=== PATIENT | male | born 1950 | race Caucasian/White ===

== ENCOUNTER 2022-06-29 12:58 | Inpatient (IN) ==
[2022-06-29] MEDS ORDERED: CEFEPIME 2,000 MG/20 ML VIAL IV STA (13:36)
[2022-06-29] MEDS ORDERED: SODIUM CHLORIDE 0.9% 1000ML 1,000 ML IV SCH (13:45)
[2022-06-29 14:58] LABS: Basophils # (auto) 0.07 K/uL (0-0.2); Basophils % (auto) 0.6 %; Eosinophils # (auto) 0.33 K/uL (0-0.50); Eosinophils % (auto) 2.9 %; Hematocrit (blood only) 37.1 % (42.0-52.0); Hemoglobin 11.7 g/dl (14.0-18.0); Immature Granulocytes # (auto) 0.07 K/uL (0.01-0.20); Immature Granulocytes % (auto) 0.6 %; Lymphocytes # (auto) 3.51 K/uL (1.2-3.4); Lymphocytes % (auto) 30.7 %; Mean Corpuscular Hgb Conc 31.5 g/dL (32.0-36.0); Mean Corpuscular Volume 88.8 fL (80.0-100.0); Mean Platelet Volume 10.4 fL (9.4-12.4); Monocytes # (auto) 1.19 K/uL (0.11-0.59); Monocytes % (auto) 10.4 %; Neutrophils # (auto) 6.26 K/uL (1.40-6.50); Neutrophils % (auto) 54.8 %; Platelet Count 239 K/uL (130-400); RDW Coefficient of Variation 15.3 % (11.5-14.5); RDW Standard Deviation 49.9 fL (36.4-46.3); Red Blood Count 4.18 M/uL (4.70-6.10); White Blood Count 11.43 K/ul (4.8-10.8)
[2022-06-29 15:21] LABS: Albumin Level 3.6 gm/dl (3.4-5.0); Bilirubin Direct 0.1 mg/dl (0-0.2); Bilirubin,Total 0.5 mg/dl (0.2-1.0); Calcium 9.2 mg/dl (8.6-10.3); Magnesium 2.4 mg/dl (1.7-2.4); Potassium 4.1 mmol/L (3.5-5.1)
[2022-06-29 15:23] LABS: Troponin I High Sensitivity 6.3 pg/ml (0-20)
[2022-06-29 15:27] LABS: BUN Creatinine Ratio 18.8 (10-20); Creatinine Clr Calc Pharmacy 55.8 ml/min; Est GFR (African American) 44.4 ml/min; Est GFR (Non-African American) 38.3 ml/min; Total Protein 7.2 gm/dl (6.0-8.3)
[2022-06-29 16:04] LABS: Appearance Urine Turbid (Clear); Bacteria Urine Automated 2+ (Negative); Bilirubin Urine Negative (Negative); Blood Urine 3+ (Negative); Color Urine Dark Yellow; Epithelial Cell Urine Auto >30 /lpf (0-5); Glucose Urine UA Negative (Negative); Ketones Urine Negative (Negative); Leukocyte Esterase Urine 3+ (Negative); Nitrite Urine Negative (Negative); Specific Gravity Urine 1.021 (1.000-1.030); Urobilinogen Urine Negative (Negative); WBC Urine Automated >30 /hpf (0-5)
[2022-06-29 16:13] LABS: Protein Urine 2+ (Negative)
--- NOTE | 2022-06-29 16:13 | XRay Report ---
SINGLE VIEW CHEST CLINICAL HISTORY: Sepsis. FINDINGS: An AP, portable, upright chest radiograph is obtained. No prior studies are available for c omparison at the time of dictation. The examination is degraded by portable technique, apical lordoti c positioning, and patient rotation. The heart is enlarged noting atherosclerotic calcification of th e thoracic. There is pulmonary vascular congestion. Bilateral opacities likely represent pulmonary ed tiffanie. Small pleural effusions are suspected. No pneumothorax is seen. The skeletal structures are oste openic. The bony thorax is grossly intact. IMPRESSION: 1. Cardiomegaly with evidence of congestive failure. 2. Bilateral airspace opacities likely represent pulmonary edema. Correlate clinically for evidence o f a superimposed infectious/inflammatory pneumonitis. Radiographic follow-up to resolution is recomme nded. 3. Suspect small pleural effusions. ACT 112: Negative or not required by law. Electronically signed by: Melo Urrutia M.D. 06/29/2022 4:12 PM
[2022-06-29 16:36] LABS: Amorphous Sediment Urine Present (None Prsent)
--- NOTE | 2022-06-29 17:02 | CT Scan Report ---
CT SCAN OF THE CHEST WITHOUT IV CONTRAST CLINICAL HISTORY: Aspiration. COMPARISON STUDY: Chest x-ray dated 06/29/2022. TECHNIQUE: CT scan of the thorax was performed from the thoracic inlet to the upper abdomen. Images are reviewed in the axial, sagittal, and coronal planes. IV contrast was not administered for this ex amination as per the referring clinician. A dose lowering technique was utilized adhering to the deborah nciples of [place]. The examination is degraded by streak artifact from the arms which could not be alonzo vated above the chest. The examination is also degraded by motion artifact. CT DOSE: 1131.91 mGy.cm FINDINGS: Thyroid: Imaged portions of the thyroid gland are normal in size and attenuation. Thoracic aorta: There is atherosclerotic calcification of the thoracic aorta, which is normal in elham yogi and demonstrates standard 3-vessel arch anatomy. Heart: The heart is enlarged and without pericardial effusion. The coronary arteries and mitral annul us are densely calcified. The pulmonary trunk is dilated, measuring 3.9 cm in diameter. This suggests pulmonary artery hypertension. Lungs and pleural spaces: Evaluation of the lung parenchyma is degraded by motion artifact. There are trace pleural effusions with dependent consolidation. Patchy airspace consolidation is also seen thr oughout the left upper lobe and in the right middle lobe. The trachea is grossly clear. Secretions/de bris are seen in the lower lobe airways. Mediastinum: There is no mediastinal lymphadenopathy. Thais: Not well assessed without IV contrast. Axillae: There is no axillary lymphadenopathy. Upper abdomen: There is a small hiatal hernia. The liver is enlarged and steatotic. The spleen is enl arged measuring 14.8 cm in length. Skeletal structures: The skeletal structures are osteopenic. Degenerative change and hyperkyphosis is seen throughout the thoracic spine. Arthritic change is noted in the shoulders. No lytic or blastic bony lesions are seen. IMPRESSION: 1. Small pleural effusions with dependent consolidation. There is also patchy airspace consolidation in the left upper and right middle lobes. The appearance is typical for pneumonia/aspiration pneumoni tis. Secretions/debris are present within the lower lobe airways and aspiration is favored as clinica lly suggested. 2. Cardiomegaly. 3. Small hiatal hernia. 4. Hepatic steatosis and splenomegaly. 5. Additional findings as above. ACT 112: Negative or not required by law. Electronically signed by: Melo Urrutia M.D. 06/29/2022 5:00 PM
--- NOTE | 2022-06-29 17:29 | History & Physical Report ---
Date of Service June 29, 2022 Assessment & Plan (1) Acute respiratory failure with hypoxia and hypercapnia: Plan: Suspect due to pneumonia rather than CHF. Imaging more suggestive of pneumonia than pulmonary edema with elevated WBC and procalcitonin and lack of improvement with diuretics. ABG suggests some chronic hypercapnia Baseline prior to recent admission in [place] he was on room air but very recently on 2LPM O2 baseline. Aim O2 sats 88-92% (2) Altered mental state: Plan: Despite poor mobility from prior stroke he is reportedly quite sharp at baseline Suspect current metabolic/toxic encephalopathy due to infection +/- methadone/Lyrica/tizanidine in setting of SILVA Polypharmacy and accurate med recs appears to be a big issue - [facility] dose of tizanidine, methadone are different to external pharmacy reported prescription, unclear if he takes ropinirole (noted to continue prescription from [facility] d/c) as not on external pharmacy report or discharge list from [facility]. Hold methadone tonight but can restart tomorrow AM @ 5mg PO BID (note [facility] d/c summary notes continue 2.5mg PO BID but last O/P prescription was for 5mg PO BID), reduce Lyrica to 50mg PO TID, reduce tizanidine to 2mg TID (noted external pharmacy reported prescription and [facility] discharge suggest he is taking 4mg TID at home). CT head without acute findings (3) Pneumonia: Plan: Cepheid negative for RSV, influenza and COVID. Given atypical pattern on CT will get Biofire. Given recent hospitalization will get MRSA nasal swab to determine need for MRSA coverage, add vancomycin if positive Cefepime + metronidazole to cover for aspiration pneumonia, SLT assessment tomorrow Azithromycin to cover for atypical pneumonia (4) Abdominal pain: Plan: Suspect this is somewhat chronic although could be a sign of UTI. No acute findings on CT. Continue to monitor (5) UTI (urinary tract infection): Plan: Alternative source of infection. No specific symptoms but patient also altered. UA from "clean" catch. Pt refusing better sample from straight/quiñones cath. Follow up urine/blood cultures. In setting of b/l staghorn calculus will have urology consulted while patient is inpatient (6) Elevated serum creatinine: Plan: Possible SILVA (but unknown basleine) in setting of losartan and recently increasing Lasix use ER report from 06/27 reports "mild SILVA" with Cr 1.6 and currently 1.76 on admission Will monitor Cr after ER fluids given and cutting back down on Lasix. Holding losartan. (7) Chronic congestive heart failure: Plan: Admitted 06/23- for acute CHF. Lasix increased from 20mg PO daily to 40mg PO BID on discharge. Advised to increase to 80mg PO BID on 06/27 ER visit due to worsening CXR findings although also noted to have "mild SILVA" suspected from Lasix use Unclear if all or part of these times were actually pneumonia rather than CHF given current diagnosis with concurrent altered mental state not explained by CHF and pt not getting better with diuretics and daughter reports his weight is significantly down. Therefore will go back to his prior Lasix dosing of 20mg PO daily given improved UO with IV fluids given in the ER and monitor closely for pulmonary edema perhaps with serial CXRs given difficulty in fluid balance since he is clearly third spacing. Strict I&Os Daily weights Low Na, fluid restricted diet CXR in AM TTE (8) Bilateral lower extremity edema: Plan: Suspect most likely from immobility with less mobility on left side but given LLE significant increased more than right and left calf pain present will get US venous doppler. (9) At risk for diabetes mellitus: Plan: Diagnosis per daughter rather than T2DM. HbA1C with AM labs Hold metformin and Ozempic Novolog: --Goal BSG Range: Low 110 mg/dL, High 140 mg/dL --Correction Factor: 45 mg/dL/unit --No carb ratio --BSGs ACHS if eating, q6h if npo Add basal dose if required (10) Chronic prescription opiate use: Plan: Continue methadone as above (11) Hypertension: Plan: Hypotensive in the ER, responded to IV fluids although lactate normal. ?hypotensive from recent increase in Lasix. Lasix dosing as above Stop losartan (12) Neuropathy: Plan: Continue Duloxetine Lyrica and Methadone as above (13) Constipation: Plan: Presumably opiate an lack of mobility induced Continue his usual Lactulose, Movantik (although I am not clear he is on this) and Senna (14) Coronary artery disease: Plan: No clear PA or catheterization previously Continue aspirin (15) Abnormal CT of the head: Plan: Daughter mentions he was supposed to follow up with a neurologist for a "growth" on his brain. Presumably this is the calcified 2.3cm lesion in the vicinity of the right M2. I do not believe therefore this represents an acute change and if renal function improves could consider CT angio prior to discharge as suspect this has been lost to follow up. (16) Seborrheic dermatitis: Plan: Ketoconazole cream BID (17) Depression: Plan: Continue duloxetine - based of external pharmacy reporting he is on 90mg daily (incorrect on [facility] discharge) (18) COPD (chronic obstructive pulmonary disease): Plan: Noted history of this on [facility] notes although no maintenance inhalers prescribed. No know prior PFTs. No current wheezing to suggest exacerbation. (19) MELINA (obstructive sleep apnea): Plan: BiPAP HS Follow up sleep study as outpatient if not recently performed (20) BPH (benign prostatic hyperplasia): Plan: Continue tamsulosin 0.4mg PO daily Bladder scan for PVR Plan VTE Prophyalxis - hold Xarelto as not clear he needs this for chronic prophyalxis and switch to heparin 7500 units q8h Diet - T2DM, heart healthy, Low Na, fluid restrict Disposition - admit to PCU Admission and Anticipated Discharge Date Admission Date: June 29, 2022 History of Present Illness Primary Care Provider: NO PCP Bryson Randolph is a 72 year old male with prior CVA and left sided weakness who presents to the ER via EMS from home (01/10 nursing care) due to hypoxia, shortness of breath and decreased urination. Unable to accurate history from the patient due to altered mental status as he thinks he was transferred from [facility] today and generally mentioning nonsensical things about his oxygen. Becomes more confused at times asking when the police will be here to take away the ammunition and seeing other people in the room e.g. a pillow who he thought was "a girl". Significant problems with getting a good history due to complex recent medical care at outside hospitals and completely new to this hospital. History obtained after hours of discussing with the patient, his daughter Jennifer who has guardianship and eventually able to get recent notes from [facility]. Baseline is he does not ambulate and uses kamla lift for all transfers. He was living at the [facility] home at [place] (he arrived with his med list from here but has changed multiple times since) and was discharged home with 24/7 care about 1.5 months ago. Despite his mobility issues he is usually very sharp. He went to [facility] ER on June 23 with left sided chest pain. Incidentally he still complains of this today but points to his abdomen. Serial troponins were negative. CTA was performed (per discharge summary on 06/19 although he was admitted on 06/23 therefore unclear if this was just a typo) which was negative for PE. CXR was concerning for pulmonary vascular congestion and he was diuresed with 1-2L daily and repeat CXR on discharge showed improvement. His basline O2 is on room air but he was still needing 2LPm O2 at rest on discharge and was discharged on this amount. Per his daughter he had significant problems remembering to keep this on. He was discharged on increased dose of Lasix from 20mg PO daily to 40mg PO BID. Xarelto was also started due to his decreased mobility for VTE prophylaxis as recommended by cardiology. He was also recommended to have sleep study as outpatient due to untreated MELINA. He returned to the ER on 06/27 due to nausea, vomiting and lightheadedness. He was noted to have a "mild SILVA" with Cr 1.6 (although I am not clear on his baseline). Reportedly this was in the setting of him not wearing his oxygen from his recent discharge and he was still requiring 2Pm O2. CXR was concerning for worsening CHF and recommended increasing Lasix to 80mg PO BID. Patient reportedly refused admission and he was discharged home which seemed reasonable since his O2 requirement had not got worse. On discussion with Jennifer his sister she reports his care givers were concerned about his progressively worsening mental state which was altered ever since his first discharge, worsening hypoxia today and decreased urine output. She has become disillusioned with the care he received at [facility] therefore advised EMS to take her to [facility]. His PCP is Dr Walls of [facility] in [facility] but she reports he has only seen him once. Allergies Allergy/AdvReac Type Severity Reaction Status Date / Time Penicillins Allergy Unknown Verified 06/29/22 22:41 Home Medications Medication Instructions Recorded Confirmed Type acetaminophen 325 mg tablet 650 mg PO Q4H PRN Pain 06/29/22 06/29/22 History acetaminophen 500 mg tablet 1,000 mg PO HS 06/29/22 06/29/22 History artificial tears solution eye drops 2 drp OPB QID 06/29/22 06/29/22 History aspirin 81 mg chewable tablet 81 mg PO DAILY 06/29/22 06/29/22 History atorvastatin 40 mg tablet 40 mg PO HS 06/29/22 06/29/22 History duloxetine 30 mg capsule,delayed 30 mg PO DAILY 06/29/22 06/30/22 History release ferrous sulfate 325 mg (65 mg 325 mg PO DAILY 06/29/22 06/29/22 History iron) tablet furosemide 40 mg tablet 40 mg PO BID 06/29/22 06/29/22 History guaifenesin 10 ml Q6H PRN Cough 06/29/22 06/29/22 History ipratropium-albuterol 3 ml inhalation Q4H PRN Shortness 06/29/22 06/29/22 History Of Breath lactulose 10 gram/15 mL oral 45 ml PO QID 06/29/22 06/29/22 History solution (Enulose) latanoprost 0.005 % eye drops 1 drp OPB HS 06/29/22 06/29/22 History losartan 100 mg tablet 100 mg PO DAILY 06/29/22 06/29/22 History magnesium hydroxide 400 mg/5 mL 30 ml PO DIRECTED PRN 06/29/22 06/29/22 History oral suspension (Milk of Magnesia) Constipation metformin 500 mg tablet 500 mg PO BID 06/29/22 06/29/22 History methadone 5 mg tablet 5 mg PO BID 06/29/22 06/29/22 History naloxegol 25 mg tablet (Movantik) 25 mg PO DAILY 06/29/22 06/29/22 History potassium chloride 10 mEq 10 meq PO DAILY 06/29/22 06/29/22 History capsule,extended release pregabalin 200 mg capsule 200 mg PO TID 06/29/22 06/29/22 History rivaroxaban 10 mg tablet (Xarelto) 10 mg PO HS 06/29/22 06/29/22 History semaglutide 1 mg/dose (4 mg/3 mL) 1 mg subcut WK 06/29/22 06/29/22 History subcutaneous pen injector (Ozempic) sennosides 8.6 mg-docusate sodium 2 tab PO DAILY 06/29/22 06/29/22 History 50 mg tablet (Senexon-S) tamsulosin 0.4 mg capsule 0.4 mg PO HS 06/29/22 06/29/22 History tizanidine 4 mg tablet 2 mg PO TID PRN Muscle Spasm 06/29/22 06/30/22 History triamcinolone acetonide 0.1 % 1 applic topical Q6H PRN Rash 06/29/22 06/29/22 History topical cream duloxetine 60 mg capsule,delayed 60 mg PO DAILY 06/30/22 06/30/22 History release Past Med/Surg History Medical History (Updated 06/30/22 @ 01:18 by Raymond Soriano MD) At risk for diabetes mellitus BPH (benign prostatic hyperplasia) Chronic constipation Chronic prescription opiate use Congestive heart failure Constipation COPD (chronic obstructive pulmonary disease) Coronary artery disease Depression History of stroke 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 Hyperlipidemia Hypertension Neuropathy MELINA (obstructive sleep apnea) Surgical History (Updated 06/29/22 @ 20:42 by Raymond Soriano MD) No significant past surgical history Social History Smoking Status: Never smoker Preferred Language: Slovak Feels Safe at Home: Yes Review of Systems Review of Systems: All systems reviewed & are unremarkable except as noted in HPI & below 20lb weight loss over last 2-3 weeks, decreased appetite, decreased urination Physical Exam Constitutional: well developed; + not well nourished and no acute distress Eyes: PERRL, conjunctivae normal, anicteric sclerae ENMT: external ear and nose normal, oropharynx normal Neck: trachea midline, no thyromegaly + thick neck Respiratory: + labored breathing and + uses accessory muscles; + not able to speak in complete sentence, expiratory phase not prolonged, no audible wheezes and no stridor Auscultation: + diminished lung sounds (throughout) and + rhonchi (b/l); no wheezes Cardiovascular: Rate/Rhythm: regular rate and regular rhythm Heart Sounds: no murmur Vessels: no JVD Extremities: normal capillary refill, + calf tenderness (left sided) and + pedal edema (3+ LLE, 2+ RLE) Gastrointestinal (Abdomen): Inspection/Auscultation: + abdomen distended Percussion/Palpation: + abdomen tender (left sided) and abdomen soft; no guarding and abdomen not rigid Skin: seborrheic dermatitis on face and scalp with crusting and erythema Neurologic: awake and + confused; + does not move all extremities (no movement of LUE and limited movement LLE/RLE) Speech / Cognition: + abnormal cognition; normal speech Motor/Sensory: no asterixis Cranial Nerves: PERRL, EOM intact bilaterally, tongue midline, able to rotate head bilaterally, able to elevate shoulders bilaterally and symmetric palate elevation; + abnormal facial strength (drooping of left lip) Psychiatric: Orientation: alert and oriented to person; + not oriented to place and + not oriented to time Results & Data Results & Data Vital Signs (Past 12 Hours) Vital Signs Temp Pulse Pulse Resp BP BP Pulse Ox 06/29/22 14:30 60 24 90/62 L 97 06/29/22 13:25 94 06/29/22 13:14 06/29/22 13:14 36.6 C 64 26 H 137/110 H 85 L 06/29/22 13:13 57 L O2 Del Method O2 Flow Rate 06/29/22 14:30 Nasal Cannula 4 06/29/22 13:25 Nasal Cannula 4 06/29/22 13:14 Nasal Cannula 4 06/29/22 13:14 Nasal Cannula 2 06/29/22 13:13 Laboratory Results Abnormal lab results 06/29/22 06/29/22 06/29/22 Range/Units 14:04 14:04 14:04 WBC 11.43 H (4.8-10.8) K/ul RBC 4.18 L (4.70-6.10) M/uL Hgb 11.7 L (14.0-18.0) g/dl Hct 37.1 L (42.0-52.0) % MCHC 31.5 L (32.0-36.0) g/dL RDW Std Deviation 49.9 H (36.4-46.3) fL RDW Coeff of Fam 15.3 H (11.5-14.5) % Lymph # (Auto) 3.51 H (1.2-3.4) K/uL [place] # (Auto) 1.19 H (0.11-0.59) K/uL Chloride 94 L (98-107) mmol/L Carbon Dioxide 34 H (21-32) mmol/L BUN 33 H (6-23) mg/dl Creatinine 1.76 H (0.6-1.4) mg/dl Glucose 125 H (70-99(Fasting)) mg/dl AST 12 L (13-39) U/L Procalcitonin 0.74 H (0-0.5) ng/ml Urine Appearance (Clear) Urine pH (4.5-7.5) Urine Protein (Negative) Urine Blood (Negative) Ur Leukocyte Esterase (Negative) Urine WBC (Auto) (0-5) /hpf Urine RBC (Auto) (0-4) /hpf U Hyaline Cast (Auto) (0-5) /lpf U Epithel Cells (Auto) (0-5) /lpf Urine Bacteria (Auto) (Negative) Urine Crystals (None Prsent) Amorphous Sediment (None Prsent) 06/29/22 Range/Units 15:23 WBC (4.8-10.8) K/ul RBC (4.70-6.10) M/uL Hgb (14.0-18.0) g/dl Hct (42.0-52.0) % MCHC (32.0-36.0) g/dL RDW Std Deviation (36.4-46.3) fL RDW Coeff of Fam (11.5-14.5) % Lymph # (Auto) (1.2-3.4) K/uL [place] # (Auto) (0.11-0.59) K/uL Chloride (98-107) mmol/L Carbon Dioxide (21-32) mmol/L BUN (6-23) mg/dl Creatinine (0.6-1.4) mg/dl Glucose (70-99(Fasting)) mg/dl AST (13-39) U/L Procalcitonin (0-0.5) ng/ml Urine Appearance Turbid A (Clear) Urine pH 8.0 H (4.5-7.5) Urine Protein 2+ H (Negative) Urine Blood 3+ H (Negative) Ur Leukocyte Esterase 3+ H (Negative) Urine WBC (Auto) >30 H (0-5) /hpf Urine RBC (Auto) 10-30 H (0-4) /hpf U Hyaline Cast (Auto) 5-10 H (0-5) /lpf U Epithel Cells (Auto) >30 H (0-5) /lpf Urine Bacteria (Auto) 2+ H (Negative) Urine Crystals Triple Phosphate A (None Prsent) Amorphous Sediment Present A (None Prsent) Diagnostic Findings SINGLE VIEW CHEST CLINICAL HISTORY: Sepsis. FINDINGS: An AP, portable, upright chest radiograph is obtained. No prior studies are available for comparison at the time of dictation. The examination is degraded by portable technique, apical lordotic positioning, and patient rotation. The heart is enlarged noting atherosclerotic calcification of the thoracic. There is pulmonary vascular congestion. Bilateral opacities likely represent pulmonary edema. Small pleural effusions are suspected. No pneumothorax is seen. The skeletal structures are osteopenic. The bony thorax is grossly intact. IMPRESSION: 1. Cardiomegaly with evidence of congestive failure. 2. Bilateral airspace opacities likely represent pulmonary edema. Correlate c linically for evidence of a superimposed infectious/inflammatory pneumonitis. Radiographic follow-up to resolution is recommended. 3. Suspect small pleural effusions. CT SCAN OF THE CHEST WITHOUT IV CONTRAST CLINICAL HISTORY: Aspiration. COMPARISON STUDY: Chest x-ray dated 06/29/2022. TECHNIQUE: CT scan of the thorax was performed from the thoracic inlet to the upper abdomen. Images are reviewed in the axial, sagittal, and coronal planes. IV contrast was not administered for this examination as per the referring clinician. A dose lowering technique was utilized adhering to the principles of ALARA. The examination is degraded by streak artifact from the arms which could not be elevated above the chest. The examination is also degraded by motion artifact. CT DOSE: 1131.91 mGy.cm FINDINGS: Thyroid: Imaged portions of the thyroid gland are normal in size and attenuation. Thoracic aorta: There is atherosclerotic calcification of the thoracic aorta, which is normal in caliber and demonstrates standard 3-vessel arch anatomy. Heart: The heart is enlarged and without pericardial effusion. The coronary arteries and mitral annulus are densely calcified. The pulmonary trunk is dilated, measuring 3.9 cm in diameter. This suggests pulmonary artery hypertension. Lungs and pleural spaces: Evaluation of the lung parenchyma is degraded by motion artifact. There are trace pleural effusions with dependent consolidation. Patchy airspace consolidation is also seen throughout the left upper lobe and in the right middle lobe. The trachea is grossly clear. Secretions/debris are seen in the lower lobe airways. Mediastinum: There is no mediastinal lymphadenopathy. Thais: Not well assessed without IV contrast. Axillae: There is no axillary lymphadenopathy. Upper abdomen: There is a small hiatal hernia. The liver is enlarged and steatotic. The spleen is enlarged measuring 14.8 cm in length. Skeletal structures: The skeletal structures are osteopenic. Degenerative change and hyperkyphosis is seen throughout the thoracic spine. Arthritic change is noted in the shoulders. No lytic or blastic bony lesions are seen. IMPRESSION: 1. Small pleural effusions with dependent consolidation. There is also patchy airspace consolidation in the left upper and right middle lobes. The appearance is typical for pneumonia/aspiration pneumonitis. Secretions/debris are present within the lower lobe airways and aspiration is favored as clinically suggested. 2. Cardiomegaly. 3. Small hiatal hernia. 4. Hepatic steatosis and splenomegaly. 5. Additional findings as above. Medications Administered ER Medications Given: Cefepime 2g IV NSS 1L bolus ECG Rate (beats per minute): 58 Rhythm: sinus bradycardia Findings: + other (T wave flattening anteriorly) and + 1st degree AV block Comparison ECG Date: no prior available Code Status & VTE Plan Code Status Full VTE Prophylaxis Plan VTE Prophylaxis will be ordered: Yes Critical Care Time Prolonged Care Time Prolonged Care Time: Yes Total Prolonged Care Time: 140 PG Care Time/CCT Total # of Minutes Spent Total Time Spent with Patient: Total time spent is greater than 50% in coordination of care (as documented) at patient's floor/unit and/or counseling patient: Prolonged Care Time Prolonged Care Time: Yes Total Prolonged Care Time: 140 Coding Level of Care Code 99889 INT INP/OBS CARE 3/75MIN Diagnoses Acute respiratory failure with hypoxia and hypercapnia J96.01; J96.02 Altered mental state R41.82 Pneumonia J18.9 Abdominal pain R10.9 UTI (urinary tract infection) N39.0 Elevated serum creatinine R79.89 Chronic congestive heart failure I50.9 Bilateral lower extremity edema R60.0 At risk for diabetes mellitus Z91.89 Chronic prescription opiate use Z79.891 Hypertension I10 Neuropathy G62.9 Constipation K59.00 Coronary artery disease I25.[address] of the head R93.0 Seborrheic dermatitis L21.9 Depression F32.A COPD (chronic obstructive pulmonary disease) J44.9 MELINA (obstructive sleep apnea) G47.33 BPH (benign prostatic hyperplasia) N40.0 Additional Codes Prolonged Care Time - Prolonged Care Time: Yes ([id number])
--- NOTE | 2022-06-29 18:10 | Electrocardiogram Report ---
Test Reason : Blood Pressure : / mmHG Vent. Rate : 058 BPM Atrial Rate : 058 BPM P-R Int : 214 ms QRS Dur : 112 ms QT Int : 460 ms P-R-T Axes : 071 084 042 degrees QTc Int : 451 ms Sinus bradycardia with 1st degree A-V block T wave abnormality, consider anterior ischemia Abnormal ECG No previous ECGs available Confirmed by Arpit Hayes [id number] on 06/29/2022 6:10:01 PM Referred By: Confirmed By:Raz Hayes
--- NOTE | 2022-06-29 18:50 | Emergency Department Note ---
Impression & Plan Aspiration into respiratory tract, H/O: stroke, Hemiplegia ED Provider Note CHIEF COMPLAINT: Shortness of breath, decreased urination HISTORY OF PRESENT ILLNESS: This 72-year-old man patient with past medical history of type 2 diabetes, morbid obesity, history of stroke, staghorn calculus, congestive heart failure, respiratory failure, CAD, COPD, hypertension, chronic opioid pain management presents to the emergency department with complaints of shortness of breath and decreased urination. Patient states he does sometimes choke when he eats and admits to a cough. He is uncertain if he has had a fever. Patient uses a [employer] lift for transfers. REVIEW OF SYSTEMS: A review of systems was performed with positives and pertinent negatives listed in the history of present illness. 10 systems were reviewed and are otherwise negative. ALLERGIES: see below MEDICATIONS: see below PMH: see below SOCIAL HISTORY: see below DDx: Reactive airway disease, pneumonia, aspiration, pneumothorax, COPD, CHF, cardiac ischemia, pulmonary embolism, musculoskeletal, gastrointestinal, as well as other pathologies. PHYSICAL EXAM: Vital signs reviewed. General: Chronically ill-appearing 72-year-old male HEENT: No scleral icterus, PERRLA, neck supple. Atraumatic. Moist mucous membranes. Cardiovascular: Regular rate and rhythm, no extra sounds. Pulmonary: Clear to auscultation bilaterally, normal work of breathing. Abdomen: Soft, obese, nontender, nondistended, positive bowel sounds. Musculoskeletal: Atraumatic, no peripheral edema. Neurologic: Patient awake alert and pleasantly confused, answers some questions appropriately mild asymmetry of the lip. Hemiplegic left upper extremity, atrophy of the bilateral lower extremities with mild edema. Skin: Warm, dry, no rash EMERGENCY DEPARTMENT COURSE/MDM: This patient was evaluated and appeared to be in no significant distress. Patient's external medical records were reviewed. IV access was obtained and laboratory work was drawn. Blood cultures were obtained. Patient was hydrated with normal saline solution and medicated with IV cefepime. Patient was resting comfortably on nasal cannula oxygen. Chest x- ray was concerning for failure. CT imaging of the chest was performed and reveals evidence of aspiration. Patient's case was discussed with the hospitalist service to evaluate the patient for admission and further management. MONITORING: An order for cardiac monitoring was placed and the patient is noted to be in a sinus bradycardia 56 beats per minute. RADIOLOGY: Chest x-ray to my interpretation reveals evidence of congestive change left greater than right CT imaging of the chest per radiology reveals small pleural effusions with dependent consolidation. There is also patchy airspace consolidation in the left upper and right middle lobes. The appearance is typical for pneumonia/aspiration pneumonitis. Secretions/debris are present within the lower lobe airways and aspiration is favored as clinically suggested. Otherwise defer to formal read below. EKG: To my interpretation reveals a sinus bradycardia with a first-degree AV block, 58 bpm. T wave abnormality in the anterior leads. QTc is 451. No previous EKGs available. DISPOSITION: Admission Past Med/Surg History Medical History At risk for diabetes mellitus BPH (benign prostatic hyperplasia) Chronic constipation Chronic prescription opiate use Congestive heart failure Constipation COPD (chronic obstructive pulmonary disease) Coronary artery disease Depression History of stroke 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 Hyperlipidemia Hypertension Neuropathy MELINA (obstructive sleep apnea) Surgical History No significant past surgical history Social History Smoking Status: Never smoker Do You Dip or Chew Tobacco: No; Hx Alcohol Use: No Hx Substance Use: No Preferred Language: Greenlandic Communication Ability: Impaired Director Of [employer] Required: No Beliefs That Will Affect Care: None Current Living Situation: Alone and Other Current Living Situation Comment: home health Other Information That Helps Us Care for You: No Feels Safe at Home: Yes Safety Concerns: Feels Safe At This Time Assistive Devices: Hospital Bed, Mechanical Lift, Oxygen - Continuous and Wheelchair Allergies Allergies Allergy/AdvReac Type Severity Reaction Status Date / Time Penicillins Allergy Unknown Verified 06/29/22 22:41 Home Meds Home Medications Medication Instructions Recorded Confirmed acetaminophen 325 mg tablet 650 mg PO Q4H PRN Pain 06/29/22 06/29/22 acetaminophen 500 mg tablet 1,000 mg PO HS 06/29/22 06/29/22 artificial tears solution eye drops 2 drp OPB QID 06/29/22 06/29/22 aspirin 81 mg chewable tablet 81 mg PO DAILY 06/29/22 06/29/22 atorvastatin 40 mg tablet 40 mg PO HS 06/29/22 06/29/22 duloxetine 30 mg capsule,delayed 30 mg PO DAILY 06/29/22 06/30/22 release ferrous sulfate 325 mg (65 mg 325 mg PO DAILY 06/29/22 06/29/22 iron) tablet furosemide 40 mg tablet 40 mg PO BID 06/29/22 06/29/22 guaifenesin 10 ml Q6H PRN Cough 06/29/22 06/29/22 ipratropium-albuterol 3 ml inhalation Q4H PRN Shortness 06/29/22 06/29/22 Of Breath lactulose 10 gram/15 mL oral 45 ml PO QID 06/29/22 06/29/22 solution (Enulose) latanoprost 0.005 % eye drops 1 drp OPB HS 06/29/22 06/29/22 losartan 100 mg tablet 100 mg PO DAILY 06/29/22 06/29/22 magnesium hydroxide 400 mg/5 mL 30 ml PO DIRECTED PRN 06/29/22 06/29/22 oral suspension (Milk of Magnesia) Constipation metformin 500 mg tablet 500 mg PO BID 06/29/22 06/29/22 methadone 5 mg tablet 5 mg PO BID 06/29/22 06/29/22 naloxegol 25 mg tablet (Movantik) 25 mg PO DAILY 06/29/22 06/29/22 potassium chloride 10 mEq 10 meq PO DAILY 06/29/22 06/29/22 capsule,extended release pregabalin 200 mg capsule 200 mg PO TID 06/29/22 06/29/22 rivaroxaban 10 mg tablet (Xarelto) 10 mg PO HS 06/29/22 06/29/22 semaglutide 1 mg/dose (4 mg/3 mL) 1 mg subcut WK 06/29/22 06/29/22 subcutaneous pen injector (Ozempic) sennosides 8.6 mg-docusate sodium 2 tab PO DAILY 06/29/22 06/29/22 50 mg tablet (Senexon-S) tamsulosin 0.4 mg capsule 0.4 mg PO HS 06/29/22 06/29/22 tizanidine 4 mg tablet 2 mg PO TID PRN Muscle Spasm 06/29/22 06/30/22 triamcinolone acetonide 0.1 % 1 applic topical Q6H PRN Rash 06/29/22 06/29/22 topical cream duloxetine 60 mg capsule,delayed 60 mg PO DAILY 06/30/22 06/30/22 release Results & Data (ED) Vital Signs Vital Signs - 24 hr 06/29/22 13:13 06/29/22 13:14 06/29/22 13:14 Temperature 36.6 C Temperature Source Oral Pulse Rate 57 L 64 Pulse Rate [Apical] Pulse Rhythm [Apical] Respiratory Rate 26 H Respiratory Effort / Characteristics Short of Breath Short of Breath Respiratory Pattern Regular Regular Blood Pressure 137/110 H Blood Pressure [Right Radial Artery] Blood Pressure Mean 119 Blood Pressure Mean [Right Radial Artery] Blood Pressure Position Lying Blood Pressure Position [Right Radial Artery] Pulse Oximetry 85 L Oxygen Delivery Method Nasal Cannula Nasal Cannula Oxygen Flow Rate 2 4 Sepsis Recent Fever Within 48 Hours No Sepsis New/Unexplained Change in Mental Status No Sepsis Action Taken by Nursing No Action Required 06/29/22 13:25 06/29/22 14:30 06/29/22 17:48 Temperature Temperature Source Pulse Rate 70 Pulse Rate [Apical] 60 Pulse Rhythm [Apical] Regular Respiratory Rate 24 Respiratory Effort / Characteristics Spontaneous Respiratory Pattern Regular Blood Pressure Blood Pressure [Right Radial Artery] 90/62 L Blood Pressure Mean Blood Pressure Mean [Right Radial Artery] 71 Blood Pressure Position Blood Pressure Position [Right Radial Artery] Lying Pulse Oximetry 94 97 Oxygen Delivery Method Nasal Cannula Nasal Cannula Oxygen Flow Rate 4 4 Sepsis Recent Fever Within 48 Hours Sepsis New/Unexplained Change in Mental Status Sepsis Action Taken by [facility] Medications Current Medication List: was personally reviewed by me Laboratory Data Attestation: I reviewed the patient's lab results. 06/29/22 14:04 06/29/22 14:04 Lab Results 06/29/22 06/29/22 06/29/22 Range/Units 14:04 14:04 14:04 WBC 11.43 H (4.8-10.8) K/ul RBC 4.18 L (4.70-6.10) M/uL Hgb 11.7 L (14.0-18.0) g/dl Hct 37.1 L (42.0-52.0) % MCV 88.8 (80.0-100.0) fL MCH 28.0 (25.0-34.0) pg MCHC 31.5 L (32.0-36.0) g/dL RDW Std Deviation 49.9 H (36.4-46.3) fL RDW Coeff of Fam 15.3 H (11.5-14.5) % Plt Count 239 (130-400) K/uL MPV 10.4 (9.4-12.4) fL Immature Gran % (Auto) 0.6 % Neut % (Auto) 54.8 % Lymph % (Auto) 30.7 % Robeson % (Auto) 10.4 % Eos % (Auto) 2.9 % Baso % (Auto) 0.6 % Neut # (Auto) 6.26 (1.40-6.50) K/uL Lymph # (Auto) 3.51 H (1.2-3.4) K/uL Robeson # (Auto) 1.19 H (0.11-0.59) K/uL Eos # (Auto) 0.33 (0-0.50) K/uL Baso # (Auto) 0.07 (0-0.2) K/uL Immature Gran # (Auto) 0.07 (0.01-0.20) K/uL ABG pH (7.35-7.45) ABG pCO2 (35-46) mmHg ABG pO2 (80-95) mmHg ABG HCO3 (19-24) mmol/L ABG O2 Saturation (90-95) % ABG Base Excess (-9-1.8) mEq/L Patric Test (Pos) Oxygen Given Sodium 136 (136-145) mmol/L Potassium 4.1 (3.5-5.1) mmol/L Chloride 94 L (98-107) mmol/L Carbon Dioxide 34 H (21-32) mmol/L Anion Gap 8 (3-11) BUN 33 H (6-23) mg/dl Creatinine 1.76 H (0.6-1.4) mg/dl Est Cr Clr Drug Dosing 55.8 ml/min Est GFR ( Amer) 44.4 ml/min Est GFR (Non-Af Amer) 38.3 ml/min BUN/Creatinine Ratio 18.8 (10-20) Glucose 125 H (70-99(Fasting)) mg/dl Lactate 1.3 (0.4-2.0) mmol/L Calcium 9.2 (8.6-10.3) mg/dl Magnesium 2.4 (1.7-2.4) mg/dl Total Bilirubin 0.5 (0.2-1.0) mg/dl Direct Bilirubin 0.1 (0-0.2) mg/dl AST 12 L (13-39) U/L ALT 16 (7-52) U/L Alkaline Phosphatase 101 (34-104) U/L Ammonia (18-72) umol/L Troponin I High Sens 6.3 (0-20) pg/ml B-Natriuretic Peptide (0-100) pg/ml Total Protein 7.2 (6.0-8.3) gm/dl Albumin 3.6 (3.4-5.0) gm/dl Procalcitonin (0-0.5) ng/ml Urine Color Urine Appearance (Clear) Urine pH (4.5-7.5) Ur Specific [place] (1.000-1.030) Urine Protein (Negative) Urine Glucose (UA) (Negative) Urine Ketones (Negative) Urine Blood (Negative) Urine Nitrite (Negative) Urine Bilirubin (Negative) Urine Urobilinogen (Negative) Ur Leukocyte Esterase (Negative) Urine WBC (Auto) (0-5) /hpf Urine RBC (Auto) (0-4) /hpf U Hyaline Cast (Auto) (0-5) /lpf U Epithel Cells (Auto) (0-5) /lpf Urine Bacteria (Auto) (Negative) Urine Crystals (None Prsent) Amorphous Sediment (None Prsent) Urine Yeast SARS-CoV-2 (PCR) (Negative) Influenza Type A (PCR) (Neg) Influenza Type B (PCR) (Neg) RSV (RT-PCR) (Neg) 06/29/22 06/29/22 06/29/22 Range/Units 14:04 15:23 18:55 WBC (4.8-10.8) K/ul RBC (4.70-6.10) M/uL Hgb (14.0-18.0) g/dl Hct (42.0-52.0) % MCV (80.0-100.0) fL MCH (25.0-34.0) pg MCHC (32.0-36.0) g/dL RDW Std Deviation (36.4-46.3) fL RDW Coeff of Fam (11.5-14.5) % Plt Count (130-400) K/uL MPV (9.4-12.4) fL Immature Gran % (Auto) % Neut % (Auto) % Lymph % (Auto) % Robeson % (Auto) % Eos % (Auto) % Baso % (Auto) % Neut # (Auto) (1.40-6.50) K/uL Lymph # (Auto) (1.2-3.4) K/uL Robeson # (Auto) (0.11-0.59) K/uL Eos # (Auto) (0-0.50) K/uL Baso # (Auto) (0-0.2) K/uL Immature Gran # (Auto) (0.01-0.20) K/uL ABG pH (7.35-7.45) ABG pCO2 (35-46) mmHg ABG pO2 (80-95) mmHg ABG HCO3 (19-24) mmol/L ABG O2 Saturation (90-95) % ABG Base Excess (-9-1.8) mEq/L Patric Test (Pos) Oxygen Given Sodium (136-145) mmol/L Potassium (3.5-5.1) mmol/L Chloride (98-107) mmol/L Carbon Dioxide (21-32) mmol/L Anion Gap (3-11) BUN (6-23) mg/dl Creatinine (0.6-1.4) mg/dl Est Cr Clr Drug Dosing ml/min Est GFR ( Amer) ml/min Est GFR (Non-Af Amer) ml/min BUN/Creatinine Ratio (10-20) Glucose (70-99(Fasting)) mg/dl Lactate (0.4-2.0) mmol/L Calcium (8.6-10.3) mg/dl Magnesium (1.7-2.4) mg/dl Total Bilirubin (0.2-1.0) mg/dl Direct Bilirubin (0-0.2) mg/dl AST (13-39) U/L ALT (7-52) U/L Alkaline Phosphatase (34-104) U/L Ammonia (18-72) umol/L Troponin I High Sens (0-20) pg/ml B-Natriuretic Peptide (0-100) pg/ml Total Protein (6.0-8.3) gm/dl Albumin (3.4-5.0) gm/dl Procalcitonin 0.74 H (0-0.5) ng/ml Urine Color Dark Yellow Urine Appearance Turbid A (Clear) Urine pH 8.0 H (4.5-7.5) Ur Specific [place] 1.021 (1.000-1.030) Urine Protein 2+ H (Negative) Urine Glucose (UA) Negative (Negative) Urine Ketones Negative (Negative) Urine Blood 3+ H (Negative) Urine Nitrite Negative (Negative) Urine Bilirubin Negative (Negative) Urine Urobilinogen Negative (Negative) Ur Leukocyte Esterase 3+ H (Negative) Urine WBC (Auto) >30 H (0-5) /hpf Urine RBC (Auto) 10-30 H (0-4) /hpf U Hyaline Cast (Auto) 5-10 H (0-5) /lpf U Epithel Cells (Auto) >30 H (0-5) /lpf Urine Bacteria (Auto) 2+ H (Negative) Urine Crystals Triple Phosphate A (None Prsent) Amorphous Sediment Present A (None Prsent) Urine Yeast Not Reportable SARS-CoV-2 (PCR) NEGATIVE (Negative) Influenza Type A (PCR) Negative (Neg) Influenza Type B (PCR) Negative (Neg) RSV (RT-PCR) Negative (Neg) 06/29/22 06/29/22 06/29/22 Range/Units 19:12 19:12 19:14 WBC (4.8-10.8) K/ul RBC (4.70-6.10) M/uL Hgb (14.0-18.0) g/dl Hct (42.0-52.0) % MCV (80.0-100.0) fL MCH (25.0-34.0) pg MCHC (32.0-36.0) g/dL RDW Std Deviation (36.4-46.3) fL RDW Coeff of Fam (11.5-14.5) % Plt Count (130-400) K/uL MPV (9.4-12.4) fL Immature Gran % (Auto) % Neut % (Auto) % Lymph % (Auto) % Robeson % (Auto) % Eos % (Auto) % Baso % (Auto) % Neut # (Auto) (1.40-6.50) K/uL Lymph # (Auto) (1.2-3.4) K/uL Robeson # (Auto) (0.11-0.59) K/uL Eos # (Auto) (0-0.50) K/uL Baso # (Auto) (0-0.2) K/uL Immature Gran # (Auto) (0.01-0.20) K/uL ABG pH 7.41 (7.35-7.45) ABG pCO2 54 H (35-46) mmHg ABG pO2 74 L (80-95) mmHg ABG HCO3 34 H (19-24) mmol/L ABG O2 Saturation 96.1 H (90-95) % ABG Base Excess 7.8 H (-9-1.8) mEq/L Patric Test POS (Pos) Oxygen Given 4L O2 Sodium (136-145) mmol/L Potassium (3.5-5.1) mmol/L Chloride (98-107) mmol/L Carbon Dioxide (21-32) mmol/L Anion Gap (3-11) BUN (6-23) mg/dl Creatinine (0.6-1.4) mg/dl Est Cr Clr Drug Dosing ml/min Est GFR ( Amer) ml/min Est GFR (Non-Af Amer) ml/min BUN/Creatinine Ratio (10-20) Glucose (70-99(Fasting)) mg/dl Lactate (0.4-2.0) mmol/L Calcium (8.6-10.3) mg/dl Magnesium (1.7-2.4) mg/dl Total Bilirubin (0.2-1.0) mg/dl Direct Bilirubin (0-0.2) mg/dl AST (13-39) U/L ALT (7-52) U/L Alkaline Phosphatase (34-104) U/L Ammonia 26.0 (18-72) umol/L Troponin I High Sens (0-20) pg/ml B-Natriuretic Peptide 43 (0-100) pg/ml Total Protein (6.0-8.3) gm/dl Albumin (3.4-5.0) gm/dl Procalcitonin (0-0.5) ng/ml Urine Color Urine Appearance (Clear) Urine pH (4.5-7.5) Ur Specific [place] (1.000-1.030) Urine Protein (Negative) Urine Glucose (UA) (Negative) Urine Ketones (Negative) Urine Blood (Negative) Urine Nitrite (Negative) Urine Bilirubin (Negative) Urine Urobilinogen (Negative) Ur Leukocyte Esterase (Negative) Urine WBC (Auto) (0-5) /hpf Urine RBC (Auto) (0-4) /hpf U Hyaline Cast (Auto) (0-5) /lpf U Epithel Cells (Auto) (0-5) /lpf Urine Bacteria (Auto) (Negative) Urine Crystals (None Prsent) Amorphous Sediment (None Prsent) Urine Yeast SARS-CoV-2 (PCR) (Negative) Influenza Type A (PCR) (Neg) Influenza Type B (PCR) (Neg) RSV (RT-PCR) (Neg) Administered Medications Acetaminophen (Acetaminophen 325 Mg Tab) 650 mg PO Q4H PRN PRN Reason: Pain or Fever Stop: 07/29/22 23:05 Last Admin: 07/04/22 02:53 Dose: 650 mg Documented By: Admin: 07/02/22 23:30 Dose: 650 mg Documented By: Admin: 07/02/22 09:02 Dose: 650 mg Documented By: Admin: 07/01/22 18:42 Dose: 650 mg Documented By: BIENVENIDO Acetaminophen (Acetaminophen 500 Mg Tab) 1,000 mg PO HS ROSALBA Stop: 07/29/22 23:39 Last Admin: 07/04/22 20:14 Dose: 1,000 mg Documented By: Admin: 07/03/22 20:40 Dose: 1,000 mg Documented By: Admin: 07/02/22 20:12 Dose: 1,000 mg Documented By: Admin: 07/01/22 21:36 Dose: 1,000 mg Documented By: Admin: 06/30/22 20:55 Dose: 1,000 mg Documented By: FILTERATION OPERATOR Admin: 06/30/22 00:32 Dose: 1,000 mg Documented By: FILTERATION OPERATOR Artificial Tears (Artificial Tears) 2 drops OP QID ROSALBA Stop: 07/30/22 08:59 Last Admin: 07/04/22 20:16 Dose: 2 drops Documented By: Admin: 07/04/22 16:11 Dose: Not Given Documented By: Admin: 07/04/22 13:13 Dose: Not Given Documented By: Admin: 07/04/22 09:29 Dose: Not Given Documented By: Admin: 07/03/22 20:41 Dose: 2 drops Documented By: Admin: 07/03/22 15:41 Dose: Not Given Documented By: Admin: 07/03/22 14:52 Dose: Not Given Documented By: Admin: 07/03/22 08:47 Dose: Not Given Documented By: Admin: 07/02/22 20:27 Dose: 2 drops Documented By: Admin: 07/02/22 18:10 Dose: 2 drops Documented By: Admin: 07/02/22 13:46 Dose: 2 drops Documented By: Admin: 07/02/22 09:03 Dose: 2 drops Documented By: Admin: 07/01/22 21:37 Dose: 2 drops Documented By: FILTERATION OPERATOR Admin: 07/01/22 16:53 Dose: Not Given Documented By: Admin: 07/01/22 12:48 Dose: 2 drops Documented By: Admin: 07/01/22 09:09 Dose: Not Given Documented By: Admin: 06/30/22 20:55 Dose: 2 drops Documented By: FILTERATION OPERATOR Admin: 06/30/22 17:35 Dose: 2 drops Documented By: Admin: 06/30/22 12:30 Dose: 2 drops Documented By: Admin: 06/30/22 08:22 Dose: 2 drops Documented By: CONOR Aspirin (Aspirin 81 Mg Chew) 81 mg PO DAILY ROSALBA Stop: 07/30/22 08:59 Last Admin: 07/04/22 09:28 Dose: 81 mg Documented By: Admin: 07/03/22 08:45 Dose: 81 mg Documented By: Admin: 07/02/22 08:58 Dose: 81 mg Documented By: Admin: 07/01/22 09:08 Dose: 81 mg Documented By: Admin: 06/30/22 08:16 Dose: 81 mg Documented By: CONOR Atorvastatin Calcium (Atorvastatin 40 Mg Tab) 40 mg PO HS ROSALBA Stop: 07/29/22 23:05 Last Admin: 07/04/22 20:16 Dose: 40 mg Documented By: Admin: 07/03/22 20:41 Dose: 40 mg Documented By: ALTalia Admin: 07/02/22 20:13 Dose: 40 mg Documented By: Admin: 07/01/22 21:44 Dose: 40 mg Documented By: FILTERATION OPERATOR Admin: 06/30/22 20:55 Dose: 40 mg Documented By: FILTERATION OPERATOR Admin: 06/30/22 00:42 Dose: Not Given Documented By: FABIAN Duloxetine HCl (Duloxetine Hcl 30 Mg Cap) 90 mg PO DAILY ROSALBA Stop: 07/30/22 08:59 Last Admin: 07/04/22 09:28 Dose: 90 mg Documented By: Admin: 07/03/22 08:45 Dose: 90 mg Documented By: Admin: 07/02/22 09:02 Dose: 90 mg Documented By: Admin: 07/01/22 09:08 Dose: 90 mg Documented By: Admin: 06/30/22 08:17 Dose: 90 mg Documented By: CONOR Furosemide (Furosemide 20 Mg Tab) 20 mg PO QAM ROSALBA Stop: 07/30/22 08:59 Last Admin: 07/04/22 09:28 Dose: 20 mg Documented By: Admin: 07/03/22 08:46 Dose: 20 mg Documented By: Admin: 07/02/22 09:03 Dose: 20 mg Documented By: Admin: 07/01/22 09:08 Dose: 20 mg Documented By: Admin: 06/30/22 08:16 Dose: 20 mg Documented By: CONOR Heparin Sodium (Porcine) (Heparin Sod 5,000 Unit/0.5 Ml Vial) 7,500 units SQ Q8H [facility] Stop: 07/30/22 00:00 Last Admin: 07/04/22 16:10 Dose: Not Given Documented By: Admin: 07/04/22 09:30 Dose: Not Given Documented By: Admin: 07/04/22 00:13 Dose: Not Given Documented By: Admin: 07/03/22 15:41 Dose: Not Given Documented By: Admin: 07/03/22 08:53 Dose: Not Given Documented By: Admin: 07/02/22 23:56 Dose: 7,500 units Documented By: Admin: 07/02/22 16:21 Dose: Not Given Documented By: Admin: 07/02/22 08:58 Dose: Not Given Documented By: Admin: 07/02/22 00:48 Dose: Not Given Documented By: Admin: 07/01/22 16:06 Dose: Not Given Documented By: Admin: 07/01/22 08:15 Dose: Not Given Documented By: Admin: 07/01/22 00:44 Dose: Not Given Documented By: Admin: 06/30/22 15:39 Dose: Not Given Documented By: Admin: 06/30/22 08:15 Dose: Not Given Documented By: Admin: 06/30/22 00:39 Dose: Not Given Documented By: FILTERATION OPERATOR Cefepime HCl 2,000 mg/ Syringe 20 mls @ 5 mls/min IV Q8H ROSALBA; Protocol Stop: 07/07/22 11:59 Last Admin: 07/04/22 20:32 Dose: 5 mls/min Documented By: Admin: 07/04/22 12:30 Dose: 5 mls/min Documented By: Admin: 07/04/22 04:32 Dose: 5 mls/min Documented By: Admin: 07/03/22 20:41 Dose: 5 mls/min Documented By: Admin: 07/03/22 12:16 Dose: 5 mls/min Documented By: Admin: 07/03/22 05:06 Dose: 5 mls/min Documented By: Admin: 07/02/22 20:33 Dose: 5 mls/min Documented By: Admin: 07/02/22 11:42 Dose: 5 mls/min Documented By: [facility] Admin: 07/02/22 04:58 Dose: 5 mls/min Documented By: FILTERATION OPERATOR Admin: 07/01/22 21:28 Dose: 5 mls/min Documented By: FILTERATION OPERATOR Admin: 07/01/22 12:47 Dose: 5 mls/min Documented By: Admin: 07/01/22 04:54 Dose: 5 mls/min Documented By: FILTERATION OPERATOR Admin: 06/30/22 20:55 Dose: 5 mls/min Documented By: FILTERATION OPERATOR Admin: 06/30/22 12:28 Dose: 5 mls/min Documented By: CONOR Insulin Aspart (Insulin Aspart Per Unit Charge) 0 units SC ACHS ROSALBA Stop: 07/30/22 07:29 Last Admin: 07/04/22 20:37 Dose: Not Given Documented By: Admin: 07/04/22 16:15 Dose: Not Given Documented By: Admin: 07/04/22 11:50 Dose: Not Given Documented By: Admin: 07/04/22 09:30 Dose: Not Given Documented By: Admin: 07/03/22 21:21 Dose: Not Given Documented By: KYLE Co-signed By: JANELLE Admin: 07/03/22 17:08 Dose: Not Given Documented By: Admin: 07/03/22 12:15 Dose: 1 units Documented By: ELIZABETH Co-signed By: BIENVENIDO(2) Admin: 07/03/22 08:48 Dose: Not Given Documented By: Admin: 07/02/22 20:25 Dose: Not Given Documented By: Admin: 07/02/22 17:13 Dose: Not Given Documented By: MURALI Co-signed By: BIENVENIDO(2) Admin: 07/02/22 11:42 Dose: 1 units Documented By: MURALI Co-signed By: Admin: 07/02/22 07:43 Dose: Not Given Documented By: MURALI Co-signed By: BIENVENIDO(2) Admin: 07/01/22 21:41 Dose: Not Given Documented By: Admin: 07/01/22 16:50 Dose: Not Given Documented By: Admin: 07/01/22 12:04 Dose: Not Given Documented By: Admin: 07/01/22 07:27 Dose: Not Given Documented By: Admin: 06/30/22 20:56 Dose: 1 units Documented By: FABIAN Co-signed By: JANES Admin: 06/30/22 16:31 Dose: Not Given Documented By: Admin: 06/30/22 12:01 Dose: Not Given Documented By: Admin: 06/30/22 08:09 Dose: Not Given Documented By: CONOR Ketoconazole (Ketoconazole 2% Cr 15 Gm Tube) 1 appln EXT DAILY ROSALBA Stop: 07/10/22 08:59 Last Admin: 07/04/22 09:29 Dose: Not Given Documented By: Admin: 07/03/22 08:46 Dose: 1 appln Documented By: Admin: 07/02/22 09:04 Dose: 1 appln Documented By: Admin: 07/01/22 09:08 Dose: 1 appln Documented By: Admin: 06/30/22 08:17 Dose: 1 appln Documented By: CONOR Lactulose (Lactulose Syrup 30 Gm/45 Ml Udp) 30 gm PO BID ROSALBA Stop: 08/02/22 13:19 Last Admin: 07/04/22 09:29 Dose: 15 gm Documented By: Admin: 07/03/22 20:42 Dose: 30 gm Documented By: Admin: 07/03/22 14:30 Dose: 30 gm Documented By: ELIZABETH Latanoprost (Latanoprost 0.005% Op Soln 2.5 Ml Btl) 1 drops OPB HS ROSALBA Stop: 07/30/22 20:59 Last Admin: 07/04/22 20:17 Dose: 1 drops Documented By: Admin: 07/03/22 20:42 Dose: 1 drops Documented By: Admin: 07/02/22 20:28 Dose: 1 drops Documented By: Admin: 07/01/22 21:37 Dose: 1 drops Documented By: Admin: 06/30/22 20:56 Dose: 1 drops Documented By: FABIAN Losartan Potassium (Losartan Potassium 50 Mg Tab) 100 mg PO DAILY ROSALBA Stop: 08/01/22 08:59 Last Admin: 07/04/22 09:27 Dose: 100 mg Documented By: Admin: 07/03/22 08:46 Dose: 100 mg Documented By: Admin: 07/02/22 08:58 Dose: 100 mg Documented By: MURALI Methadone HCl (Methadone Hcl 5 Mg Tab) 5 mg PO BID ROSALBA Stop: 07/14/22 08:59 Last Admin: 07/04/22 20:32 Dose: 5 mg Documented By: Admin: 07/04/22 09:33 Dose: 5 mg Documented By: Admin: 07/03/22 20:40 Dose: 5 mg Documented By: Admin: 07/03/22 08:50 Dose: 5 mg Documented By: Admin: 07/02/22 20:11 Dose: 5 mg Documented By: Admin: 07/02/22 08:56 Dose: 5 mg Documented By: Admin: 07/01/22 21:42 Dose: 5 mg Documented By: Admin: 07/01/22 09:07 Dose: 5 mg Documented By: Admin: 06/30/22 20:56 Dose: 5 mg Documented By: Admin: 06/30/22 08:23 Dose: 5 mg Documented By: CONOR Pregabalin (Pregabalin 75 Mg Cap) 75 mg PO TID ROSALBA Stop: 08/02/22 13:59 Last Admin: 07/04/22 20:32 Dose: 75 mg Documented By: Admin: 07/04/22 15:00 Dose: 75 mg Documented By: Admin: 07/04/22 09:33 Dose: 75 mg Documented By: Admin: 07/03/22 20:40 Dose: 75 mg Documented By: Admin: 07/03/22 15:00 Dose: 75 mg Documented By: ELIZABETH Senna/Docusate Sodium (Docusate Sodium/Senna 50/8.6mg Tab) 2 tab PO DAILY ROSALBA Stop: 07/30/22 08:59 Last Admin: 07/04/22 09:29 Dose: Not Given Documented By: Admin: 07/03/22 08:45 Dose: 2 tab Documented By: Admin: 07/02/22 09:02 Dose: 2 tab Documented By: Admin: 07/01/22 09:09 Dose: Not Given Documented By: Admin: 06/30/22 08:16 Dose: 2 tab Documented By: CONOR Tamsulosin HCl (Tamsulosin Hcl 0.4 Mg Cap) 0.4 mg PO HS ROSALBA Stop: 07/29/22 23:05 Last Admin: 07/04/22 20:19 Dose: 0.4 mg Documented By: Admin: 07/03/22 20:43 Dose: 0.4 mg Documented By: Admin: 07/02/22 20:13 Dose: 0.4 mg Documented By: Admin: 07/01/22 21:43 Dose: 0.4 mg Documented By: Admin: 06/30/22 20:57 Dose: 0.4 mg Documented By: Admin: 06/30/22 00:42 Dose: Not Given Documented By: FABIAN Tizanidine HCl (Tizanidine Hcl 4 Mg Tablet) 2 mg PO TID ROSALBA Stop: 07/30/22 08:59 Last Admin: 07/04/22 20:18 Dose: 2 mg Documented By: Admin: 07/04/22 15:00 Dose: 2 mg Documented By: Admin: 07/04/22 09:26 Dose: 2 mg Documented By: Admin: 07/03/22 20:43 Dose: 2 mg Documented By: Admin: 07/03/22 15:00 Dose: 2 mg Documented By: Admin: 07/03/22 08:44 Dose: 2 mg Documented By: Admin: 07/02/22 20:12 Dose: 2 mg Documented By: Admin: 07/02/22 13:46 Dose: 2 mg Documented By: Admin: 07/02/22 08:56 Dose: 2 mg Documented By: Admin: 07/01/22 21:44 Dose: 2 mg Documented By: Admin: 07/01/22 14:01 Dose: 2 mg Documented By: Admin: 07/01/22 09:09 Dose: 2 mg Documented By: Admin: 06/30/22 20:57 Dose: 2 mg Documented By: Admin: 06/30/22 14:09 Dose: 2 mg Documented By: Admin: 06/30/22 08:19 Dose: 2 mg Documented By: CONOR Discontinued Medications Amlodipine Besylate (Amlodipine Besylate 5 Mg Tab) 5 mg PO NOW ONE Stop: 07/04/22 19:23 Last Admin: 07/04/22 20:14 Dose: 5 mg Documented By: LEONORA Azithromycin (Azithromycin 250 Mg Tab) 500 mg PO ONE ONE Stop: 07/04/22 09:01 Last Admin: 07/04/22 09:27 Dose: 500 mg Documented By: ELIZABETH Bisacodyl (Bisacodyl 10 Mg Supp) 10 mg MA NOW STA Stop: 07/04/22 16:04 Last Admin: 07/04/22 16:11 Dose: 10 mg Documented By: ELIZABETH Furosemide (Furosemide Inj 20 Mg/2 Ml Vial) 20 mg IV BID17 ROSALBA Stop: 07/29/22 23:05 Last Admin: 06/29/22 23:35 Dose: Not Given Documented By: FABIAN Cefepime HCl (Maxipime) 2,000 mg in 20 mls @ 5 mls/min IV NOW STA; Protocol Stop: 06/29/22 13:39 Last Admin: 06/29/22 14:25 Dose: 5 mls/min Documented By: LEONORA(2) Sodium Chloride (Nss 1000ml) 1,000 mls @ 999 mls/hr IV .Q1H1M ROSALBA Stop: 06/29/22 14:45 Last Infusion: 06/29/22 15:17 Dose: 0 mls/hr Documented By: LEONORA(2) Admin: 06/29/22 14:11 Dose: 999 mls/hr Documented By: LEONORA(2) Azithromycin 500 mg/ Dextrose 255 mls @ 125 mls/hr IV Q24H ROSALBA Stop: 07/07/22 00:00 Last Infusion: 07/03/22 01:58 Dose: 0 mls/hr Documented By: Admin: 07/02/22 23:55 Dose: 125 mls/hr Documented By: Infusion: 07/02/22 03:22 Dose: 0 mls/hr Documented By: Admin: 07/02/22 00:48 Dose: 125 mls/hr Documented By: FILTERATION OPERATOR Infusion: 07/01/22 03:11 Dose: 0 mls/hr Documented By: Admin: 07/01/22 00:44 Dose: 125 mls/hr Documented By: Infusion: 06/30/22 02:21 Dose: 0 mls/hr Documented By: Admin: 06/30/22 00:18 Dose: 125 mls/hr Documented By: FABIAN Cefepime HCl 2,000 mg/ Syringe 20 mls @ 5 mls/min IV Q12H ROSALBA; Protocol Stop: 07/07/22 01:59 Last Admin: 06/30/22 02:39 Dose: 5 mls/min Documented By: FABIAN Metronidazole (Flagyl) 500 mg in 100 mls @ 100 mls/hr IV Q8H ROSALBA Stop: 07/07/22 01:59 Last Infusion: 07/03/22 19:08 Dose: 0 mls/hr Documented By: Admin: 07/03/22 18:08 Dose: 100 mls/hr Documented By: Infusion: 07/03/22 11:57 Dose: 0 mls/hr Documented By: Admin: 07/03/22 10:57 Dose: 100 mls/hr Documented By: Infusion: 07/03/22 03:12 Dose: 0 mls/hr Documented By: Admin: 07/03/22 02:12 Dose: 100 mls/hr Documented By: Infusion: 07/02/22 19:10 Dose: 0 mls/hr Documented By: Admin: 07/02/22 18:10 Dose: 100 mls/hr Documented By: Infusion: 07/02/22 10:09 Dose: 0 mls/hr Documented By: Admin: 07/02/22 09:09 Dose: 100 mls/hr Documented By: Infusion: 07/02/22 04:57 Dose: 0 mls/hr Documented By: Admin: 07/02/22 03:23 Dose: 100 mls/hr Documented By: Infusion: 07/01/22 18:51 Dose: 0 mls/hr Documented By: Admin: 07/01/22 17:06 Dose: 100 mls/hr Documented By: Infusion: 07/01/22 10:30 Dose: 0 mls/hr Documented By: Admin: 07/01/22 09:13 Dose: 100 mls/hr Documented By: Infusion: 07/01/22 04:54 Dose: 0 mls/hr Documented By: Admin: 07/01/22 03:11 Dose: 100 mls/hr Documented By: Infusion: 06/30/22 19:10 Dose: 0 mls/hr Documented By: Admin: 06/30/22 17:35 Dose: 100 mls/hr Documented By: Infusion: 06/30/22 11:21 Dose: 0 mls/hr Documented By: Admin: 06/30/22 09:29 Dose: 100 mls/hr Documented By: Infusion: 06/30/22 03:45 Dose: 0 mls/hr Documented By: Admin: 06/30/22 02:45 Dose: 100 mls/hr Documented By: FABIAN Ioversol (Optiray 320 500ml) 120 ml IV ONCE ONE Stop: 07/03/22 14:26 Last Admin: 07/03/22 14:25 Dose: 120 ml Documented By: JOSE Lactulose (Lactulose Syrup 30 Gm/45 Ml Udp) 30 gm PO QID ROSALBA Stop: 07/30/22 08:59 Last Admin: 07/01/22 12:48 Dose: Not Given Documented By: Admin: 07/01/22 08:16 Dose: Not Given Documented By: Admin: 06/30/22 20:56 Dose: 30 gm Documented By: Admin: 06/30/22 17:34 Dose: 30 gm Documented By: Admin: 06/30/22 14:09 Dose: 30 gm Documented By: Admin: 06/30/22 08:18 Dose: 30 gm Documented By: CONOR Miscellaneous (Order Awaiting Action: Naloxegol [Movantik] 25 Mg Tablet) 1 each N/A QS [facility] Stop: 07/30/22 07:59 Last Admin: 07/04/22 09:28 Dose: Not Given Documented By: Admin: 07/03/22 23:25 Dose: Not Given Documented By: ALTalia Admin: 07/03/22 15:41 Dose: Not Given Documented By: Admin: 07/03/22 08:47 Dose: Not Given Documented By: Admin: 07/03/22 00:55 Dose: Not Given Documented By: Admin: 07/02/22 16:21 Dose: Not Given Documented By: Admin: 07/02/22 13:25 Dose: Not Given Documented By: Admin: 07/02/22 00:48 Dose: Not Given Documented By: Admin: 07/01/22 16:06 Dose: Not Given Documented By: Admin: 07/01/22 08:15 Dose: Not Given Documented By: Admin: 07/01/22 00:44 Dose: Not Given Documented By: FILTERATION OPERATOR Admin: 06/30/22 15:40 Dose: Not Given Documented By: Admin: 06/30/22 08:10 Dose: Not Given Documented By: CONOR Pregabalin (Pregabalin 50 Mg Cap) 50 mg PO TID [facility] Stop: 07/30/22 08:59 Last Admin: 07/03/22 08:50 Dose: 50 mg Documented By: Admin: 07/02/22 20:12 Dose: 50 mg Documented By: Admin: 07/02/22 13:46 Dose: 50 mg Documented By: Admin: 07/02/22 08:55 Dose: 50 mg Documented By: Admin: 07/01/22 21:41 Dose: 50 mg Documented By: FILTERATION OPERATOR Admin: 07/01/22 14:01 Dose: 50 mg Documented By: Admin: 07/01/22 09:07 Dose: 50 mg Documented By: Admin: 06/30/22 20:57 Dose: 50 mg Documented By: FILTERATION OPERATOR Admin: 06/30/22 14:14 Dose: 50 mg Documented By: Admin: 06/30/22 08:23 Dose: 50 mg Documented By: CONOR Sennosides (Senna 8.6 Mg Tab) 17.2 mg PO ONE ONE Stop: 07/04/22 19:21 Last Admin: 07/04/22 20:14 Dose: 17.2 mg Documented By: LEONORA Tizanidine HCl (Tizanidine Hcl 4 Mg Tablet) 4 mg PO TID ROSALBA Stop: 07/29/22 23:05 Last Admin: 06/30/22 00:45 Dose: Not Given Documented By: FABIAN Imaging Data Radiologist's Impression: Chest X-Ray 06/29/22 13:37 SINGLE VIEW CHEST CLINICAL HISTORY: Sepsis. FINDINGS: An AP, portable, upright chest radiograph is obtained. No prior studies are available for comparison at the time of dictation. The examination is degraded by portable technique, apical lordotic positioning, and patient rotation. The heart is enlarged noting atherosclerotic calcification of the thoracic. There is pulmonary vascular congestion. Bilateral opacities likely represent pulmonary edema. Small pleural effusions are suspected. No pneum othorax is seen. The skeletal structures are osteopenic. The bony thorax is grossly intact. IMPRESSION: 1. Cardiomegaly with evidence of congestive failure. 2. Bilateral airspace opacities likely represent pulmonary edema. Correlate clinically for evidence of a superimposed infectious/inflammatory pneumonitis. Radiographic follow-up to resolution is recommended. 3. Suspect small pleural effusions. ACT 112: Negative or not required by law. Electronically signed by: Melo Urrutia M.D. 06/29/2022 4:[address] 06/29/22 15:55 CT SCAN OF THE CHEST WITHOUT IV CONTRAST CLINICAL HISTORY: Aspiration. COMPARISON STUDY: Chest x-ray dated 06/29/2022. TECHNIQUE: CT scan of the thorax was performed from the thoracic inlet to the upper abdomen. Images are reviewed in the axial, sagittal, and coronal planes. IV contrast was not administered for this examination as per the referring clinician. A dose lowering technique was utilized adhering to the principles of ALARA. The examination is degraded by streak artifact from the arms which could not be elevated above the chest. The examination is also degraded by motion artifact. CT DOSE: 1131.91 mGy.cm FINDINGS: Thyroid: Imaged portions of the thyroid gland are normal in size and attenuation. Thoracic aorta: There is atherosclerotic calcification of the thoracic aorta, which is normal in caliber and demonstrates standard 3-vessel arch anatomy. Heart: The heart is enlarged and without pericardial effusion. The coronary arteries and mitral annulus are densely calcified. The pulmonary trunk is dilated, measuring 3.9 cm in diameter. This suggests pulmonary artery hypertension. Lungs and pleural spaces: Evaluation of the lung parenchyma is degraded by motion artifact. There are trace pleural effusions with dependent consolidation. Patchy airspace consolidation is also seen throughout the left upper lobe and in the right middle lobe. The trachea is grossly clear. Secretions/debris are seen in the lower lobe airways. Mediastinum: There is no mediastinal lymphadenopathy. Thais: Not well assessed without IV contrast. Axillae: There is no axillary lymphadenopathy. Upper abdomen: There is a small hiatal hernia. The liver is enlarged and steatotic. The spleen is enlarged measuring 14.8 cm in length. Skeletal structures: The skeletal structures are osteopenic. Degenerative change and hyperkyphosis is seen throughout the thoracic spine. Arthritic change is noted in the shoulders. No lytic or blastic bony lesions are seen. IMPRESSION: 1. Small pleural effusions with dependent consolidation. There is also patchy airspace consolidation in the left upper and right middle lobes. The appearance is typical for pneumonia/aspiration pneumonitis. Secretions/debris are present within the lower lobe airways and aspiration is favored as clinically suggested. 2. Cardiomegaly. 3. Small hiatal hernia. 4. Hepatic steatosis and splenomegaly. 5. Additional findings as above. ACT 112: Negative or not required by law. Electronically signed by: Melo Urrutia M.D. 06/29/2022 5:00 PM Discharge Plan Visit Data Chief Complaint: Shortness of Breath/Dyspnea ED Provider: Sana Gee Discharge Problem: Aspiration into respiratory tract, H/O: stroke, Hemiplegia Patient Disposition: Admitted As Inpatient Discharge Instructions Interventions: ED Discharge Assessment Last Done: 06/29/22 22:34
[2022-06-29 19:18] LABS: Allen Test POS (Pos); Base Excess ABG 7.8 mEq/L (-9-1.8); HCO3 ABG 34 mmol/L (19-24); Oxygen Saturation ABG 96.1 % (90-95); PCO2 ABG 54 mmHg (35-46); PO2 ABG 74 mmHg (80-95); pH ABG 7.41 (7.35-7.45)
[2022-06-29 19:48] LABS: Influenza A virus by PCR Negative (Neg); Influenza B virus by PCR Negative (Neg); RSV by PCR Negative (Neg); SARS CoV2 RNA(COVID-19) Ceph NEGATIVE (Negative)
--- NOTE | 2022-06-29 20:31 | CT Scan Report ---
Exam(s): CT HEAD Without Contrast EXAM: CT Head Without Intravenous Contrast CLINICAL HISTORY: Altered mental state. TECHNIQUE: Axial computed tomography images of the head/brain without intravenous contrast. CTDI is 53.37 mGy and DLP is 884.08 mGy-cm. Automated exposure control was utilized for the study. A dose lowering technique was utilized adhering to the principles of ALARA. COMPARISON: No relevant prior studies available. FINDINGS: Brain: No intracranial hemorrhage, mass-effect or midline shift. No abnormal extra axial fluid. No evidence of acute infarct. Mild periventricular white matter hypodensities are most consistent with chronic microangiopathy. Large chronic MCA infarct. Ventricles: Unremarkable. No ventriculomegaly. Bones/joints: Unremarkable. No acute fracture. Soft tissues: Unremarkable. Vasculature: There is a partially calcified 2.3 cm partially calcified lesion in the vicinity of the right M2. Sinuses: Unremarkable as visualized. No acute sinusitis. Mastoid air cells: Large bilateral mastoid effusions. IMPRESSION: 1. No acute intracranial finding. 2. There is a partially calcified 2.3 cm partially calcified lesion in the vicinity of the right M2. This could represent a aneurysm, although nonspecific. Recommend CT of the head if not already performed. 3. Large bilateral mastoid effusions. Communications: Call Doctor Above results Electronically signed by: Monique Gaines MD 06/29/22 20:30 PM
--- NOTE | 2022-06-29 20:34 | CT Scan Report ---
Exam(s): CT ABDOMEN + PELVIS Without Contrast EXAM: CT Abdomen and Pelvis Without Intravenous Contrast CLINICAL HISTORY: Abdominal pain. TECHNIQUE: Axial computed tomography images of the abdomen and pelvis without intravenous contrast. CTDI is 39.95 mGy and DLP is 2181.74 mGy-cm. Automated exposure control was utilized for the study. A dose lowering technique was utilized adhering to the principles of ALARA. COMPARISON: No relevant prior studies available. FINDINGS: Lung bases: Bibasilar airspace opacities are present. ABDOMEN: Liver: Unremarkable. Gallbladder and bile ducts: Unremarkable. No calcified stones. No ductal dilation. Pancreas: Unremarkable. No ductal dilation. Spleen: Unremarkable. No splenomegaly. Adrenals: Unremarkable. No mass. Kidneys and ureters: The bilateral calyces are calcified. No hydronephrosis of either kidney. Stomach and bowel: Unremarkable. No obstruction. No mucosal thickening. PELVIS: Appendix: Normal appendix. Bladder: Unremarkable. No stones. Reproductive: Unremarkable as visualized. ABDOMEN and PELVIS: Intraperitoneal space: Unremarkable. No free air. No significant fluid collection. Bones/joints: There are degenerative changes of the spine. No fracture. No dislocation. Soft tissues: There is mild nonspecific body wall edema. Small bilateral fat-containing inguinal hernias. Vasculature: Mild atherosclerosis. No abdominal aortic aneurysm. Lymph nodes: Unremarkable. No enlarged lymph nodes. IMPRESSION: 1. No hydronephrosis of either kidney. 2. Bibasilar airspace opacities may represent pulmonary edema, atelectasis or atypical infection. 3. The bilateral calyces are calcified. These could represent staghorn calculi or renal papillary necrosis. 4. Normal appendix. Electronically signed by: Monique Gaines MD 06/29/22 20:33 PM
[2022-06-29] MEDS ORDERED: CARBOHYDRATES FOR HYPOGLYCEMIA PO PRN (23:06)
[2022-06-29] MEDS ORDERED: GLUCOSE 10 TAB/TUBE PO PRN (23:06)
[2022-06-29] MEDS ORDERED: GLUCOSE 40% GEL 15 GM TUBE PO PRN (23:06)
[2022-06-29] MEDS ORDERED: FUROSEMIDE INJ 20 MG/2 ML VIAL IV SCH (23:06)
[2022-06-29] MEDS ORDERED: tiZANidine HCL 4 MG TABLET PO SCH (23:06)
[2022-06-29] MEDS ORDERED: GLUCAGON FOR INJ 1 MG VIAL SQ PRN (23:06)
[2022-06-29] MEDS ORDERED: ONDANSETRON INJ 2 MG/ML 2 ML VIAL IV PRN (23:06)
[2022-06-29] MEDS ORDERED: DEXTROSE 50% 50 ML SYRINGE IV PRN (23:06)
[2022-06-30] MEDS: AZITHROMYCIN 500 MG in DEXTROSE 5% 250 ML IV SCH (00:18)
[2022-06-30] MEDS: ACETAMINOPHEN 500 MG TAB PO SCH ×2 (00:32→20:55)
[2022-06-30] MEDS: HEPARIN SOD 5,000 UNIT/0.5 ML VIAL SQ SCH ×3 (00:39→15:39)
[2022-06-30] MEDS: TAMSULOSIN HCL 0.4 MG CAP PO SCH ×2 (00:42→20:57)
[2022-06-30] MEDS: ATORVASTATIN 40 MG TAB PO SCH ×2 (00:42→20:55)
[2022-06-30 01:01] LABS: Appearance Urine Cloudy (Clear); Bacteria Urine Automated Negative (Negative); Bilirubin Urine Negative (Negative); Blood Urine 3+ (Negative); Color Urine Yellow; Glucose Urine UA Negative (Negative); Ketones Urine Trace (Negative); Leukocyte Esterase Urine 2+ (Negative); Nitrite Urine Negative (Negative); Protein Urine 1+ (Negative); RBC Urine Automated >30 /hpf (0-4); Specific Gravity Urine 1.016 (1.000-1.030); Urobilinogen Urine Negative (Negative); WBC Urine Automated >30 /hpf (0-5)
[2022-06-30 01:49] LABS: Adenovirus PCR Not Detected (NotDetected); Bordetella parapertussis PCR Not Detected (NotDetected); Bordetella pertussis PCR Not Detected (NotDetected); Chlamydia pneumoniae PCR Not Detected (NotDetected); Coronavirus 229E PCR Not Detected (NotDetected); Coronavirus CoV-2 (COVID19)PCR Not Detected (NotDetected); Coronavirus HKU1 PCR Not Detected (NotDetected); Coronavirus NL63 PCR Not Detected (NotDetected); Coronavirus OC43PCR Not Detected (NotDetected); Human Metapneumovirus PCR Not Detected (NotDetected); Influenza A PCR Not Detected (NotDetected); Influenza B PCR Not Detected (NotDetected); Mycoplasma pneumoniae PCR Not Detected (NotDetected); Parainfluenza Virus 1 PCR Not Detected (NotDetected); Parainfluenza Virus 2 PCR Not Detected (NotDetected); Parainfluenza Virus 3 PCR Not Detected (NotDetected); Parainfluenza Virus 4 PCR Not Detected (NotDetected); Respiratory Syncytial VirusPCR Not Detected (NotDetected); Rhinovirus/Enterovirus PCR Not Detected (NotDetected)
[2022-06-30] MEDS ORDERED: CEFEPIME 2,000 MG in SYRINGE 0 ML IV SCH (02:00)
[2022-06-30] MEDS: metroNIDAZOLE 500 MG/100 ML BAG IV SCH ×3 (02:45→17:35)
--- NOTE | 2022-06-30 07:53 | XRay Report ---
XR chest 1V portable HISTORY: 72 years-old Male hypoxia acute hypoxia COMPARISON: 06/29/2022 TECHNIQUE: AP view of the chest FINDINGS: Patient is mildly rotated. The cardiac silhouette is enlarged. Reticular interstitial opacities are n oted with multifocal alveolar densities, pronounced in the lung bases and left upper lobe. Small pleu ral effusions. No significant change from yesterday's exam. Degenerative changes of the shoulders and spine. IMPRESSION: 1. Cardiomegaly with unchanged mixed interstitial and alveolar opacities again suggestive of multifoc al pneumonia. 2. Small pleural effusions. ACT 112: Negative or not required by law. The above report was generated using voice recognition software. It may contain grammatical, syntax o r spelling errors. Electronically signed by: Alejandro Encinas M.D. 06/30/2022 7:52 AM
[2022-06-30 08:01] LABS: Basophils # (auto) 0.06 K/uL (0-0.2); Basophils % (auto) 0.8 %; Eosinophils # (auto) 0.22 K/uL (0-0.50); Hemoglobin 11.6 g/dl (14.0-18.0); Immature Granulocytes # (auto) 0.04 K/uL (0.01-0.20); Immature Granulocytes % (auto) 0.5 %; Lymphocytes # (auto) 2.43 K/uL (1.2-3.4); Lymphocytes % (auto) 32.7 %; Mean Corpuscular Hemoglobin 28.3 pg (25.0-34.0); Mean Corpuscular Hgb Conc 32.2 g/dL (32.0-36.0); Mean Corpuscular Volume 87.8 fL (80.0-100.0); Mean Platelet Volume 9.6 fL (9.4-12.4); Monocytes # (auto) 0.62 K/uL (0.11-0.59); Monocytes % (auto) 8.4 %; Neutrophils # (auto) 4.05 K/uL (1.40-6.50); Neutrophils % (auto) 54.6 %; Platelet Count 225 K/uL (130-400); RDW Coefficient of Variation 14.1 % (11.5-14.5); RDW Standard Deviation 45.2 fL (36.4-46.3); White Blood Count 7.42 K/ul (4.8-10.8)
[2022-06-30] MEDS: INSULIN ASPART PER UNIT CHARGE SC SCH ×4 (08:09→20:56)
[2022-06-30] MEDS: DOCUSATE SODIUM/SENNA 50/8.6MG TAB PO SCH (08:16)
[2022-06-30] MEDS: FUROSEMIDE 20 MG TAB PO SCH (08:16)
[2022-06-30] MEDS: ASPIRIN 81 MG CHEW PO SCH (08:16)
[2022-06-30] MEDS: KETOCONAZOLE 2% CR 15 GM TUBE EXT SCH (08:17)
[2022-06-30] MEDS: DULoxetine HCL 30 MG CAP PO SCH (08:17)
[2022-06-30] MEDS: LACTULOSE SYRUP 30 GM/45 ML UDP PO SCH ×4 (08:18→20:56)
[2022-06-30] MEDS: tiZANidine HCL 4 MG TABLET PO SCH ×3 (08:19→20:57)
[2022-06-30] MEDS: ARTIFICIAL TEARS OP SCH ×4 (08:22→20:55)
[2022-06-30] MEDS: PREGABALIN 50 MG CAP PO SCH ×3 (08:23→20:57)
[2022-06-30] MEDS: METHADONE HCL 5 MG TAB PO SCH ×2 (08:23→20:56)
[2022-06-30 08:26] LABS: INR 1.1 (0.9-1.1); Partial Thromboplastin Ratio 1.2; Partial Thromboplastin Time 32.5 Seconds (21.0-31.0); Prothrombin Time 11.7 Seconds (9.0-12.0)
[2022-06-30 08:41] LABS: Albumin Level 3.5 gm/dl (3.4-5.0); BUN Creatinine Ratio 26.7 (10-20); Bilirubin,Total 0.5 mg/dl (0.2-1.0); Est GFR (African American) 99.9 ml/min; Est GFR (Non-African American) 86.2 ml/min; Globulin 3.4 gm/dl (2.5-4.0); Potassium 3.8 mmol/L (3.5-5.1); Total Protein 6.9 gm/dl (6.0-8.3)
--- NOTE | 2022-06-30 09:34 | Urology Consultation ---
Date of Consultation June 30, 2022 Assessment & Plan (1) Staghorn calculus: (2) UTI (urinary tract infection): Plan 72-year-old male admitted for several medical issues who was found on CT scan to have bilateral large nonobstructing renal calculi I discussed his large bilateral renal stones with the patient. Given that his labs have improved and he is asymptomatic, I do not think he warrants any surgical intervention at this time Unclear if he truly has a UTI or if there was contamination with his UA. I suspect given his body habitus that it may likely be contamination. Not unreasonable to treat until cultures return. He has a large bilateral stone burden, left greater than right. His left- sided stone does extend into the proximal ureter however there is no obvious obstruction. Given his significant stone burden, I discussed the options for treatment which would be multiple ureteroscopy's or a PCNL. I think he may benefit from referral to a tertiary care center such as [facility] or [facility] for possible discussion of PCNL. I do think he would be difficult to stent on the left side given the significant stone burden as we may not be able to get a wire passed his stone Urology to follow peripherally. Dependent on discharge date, can either schedule follow-up in our clinic to discuss options or place a referral to [facility] at that time History of Present Illness Reason for Consultation: Staghorn calculi Attending Physician: Toño Diaz MD History of Present Illness 72-year-old male with multiple medical comorbidities admitted for numerous issues including respiratory failure, altered mental state and suspected pneumonia. He has been afebrile with stable vitals. Initial labs showed a leukocytosis of 11.4, a creatinine of 1.76, and a urinalysis that was nitrite negative, 3+ leukocyte esterase, greater than 30 WBCs, 10-30 RBCs and 2+ bacteria. CT scan was performed which shows bilateral large renal stone burden. The left side has stone extending into the renal pelvis and proximal ureter however there is no hydronephrosis. Repeat labs today showed leukocytosis downtrending to 7.4 and creatinine improved to 0.9. Urine is growing gram- negative bacilli. Patient is currently on azithromycin and Flagyl. He did get a dose of cefepime. He reports a history of 1 kidney stone several decades ago that he passed spontaneously. Denies any flank pain or urinary symptoms. Allergies Allergy/AdvReac Type Severity Reaction Status Date / Time Penicillins Allergy Unknown Verified 06/29/22 22:41 Home Medications Medication Instructions Recorded Confirmed Type acetaminophen 325 mg tablet 650 mg PO Q4H PRN Pain 06/29/22 06/29/22 History acetaminophen 500 mg tablet 1,000 mg PO HS 06/29/22 06/29/22 History artificial tears solution eye drops 2 drp OPB QID 06/29/22 06/29/22 History aspirin 81 mg chewable tablet 81 mg PO DAILY 06/29/22 06/29/22 History atorvastatin 40 mg tablet 40 mg PO HS 06/29/22 06/29/22 History duloxetine 30 mg capsule,delayed 30 mg PO DAILY 06/29/22 06/30/22 History release ferrous sulfate 325 mg (65 mg 325 mg PO DAILY 06/29/22 06/29/22 History iron) tablet furosemide 40 mg tablet 40 mg PO BID 06/29/22 06/29/22 History guaifenesin 10 ml Q6H PRN Cough 06/29/22 06/29/22 History ipratropium-albuterol 3 ml inhalation Q4H PRN Shortness 06/29/22 06/29/22 Hi story Of Breath lactulose 10 gram/15 mL oral 45 ml PO QID 06/29/22 06/29/22 History solution (Enulose) latanoprost 0.005 % eye drops 1 drp OPB HS 06/29/22 06/29/22 History losartan 100 mg tablet 100 mg PO DAILY 06/29/22 06/29/22 History magnesium hydroxide 400 mg/5 mL 30 ml PO DIRECTED PRN 06/29/22 06/29/22 History oral suspension (Milk of Magnesia) Constipation metformin 500 mg tablet 500 mg PO BID 06/29/22 06/29/22 History methadone 5 mg tablet 5 mg PO BID 06/29/22 06/29/22 History naloxegol 25 mg tablet (Movantik) 25 mg PO DAILY 06/29/22 06/29/22 History potassium chloride 10 mEq 10 meq PO DAILY 06/29/22 06/29/22 History capsule,extended release pregabalin 200 mg capsule 200 mg PO TID 06/29/22 06/29/22 History rivaroxaban 10 mg tablet (Xarelto) 10 mg PO HS 06/29/22 06/29/22 History semaglutide 1 mg/dose (4 mg/3 mL) 1 mg subcut WK 06/29/22 06/29/22 History subcutaneous pen injector (Ozempic) sennosides 8.6 mg-docusate sodium 2 tab PO DAILY 06/29/22 06/29/22 History 50 mg tablet (Senexon-S) tamsulosin 0.4 mg capsule 0.4 mg PO HS 06/29/22 06/29/22 History tizanidine 4 mg tablet 2 mg PO TID PRN Muscle Spasm 06/29/22 06/30/22 History triamcinolone acetonide 0.1 % 1 applic topical Q6H PRN Rash 06/29/22 06/29/22 History topical cream duloxetine 60 mg capsule,delayed 60 mg PO DAILY 06/30/22 06/30/22 History release Patient History Medical History (Updated 06/30/22 @ 09:57 by Dash Crowell MD) At risk for diabetes mellitus BPH (benign prostatic hyperplasia) Chronic constipation Chronic prescription opiate use Congestive heart failure Constipation COPD (chronic obstructive pulmonary disease) Coronary artery disease Depression History of stroke 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 Hyperlipidemia Hypertension Neuropathy MELINA (obstructive sleep apnea) Surgical History (Updated 06/29/22 @ 20:42 by Raymond Soriano MD) No significant past surgical history Social History Smoking Status: Never smoker Do You Dip or Chew Tobacco: No; Hx Alcohol Use: No Hx Substance Use: No Preferred Language: Telugu Communication Ability: Effective Technical Applications Scientist Required: No Beliefs That Will Affect Care: None Current Living Situation: Alone and Other Current Living Situation Comment: home health Other Information That Helps Us Care for You: No Feels Safe at Home: Yes Safety Concerns: Feels Safe At This Time Assistive Devices: Wheelchair Review of Systems Review of Systems: 14 point review of systems negative outside of what is listed above in HPI Physical Exam Physical Exam: General: Alert and oriented, no acute distress HEENT: Normocephalic, mucous membranes moist Pulmonary: Nonlabored respirations Abdomen: Nondistended Extremities: Moves all 4 spontaneously Neuro: No gross deficits Skin: Warm, dry, no rashes noted Results & Data Vital Signs (Past 12 Hours) Vital Signs Temp Pulse Pulse Resp BP BP Pulse Ox 04/22/23 07:06 36.7 C 55 L 18 150/73 H 94 06/30/22 03:19 36.7 C 72 18 130/60 95 06/29/22 22:44 78 06/30/22 01:32 36.3 C L 84 16 178/82 H 96 06/30/22 01:16 06/29/22 23:33 37.1 C 82 18 194/87 H 95 06/29/22 22:34 O2 Del Method O2 Flow Rate 06/30/22 07:06 Nasal Cannula 06/30/22 03:19 Nasal Cannula 06/29/22 22:44 06/30/22 01:32 Nasal Cannula 4 06/30/22 01:16 Nasal Cannula 4 06/29/22 23:33 Nasal Cannula 06/29/22 22:34 Nasal Cannula 4 PG Care Time/CCT Total # of Minutes Spent Total Time Spent with Patient: Total time spent is greater than 50% in coordination of care (as documented) at patient's floor/unit and/or counseling patient: Coding Level of Care Code 42808 INT INP/OBS CARE 2/55MIN Diagnoses Staghorn calculus N20.0 UTI (urinary tract infection) N39.0
[2022-06-30 10:17] LABS: Estimated Average Glucose 146 mg/dl; Hemoglobin A1C 6.7 % (4.5-5.6)
--- NOTE | 2022-06-30 10:25 | Ultrasound Report ---
LEFT LOWER EXTREMITY VENOUS DOPPLER HISTORY: Acute pain with soft tissue swelling of the left leg left leg swelling COMPARISON STUDY: None. FINDINGS: Limited exam secondary to patient body habitus. Subcutaneous edema. There is normal teresa sibility, flow, and augmentation within the left lower extremity deep venous system. IMPRESSION: No DVT within the left lower extremity. ACT 112: Negative or not required by law. Electronically signed by: Alejandro Encinas M.D. 06/30/2022 10:24 AM
[2022-06-30] MEDS: CEFEPIME 2,000 MG in SYRINGE 0 ML IV SCH ×2 (12:28→20:55)
--- NOTE | 2022-06-30 12:42 | XCELERA ---
[id number] \\[email or web address]\[id number]
--- NOTE | 2022-06-30 13:56 | Hospitalist Progress Note ---
Date of Service June 30, 2022 Assessment & Plan (1) Acute respiratory failure with hypoxia and hypercapnia: Plan: Patient seems to be improved He is not using accessory muscles to breathe and does not appear to be any in any distress He still seems confused however I agree with the diagnosis of pneumonia due to chest x-ray findings, elevated white count and procalcitonin, lack of improvement with diuretics White count improved Patient clinically seems improved with less respiratory distress He is now saturating 99% on 2 L. Titrate O2 down (2) Metabolic encephalopathy: Plan: Seems to be improving compared to H&P documentation Still confused though Most likely related to pneumonia, hypoxia Toxic encephalopathy from polypharmacy may still be an issue. Continue ordered methadone 5 mg p.o. twice daily. Tizanidine has been reduced to 2 mg 3 times daily. Lyrica has been reduced to 50 mg p.o. 3 times daily (3) Altered mental state: Plan: See above (4) Pneumonia: Plan: Respiratory viral panel negative. MRSA negative Currently on cefepime, metronidazole, azithromycin. Continue PROJECT ENGINEERING DIRECTOR on board, ordered [place] video swallow which will be done on Saturday (5) Abdominal pain: Plan: Suspect this is somewhat chronic although could be a sign of UTI. No acute findings on CT. No significant abdominal pain today. (6) UTI (urinary tract infection): Plan: Alternative source of infection. No specific symptoms but patient also altered. UA from "clean" catch. Pt refusing better sample from straight/quiñones cath. Follow up urine/blood cultures. Already on cefepime that will treat in case this is a true infection However likely to be a contamination In setting of b/l staghorn calculus, urology involved. Recommended outpatient follow-up (7) Acute kidney injury: Plan: Possible SILVA (but unknown basleine) in setting of losartan and recently increasing Lasix use ER report from 06/27 reports "mild SILVA" with Cr 1.6 and currently 1.76 on admission Creatinine today has normalized to 0.9 Lasix has been cut back on Holding losartan. May resume if blood pressure starts to go up. (8) Chronic congestive heart failure: Plan: Admitted 06/23- for acute CHF. Lasix increased from 20mg PO daily to 40mg PO BID on discharge. Advised to increase to 80mg PO BID on 06/27 ER visit due to worsening CXR findings although also noted to have "mild SILVA" suspected from Lasix use Unclear if all or part of these times were actually pneumonia rather than CHF given current diagnosis with concurrent altered mental state not explained by CHF and pt not getting better with diuretics and daughter reports his weight is significantly down. Therefore currently back on his earlier Lasix dosing of 20mg PO daily Strict I&Os Daily weights Low Na, fluid restricted diet Repeat chest x-ray this a.m. showed findings still suggesting pneumonia and no increased vascular congestion. TTE showed no depressed EF but showed mild concentric LVH. (9) Bilateral lower extremity edema: Plan: Suspect most likely from immobility with less mobility on left side Venous duplex ultrasound negative for DVT (10) At risk for diabetes mellitus: Plan: A1c 6.7 Hold metformin and Ozempic Novolog: --Goal BSG Range: Low 110 mg/dL, High 140 mg/dL --Correction Factor: 45 mg/dL/unit --No carb ratio --BSGs ACHS if eating, q6h if npo (11) Chronic prescription opiate use: Plan: Continue methadone as above (12) Hypertension: Plan: Hypotensive in the ER, responded to IV fluids although lactate normal. ?hypotensive from recent increase in Lasix. Lasix dosing as above Hold losartan (13) Neuropathy: Plan: Continue Duloxetine Lyrica and Methadone as above (14) Constipation: Plan: Presumably opiate an lack of mobility induced Continue his usual Lactulose, Movantik (although I am not clear he is on this) and Senna (15) Coronary artery disease: Plan: No clear MO or catheterization previously Continue aspirin (16) Abnormal CT of the head: Plan: Daughter mentions he was supposed to follow up with a neurologist for a "growth" on his brain. Presumably this is the calcified 2.3cm lesion in the vicinity of the right M2. I do not believe therefore this represents an acute change. May consider CT angio prior to discharge as suspect this has been lost to follow up. (17) Seborrheic dermatitis: Plan: Ketoconazole cream BID (18) Depression: Plan: Continue duloxetine - based of external pharmacy reporting he is on 90mg daily (incorrect on [facility] discharge) (19) COPD (chronic obstructive pulmonary disease): Plan: Noted history of this on [facility] notes although no maintenance inhalers prescribed. No know prior PFTs. No current wheezing to suggest exacerbation. (20) MELINA (obstructive sleep apnea): Plan: BiPAP HS Follow up sleep study as outpatient if not recently performed (21) BPH (benign prostatic hyperplasia): Plan: Continue tamsulosin 0.4mg PO daily Bladder scan for PVR Plan VTE Prophyalxis - hold Xarelto as not clear he needs this for chronic prophyalxis and switch to heparin 7500 units q8h Diet - T2DM, heart healthy, Low Na, fluid restrict Disposition - admit to PCU Admission and Anticipated Discharge Date Admission Date: June 29, 2022 Subjective Patient says that he feels "a whole lot better today". He could not describe how he feels better though. Review of Systems Review of Systems: Unobtainable due to cognitive status Physical Exam Physical Exam: General: Awake, conversant, obese Heart: S1, S2/regular rate and rhythm, no murmur rubs or gallops Lungs: Clear to auscultation bilaterally. Normal effort Abdomen: Soft/nontender/nondistended. No hepatosplenomegaly Extremities: No clubbing/cyanosis. No edema Behavior: Appropriate, cooperative Results & Data Results & Data Vital Signs (Past 12 Hours) Vital Signs Temp Pulse Pulse Resp BP BP Pulse Ox 06/30/22 09:00 06/30/22 12:38 36.6 C 50 L 19 118/55 L 99 06/30/22 08:00 67 06/30/22 07:06 36.7 C 55 L 18 150/73 H 94 06/30/22 03:19 36.7 C 72 18 130/60 95 O2 Del Method O2 Flow Rate 06/30/22 09:00 Nasal Cannula 4 06/30/22 12:38 Nasal Cannula 2 06/30/22 08:00 06/30/22 07:06 Nasal Cannula 06/30/22 03:19 Nasal Cannula Laboratory Results Abnormal lab results 06/29/22 06/29/22 06/29/22 Range/Units 14:04 14:04 14:04 WBC 11.43 H (4.8-10.8) K/ul RBC 4.18 L (4.70-6.10) M/uL Hgb 11.7 L (14.0-18.0) g/dl Hct 37.1 L (42.0-52.0) % MCHC 31.5 L (32.0-36.0) g/dL RDW Std Deviation 49.9 H (36.4-46.3) fL RDW Coeff of Fam 15.3 H (11.5-14.5) % Lymph # (Auto) 3.51 H (1.2-3.4) K/uL Williams # (Auto) 1.19 H (0.11-0.59) K/uL APTT (21.0-31.0) Seconds ABG pCO2 (35-46) mmHg ABG pO2 (80-95) mmHg ABG HCO3 (19-24) mmol/L ABG O2 Saturation (90-95) % ABG Base Excess (-9-1.8) mEq/L Chloride 94 L (98-107) mmol/L Carbon Dioxide 34 H (21-32) mmol/L BUN 33 H (6-23) mg/dl Creatinine 1.76 H (0.6-1.4) mg/dl BUN/Creatinine Ratio (10-20) Glucose 125 H (70-99(Fasting)) mg/dl POC Glucose (70-99) mg/dl Hemoglobin A1c (4.5-5.6) % AST 12 L (13-39) U/L Procalcitonin 0.74 H (0-0.5) ng/ml Urine Appearance (Clear) Urine pH (4.5-7.5) Urine Protein (Negative) Urine Ketones (Negative) Urine Blood (Negative) Ur Leukocyte Esterase (Negative) Urine WBC (Auto) (0-5) /hpf Urine RBC (Auto) (0-4) /hpf U Hyaline Cast (Auto) (0-5) /lpf U Epithel Cells (Auto) (0-5) /lpf Urine Bacteria (Auto) (Negative) Urine Crystals (None Prsent) Amorphous Sediment (None Prsent) 06/29/22 06/29/22 06/30/22 Range/Units 15:23 19:12 07:20 WBC (4.8-10.8) K/ul RBC (4.70-6.10) M/uL Hgb (14.0-18.0) g/dl Hct (42.0-52.0) % MCHC (32.0-36.0) g/dL RDW Std Deviation (36.4-46.3) fL RDW Coeff of Fam (11.5-14.5) % Lymph # (Auto) (1.2-3.4) K/uL Williams # (Auto) (0.11-0.59) K/uL APTT (21.0-31.0) Seconds ABG pCO2 54 H (35-46) mmHg ABG pO2 74 L (80-95) mmHg ABG HCO3 34 H (19-24) mmol/L ABG O2 Saturation 96.1 H (90-95) % ABG Base Excess 7.8 H (-9-1.8) mEq/L Chloride (98-107) mmol/L Carbon Dioxide (21-32) mmol/L BUN (6-23) mg/dl Creatinine (0.6-1.4) mg/dl BUN/Creatinine Ratio (10-20) Glucose (70-99(Fasting)) mg/dl POC Glucose 101 H (70-99) mg/dl Hemoglobin A1c (4.5-5.6) % AST (13-39) U/L Procalcitonin (0-0.5) ng/ml Urine Appearance Turbid A (Clear) Urine pH 8.0 H (4.5-7.5) Urine Protein 2+ H (Negative) Urine Ketones (Negative) Urine Blood 3+ H (Negative) Ur Leukocyte Esterase 3+ H (Negative) Urine WBC (Auto) >30 H (0-5) /hpf Urine RBC (Auto) 10-30 H (0-4) /hpf U Hyaline Cast (Auto) 5-10 H (0-5) /lpf U Epithel Cells (Auto) >30 H (0-5) /lpf Urine Bacteria (Auto) 2+ H (Negative) Urine Crystals Triple Phosphate A (None Prsent) Amorphous Sediment Present A (None Prsent) 06/30/22 06/30/22 06/30/22 Range/Units 07:21 07:21 07:21 WBC (4.8-10.8) K/ul RBC 4.10 L (4.70-6.10) M/uL Hgb 11.6 L (14.0-18.0) g/dl Hct 36.0 L (42.0-52.0) % MCHC (32.0-36.0) g/dL RDW Std Deviation (36.4-46.3) fL RDW Coeff of Fam (11.5-14.5) % Lymph # (Auto) (1.2-3.4) K/uL Williams # (Auto) 0.62 H (0.11-0.59) K/uL APTT 32.5 H (21.0-31.0) Seconds ABG pCO2 (35-46) mmHg ABG pO2 (80-95) mmHg ABG HCO3 (19-24) mmol/L ABG O2 Saturation (90-95) % ABG Base Excess (-9-1.8) mEq/L Chloride (98-107) mmol/L Carbon Dioxide (21-32) mmol/L BUN (6-23) mg/dl Creatinine (0.6-1.4) mg/dl BUN/Creatinine Ratio (10-20) Glucose (70-99(Fasting)) mg/dl POC Glucose (70-99) mg/dl Hemoglobin A1c 6.7 H (4.5-5.6) % AST (13-39) U/L Procalcitonin (0-0.5) ng/ml Urine Appearance (Clear) Urine pH (4.5-7.5) Urine Protein (Negative) Urine Ketones (Negative) Urine Blood (Negative) Ur Leukocyte Esterase (Negative) Urine WBC (Auto) (0-5) /hpf Urine RBC (Auto) (0-4) /hpf U Hyaline Cast (Auto) (0-5) /lpf U Epithel Cells (Auto) (0-5) /lpf Urine Bacteria (Auto) (Negative) Urine Crystals (None Prsent) Amorphous Sediment (None Prsent) 06/30/22 06/30/22 06/30/22 Range/Units 07:21 08:06 11:17 WBC (4.8-10.8) K/ul RBC (4.70-6.10) M/uL Hgb (14.0-18.0) g/dl Hct (42.0-52.0) % MCHC (32.0-36.0) g/dL RDW Std Deviation (36.4-46.3) fL RDW Coeff of Fam (11.5-14.5) % Lymph # (Auto) (1.2-3.4) K/uL Williams # (Auto) (0.11-0.59) K/uL APTT (21.0-31.0) Seconds ABG pCO2 (35-46) mmHg ABG pO2 (80-95) mmHg ABG HCO3 (19-24) mmol/L ABG O2 Saturation (90-95) % ABG Base Excess (-9-1.8) mEq/L Chloride 97 L (98-107) mmol/L Carbon Dioxide 33 H (21-32) mmol/L BUN 24 H (6-23) mg/dl Creatinine (0.6-1.4) mg/dl BUN/Creatinine Ratio 26.7 H (10-20) Glucose (70-99(Fasting)) mg/dl POC Glucose 100 H 140 H (70-99) mg/dl Hemoglobin A1c (4.5-5.6) % AST 11 L (13-39) U/L Procalcitonin (0-0.5) ng/ml Urine Appearance (Clear) Urine pH (4.5-7.5) Urine Protein (Negative) Urine Ketones (Negative) Urine Blood (Negative) Ur Leukocyte Esterase (Negative) Urine WBC (Auto) (0-5) /hpf Urine RBC (Auto) (0-4) /hpf U Hyaline Cast (Auto) (0-5) /lpf U Epithel Cells (Auto) (0-5) /lpf Urine Bacteria (Auto) (Negative) Urine Crystals (None Prsent) Amorphous Sediment (None Prsent) 06/30/22 Range/Units Unknown WBC (4.8-10.8) K/ul RBC (4.70-6.10) M/uL Hgb (14.0-18.0) g/dl Hct (42.0-52.0) % MCHC (32.0-36.0) g/dL RDW Std Deviation (36.4-46.3) fL RDW Coeff of Fam (11.5-14.5) % Lymph # (Auto) (1.2-3.4) K/uL Williams # (Auto) (0.11-0.59) K/uL APTT (21.0-31.0) Seconds ABG pCO2 (35-46) mmHg ABG pO2 (80-95) mmHg ABG HCO3 (19-24) mmol/L ABG O2 Saturation (90-95) % ABG Base Excess (-9-1.8) mEq/L Chloride (98-107) mmol/L Carbon Dioxide (21-32) mmol/L BUN (6-23) mg/dl Creatinine (0.6-1.4) mg/dl BUN/Creatinine Ratio (10-20) Glucose (70-99(Fasting)) mg/dl POC Glucose (70-99) mg/dl Hemoglobin A1c (4.5-5.6) % AST (13-39) U/L Procalcitonin (0-0.5) ng/ml Urine Appearance Cloudy A (Clear) Urine pH (4.5-7.5) Urine Protein 1+ H (Negative) Urine Ketones Trace H (Negative) Urine Blood 3+ H (Negative) Ur Leukocyte Esterase 2+ H (Negative) Urine WBC (Auto) >30 H (0-5) /hpf Urine RBC (Auto) >30 H (0-4) /hpf U Hyaline Cast (Auto) (0-5) /lpf U Epithel Cells (Auto) 10-20 H (0-5) /lpf Urine Bacteria (Auto) (Negative) Urine Crystals (None Prsent) Amorphous Sediment (None Prsent) Diagnostic Findings Chest X-Ray 06/29/22 13:37 SINGLE VIEW CHEST CLINICAL HISTORY: Sepsis. FINDINGS: An AP, portable, upright chest radiograph is obtained. No prior studies are available for comparison at the time of dictation. The examination is degraded by portable technique, apical lordotic positioning, and patient rotation. The heart is enlarged noting atherosclerotic calcification of the thoracic. There is pulmonary vascular congestion. Bilateral opacities likely represent pulmonary edema. Small pleural effusions are suspected. No pneumothorax is seen. The skeletal structures are osteopenic. The bony thorax is grossly intact. IMPRESSION: 1. Cardiomegaly with evidence of congestive failure. 2. Bilateral airspace opacities likely represent pulmonary edema. Correlate clinically for evidence of a superimposed infectious/inflammatory pneumonitis. Radiographic follow-up to resolution is recommended. 3. Suspect small pleural effusions. ACT 112: Negative or not required by law. Electronically signed by: Melo Urrutia M.D. 06/29/2022 4:[address] 06/29/22 15:55 CT SCAN OF THE CHEST WITHOUT IV CONTRAST CLINICAL HISTORY: Aspiration. COMPARISON STUDY: Chest x-ray dated 06/29/2022. TECHNIQUE: CT scan of the thorax was performed from the thoracic inlet to the upper abdomen. Images are reviewed in the axial, sagittal, and coronal planes. IV contrast was not administered for this examination as per the referring clinician. A dose lowering technique was utilized adhering to the principles of ALARA. The examination is degraded by streak artifact from the arms which could not be elevated above the chest. The examination is also degraded by motion artifact. CT DOSE: 1131.91 mGy.cm FINDINGS: Thyroid: Imaged portions of the thyroid gland are normal in size and attenuation. Thoracic aorta: There is atherosclerotic calcification of the thoracic aorta, which is normal in caliber and demonstrates standard 3-vessel arch anatomy. Heart: The heart is enlarged and without pericardial effusion. The coronary arteries and mitral annulus are densely calcified. The pulmonary trunk is dilated, measuring 3.9 cm in diameter. This suggests pulmonary artery hypertension. Lungs and pleural spaces: Evaluation of the lung parenchyma is degraded by motion artifact. There are trace pleural effusions with dependent consolidation. Patchy airspace consolidation is also seen throughout the left upper lobe and in the right middle lobe. The trachea is grossly clear. Secretions/debris are seen in the lower lobe airways. Mediastinum: There is no mediastinal lymphadenopathy. Thais: Not well assessed without IV contrast. Axillae: There is no axillary lymphadenopathy. Upper abdomen: There is a small hiatal hernia. The liver is enlarged and steatotic. The spleen is enlarged measuring 14.8 cm in length. Skeletal structures: The skeletal structures are osteopenic. Degenerative change and hyperkyphosis is seen throughout the thoracic spine. Arthritic change is noted in the shoulders. No lytic or blastic bony lesions are seen. IMPRESSION: 1. Small pleural effusions with dependent consolidation. There is also patchy airspace consolidation in the left upper and right middle lobes. The appearance is typical for pneumonia/aspiration pneumonitis. Secretions/debris are present within the lower lobe airways and aspiration is favored as clinically suggested. 2. Cardiomegaly. 3. Small hiatal hernia. 4. Hepatic steatosis and splenomegaly. 5. Additional findings as above. ACT 112: Negative or not required by law. Electronically signed by: Melo Urrutia M.D. 06/29/2022 5:00 PM Abdomen/Pelvis CT 06/29/22 17:34 Exam(s): CT ABDOMEN + PELVIS Without Contrast EXAM: CT Abdomen and Pelvis Without Intravenous Contrast CLINICAL HISTORY: Abdominal pain. TECHNIQUE: Axial computed tomography images of the abdomen and pelvis without intravenous contrast. CTDI is 39.95 mGy and DLP is 2181.74 mGy-cm. Automated exposure control was utilized for the study. A dose lowering technique was utilized adhering to the principles of ALARA. COMPARISON: No relevant prior studies available. FINDINGS: Lung bases: Bibasilar airspace opacities are present. ABDOMEN: Liver: Unremarkable. Gallbladder and bile ducts: Unremarkable. No calcified stones. No ductal dilation. Pancreas: Unremarkable. No ductal dilation. Spleen: Unremarkable. No splenomegaly. Adrenals: Unremarkable. No mass. Kidneys and ureters: The bilateral calyces are calcified. No hydronephrosis of either kidney. Stomach and bowel: Unremarkable. No obstruction. No mucosal thickening. PELVIS: Appendix: Normal appendix. Bladder: Unremarkable. No stones. Reproductive: Unremarkable as visualized. ABDOMEN and PELVIS: Intraperitoneal space: Unremarkable. No free air. No significant fluid collection. Bones/joints: There are degenerative changes of the spine. No fracture. No dislocation. Soft tissues: There is mild nonspecific body wall edema. Small bilateral fat-containing inguinal hernias. Vasculature: Mild atherosclerosis. No abdominal aortic aneurysm. Lymph nodes: Unremarkable. No enlarged lymph nodes. IMPRESSION: 1. No hydronephrosis of either kidney. 2. Bibasilar airspace opacities may represent pulmonary edema, atelectasis or atypical infection. 3. The bilateral calyces are calcified. These could represent staghorn calculi or renal papillary necrosis. 4. Normal appendix. Electronically signed by: Monique Gaines MD 06/29/22 20:[address] 06/29/22 18:22 CR Exam(s): CT HEAD Without Contrast EXAM: CT Head Without Intravenous Contrast CLINICAL HISTORY: Altered mental state. TECHNIQUE: Axial computed tomography images of the head/brain without intravenous contrast. CTDI is 53.37 mGy and DLP is 884.08 mGy-cm. Automated exposure control was utilized for the study. A dose lowering technique was utilized adhering to the principles of ALARA. COMPARISON: No relevant prior studies available. FINDINGS: Brain: No intracranial hemorrhage, mass-effect or midline shift. No abnormal extra axial fluid. No evidence of acute infarct. Mild periventricular white matter hypodensities are most consistent with chronic microangiopathy. Large chronic MCA infarct. Ventricles: Unremarkable. No ventriculomegaly. Bones/joints: Unremarkable. No acute fracture. Soft tissues: Unremarkable. Vasculature: There is a partially calcified 2.3 cm partially calcified lesion in the vicinity of the right M2. Sinuses: Unremarkable as visualized. No acute sinusitis. Mastoid air cells: Large bilateral mastoid effusions. IMPRESSION: 1. No acute intracranial finding. 2. There is a partially calcified 2.3 cm partially calcified lesion in the vicinity of the right M2. This could represent a aneurysm, although nonspecific. Recommend CT of the head if not already performed. 3. Large bilateral mastoid effusions. Communications: Call Doctor Above results Electronically signed by: Monique Gaines MD 06/29/22 20:30 PM Venous Doppler Study 06/30/22 00:44 LEFT LOWER EXTREMITY VENOUS DOPPLER HISTORY: Acute pain with soft tissue swelling of the left leg left leg swelling COMPARISON STUDY: None. FINDINGS: Limited exam secondary to patient body habitus. Subcutaneous edema. There is normal compressibility, flow, and augmentation within the left lower extremity deep venous system. IMPRESSION: No DVT within the left lower extremity. ACT 112: Negative or not required by law. Electronically signed by: Alejandro Encinas M.D. 06/30/2022 10:24 AM Chest X-Ray 06/30/22 07:00 XR chest 1V portable HISTORY: 72 years-old Male hypoxia acute hypoxia COMPARISON: 06/29/2022 TECHNIQUE: AP view of the chest FINDINGS: Patient is mildly rotated. The cardiac silhouette is enlarged. Reticular interstitial opacities are noted with multifocal alveolar densities, pronounced in the lung bases and left upper lobe. Small pleural effusions. No significant change from yesterday's exam. Degenerative changes of the shoulders and spine. IMPRESSION: 1. Cardiomegaly with unchanged mixed interstitial and alveolar opacities again suggestive of multifocal pneumonia. 2. Small pleural effusions. ACT 112: Negative or not required by law. The above report was generated using voice recognition software. It may contain grammatical, syntax or spelling errors. Electronically signed by: Alejandro Encinas M.D. 06/30/2022 7:52 AM PG Care Time/CCT Total # of Minutes Spent Total Time Spent with Patient: Total time spent is greater than 50% in coordination of care (as documented) at patient's floor/unit and/or counseling patient: Coding Level of Care Code 35380 SUB INP/OBS CARE MIN Diagnoses Acute respiratory failure with hypoxia and hypercapnia J96.01; J96.02 Metabolic encephalopathy G93.41 Altered mental state R41.82 Pneumonia J18.9 Abdominal pain R10.9 UTI (urinary tract infection) N39.0 Acute kidney injury N17.9 Chronic congestive heart failure I50.9 Bilateral lower extremity edema R60.0 At risk for diabetes mellitus Z91.89 Chronic prescription opiate use Z79.891 Hypertension I10 Neuropathy G62.9 Constipation K59.00 Coronary artery disease I25.[address] of the head R93.0 Seborrheic dermatitis L21.9 Depression F32.A COPD (chronic obstructive pulmonary disease) J44.9 MELINA (obstructive sleep apnea) G47.33 BPH (benign prostatic hyperplasia) N40.0
[2022-06-30] MEDS: LATANOPROST 0.005% OP SOLN 2.5 ML BTL OPB SCH (20:56)
[2022-07-01] MEDS: HEPARIN SOD 5,000 UNIT/0.5 ML VIAL SQ SCH ×3 (00:44→16:06)
[2022-07-01] MEDS: AZITHROMYCIN 500 MG in DEXTROSE 5% 250 ML IV SCH (00:44)
[2022-07-01] MEDS: metroNIDAZOLE 500 MG/100 ML BAG IV SCH ×3 (03:11→17:06)
[2022-07-01] MEDS: CEFEPIME 2,000 MG in SYRINGE 0 ML IV SCH ×3 (04:54→21:28)
[2022-07-01] MEDS: INSULIN ASPART PER UNIT CHARGE SC SCH ×4 (07:27→21:41)
[2022-07-01] MEDS: LACTULOSE SYRUP 30 GM/45 ML UDP PO SCH ×2 (08:16→12:48)
[2022-07-01] MEDS: PREGABALIN 50 MG CAP PO SCH ×3 (09:07→21:41)
[2022-07-01] MEDS: METHADONE HCL 5 MG TAB PO SCH ×2 (09:07→21:42)
[2022-07-01] MEDS: KETOCONAZOLE 2% CR 15 GM TUBE EXT SCH (09:08)
[2022-07-01] MEDS: DULoxetine HCL 30 MG CAP PO SCH (09:08)
[2022-07-01] MEDS: FUROSEMIDE 20 MG TAB PO SCH (09:08)
[2022-07-01] MEDS: ASPIRIN 81 MG CHEW PO SCH (09:08)
[2022-07-01] MEDS: ARTIFICIAL TEARS OP SCH ×4 (09:09→21:37)
[2022-07-01] MEDS: tiZANidine HCL 4 MG TABLET PO SCH ×3 (09:09→21:44)
[2022-07-01] MEDS: DOCUSATE SODIUM/SENNA 50/8.6MG TAB PO SCH (09:09)
[2022-07-01 09:20] LABS: BUN Creatinine Ratio 25.7 (10-20); Calcium 9.4 mg/dl (8.6-10.3); Creatinine Clr Calc Pharmacy 129.1 ml/min; Est GFR (African American) 108.3 ml/min; Est GFR (Non-African American) 93.5 ml/min; Potassium 3.7 mmol/L (3.5-5.1)
--- NOTE | 2022-07-01 09:25 | XRay Report ---
XR chest 1V portable HISTORY: 72 years-old Male hypoxia acute hypoxia COMPARISON: 06/30/2022 TECHNIQUE: AP view of the chest FINDINGS: Patient is mildly rotated. The cardiac silhouette is enlarged. Reticular interstitial opacities are n oted with multifocal alveolar densities, pronounced in the lung bases and left upper lobe. Small pleu ral effusions. No significant change from yesterday's exam. Degenerative changes of the shoulders and spine. IMPRESSION: 1. Cardiomegaly with unchanged mixed interstitial and alveolar opacities again suggestive of multifoc al pneumonia. Superimposed pulmonary edema is also likely present. 2. Small pleural effusions. ACT 112: Negative or not required by law. The above report was generated using voice recognition software. It may contain grammatical, syntax o r spelling errors. Electronically signed by: Alejandro Encinas M.D. 07/01/2022 9:23 AM
--- NOTE | 2022-07-01 12:43 | Hospitalist Progress Note ---
Date of Service July 01, 2022 Assessment & Plan (1) Acute respiratory failure with hypoxia and hypercapnia: Plan: Patient seems to be improved He is not using accessory muscles to breathe and does not appear to be any in any distress He still seems confused however I agree with the diagnosis of pneumonia due to chest x-ray findings, elevated white count and procalcitonin, lack of improvement with diuretics Leukocytosis resolved Patient clinically seems improved with less respiratory distress He is now saturating 94% on 2 L. Titrate O2 down (2) Metabolic encephalopathy: Plan: Seems to be improving with her daughter Still confused though Most likely related to pneumonia, hypoxia with a baseline history of stroke Toxic encephalopathy from polypharmacy may still be an issue. Continue ordered methadone 5 mg p.o. twice daily. Tizanidine has been reduced to 2 mg 3 times daily. Lyrica has been reduced to 50 mg p.o. 3 times daily (3) Altered mental state: Plan: See above (4) Pneumonia: Plan: Respiratory viral panel negative. MRSA negative Currently on cefepime, metronidazole, azithromycin. Continue DIRECTOR INSTITUTION on board, ordered FL video swallow which will be done on Saturday (5) Abdominal pain: Plan: Suspect this is somewhat chronic although could be a sign of UTI. No acute findings on CT. No significant abdominal pain today. (6) UTI (urinary tract infection): Plan: Alternative source of infection. No specific symptoms but patient also altered. Urine culture grew Proteus Follow blood cultures On cefepime that will cover However likely to be a contamination In setting of b/l staghorn calculus, urology involved. Recommended outpatient follow-up (7) Acute kidney injury: Plan: Possible SILVA (but unknown basleine) in setting of losartan and recently increasing Lasix use ER report from 06/27 reports "mild SILVA" with Cr 1.6 and currently 1.76 on admission Creatinine has normalized Lasix has been cut back on Holding losartan. May resume if blood pressure starts to go up. (8) Chronic congestive heart failure: Plan: Admitted 06/23- for acute CHF. Lasix increased from 20mg PO daily to 40mg PO BID on discharge. Advised to increase to 80mg PO BID on 06/27 ER visit due to worsening CXR findings although also noted to have "mild SILVA" suspected from Lasix use Unclear if all or part of these times were actually pneumonia rather than CHF given current diagnosis with concurrent altered mental state not explained by CHF and pt not getting better with diuretics and daughter reports his weight is significantly down. Therefore currently back on his earlier Lasix dosing of 20mg PO daily Patient has 2-3+ bilateral lower extremity swelling which could be related to his chronic immobility rather than a CHF exacerbation. We will monitor his leg swelling. Strict I&Os Daily weights Low Na, fluid restricted diet Repeat chest x-ray showed findings still suggesting pneumonia and no increased vascular congestion. TTE showed no depressed EF but showed mild concentric LVH. (9) Bilateral lower extremity edema: Plan: Suspect most likely from immobility with less mobility on left side Venous duplex ultrasound negative for DVT (10) At risk for diabetes mellitus: Plan: A1c 6.7 Hold metformin and Ozempic Novolog: --Goal BSG Range: Low 110 mg/dL, High 140 mg/dL --Correction Factor: 45 mg/dL/unit --No carb ratio --BSGs ACHS if eating, q6h if npo (11) Chronic prescription opiate use: Plan: Continue methadone as above (12) Hypertension: Plan: Hypotensive in the ER, responded to IV fluids although lactate normal. ?hypotensive from recent increase in Lasix. Lasix dosing as above Hold losartan (13) Neuropathy: Plan: Continue Duloxetine Lyrica and Methadone as above (14) Constipation: Plan: Presumably opiate an lack of mobility induced Continue his usual Movantik (although I am not clear he is on this) and Senna Patient is on lactulose but only on an as-needed basis. He does not want it. Discontinued lactulose. (15) Coronary artery disease: Plan: No clear [place] or catheterization previously Continue aspirin (16) Abnormal CT of the head: Plan: Daughter mentions he was supposed to follow up with a neurologist for a "growth" on his brain. Presumably this is the calcified 2.3cm lesion in the vicinity of the right M2. I do not believe therefore this represents an acute change. May consider CT angio prior to discharge as suspect this has been lost to follow up. (17) Seborrheic dermatitis: Plan: Ketoconazole cream BID (18) Depression: Plan: Continue duloxetine - based of external pharmacy reporting he is on 90mg daily (incorrect on [facility] discharge) (19) COPD (chronic obstructive pulmonary disease): Plan: Noted history of this on [facility] notes although no maintenance inhalers prescribed. No know prior PFTs. No current wheezing to suggest exacerbation. (20) MELINA (obstructive sleep apnea): Plan: BiPAP HS Follow up sleep study as outpatient if not recently performed (21) BPH (benign prostatic hyperplasia): Plan: Continue tamsulosin 0.4mg PO daily Bladder scan for PVR Plan VTE Prophyalxis - hold Xarelto as not clear he needs this for chronic prophyalxis and switch to heparin 7500 units q8h Diet - T2DM, heart healthy, Low Na, fluid restrict Disposition: Daughter would want him to go to a rehab place after this hospitalization. PT/OT and social work involved. Spoke to daughter on the phone on 07/01 to update her about the plan. Admission and Anticipated Discharge Date Admission Date: June 29, 2022 Subjective Per nurse, patient is still slightly confused. Per daughter, he is much better from a confusion standpoint than when he first came to the ER but still not back to his usual baseline yet. Review of Systems Review of Systems: Unobtainable due to cognitive status Physical Exam Physical Exam: General: Awake, conversant, obese, pleasantly confused Heart: S1, S2/regular rate and rhythm, no murmur rubs or gallops Lungs: Clear to auscultation bilaterally. Normal effort Abdomen: Soft/nontender/nondistended. No hepatosplenomegaly Extremities: No clubbing/cyanosis. 2-3+ bilateral lower extremity edema Behavior: Appropriate, cooperative Results & Data Results & Data Vital Signs (Past 12 Hours) Vital Signs Temp Pulse Pulse Resp BP Pulse Ox O2 Del Method 07/01/22 12:07 36.8 C 52 L 20 125/62 94 Nasal Cannula 07/01/22 09:00 Nasal Cannula 07/01/22 07:20 55 L 07/01/22 07:00 36.7 C 56 L 18 147/62 H 95 Nasal Cannula 07/01/22 03:28 36.8 C 54 L 18 121/60 97 Nasal Cannula O2 Flow Rate 07/01/22 12:07 2.0 07/01/22 09:00 2 07/01/22 07:20 07/01/22 07:00 07/01/22 03:28 2 Laboratory Results Abnormal lab results 06/30/22 06/30/22 07/01/22 Range/Units 16:20 20:08 07:24 Carbon Dioxide (21-32) mmol/L BUN/Creatinine Ratio (10-20) Glucose (70-99(Fasting)) mg/dl POC Glucose 131 H 150 H 114 H (70-99) mg/dl 07/01/22 07/01/22 Range/Units 08:28 11:21 Carbon Dioxide 36 H (21-32) mmol/L BUN/Creatinine Ratio 25.7 H (10-20) Glucose 125 H (70-99(Fasting)) mg/dl POC Glucose 133 H (70-99) mg/dl Diagnostic Findings Chest X-Ray 07/01/22 07:00 XR chest 1V portable HISTORY: 72 years-old Male hypoxia acute hypoxia COMPARISON: 06/30/2022 TECHNIQUE: AP view of the chest FINDINGS: Patient is mildly rotated. The cardiac silhouette is enlarged. Reticular interstitial opacities are noted with multifocal alveolar densities, pronounced in the lung bases and left upper lobe. Small pleural effusions. No significant change from yesterday's exam. Degenerative changes of the shoulders and spine. IMPRESSION: 1. Cardiomegaly with unchanged mixed interstitial and alveolar opacities again suggestive of multifocal pneumonia. Superimposed pulmonary edema is also likely present. 2. Small pleural effusions. ACT 112: Negative or not required by law. The above report was generated using voice recognition software. It may contain grammatical, syntax or spelling errors. Electronically signed by: Alejandro Encinas M.D. 07/01/2022 9:23 AM PG Care Time/CCT Total # of Minutes Spent Total Time Spent with Patient: Total time spent is greater than 50% in coordination of care (as documented) at patient's floor/unit and/or counseling patient: Coding Level of Care Code 13058 SUB INP/OBS CARE 2/35MIN Diagnoses Acute respiratory failure with hypoxia and hypercapnia J96.01; J96.02 Metabolic encephalopathy G93.41 Altered mental state R41.82 Pneumonia J18.9 Abdominal pain R10.9 UTI (urinary tract infection) N39.0 Acute kidney injury N17.9 Chronic congestive heart failure I50.9 Bilateral lower extremity edema R60.0 At risk for diabetes mellitus Z91.89 Chronic prescription opiate use Z79.891 Hypertension I10 Neuropathy G62.9 Constipation K59.00 Coronary artery disease I25.[address] of the head R93.0 Seborrheic dermatitis L21.9 Depression F32.A COPD (chronic obstructive pulmonary disease) J44.9 MELINA (obstructive sleep apnea) G47.33 BPH (benign prostatic hyperplasia) N40.0
[2022-07-01] MEDS: ACETAMINOPHEN 325 MG TAB PO PRN (18:42)
[2022-07-01] MEDS: ACETAMINOPHEN 500 MG TAB PO SCH (21:36)
[2022-07-01] MEDS: LATANOPROST 0.005% OP SOLN 2.5 ML BTL OPB SCH (21:37)
[2022-07-01] MEDS: TAMSULOSIN HCL 0.4 MG CAP PO SCH (21:43)
[2022-07-01] MEDS: ATORVASTATIN 40 MG TAB PO SCH (21:44)
[2022-07-02] MEDS: AZITHROMYCIN 500 MG in DEXTROSE 5% 250 ML IV SCH ×2 (00:48→23:55)
[2022-07-02] MEDS: HEPARIN SOD 5,000 UNIT/0.5 ML VIAL SQ SCH ×4 (00:48→23:56)
[2022-07-02] MEDS: metroNIDAZOLE 500 MG/100 ML BAG IV SCH ×3 (03:23→18:10)
[2022-07-02] MEDS: CEFEPIME 2,000 MG in SYRINGE 0 ML IV SCH ×3 (04:58→20:33)
[2022-07-02 06:43] LABS: BUN Creatinine Ratio 19.1 (10-20); Calcium 9.1 mg/dl (8.6-10.3); Creatinine Clr Calc Pharmacy 142.3 ml/min; Est GFR (African American) 112.1 ml/min; Est GFR (Non-African American) 96.8 ml/min; Potassium 3.6 mmol/L (3.5-5.1)
[2022-07-02] MEDS: INSULIN ASPART PER UNIT CHARGE SC SCH ×4 (07:43→20:25)
--- NOTE | 2022-07-02 08:40 | XRay Report ---
XR chest 1V portable CLINICAL HISTORY: Hypoxia. COMPARISON STUDY: Chest CT June 29, 2022 and chest radiograph July 01, 2022. FINDINGS: No pneumothorax or pleural effusion is present. Cardiomegaly is unchanged. Patient is rotat ed. Interstitial thickening and alveolar opacities persist. There is been no significant change in ap pearance of the chest. IMPRESSION: No significant change in appearance of chest. Persistent interstitial thickening and mony ateral opacities. Findings could reflect pulmonary edema or pneumonia. ACT 112: Negative or not required by law. Electronically signed by: Geovanny Acosta M.D. 07/02/2022 8:38 AM
[2022-07-02] MEDS: PREGABALIN 50 MG CAP PO SCH ×3 (08:55→20:12)
[2022-07-02] MEDS: tiZANidine HCL 4 MG TABLET PO SCH ×3 (08:56→20:12)
[2022-07-02] MEDS: METHADONE HCL 5 MG TAB PO SCH ×2 (08:56→20:11)
[2022-07-02] MEDS: LOSARTAN POTASSIUM 50 MG TAB PO SCH (08:58)
[2022-07-02] MEDS: ASPIRIN 81 MG CHEW PO SCH (08:58)
[2022-07-02] MEDS: ACETAMINOPHEN 325 MG TAB PO PRN ×2 (09:02→23:30)
[2022-07-02] MEDS: DULoxetine HCL 30 MG CAP PO SCH (09:02)
[2022-07-02] MEDS: DOCUSATE SODIUM/SENNA 50/8.6MG TAB PO SCH (09:02)
[2022-07-02] MEDS: FUROSEMIDE 20 MG TAB PO SCH (09:03)
[2022-07-02] MEDS: ARTIFICIAL TEARS OP SCH ×4 (09:03→20:27)
[2022-07-02] MEDS: KETOCONAZOLE 2% CR 15 GM TUBE EXT SCH (09:04)
--- NOTE | 2022-07-02 11:29 | Hospitalist Progress Note ---
Date of Service July 02, 2022 Assessment & Plan (1) Acute respiratory failure with hypoxia and hypercapnia: Plan: Patient seems to be improved He is not using accessory muscles to breathe and does not appear to be any in any distress He still seems confused however I agree with the diagnosis of pneumonia due to chest x-ray findings, elevated white count and procalcitonin, lack of improvement with diuretics Leukocytosis resolved Patient clinically seems improved with less respiratory distress He is now saturating 96% on 2 L. Titrate O2 down (2) Metabolic encephalopathy: Plan: Seems to be improving with her daughter Still confused though Most likely related to pneumonia, hypoxia with a baseline history of stroke Toxic encephalopathy from polypharmacy may still be an issue. Continue ordered methadone 5 mg p.o. twice daily. Tizanidine has been reduced to 2 mg 3 times daily. Lyrica has been reduced to 50 mg p.o. 3 times daily (3) Altered mental state: Plan: See above (4) Pneumonia: Plan: Respiratory viral panel negative. MRSA negative Currently on cefepime, metronidazole, azithromycin. Continue PROCESS DEVELOPMENT CHEMIST on board, ordered FL video swallow which will be done today (5) Abdominal pain: Plan: Suspect this is somewhat chronic although could be a sign of UTI. No acute findings on CT. No significant abdominal pain today. (6) UTI (urinary tract infection): Plan: Alternative source of infection. No specific symptoms but patient also altered. Urine culture grew Proteus Blood cultures negative On cefepime that will cover However likely to be a contamination In setting of b/l staghorn calculus, urology involved. Recommended outpatient follow-up (7) Acute kidney injury: Plan: Possible SILVA (but unknown basleine) in setting of losartan and recently increasing Lasix use ER report from 06/27 reports "mild SILVA" with Cr 1.6 and currently 1.76 on a dmission Creatinine has normalized Lasix has been cut back on Resume losartan as blood pressure has started to creep up (8) Chronic congestive heart failure: Plan: Admitted 06/23- for acute CHF. Lasix increased from 20mg PO daily to 40mg PO BID on discharge. Advised to increase to 80mg PO BID on 06/27 ER visit due to worsening CXR findings although also noted to have "mild SILVA" suspected from Lasix use Unclear if all or part of these times were actually pneumonia rather than CHF given current diagnosis with concurrent altered mental state not explained by CHF and pt not getting better with diuretics and daughter reports his weight is significantly down. Therefore currently back on his earlier Lasix dosing of 20mg PO daily Patient has 2-3+ bilateral lower extremity swelling which could be related to his chronic immobility rather than a CHF exacerbation. We will monitor his leg swelling. Strict I&Os Daily weights Low Na, fluid restricted diet Repeat chest x-ray showed findings still suggesting pneumonia and no increased vascular congestion. TTE showed no depressed EF but showed mild concentric LVH. (9) Bilateral lower extremity edema: Plan: Suspect most likely from immobility with less mobility on left side Venous duplex ultrasound negative for DVT (10) At risk for diabetes mellitus: Plan: A1c 6.7 Hold metformin and Ozempic Novolog: --Goal BSG Range: Low 110 mg/dL, High 140 mg/dL --Correction Factor: 45 mg/dL/unit --No carb ratio --BSGs ACHS if eating, q6h if npo (11) Chronic prescription opiate use: Plan: Continue methadone as above (12) Hypertension: Plan: Hypotensive in the ER, responded to IV fluids although lactate normal. ?hypotensive from recent increase in Lasix. Lasix dosing as above Resume losartan pressure starting to go up (13) Neuropathy: Plan: Continue Duloxetine Lyrica and Methadone as above (14) Constipation: Plan: Presumably opiate an lack of mobility induced Continue his usual Movantik (although I am not clear he is on this) and Senna Patient is on lactulose but only on an as-needed basis. He does not want it. Discontinued lactulose. (15) Coronary artery disease: Plan: No clear [place] or catheterization previously Continue aspirin (16) Abnormal CT of the head: Plan: Daughter mentions he was supposed to follow up with a neurologist for a "growth" on his brain. Presumably this is the calcified 2.3cm lesion in the vicinity of the right M2. I do not believe therefore this represents an acute change. May consider CT angio as suspect this has been lost to follow up. (17) Seborrheic dermatitis: Plan: Ketoconazole cream BID (18) Depression: Plan: Continue duloxetine - based of external pharmacy reporting he is on 90mg daily (incorrect on [facility] discharge) (19) COPD (chronic obstructive pulmonary disease): Plan: Noted history of this on [facility] notes although no maintenance inhalers prescribed. No know prior PFTs. No current wheezing to suggest exacerbation. (20) MELINA (obstructive sleep apnea): Plan: BiPAP HS Follow up sleep study as outpatient if not recently performed (21) BPH (benign prostatic hyperplasia): Plan: Continue tamsulosin 0.4mg PO daily Bladder scan for PVR Plan VTE Prophyalxis - hold Xarelto as not clear he needs this for chronic prophyalxis and switch to heparin 7500 units q8h Diet - T2DM, heart healthy, Low Na, fluid restrict Disposition: Daughter would want him to go to a rehab place after this hospitalization. PT/OT and social work involved. Spoke to daughter on the phone on 07/01 to update her about the plan. Admission and Anticipated Discharge Date Admission Date: June 29, 2022 Subjective Patient does not have any major complaints. Denies chest pain or shortness of breath. Physical Exam Physical Exam: General: Awake, conversant, obese, pleasantly confused Heart: S1, S2/regular rate and rhythm, no murmur rubs or gallops Lungs: Clear to auscultation bilaterally. Normal effort Abdomen: Soft/nontender/nondistended. No hepatosplenomegaly Extremities: No clubbing/cyanosis. 2-3+ bilateral lower extremity edema Behavior: Appropriate, cooperative Results & Data Results & Data Vital Signs (Past 12 Hours) Vital Signs Temp Pulse Pulse Resp BP Pulse Ox O2 Del Method 07/02/22 11:21 36.8 C 57 L 18 164/68 H 96 Nasal Cannula 07/02/22 09:46 Nasal Cannula 07/02/22 09:45 55 L 07/02/22 07:30 36.5 C 53 L 18 160/71 H 96 Nasal Cannula 07/02/22 03:26 36.8 C 53 L 19 154/60 H 94 Nasal Cannula O2 Flow Rate 07/02/22 11:21 2 07/02/22 09:46 2 07/02/22 09:45 07/02/22 07:30 2 07/02/22 03:26 2 PG Care Time/CCT Total # of Minutes Spent Total Time Spent with Patient: Total time spent is greater than 50% in coordination of care (as documented) at patient's floor/unit and/or counseling patient: Coding Level of Care Code 46909 SUB INP/OBS CARE 2/35MIN Diagnoses Acute respiratory failure with hypoxia and hypercapnia J96.01; J96.02 Metabolic encephalopathy G93.41 Altered mental state R41.82 Pneumonia J18.9 Abdominal pain R10.9 UTI (urinary tract infection) N39.0 Acute kidney injury N17.9 Chronic congestive heart failure I50.9 Bilateral lower extremity edema R60.0 At risk for diabetes mellitus Z91.89 Chronic prescription opiate use Z79.891 Hypertension I10 Neuropathy G62.9 Constipation K59.00 Coronary artery disease I25.[address] of the head R93.0 Seborrheic dermatitis L21.9 Depression F32.A COPD (chronic obstructive pulmonary disease) J44.9 MELINA (obstructive sleep apnea) G47.33 BPH (benign prostatic hyperplasia) N40.0
--- NOTE | 2022-07-02 15:49 | Fluoroscopy Report ---
FL video swallow HISTORY: Assess for Silent Aspiration TECHNIQUE: Video fluoroscopic evaluation of swallowing was performed in the AP and lateral projection s by the speech pathology staff. The patient is fed nectar-thick and thin liquid barium, a barium coa chris wafer, and barium pudding. FLUOROSCOPY TIME: 1.4 minutes. A cine loop submitted Ka,r: 29.5 mGy COMPARISON STUDY: None. FINDINGS: There is normal hyoid excursion and epiglottic deflection. No significant penetration or as piration identified. Swallowing function is within normal limits. IMPRESSION: 1. No aspiration identified. 2. Please see the speech pathologist report for detailed findings and recommendations. ACT 112: Negative or not required by law. Electronically signed by: Norris Teran M.D. 07/02/2022 3:48 PM
[2022-07-02] MEDS: ACETAMINOPHEN 500 MG TAB PO SCH (20:12)
[2022-07-02] MEDS: TAMSULOSIN HCL 0.4 MG CAP PO SCH (20:13)
[2022-07-02] MEDS: ATORVASTATIN 40 MG TAB PO SCH (20:13)
[2022-07-02] MEDS: LATANOPROST 0.005% OP SOLN 2.5 ML BTL OPB SCH (20:28)
[2022-07-03] MEDS: metroNIDAZOLE 500 MG/100 ML BAG IV SCH ×3 (02:12→18:08)
[2022-07-03] MEDS: CEFEPIME 2,000 MG in SYRINGE 0 ML IV SCH ×3 (05:06→20:41)
[2022-07-03 06:17] LABS: Hematocrit (blood only) 37.1 % (42.0-52.0); Hemoglobin 12.1 g/dl (14.0-18.0); Mean Corpuscular Hemoglobin 28.5 pg (25.0-34.0); Mean Corpuscular Hgb Conc 32.6 g/dL (32.0-36.0); Mean Corpuscular Volume 87.3 fL (80.0-100.0); Mean Platelet Volume 9.5 fL (9.4-12.4); Platelet Count 270 K/uL (130-400); RDW Standard Deviation 44.5 fL (36.4-46.3); Red Blood Count 4.25 M/uL (4.70-6.10); White Blood Count 7.29 K/ul (4.8-10.8)
[2022-07-03 06:33] LABS: BUN Creatinine Ratio 16.1 (10-20); Calcium 9.1 mg/dl (8.6-10.3); Creatinine Clr Calc Pharmacy 157.1 ml/min; Est GFR (African American) 116.5 ml/min; Est GFR (Non-African American) 100.5 ml/min; Potassium 3.6 mmol/L (3.5-5.1)
[2022-07-03] MEDS: tiZANidine HCL 4 MG TABLET PO SCH ×3 (08:44→20:43)
[2022-07-03] MEDS: DULoxetine HCL 30 MG CAP PO SCH (08:45)
[2022-07-03] MEDS: DOCUSATE SODIUM/SENNA 50/8.6MG TAB PO SCH (08:45)
[2022-07-03] MEDS: ASPIRIN 81 MG CHEW PO SCH (08:45)
[2022-07-03] MEDS: FUROSEMIDE 20 MG TAB PO SCH (08:46)
[2022-07-03] MEDS: LOSARTAN POTASSIUM 50 MG TAB PO SCH (08:46)
[2022-07-03] MEDS: KETOCONAZOLE 2% CR 15 GM TUBE EXT SCH (08:46)
[2022-07-03] MEDS: ARTIFICIAL TEARS OP SCH ×4 (08:47→20:41)
[2022-07-03] MEDS: INSULIN ASPART PER UNIT CHARGE SC SCH ×4 (08:48→21:21)
[2022-07-03] MEDS: METHADONE HCL 5 MG TAB PO SCH ×2 (08:50→20:40)
[2022-07-03] MEDS: PREGABALIN 50 MG CAP PO SCH (08:50)
[2022-07-03] MEDS: HEPARIN SOD 5,000 UNIT/0.5 ML VIAL SQ SCH ×2 (08:53→15:41)
--- NOTE | 2022-07-03 13:22 | Hospitalist Progress Note ---
Date of Service July 03, 2022 Assessment & Plan (1) Acute respiratory failure with hypoxia and hypercapnia: Plan: 2nd to b/l pneumonia. Slowly improving. Continues on cefepime + azithromycin. Continue NC O2. (2) Metabolic encephalopathy: Plan: Metabolic +/- toxic (latter - polypharmacy and [employer] agents including methadone, zanaflex, lyrica, cymbalta, etc). Metabolic - pneumonia, hospital psychosis, etc. (3) Pneumonia: Plan: Bio[employer] Respiratory panel negative. MRSA negative. Currently on cefepime, metronidazole, azithromycin. Day #5 of azithromycin - stop after 5th dose. Can likely stop flagyl. Continue cefepime to cover for gram negatives given his recent hospitalization at [facility]. Of note - video swallow exam was wnl. (4) Abdominal pain: Plan: resolved (5) UTI (urinary tract infection): Plan: 2nd proteus. cefepime will suffice. UTI is in the setting of b/l staghorn calculus. [facility] [place] - nothing acute to do at this time. Outpatient f/u advised. (6) Acute kidney injury: Plan: Cr 1.7 at presentation now 0.6 suspect prerenal (over diuresis as diuretics had recently been doubled) (7) Chronic congestive heart failure: Plan: Admitted 06/23- at [facility] for suspected acute/chronic HFpEF. His lasix was increased to 40mg BID upon discharge, and then on 06/27 it was increased further to 80mg BID. This resulted in SILVA as noted above. At this time he does not examine in decompensated CHF. Cont lasix 20mg daily for now. Serial exams. (8) Bilateral lower extremity edema: Plan: Likely dependent edema (especially on left due to hemiparesis from prior CVA). No evidence of DVT on recent dopplers. Cont lasix 20mg daily. (9) Chronic prescription opiate use: Plan: Continue methadone 5mg BID used for chronic neuropathy? other? PDMP confirms the above dose (10) Hypertension: Plan: Stable, controlled Cont losartan Cont lasix Cont flomax Presumably not on beta adolfo due to bradycardia (11) Neuropathy: Plan: Continue Duloxetine Was previously on lyrica 200mg BID Currently 50mg TID; will increase to 75mg TID and watch mental status Continue methadone Suspect LLE complaints today are due to neuropathy (12) Constipation: Plan: Continue senna/colace Add back lactulose albeit at lower dose of 30mg BID (13) Coronary artery disease: Plan: Per records, but details uncertain Continue aspirin (14) Abnormal CT of the head: Plan: 2.3cm lesion right side of brain Will obtain CTA head today - r/o aneurysm, vascular malformation, etc May ultimately need MRI but can defer to outpatient as it is chronic by report (15) Seborrheic dermatitis: Plan: Ketoconazole cream BID (16) Depression: Plan: Continue duloxetine (17) COPD (chronic obstructive pulmonary disease): Plan: Per the records However, he is not on maintenance inhalers. PFTs are not available. No exacerbation at this time. (18) MELINA (obstructive sleep apnea): Plan: Patient reports he does NOT use NC O2 or BIPAP/CPAP at home (19) BPH (benign prostatic hyperplasia): Plan: Continue tamsulosin 0.4mg PO daily (20) History of stroke: Plan: Cont asa, statin for secondary prevention Patient has left sided hemiparesis from such (21) Type 2 diabetes mellitus: Plan: Hba1c 6.7% Cont novolog SSI Metformin + Ozempic are on hold at this time (22) DVT prophylaxis: Plan: heparin 7500 units TID (due to morbid obesity) (23) Morbid obesity with BMI of 40.0-44.9, adult: Plan: BMI 44.6 Admission and Anticipated Discharge Date Admission Date: June 29, 2022 Subjective tele stable overnight - sinus bradycardia patient is "feeling better" overall still tired, and still with poor appetite, but he feels better and has a little more energy he does c/o left leg pain extending from the L knee to the L ankle on the mendez - sharp, stabbing, often present at night-time he states "I'm not depressed - why am I taking that cymbalta?" -- I explained it was for neuropathy still continues on NC O2 he does not use chronic O2 at home does not use BIPAP or CPAP either denies any headaches Review of Systems Review of Systems: gen - no fevers cv - no chest pain pulm - mild cough, largely nonproductive at this point GI - no abd pain or nausea Physical Exam Physical Exam: gen - obese, NAD, left-sided hemiparesis neck - no JVD mouth - MMM, no thrush heart - RR (borderline sinus jamie), s1 s2, no murmur lungs - mild b/l basilar rales (fine); no wheezes; no increased work of breathi ng abd - soft, obese, BS+, NT ext - b/l lymphedema, worse on left; pulses 2+ b/l neuro - left-sided hemiparesis; contracture of left leg musculo - no joint effusions of either knee or his feet Results & Data Results & Data Vital Signs (Past 12 Hours) Vital Signs Temp Pulse Pulse Resp BP Pulse Ox O2 Del Method 07/03/22 11:43 36.9 C 52 L 19 143/61 H 96 Nasal Cannula 07/03/22 11:27 53 L 07/03/22 11:27 Room Air 07/03/22 07:58 36.6 C 58 L 19 147/63 H 94 Nasal Cannula O2 Flow Rate 07/03/22 11:43 2.0 07/03/22 11:27 07/03/22 11:27 2 07/03/22 07:58 2.0 Laboratory Results Laboratory Results - last 24 hr 07/02/22 07/02/22 07/03/22 16:22 20:10 05:53 WBC 7.29 RBC 4.25 L Hgb 12.1 L Hct 37.1 L MCV 87.3 MCH 28.5 MCHC 32.6 RDW Std Deviation 44.5 RDW Coeff of Fam 14.0 Plt Count 270 MPV 9.5 Sodium Potassium Chloride Carbon Dioxide Anion Gap BUN Creatinine Est Cr Clr Drug Dosing Est GFR ( Amer) Est GFR (Non-Af Amer) BUN/Creatinine Ratio Glucose POC Glucose 129 H 116 H Calcium 07/03/22 07/03/22 07/03/22 05:53 07:41 11:41 WBC RBC Hgb Hct MCV MCH MCHC RDW Std Deviation RDW Coeff of Fam Plt Count MPV Sodium 140 Potassium 3.6 Chloride 100 Carbon Dioxide 33 H Anion Gap 7 BUN 10 Creatinine 0.62 Est Cr Clr Drug Dosing 157.1 Est GFR ( Amer) 116.5 Est GFR (Non-Af Amer) 100.5 BUN/Creatinine Ratio 16.1 Glucose 121 H POC Glucose 129 H 167 H Calcium 9.1 PG Care Time/CCT Total # of Minutes Spent Total Time Spent with Patient: Total time spent is greater than 50% in coordination of care (as documented) at patient's floor/unit and/or counseling patient: Coding Level of Care Code 64194 SUB INP/OBS CARE 3/50MIN Diagnoses Acute respiratory failure with hypoxia and hypercapnia J96.01; J96.02 Metabolic encephalopathy G93.41 Pneumonia J18.9 Abdominal pain R10.9 UTI (urinary tract infection) N39.0 Acute kidney injury N17.9 Chronic congestive heart failure I50.9 Bilateral lower extremity edema R60.0 Chronic prescription opiate use Z79.891 Hypertension I10 Neuropathy G62.9 Constipation K59.00 Coronary artery disease I25.[address] of the head R93.0 Seborrheic dermatitis L21.9 Depression F32.A COPD (chronic obstructive pulmonary disease) J44.9 MELINA (obstructive sleep apnea) G47.33 BPH (benign prostatic hyperplasia) N40.0 History of stroke Z86.73 Type 2 diabetes mellitus E11.9 DVT prophylaxis Z29.9 Morbid obesity with BMI of 40.0-44.9, adult E66.01; Z68.41
[2022-07-03] MEDS ORDERED: OPTIRAY 320 500ml IV ONE (14:25)
[2022-07-03] MEDS: LACTULOSE SYRUP 30 GM/45 ML UDP PO SCH ×2 (14:30→20:42)
[2022-07-03] MEDS: PREGABALIN 75 MG CAP PO SCH ×2 (15:00→20:40)
--- NOTE | 2022-07-03 15:10 | CT Scan Report ---
CT angio head wo/w CLINICAL HISTORY: abnormal M2 lesion, right side, on CT head TECHNIQUE: Contiguous axial CT images of the head were acquired from the base of the skull to the vickie james without intravenous contrast administration. CT angiography of the head was performed following intravenous administration of iodinated contrast. Coronal and sagittal MIPS were obtained from the ax ial data set and were submitted for review. Automated dose lowering techniques and/or adjustment acc ording to patient size were utilized for this examination. All measurements were calculated based on NASCET criteria. CT DOSE: 874.17 mGy.cm Comparison: Comparison is made to CT head 06/29/2022 FINDINGS: CT head: Partially calcified 2.3 cm lesion in the vicinity of the right M2 is unchanged. Chronic ence phalomalacia is seen. Bilateral mastoid effusions are seen. CTA Head: The anterior and posterior cerebral circulations are patent. Absent circulation is seen in the right internal carotid artery at the skull base. The right MCA and MAGDALENO are supplied from the con tralateral circulation. No aneurysm is seen to suggest involvement of the right calcified lesion. Rig ht vertebral dominance is noted. IMPRESSION: 1. The right calcified lesion is not aneurysmal in origin. 2. 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 3. No acute abnormality is seen in the intracranial circulation.. ACT 112: Negative or not required by law. Electronically signed by: Pepe Chang M.D. 07/03/2022 3:08 PM
[2022-07-03] MEDS: ACETAMINOPHEN 500 MG TAB PO SCH (20:40)
[2022-07-03] MEDS: ATORVASTATIN 40 MG TAB PO SCH (20:41)
[2022-07-03] MEDS: LATANOPROST 0.005% OP SOLN 2.5 ML BTL OPB SCH (20:42)
[2022-07-03] MEDS: TAMSULOSIN HCL 0.4 MG CAP PO SCH (20:43)
[2022-07-04] MEDS: HEPARIN SOD 5,000 UNIT/0.5 ML VIAL SQ SCH ×3 (00:13→16:10)
[2022-07-04] MEDS: ACETAMINOPHEN 325 MG TAB PO PRN (02:53)
[2022-07-04] MEDS: CEFEPIME 2,000 MG in SYRINGE 0 ML IV SCH ×3 (04:32→20:32)
[2022-07-04 06:34] LABS: Base Excess VBG 10.4 mEq/L; HCO3 VBG 37 mmol/L; Oxygen Saturation VBG 96.7 %; PCO2 VBG 59 mmHg (38-50); PO2 VBG 73 mmHg; pH VBG 7.41 (7.36-7.41)
[2022-07-04 08:51] LABS: BUN Creatinine Ratio 12.3 (10-20); Calcium 9.2 mg/dl (8.6-10.3); Creatinine Clr Calc Pharmacy 149.3 ml/min; Est GFR (African American) 114.2 ml/min; Est GFR (Non-African American) 98.6 ml/min; Potassium 3.8 mmol/L (3.5-5.1)
[2022-07-04] MEDS ORDERED: AZITHROMYCIN 250 MG TAB PO ONE (09:00)
[2022-07-04] MEDS: tiZANidine HCL 4 MG TABLET PO SCH ×3 (09:26→20:18)
[2022-07-04] MEDS: LOSARTAN POTASSIUM 50 MG TAB PO SCH (09:27)
[2022-07-04] MEDS: FUROSEMIDE 20 MG TAB PO SCH (09:28)
[2022-07-04] MEDS: DULoxetine HCL 30 MG CAP PO SCH (09:28)
[2022-07-04] MEDS: ASPIRIN 81 MG CHEW PO SCH (09:28)
[2022-07-04] MEDS: KETOCONAZOLE 2% CR 15 GM TUBE EXT SCH (09:29)
[2022-07-04] MEDS: LACTULOSE SYRUP 30 GM/45 ML UDP PO SCH (09:29)
[2022-07-04] MEDS: DOCUSATE SODIUM/SENNA 50/8.6MG TAB PO SCH (09:29)
[2022-07-04] MEDS: ARTIFICIAL TEARS OP SCH ×4 (09:29→20:16)
[2022-07-04] MEDS: INSULIN ASPART PER UNIT CHARGE SC SCH ×4 (09:30→20:37)
[2022-07-04] MEDS: METHADONE HCL 5 MG TAB PO SCH ×2 (09:33→20:32)
[2022-07-04] MEDS: PREGABALIN 75 MG CAP PO SCH ×3 (09:33→20:32)
[2022-07-04] MEDS ORDERED: bisacodyL 10 MG SUPP PR STA (16:03)
--- NOTE | 2022-07-04 16:03 | Hospitalist Progress Note ---
Date of Service July 04, 2022 Assessment & Plan (1) Acute respiratory failure with hypoxia and hypercapnia: Plan: 2nd to b/l pneumonia. Resolved. NC O2 weaned off. Stable in RA today. (2) Metabolic encephalopathy: Plan: Resolved. Metabolic +/- toxic (latter - polypharmacy and [employer] agents including methadone, zanaflex, lyrica, cymbalta, etc). Metabolic - pneumonia, hospital psychosis, etc. (3) Pneumonia: Plan: Bio[employer] Respiratory panel negative. MRSA negative. Day #6 cefepime. Completed 5 days of azithromycin. Continue cefepime to cover for gram negatives given his recent hospitalization at [facility]. Plan 7 days of such then d/c all abx therapy. Of note - video swallow exam was wnl. (4) Abdominal pain: Plan: resolved suspect it was due to constipation issues (5) UTI (urinary tract infection): Plan: 2nd proteus. UTI is in the setting of b/l staghorn calculus. [facility] [place] - nothing acute to do at this time. Outpatient f/u advised. has completed course of cefepime (6) Acute kidney injury: Plan: Cr 1.7 at presentation now 0.6 suspect prerenal (over diuresis as diuretics had recently been doubled) (7) Chronic congestive heart failure: Plan: Admitted 06/23- at [facility] for suspected acute/chronic HFpEF. His lasix was increased to 40mg BID upon discharge, and then on 06/27 it was increased further to 80mg BID. This resulted in SILVA as noted above. At this time he does not examine in decompensated CHF. Cont lasix 20mg daily for now. Serial exams. (8) Bilateral lower extremity edema: Plan: Likely dependent edema (especially on left due to hemiparesis from prior CVA). No evidence of DVT on recent dopplers. Cont lasix 20mg daily. (9) Chronic prescription opiate use: Plan: Continue methadone 5mg BID used for chronic neuropathy? other? PDMP confirms the above dose (10) Hypertension: Plan: Uncontrolled Cont losartan Cont lasix Cont flomax Add amlodipine 5mg daily Presumably not on beta adolfo due to bradycardia (11) Neuropathy: Plan: Continue Duloxetine Continue lyrica 75mg TID Can likely go to 100mg TID at discharge Continue methadone (12) Constipation: Plan: Continue senna/colace stop lactulose - likely giving him gaseous distension dulcolax suppos x 1 today if no response then give additional senna resume Movantik at d/c (13) Coronary artery disease: Plan: Per records, but details uncertain Continue aspirin (14) Abnormal CT of the head: Plan: 2.3cm lesion right side of brain Obtained CTA head - no aneursym He should have a dedicated MRI brain as outpatient (15) Seborrheic dermatitis: Plan: Ketoconazole cream BID (16) Depression: Plan: Continue duloxetine (17) COPD (chronic obstructive pulmonary disease): Plan: Per the records However, he is not on maintenance inhalers. PFTs are not available. No exacerbation at this time. No wheezing, etc. (18) MELINA (obstructive sleep apnea): Plan: Patient reports he does NOT use NC O2 or BIPAP/CPAP at home currently but used latter for years Will perform overnight oximetry study tonight to see if home O2 is needed (19) BPH (benign prostatic hyperplasia): Plan: Continue tamsulosin 0.4mg PO daily (20) History of stroke: Plan: Cont asa, statin for secondary prevention Patient has left sided hemiparesis from such (21) Type 2 diabetes mellitus: Plan: Hba1c 6.7% Cont novolog SSI Metformin + Ozempic are on hold at this time - resume at d/c (22) DVT prophylaxis: Plan: heparin 7500 units TID (due to morbid obesity) (23) Morbid obesity with BMI of 40.0-44.9, adult: Plan: BMI 44 Plan left message for Jennifer Randolph - daughter - on voicemail this evening d/c home tomorrow ?? has 24/7 caregivers at his home near [place] he is non-ambulatory at baseline Admission and Anticipated Discharge Date Admission Date: June 29, 2022 Subjective tele overnight wnl patient states again today "I'm feeling better" when I first arrived to his room his NC O2 was off and had slid down to under his chin o2 sats were 95% in RA; o2 was thus removed we discussed MELINA - he apparently wore CPAP for "many years" then abruptly stopped using it sometime in the last few years he just got tired of using it cough largely resolved eating fair - 50% of meals per flowsheet last BM - 07/01 - he feels a little bloated anxious to go home Review of Systems 2 Review of Systems: gen - no fevers cv - no cp, no orthopnea pulm - no dyspnea at rest neuro - ongoing, chronic neuropathy of legs/feet much worse on left - states it is similar to the pain he has at home GI - constipation but no N/V Physical Exam Physical Exam: gen - obese, NAD, left-sided hemiparesis = looks good today neck - no JVD mouth - MMM, no thrush heart - RRR, s1 s2, no murmur lungs - minimal b/l basilar rales (fine); no wheezes; no increased work of breathing abd - distended, obese, BS+, NT ext - b/l lymphedema, worse on left; pulses 2+ b/l; lymphedema unchanged neuro - left-sided hemiparesis; contracture of left leg unchanged psych - awake, alert Results & Data Results & Data Vital Signs (Past 12 Hours) Vital Signs Temp Pulse Pulse Resp BP Pulse Ox O2 Del Method 07/04/22 11:36 66 07/04/22 11:36 Nasal Cannula 07/04/22 11:30 36.9 C 55 L 20 158/71 H 95 Nasal Cannula 07/04/22 07:37 36.8 C 60 18 154/66 H 95 Nasal Cannula O2 Flow Rate 07/04/22 11:36 07/04/22 11:36 2 07/04/22 11:30 07/04/22 07:37 2.0 Laboratory Results Laboratory Results - last 24 hr 07/03/22 07/03/22 07/04/22 16:34 20:10 06:20 VBG pH VBG pCO2 VBG pO2 VBG HCO3 VBG O2 Saturation VBG Base Excess Sodium 140 Potassium 3.8 Chloride 101 Carbon Dioxide 34 H Anion Gap 5 BUN 8 Creatinine 0.65 Est Cr Clr Drug Dosing 149.3 Est GFR ( Amer) 114.2 Est GFR (Non-Af Amer) 98.6 BUN/Creatinine Ratio 12.3 Glucose 118 H POC Glucose 108 H 132 H Calcium 9.2 07/04/22 07/04/22 07/04/22 06:20 07:36 11:31 VBG pH 7.41 VBG pCO2 59 H VBG pO2 73 VBG HCO3 37 VBG O2 Saturation 96.7 VBG Base Excess 10.4 Sodium Potassium Chloride Carbon Dioxide Anion Gap BUN Creatinine Est Cr Clr Drug Dosing Est GFR ( Amer) Est GFR (Non-Af Amer) BUN/Creatinine Ratio Glucose POC Glucose 129 H 136 H Calcium PG Care Time/CCT Total # of Minutes Spent Total Time Spent with Patient: Total time spent is greater than 50% in coordination of care (as documented) at patient's floor/unit and/or counseling patient: Coding Level of Care Code 33213 SUB INP/OBS CARE 2/35MIN Diagnoses Acute respiratory failure with hypoxia and hypercapnia J96.01; J96.02 Metabolic encephalopathy G93.41 Pneumonia J18.9 Abdominal pain R10.9 UTI (urinary tract infection) N39.0 Acute kidney injury N17.9 Chronic congestive heart failure I50.9 Bilateral lower extremity edema R60.0 Chronic prescription opiate use Z79.891 Hypertension I10 Neuropathy G62.9 Constipation K59.00 Coronary artery disease I25.[address] of the head R93.0 Seborrheic dermatitis L21.9 Depression F32.A COPD (chronic obstructive pulmonary disease) J44.9 MELINA (obstructive sleep apnea) G47.33 BPH (benign prostatic hyperplasia) N40.0 History of stroke Z86.73 Type 2 diabetes mellitus E11.9 DVT prophylaxis Z29.9 Morbid obesity with BMI of 40.0-44.9, adult E66.01; Z68.41
[2022-07-04] MEDS ORDERED: SENNA 8.6 MG TAB PO ONE (19:20)
[2022-07-04] MEDS ORDERED: amLODIPine BESYLATE 5 MG TAB PO ONE (19:22)
[2022-07-04] MEDS: ACETAMINOPHEN 500 MG TAB PO SCH (20:14)
[2022-07-04] MEDS: ATORVASTATIN 40 MG TAB PO SCH (20:16)
[2022-07-04] MEDS: LATANOPROST 0.005% OP SOLN 2.5 ML BTL OPB SCH (20:17)
[2022-07-04] MEDS: TAMSULOSIN HCL 0.4 MG CAP PO SCH (20:19)
[2022-07-05] MEDS: HEPARIN SOD 5,000 UNIT/0.5 ML VIAL SQ SCH ×4 (01:17→23:09)
[2022-07-05] MEDS: CEFEPIME 2,000 MG in SYRINGE 0 ML IV SCH ×2 (04:18→12:02)
[2022-07-05] MEDS: ACETAMINOPHEN 325 MG TAB PO PRN ×2 (05:18→09:18)
[2022-07-05] MEDS: DULoxetine HCL 30 MG CAP PO SCH (08:27)
[2022-07-05] MEDS: PREGABALIN 75 MG CAP PO SCH (08:27)
[2022-07-05] MEDS: METHADONE HCL 5 MG TAB PO SCH ×2 (08:27→20:31)
[2022-07-05] MEDS: ASPIRIN 81 MG CHEW PO SCH (08:28)
[2022-07-05] MEDS: tiZANidine HCL 4 MG TABLET PO SCH ×3 (08:28→20:25)
[2022-07-05] MEDS: DOCUSATE SODIUM/SENNA 50/8.6MG TAB PO SCH (08:29)
[2022-07-05] MEDS: FUROSEMIDE 20 MG TAB PO SCH (08:29)
[2022-07-05] MEDS: amLODIPine BESYLATE 5 MG TAB PO SCH (08:29)
[2022-07-05] MEDS: LOSARTAN POTASSIUM 50 MG TAB PO SCH (08:30)
[2022-07-05 08:58] LABS: BUN Creatinine Ratio 17.2 (10-20); Calcium 9.2 mg/dl (8.6-10.3); Est GFR (African American) 119.7 ml/min; Est GFR (Non-African American) 103.3 ml/min; Potassium 3.6 mmol/L (3.5-5.1)
[2022-07-05] MEDS: INSULIN ASPART PER UNIT CHARGE SC SCH ×4 (09:11→20:32)
[2022-07-05] MEDS: KETOCONAZOLE 2% CR 15 GM TUBE EXT SCH (09:18)
[2022-07-05] MEDS: ARTIFICIAL TEARS OP SCH ×4 (09:19→20:25)
[2022-07-05] MEDS ORDERED: KETOROLAC TROMETHAMINE 15 MG/ML VIAL IV ONE (09:25)
[2022-07-05] MEDS ORDERED: METHADONE HCL 5 MG TAB PO STA (09:31)
--- NOTE | 2022-07-05 11:44 | XRay Report ---
XR knee LT 1 or 2V routine CLINICAL HISTORY: Left knee pain. COMPARISON STUDY: None. FINDINGS: Anterior soft tissue swelling within the left knee and proximal left lower leg. No acute fr acture or dislocation within the left knee. No evidence for a large knee effusion. There is moderate osteoarthritis within the left knee. No radiopaque foreign bodies. IMPRESSION: Anterior soft tissue swelling within the left knee and proximal left lower leg. No acute fractures identified ACT 112: Negative or not required by law. Electronically signed by: Norris Teran M.D. 07/05/2022 11:43 AM
--- NOTE | 2022-07-05 12:02 | XRay Report ---
XR ankle LT 2V CLINICAL HISTORY: Left ankle pain. COMPARISON: None FINDINGS: Alignment of the left ankle is anatomic. There is no acute fracture. Plantar calcaneal spu rring is noted. There is mild posterior calcaneal spurring. Talar dome is intact. Heterogeneity of th e skeletal structures may reflect osteopenia. There is dorsal foot soft tissue swelling. There is als o left lower leg and ankle soft tissue swelling. IMPRESSION: 1. No acute fracture or dislocation within the left ankle. 2. Diffuse soft tissue swelling. ACT 112: Negative or not required by law. Electronically signed by: Geovanny Acosta M.D. 07/05/2022 12:01 PM
--- NOTE | 2022-07-05 12:03 | XRay Report ---
XR tibia fibula LT 2V CLINICAL HISTORY: mendez pain on left COMPARISON: None FINDINGS: Alignment of the left knee appears anatomic. There is no fracture within the left tibia or fibula. This study is viewed in conjunction with the left ankle radiographs. No osseous lesion withi n the left tibia or fibula. There is lower leg soft tissue swelling. IMPRESSION: 1. No fracture within the left tibia or fibula. No evidence for acute osteomyelitis. 2. Left lower leg soft tissue swelling. ACT 112: Negative or not required by law. Electronically signed by: Geovanny Acosta M.D. 07/05/2022 12:02 PM
[2022-07-05] MEDS ORDERED: PREGABALIN 100 MG CAP PO SCH (14:00)
[2022-07-05] MEDS: PREGABALIN 150 MG CAP PO SCH ×2 (14:05→20:31)
[2022-07-05] MEDS: DICLOFENAC SOD 1% GEL 100 GM TUBE EXT SCH ×3 (14:06→20:28)
--- NOTE | 2022-07-05 19:40 | Hospitalist Progress Note ---
Date of Service July 05, 2022 Assessment & Plan (1) Acute respiratory failure with hypoxia and hypercapnia: Plan: 2nd to b/l pneumonia. Resolved. NC O2 weaned off. Remains stable in RA. (2) Metabolic encephalopathy: Plan: Resolved. Metabolic +/- toxic (latter - polypharmacy and [employer] agents including methadone, zanaflex, lyrica, cymbalta, etc). Metabolic - pneumonia, hospital psychosis, etc. (3) Pneumonia: Plan: [employer] Respiratory panel negative. MRSA negative. Day #7 cefepime. Stop after this afternoon's dose. Completed 5 days of azithromycin. Of note - video swallow exam was wnl. Aspiration pneumonia not suspected. (4) Abdominal pain: Plan: resolved suspect it was due to constipation issues he had a large BM yesterday which resolved his abd distension (5) UTI (urinary tract infection): Plan: 2nd proteus. UTI is in the setting of b/l staghorn calculus. [facility] [place] Urology consulted - nothing acute to do at this time. Outpatient f/u advised. has completed a course of cefepime (6) Acute kidney injury: Plan: Cr 1.7 at presentation now 0.5 suspect prerenal (over diuresis as diuretics had recently been doubled) (7) Chronic congestive heart failure: Plan: Admitted 06/23- at [facility] for suspected acute/chronic HFpEF. His lasix was increased to 40mg BID upon discharge, and then on 06/27 it was increased further to 80mg BID. This resulted in SILVA as noted above. At this time he does not examine in decompensated CHF. Cont lasix 20mg daily for now. Serial exams. (8) Bilateral lower extremity edema: Plan: Likely dependent edema/lymphedema (especially on left due to hemiparesis from prior CVA). No evidence of DVT on recent dopplers. Cont lasix 20mg daily. (9) Chronic prescription opiate use: Plan: Continue methadone 5mg BID used for chronic neuropathy? other? PDMP confirms the above dose he has been on methadone for several years he likely has a tolerance and could use a dose increase increase methadone to 5mg TID (10) Hypertension: Plan: Improving Cont losartan Cont lasix Cont flomax Cont amlodipine 5mg daily Presumably not on beta adolfo due to bradycardia (11) Neuropathy: Plan: Continue Duloxetine Continue lyrica His LLE pain appears to be neuropathic pain He normally takes lyrica 200mg TID thus, increase lyrica to 150mg TID Continue methadone but increase to 5mg TID (12) Constipation: Plan: Continue senna/colace Resume Movantik at d/c (13) Coronary artery disease: Plan: Per records, but details uncertain Continue aspirin (14) Abnormal CT of the head: Plan: 2.3cm lesion right side of brain Obtained CTA head - no aneursym He should have a dedicated MRI brain as outpatient (15) Seborrheic dermatitis: Plan: Ketoconazole cream BID (16) Depression: Plan: Continue duloxetine (17) COPD (chronic obstructive pulmonary disease): Plan: Per the records However, he is not on maintenance inhalers. PFTs are not available. No exacerbation at this time. No wheezing, etc. Could be contributing to some degree the nocturnal hypoxia (18) MELINA (obstructive sleep apnea): Plan: Patient reports he does NOT use NC O2 or BIPAP/CPAP at home currently but used latter for years overnight oximetry study completed last pm - markedly abnormal needs O2 start 2 L NC O2 at will order such for home (19) BPH (benign prostatic hyperplasia): Plan: Continue tamsulosin 0.4mg PO daily (20) History of stroke: Plan: Cont asa, statin for secondary prevention Patient has left sided hemiparesis from such (21) Type 2 diabetes mellitus: Plan: Hba1c 6.7% Cont novolog SSI Metformin + Ozempic are on hold at this time - resume at d/c (22) DVT prophylaxis: Plan: heparin 7500 units TID (due to morbid obesity) (23) Morbid obesity with BMI of 40.0-44.9, adult: Plan: BMI 44 Plan left message for Jennifer Randolph - daughter - on voicemail 07/04 spoke with pt's son this evening, 07/05 d/c home tomorrow has 24/7 caregivers at his home near [place] Admission and Anticipated Discharge Date Admission Date: June 29, 2022 Subjective overnight oximetry study completed was <89% in RA for 3+ hours during the night sats as low as 70s at times ate 75% of breakfast this am patient states "it's been a bad morning" had severe neuropathic pain of left leg (from knee to the ankle) the pain is the same pain that he has chronically at home and in the same location given toradol x 1 with improved pain states that when the pain is severe his caregiver rubs icey hot on the region with relief Review of Systems Review of Systems: gen - no fever cv - no chest pain pulm - no dyspnea at rest; scant cough GI - no nausea/emesis Physical Exam Physical Exam: gen - obese, NAD, looks well, comfortable neck - no JVD mouth - MMM, no thrush heart - RRR, s1 s2, no murmur lungs - CTA b/l, slightly decreased BS bases abd - distension resolved, obese, BS+, NT, soft ext - b/l lymphedema, worse on left; pulses 2+ b/l; lymphedema unchanged neuro - left-sided hemiparesis; contracture of left leg unchanged psych - awake, alert musculo - no joint effusion of L knee, L ankle, or L foot; no pain to palpation of any of these areas; left mendez without any abnormality; no tenderness to palpation of the tib-fib region Results & Data Results & Data Vital Signs (Past 12 Hours) Vital Signs Temp Pulse Pulse Resp BP Pulse Ox O2 Del Method 07/05/22 15:53 36.6 C 50 L 20 150/64 H 96 Room Air 07/05/22 15:46 56 L 07/05/22 11:09 36.5 C 55 L 18 160/70 H 93 Room Air 07/05/22 08:04 62 07/05/22 07:44 37.0 C 61 18 161/64 H 92 Room Air Laboratory Results Laboratory Results - last 24 hr 07/04/22 07/05/22 07/05/22 20:23 07:49 07:59 Sodium 138 Potassium 3.6 Chloride 101 Carbon Dioxide 31 Anion Gap 6 BUN 10 Creatinine 0.58 L Est Cr Clr Drug Dosing 168.0 Est GFR ( Amer) 119.7 Est GFR (Non-Af Amer) 103.3 BUN/Creatinine Ratio 17.2 Glucose 134 H POC Glucose 174 H 137 H Calcium 9.2 07/05/22 07/05/22 11:26 16:12 Sodium Potassium Chloride Carbon Dioxide Anion Gap BUN Creatinine Est Cr Clr Drug Dosing Est GFR ( Amer) Est GFR (Non-Af Amer) BUN/Creatinine Ratio Glucose POC Glucose 125 H 136 H Calcium Diagnostic Findings Ankle X-Ray 07/05/22 09:25 XR ankle LT 2V CLINICAL HISTORY: Left ankle pain. COMPARISON: None FINDINGS: Alignment of the left ankle is anatomic. There is no acute fracture. Plantar calcaneal spurring is noted. There is mild posterior calcaneal spurring. Talar dome is intact. Heterogeneity of the skeletal structures may reflect osteopenia. There is dorsal foot soft tissue swelling. There is also left lower leg and ankle soft tissue swelling. IMPRESSION: 1. No acute fracture or dislocation within the left ankle. 2. Diffuse soft tissue swelling. ACT 112: Negative or not required by law. Electronically signed by: Geovanny Acosta M.D. 07/05/2022 12:01 PM Tibia/Fibula X-Ray 07/05/22 09:25 XR tibia fibula LT 2V CLINICAL HISTORY: mendez pain on left COMPARISON: None FINDINGS: Alignment of the left knee appears anatomic. There is no fracture within the left tibia or fibula. This study is viewed in conjunction with the left ankle radiographs. No osseous lesion within the left tibia or fibula. There is lower leg soft tissue swelling. IMPRESSION: 1. No fracture within the left tibia or fibula. No evidence for acute osteomyelitis. 2. Left lower leg soft tissue swelling. ACT 112: Negative or not required by law. Electronically signed by: Geovanny Acosta M.D. 07/05/2022 12:02 PM PG Care Time/CCT Total # of Minutes Spent Total Time Spent with Patient: Total time spent is greater than 50% in coordination of care (as documented) at patient's floor/unit and/or counseling patient: Coding Level of Care Code 62707 SUB INP/OBS CARE 3/50MIN Diagnoses Acute respiratory failure with hypoxia and hypercapnia J96.01; J96.02 Metabolic encephalopathy G93.41 Pneumonia J18.9 Abdominal pain R10.9 UTI (urinary tract infection) N39.0 Acute kidney injury N17.9 Chronic congestive heart failure I50.9 Bilateral lower extremity edema R60.0 Chronic prescription opiate use Z79.891 Hypertension I10 Neuropathy G62.9 Constipation K59.00 Coronary artery disease I25.[address] of the head R93.0 Seborrheic dermatitis L21.9 Depression F32.A COPD (chronic obstructive pulmonary disease) J44.9 MELINA (obstructive sleep apnea) G47.33 BPH (benign prostatic hyperplasia) N40.0 History of stroke Z86.73 Type 2 diabetes mellitus E11.9 DVT prophylaxis Z29.9 Morbid obesity with BMI of 40.0-44.9, adult E66.01; Z68.41
[2022-07-05] MEDS: ACETAMINOPHEN 500 MG TAB PO SCH (20:24)
[2022-07-05] MEDS: ATORVASTATIN 40 MG TAB PO SCH (20:25)
[2022-07-05] MEDS: TAMSULOSIN HCL 0.4 MG CAP PO SCH (20:25)
[2022-07-05] MEDS: LATANOPROST 0.005% OP SOLN 2.5 ML BTL OPB SCH (20:27)
[2022-07-05] MEDS ORDERED: METHADONE HCL 10 MG TAB PO SCH (21:00)
[2022-07-06 06:51] LABS: Hematocrit (blood only) 37.9 % (42.0-52.0); Hemoglobin 12.4 g/dl (14.0-18.0); Mean Corpuscular Hemoglobin 28.4 pg (25.0-34.0); Mean Corpuscular Hgb Conc 32.7 g/dL (32.0-36.0); Mean Corpuscular Volume 86.9 fL (80.0-100.0); Mean Platelet Volume 9.3 fL (9.4-12.4); Platelet Count 314 K/uL (130-400); RDW Coefficient of Variation 14.8 % (11.5-14.5); RDW Standard Deviation 47.4 fL (36.4-46.3); Red Blood Count 4.36 M/uL (4.70-6.10); White Blood Count 7.77 K/ul (4.8-10.8)
[2022-07-06 07:07] LABS: BUN Creatinine Ratio 16.9 (10-20); Calcium 9.1 mg/dl (8.6-10.3); Creatinine Clr Calc Pharmacy 165.8 ml/min; Est GFR (African American) 118.9 ml/min; Est GFR (Non-African American) 102.6 ml/min; Potassium 3.8 mmol/L (3.5-5.1)
[2022-07-06] MEDS: ACETAMINOPHEN 325 MG TAB PO PRN ×2 (07:13→12:45)
[2022-07-06] MEDS: tiZANidine HCL 4 MG TABLET PO SCH ×2 (08:00→13:19)
[2022-07-06] MEDS: amLODIPine BESYLATE 5 MG TAB PO SCH (08:01)
[2022-07-06] MEDS: DULoxetine HCL 30 MG CAP PO SCH (08:01)
[2022-07-06] MEDS: FUROSEMIDE 20 MG TAB PO SCH (08:01)
[2022-07-06] MEDS: ASPIRIN 81 MG CHEW PO SCH (08:01)
[2022-07-06] MEDS: DOCUSATE SODIUM/SENNA 50/8.6MG TAB PO SCH (08:01)
[2022-07-06] MEDS: DICLOFENAC SOD 1% GEL 100 GM TUBE EXT SCH ×2 (08:01→12:45)
[2022-07-06] MEDS: KETOCONAZOLE 2% CR 15 GM TUBE EXT SCH (08:01)
[2022-07-06] MEDS: LOSARTAN POTASSIUM 50 MG TAB PO SCH (08:02)
[2022-07-06] MEDS: PREGABALIN 150 MG CAP PO SCH ×2 (08:05→12:45)
[2022-07-06] MEDS: METHADONE HCL 5 MG TAB PO SCH ×2 (08:05→12:45)
[2022-07-06] MEDS: INSULIN ASPART PER UNIT CHARGE SC SCH ×2 (08:11→12:02)
[2022-07-06] MEDS: HEPARIN SOD 5,000 UNIT/0.5 ML VIAL SQ SCH (08:13)
[2022-07-06] MEDS: ARTIFICIAL TEARS OP SCH ×2 (10:09→12:46)
--- NOTE | 2022-07-06 13:23 | Discharge Summary ---
Date of Service July 06, 2022 Admission HPI Per Admitting Provider Bryson Randolph is a 72 year old male with prior CVA and left sided weakness who presents to the ER via EMS from home (01/10 nursing care) due to hypoxia, shortness of breath and decreased urination. Unable to accurate history from the patient due to altered mental status as he thinks he was transferred from [facility] today and generally mentioning nonsensical things about his oxygen. Becomes more confused at times asking when the police will be here to take away the ammunition and seeing other people in the room e.g. a pillow who he thought was "a girl". Significant problems with getting a good history due to complex recent medical care at outside hospitals and completely new to this hospital. History obtained after hours of discussing with the patient, his daughter Jennifer who has guardianship and eventually able to get recent notes from [facility]. Baseline is he does not ambulate and uses kamla lift for all transfers. He was living at the [facility] [place] (he arrived with his med list from here but has changed multiple times since) and was discharged home with 01/10 care about 1.5 months ago. Despite his mobility issues he is usually very sharp. He went to [facility] ER on June 23 with left sided chest pain. Incidentally he still complains of this today but points to his abdomen. Serial troponins were negative. CTA was performed (per discharge summary on 06/19 although he was admitted on 06/23 therefore unclear if this was just a typo) which was negative for PE. CXR was concerning for pulmonary vascular congestion and he was diuresed with 1-2L daily and repeat CXR on discharge showed improvement. His basline O2 is on room air but he was still needing 2LPm O2 at rest on discharge and was discharged on this amount. Per his daughter he had significant problems remembe ring to keep this on. He was discharged on increased dose of Lasix from 20mg PO daily to 40mg PO BID. Xarelto was also started due to his decreased mobility for VTE prophylaxis as recommended by cardiology. He was also recommended to have sleep study as outpatient due to untreated MELINA. He returned to the ER on 06/27 due to nausea, vomiting and lightheadedness. He was noted to have a "mild SILVA" with Cr 1.6 (although I am not clear on his baseline). Reportedly this was in the setting of him not wearing his oxygen from his recent discharge and he was still requiring 2Pm O2. CXR was concerning for worsening CHF and recommended increasing Lasix to 80mg PO BID. Patient reportedly refused admission and he was discharged home which seemed reasonable since his O2 requirement had not got worse. On discussion with Jennifer his sister she reports his care givers were concerned about his progressively worsening mental state which was altered ever since his first discharge, worsening hypoxia today and decreased urine output. She has become disillusioned with the care he received at [facility] therefore advised EMS to take her to [facility]. His PCP is Dr Walls of [facility] in [facility] but she reports he has only seen him once. Discharge Exam gen - obese, NAD, looks well, comfortable neck - no JVD mouth - MMM, no thrush heart - RRR, s1 s2, no murmur lungs - CTA b/l, slightly decreased BS bases abd - distension resolved, obese, BS+, NT, soft ext - b/l lymphedema, worse on left; pulses 2+ b/l; lymphedema unchanged neuro - left-sided hemiparesis; contracture of left leg unchanged psych - awake, alert musculo - no joint effusion of L knee, L ankle, or L foot; no pain to palpation of any of these areas; left mendez without any abnormality; no tenderness to palpation of the tib-fib region Discharge Data Allergies Allergy/AdvReac Type Severity Reaction Status Date / Time Penicillins Allergy Unknown Verified 06/29/22 22:41 Consultations 06/29/22 17:27 ED Decision to Admit Stat 06/29/22 18:48 HIM [Consult Health Information Management] Stat HIM [Consult Health Information Management] Stat 06/29/22 20:49 Consult Urology Routine Ordered Studies 06/29/22 15:55 CT chest diagnostic wo con Stat 06/29/22 17:34 CT abd pelvis wo con Stat 06/29/22 18:22 CT head/brain wo con Stat 06/30/22 00:44 US venous doppler LE LT Routine 07/02/22 10:47 FL video swallow Routine 07/03/22 13:19 CT angio head wo/w Routine Hospital Course (1) Acute respiratory failure with hypoxia and hypercapnia: 2nd to b/l pneumonia. Resolved. NC O2 weaned off. Remains stable in RA. (2) Metabolic encephalopathy: Resolved. Metabolic +/- toxic (latter - polypharmacy and WOOD SETTER agents including methadone, zanaflex, lyrica, cymbalta, etc). Metabolic - pneumonia, hospital psychosis, etc. (3) Pneumonia: [employer] Respiratory panel negative. MRSA negative. Day #7 cefepime. Stop after this afternoon's dose. Completed 5 days of azithromycin. Of note - video swallow exam was wnl. Aspiration pneumonia not suspected. (4) Abdominal pain: resolved suspect it was due to constipation issues he had a large BM yesterday which resolved his abd distension (5) UTI (urinary tract infection): 2nd proteus. UTI is in the setting of b/l staghorn calculus. [facility] Urology consulted - nothing acute to do at this time. Outpatient f/u advised. has completed a course of cefepime (6) Acute kidney injury: Cr 1.7 at presentation now 0.5 suspect prerenal (over diuresis as diuretics had recently been doubled) (7) Chronic congestive heart failure: Admitted 06/23- at [facility] for suspected acute/chronic HFpEF. His lasix was increased to 40mg BID upon discharge, and then on 06/27 it was increased further to 80mg BID. This resulted in SILVA as noted above. At this time he does not examine in decompensated CHF. Cont lasix 20mg daily for now. Serial exams. (8) Bilateral lower extremity edema: Likely dependent edema/lymphedema (especially on left due to hemiparesis from prior CVA). No evidence of DVT on recent dopplers. Cont lasix 20mg daily. (9) Chronic prescription opiate use: Continue methadone 5mg BID used for chronic neuropathy? other? PDMP confirms the above dose he has been on methadone for several years he likely has a tolerance and could use a dose increase increase methadone to 5mg TID (10) Hypertension: Improving Cont losartan Cont lasix Cont flomax Cont amlodipine 5mg daily Presumably not on beta adolfo due to bradycardia (11) Neuropathy: Continue Duloxetine Continue lyrica His LLE pain appears to be neuropathic pain He normally takes lyrica 200mg TID thus, increase lyrica to 150mg TID Continue methadone but increase to 5mg TID (12) Constipation: Continue senna/colace Resume Movantik at d/c (13) Coronary artery disease: Per records, but details uncertain Continue aspirin (14) Abnormal CT of the head: 2.3cm lesion right side of brain Obtained CTA head - no aneursym He should have a dedicated MRI brain as outpatient (15) Seborrheic dermatitis: Ketoconazole cream BID (16) Depression: Continue duloxetine (17) COPD (chronic obstructive pulmonary disease): Per the records However, he is not on maintenance inhalers. PFTs are not available. No exacerbation at this time. No wheezing, etc. Could be contributing to some degree the nocturnal hypoxia (18) MELINA (obstructive sleep apnea): Patient reports he does NOT use NC O2 or BIPAP/CPAP at home currently but used latter for years overnight oximetry study completed last pm - markedly abnormal needs O2 start 2 L NC O2 at HS will order such for home (19) BPH (benign prostatic hyperplasia): Continue tamsulosin 0.4mg PO daily (20) History of stroke: Cont asa, statin for secondary prevention Patient has left sided hemiparesis from such (21) Type 2 diabetes mellitus: Hba1c 6.7% Cont novolog SSI Metformin + Ozempic are on hold at this time - resume at d/c (22) DVT prophylaxis: heparin 7500 units TID (due to morbid obesity) (23) Morbid obesity with BMI of 40.0-44.9, adult: BMI 44 Plan left message for Jennifer Randolph - daughter - on voicemail 07/04 spoke with pt's son this evening, 07/05 d/c home tomorrow has 24/7 caregivers at his home near [facility] Attestation I certify that this patient is under my care and that I, or a physicians psychiatric technician assistant working with me, had a face to-face encounter that meets the home health [id number] encounter requirements with this patient. The encounter with the patient was in whole, or in part, for the following medical condition, which is the primary reason for home health care (list medical condition): pneumonia I certify that, based on my findings, the following services are medically necessary home health services: My clinical findings support the need for the above services because: OT Assess ADL Status and Restore Function w ADLs PT Assessment for Endurance / Balance / Strength PT Eval for Safety and Mobility PT Eval for Safety, Gait Training, Assistive Devices PT Gait and Balance Training, Strengthening and Safety Skilled Nsg Assessment Further, I certify that my clinical findings support that this patient is homebound (i.e. absences from home require considerable and taxing effort and are for medical reasons or restorationism services or infrequently or of short duration when for other reasons) because: Transportation Assistance/Unable to Leave Home Unassisted Certification for Home Health Services: Based on the above findings, I certify that this patient is confined to the home and needs intermittent correction care, physical therapy and/or speech therapy or continues to need occupational therapy. The patient is under my care, and I have initiated the establishment of the plan of care. This patient will be followed by a physician who will periodically review the plan of care. Discharge Plan Discharge Items Patient Disposition: Home - Home Health Services Reason For Visit: Concern for congestive heart failure Discharge Diagnosis: 1. bilateral pneumonia - resolving 2. bilateral kidney stones - urology follow-up needed 3. need for night-time oxygen - due to untreated sleep apnea 4. history of stroke with resulting left sided weakness 5. calcified 2.3 cm lesion in the right side of brain - etiology uncertain; MRI brain needed 6. type 2 diabetes 7. elevated creatinine (kidney function level in blood) - resolved, creatinine now normal 8. recent treatment for congestive heart failure at [facility] 9. chronic constipation 10. neuropathy of legs - severe on left 11. chronic methadone use 12. COPD 13. MELINA (sleep apnea) 14. High blood pressure 15. Urinary tract infection 16. Chronic lymphedema of left leg Activity: Resume your previous activity Non-emergency contact: Primary Care Provider, Specialist and Urologist Call non-emergency contact if: you have any medication questions, your symptoms worsen, your pain is not controlled, your pain is worsening and you have a fever Follow-up/Referrals: Aravind Walls DO [Outside Practitioners] - ([address] Walls or one of his associates; either in person at office, or home visit. Someone from Dr Walls's office will contact you with an appointment) Dash Crowell MD [Physician] - 07/31/22 11:00 am (2-3 weeks to discuss treatment options for large kidney stones ) Diet: Carb Consistent or DM2 and Heart Healthy Fluids: 1800ml (7 cups) Addtl Attending Provider Instructions: Mr Randolph, You were hospitalized at [facility] for bilateral pneumonia and urinary tract infection. The pneumonia was the cause of your significant weakness upon admission here as well as your confusion. You also had a urinary tract infection and the antibiotics for your pneumonia would have covered the urine without difficulty. You completed a full 7-day course of IV antibiotics during your stay. Although you have edema of your legs - much worse on the left - you currently do not have signs of congestive heart failure. The edema of the left leg is due to lymphedema. There are various causes of lymphedema but in your case it is due to inability to move the leg from your prior stroke. Lymphedema often does not respond to diuretics (furosemide). It is often best treated with compression stockings and "lymphedema therapy." Your mentation, oxygen levels, etc all improved with treatment of your pneumonia and urinary tract infection. During the stay you complained of abdominal pain. Thus, a CT scan was obtained of your abdomen showing bilateral kidney stones. Dr Crowell from [facility] saw you for the stones and has recommended that you follow-up with him in clinic to discuss treatment options for the stones. Your abdominal pain may have been from your pneumonia, the kidney stones, or constipation as you did have a hard time moving your bowels early in the stay. In addition, you complained of your left leg neuropathy on several occasions. We took x-rays of your left knee/mendez/foot and these were all normal. We took an ultrasound of the left leg and there was no blood clot in the leg. To help with your pain we modestly increased your methadone from 5mg twice daily to 5mg THREE TIMES A DAY. This extra dose seems to have worked well for your pain. We also used voltaren (diclofenac) gel on the left mendez with good results. Imaging of the brain showed your OLD stroke but no new stroke. We did see a 2.3cm sized lesion in the right side of the brain. It is uncertain what this is. It is NOT an aneurysm. You will need to obtain an MRI BRAIN to further determine what this spot is. Finally, we performed a test where we measured your oxygen levels while you slept at night-time. For the majority of the night you had LOW OXYGEN LEVELS. This is from UNTREATED SLEEP APNEA. Sleep apnea is best treated with CPAP or BIPAP (you were on this in the past). Until you have a repeat sleep study in the future please use - Nasal cannula oxygen - 2 liters with sleep/naps; no need to use the oxygen while awake or outside the home Recommendations - 1. INCREASE your methadone to 5mg three times daily; I have given you a 10-day supply of the methadone. Future refills will need to come from your family doctor. 2. Nasal cannula oxygen - 2 liters with sleep. 3. Check your blood sugars at least twice daily every day. 4. Limit your fluid intake to about 1800-2000ml each day. 5. HOLD Xarelto until you talk to your family doctor about this medication. 6. STOP your iron tablet (ferrous sulfate) - this is likely contributing to your constipation issues. 7. Would suggest LOWERING your lactulose to twice daily dosing. Using it 3 or 4 times each day causes excessive gas/bloating/abdominal distension. We noted that you developed bloating when you were taking the lactulose frequently. 8. Furosemide diuretic (water pill) - take 40mg each morning only. 9. You may use [id number] voltaren (diclofenac) gel - 4 grams up to 4 times each day for left mendez pain. Just rub into the skin. Use the measuring stick that comes with the box to portion out 4 grams for each treatment. 10. MRI Brain for the spot seen on your CT scans of the head - please coordinate this with your family doctor. Follow-up - see separate section Return to any hospital if- * you have fevers over 100 degrees * you have worsening shortness of breath * you have chest pains * you have abdominal pains * you develop severe diarrhea * any other concerns It was our pleasure to care for you! -Dr Sutton Pending Studies at Discharge: No Stand-Alone Forms: My [facility] [employer], Smoking Cessation Medications and DC Order Prescriptions: New diclofenac sodium [Voltaren Arthritis Pain] 1 % Gel 4 g EXT QID PRN (Reason: left mendez pain) Qty: 1 0RF Rx Instructions: purchase [id number]-fjn-pfeepbt (DME) Oxygen Home Liters Per Minute See Rx Instructions .ROUTE .MEDSUPPLY Qty: 1 0RF Rx Instructions: 2 liters NC O2 with sleep/naps. Continued triamcinolone acetonide 0.1 % cream 1 applic TOPICAL Q6H PRN (Reason: Rash) aspirin 81 mg tablet,chewable 81 mg PO DAILY atorvastatin 40 mg tablet 40 mg PO HS duloxetine 30 mg capsule,delayed release(DR/EC) 30 mg PO DAILY tamsulosin 0.4 mg capsule 0.4 mg PO HS losartan 100 mg tablet 100 mg PO DAILY metformin 500 mg tablet 500 mg PO BID Movantik 25 mg tablet 25 mg PO DAILY Ozempic 1 mg/dose (4 mg/3 mL) pen injector 1 mg SUBCUT WK Rx Instructions: Saturday potassium chloride 10 mEq capsule, extended release 10 meq PO DAILY pregabalin 200 mg capsule 200 mg PO TID sennosides-docusate sodium [Senexon-S] 8.6-50 mg tablet 2 tab PO DAILY tizanidine 4 mg tablet 2 mg PO TID PRN (Reason: Muscle Spasm) latanoprost 0.005 % drops 1 drp OPB HS acetaminophen 325 mg Tablet 650 mg PO Q4H PRN (Reason: Pain) Rx Instructions: As needed for pain/fever. artificial tears solution Drops 2 drp OPB QID guaifenesin 10 ml Q6H PRN (Reason: Cough) ipratropium-albuterol 3 ml inhalation Q4H PRN (Reason: Shortness Of Breath) magnesium hydroxide [Milk of Magnesia] 400 mg/5 mL Suspension 30 ml PO DIRECTED PRN (Reason: Constipation) Rx Instructions: Every 3 days as needed acetaminophen 500 mg Tablet 1,000 mg PO HS duloxetine 60 mg capsule,delayed release(DR/EC) 60 mg PO DAILY Changed methadone 5 mg tablet 5 mg PO TID Qty: 30 0RF Rx Instructions: note the increased frequency furosemide 40 mg tablet 40 mg PO QAM Qty: 1 0RF lactulose [Enulose] 10 gram/15 mL solution 30 ml PO BID Qty: 1 0RF Held Xarelto 10 mg tablet 10 mg PO HS Hold Instructions: please discuss risks vs benefits, pros & cons, of using this medication chronically with your family doctor Discontinued ferrous sulfate 325 mg (65 mg iron) tablet 325 mg PO DAILY Discharge Orders: Discharge Order (Routine); Ordered 07/06/22 Ordered By: Raymond Sutton Admission Data Admit Date/Time: 06/29/22 20:39 Attending Provider: Raymond Sutton Admit Provider: Raymond Soriano Primary Care Provider: PCP,NO Other Providers: Raymond Soriano ; Dash Crowell ; [facility] ; [facility],Health Coding Diagnoses Acute respiratory failure with hypoxia and hypercapnia J96.01; J96.02 Metabolic encephalopathy G93.41 Pneumonia J18.9 Abdominal pain R10.9 UTI (urinary tract infection) N39.0 Acute kidney injury N17.9 Chronic congestive heart failure I50.9 Bilateral lower extremity edema R60.0 Chronic prescription opiate use Z79.891 Hypertension I10 Neuropathy G62.9 Constipation K59.00 Coronary artery disease I25.[address] of the head R93.0 Seborrheic dermatitis L21.9 Depression F32.A COPD (chronic obstructive pulmonary disease) J44.9 MELINA (obstructive sleep apnea) G47.33 BPH (benign prostatic hyperplasia) N40.0 History of stroke Z86.73 Type 2 diabetes mellitus E11.9 DVT prophylaxis Z29.9 Morbid obesity with BMI of 40.0-44.9, adult E66.01; Z68.41
== END 2022-07-06 15:24 | disposition home health service (06) | DRG 193 ==
LOC: ED 12:58 → SUATTDRO 20:39 → 2E 20:39

== ENCOUNTER 2022-12-15 10:20 | Inpatient (IN) ==
[2022-12-15] MEDS ORDERED: diphenhydrAMINE 50 MG/ML VIAL IV STA (10:42)
[2022-12-15] MEDS ORDERED: SODIUM CHLORIDE 0.9% 1,000 ML IV ONE (10:42)
[2022-12-15] MEDS ORDERED: PROMETHAZINE 12.5 MG/50.5 ML BAG IV STA (10:42)
[2022-12-15] MEDS ORDERED: PANTOprazole 40 MG in SYRINGE 0 ML IV ONE (10:42)
[2022-12-15 11:10] LABS: Basophils # (auto) 0.08 K/uL (0.00-0.20); Basophils % (auto) 0.6 %; Eosinophils # (auto) 0.23 K/uL (0.00-0.50); Eosinophils % (auto) 1.9 %; Hematocrit (blood only) 33.2 % (42.0-52.0); Hemoglobin 10.2 g/dl (14.0-18.0); Immature Granulocytes % (auto) 0.8 %; Mean Corpuscular Hemoglobin 26.2 pg (25.0-34.0); Mean Corpuscular Hgb Conc 30.7 g/dL (32.0-36.0); Mean Corpuscular Volume 85.3 fL (80.0-100.0); Mean Platelet Volume 9.8 fL (9.4-12.4); Monocytes # (auto) 1.02 K/uL (0.11-0.59); Monocytes % (auto) 8.3 %; Neutrophils # (auto) 7.68 K/uL (1.40-6.50); Neutrophils % (auto) 62.4 %; Platelet Count 219 K/uL (130-400); RDW Coefficient of Variation 14.5 % (11.5-14.5); RDW Standard Deviation 44.6 fL (36.4-46.3); Red Blood Count 3.89 M/uL (4.70-6.10); White Blood Count 12.31 K/ul (4.8-10.8)
[2022-12-15 11:14] LABS: Alanine Aminotransferase 27 U/L (7-52); Albumin Globulin Ratio 1.2 (0.9-2); Albumin Level 3.4 gm/dl (3.4-5.0); Alkaline Phosphatase 99 U/L (34-104); Anion Gap 7 (3-11); Aspartate Aminotransferase 31 U/L (13-39); BUN Creatinine Ratio 26.5 (10-20); Bilirubin,Total 0.3 mg/dl (0.2-1.0); Blood Urea Nitrogen 31 mg/dl (6-23); Calcium 9.3 mg/dl (8.6-10.3); Carbon Dioxide 34 mmol/L (21-32); Chloride 94 mmol/L (98-107); Est GFR (African American) 72.8 ml/min; Est GFR (Non-African American) 62.8 ml/min; Globulin 2.8 gm/dl (2.5-4.0); Glucose 190 mg/dl (70-99(Fasting)); Potassium 4.3 mmol/L (3.5-5.1); Sodium 135 mmol/L (136-145); Total Protein 6.2 gm/dl (6.0-8.3)
[2022-12-15 11:19] LABS: Troponin I High Sensitivity 5.6 pg/ml (0-20)
--- NOTE | 2022-12-15 11:20 | Emergency Department Note ---
Impression & Plan Altered mental status, Acute on chronic respiratory failure with hypercapnia, Obesity ED Provider Note ED Provider Note NAME: DIONNE PEÑA AGE:72 SEX: Male : 1950 ARRIVES VIA: EMS INFORMANT: Patient, EMS, aide ED PROVIDER(s): Maritza Barksdale DO CHIEF COMPLAINT: Altered mental status HPI: This is a 72-year-old male presents via EMS after being found by an aide this morning to have altered mental status. Aide states she also checked his oxygen at home and found it to be 68%. She put him on oxygen which is her usual practice at home as he typically wears it during the day. She states it did not seem to improve noted his level of mentation so she called 911. Patient at this time can tell me the date, location, and describe how he is feeling. Patient states he began to feel ill last evening with what he describes as lightheadedness and weakness. He denies feeling sob. Denies headache, chest pain, abdominal pain. He states he has chronic leg swelling which is unchanged. PAST MEDICAL HISTORY:See Below PAST SURGICAL HISTORY:See Below FAMILY HISTORY:See Below SOCIAL HISTORY:See Below HOME MEDICATIONS:See Below ALLERGIES:See Below VITALS:See Below PHYSICAL EXAMINATION: GENERAL: alert, well appearing, well nourished, no distress, non-toxic, BMI 46 EYE EXAM: normal conjunctiva, PERRL and EOM's grossly intact OROPHARYNX: no exudate, no erythema, lips, buccal mucosa, and tongue normal and mucous membranes are moist NECK: supple, no nuchal rigidity, no adenopathy, non-tender LUNGS: Clear to auscultation. Normal chest wall mechanics, no w/r/r HEART: no murmurs, S1 normal and S2 normal ABDOMEN: abdomen soft, non-tender, normo-active bowel sounds, no masses, no rebound or guarding. BACK: Back is symmetrical on inspection and there is no deformity, no midline tenderness, no CVA tenderness. SKIN: no rashes, petechiae, orbruising UPPER EXTREMITIES: upper extremities are grossly normal. FROM RUE, nml pulses b/l. Left upper extremity with muscular atrophy and hemiparesis from prior CVA. LOWER EXTREMITIES: No pitting edema. FROM RLE, nml pulses b/l. Left lower extremity with hemiparesis from prior CVA. NEURO EXAM: Normal sensorium, cranial nerves II-XII grossly intact, normal speech, no facial droop,nogross weakness of arms, no gross weakness of legs. Gross sensation intact. No ataxia. Vital Signs: reviewed and remarkable Differential Diagnosis: CVA, ICH, electrode abnormality, sepsis, SILVA, pneumonia, dysrhythmia, hypercapnia, PE, as well as others were considered MEDICAL DECISION MAKING: This is a 72-year-old male brought in by EMS due to concern for altered mental status and hypoxia noted on check of pulse ox at home by aide. Patient was not hypoxic here on arrival and was oriented and able to answer questions. Patient was placed back on nasal cannula supplemental oxygen as this is normal according to the aide at bedside. Labs drawn and sent, IV established, EKG and chest ray performed bedside interpreted by me, ABG obtained, patient monitored on tele metry. Patient noted to have slight hypercapnia although normal pH on ABG, patient's other labs reassuring. Chest x-ray did not reveal any obvious infiltrate although suspicion for possible evolving pulmonary edema was noted. Patient and aide denied any increased lower extremity edema although he does have chronic lymphedema. Patient is anticoagulated and so I am less suspicious of PE. Due to body habitus, decreased mobility, and hypercapnia noted, patient was transitioned from nasal cannula to BiPAP. Patient noted to have mild elevation of lactic acid although this was improved on recheck. Patient noted to have mild anemia which is worse compared to prior. Patient given cautious IV fluids due to possible evolving pulmonary edema. CT head reassuring. Patient denied any increased use of his muscle relaxer or pain medication. Case discussed with hospitalist for additional evaluation and management. Consultation(s): 1314: Discussed with daughter, Jennifer. 1334: Discussed with SHANKAR Marley with [facility] hospitalist team. ER Treatment Provided: See below Diagnostics Interpreted By Me: -ECG: sinus bradycardia at 54, first degree AV block, nml to rightward axis, nml intervals, no acute ST/T wave changes -Cardiac Monitoring: An order was placed for continuous cardiac monitoring. The monitor shows a rate of 56 with sinus bradycardia rhythm. -Laboratory studies: As stated above and show below. -Imaging studies: X-ray Chest: A single view study of the chest was reviewed and was negative for focal infiltrate, effusion, or wide mediastinum. +CM noted. Mild increased interstitial markings compared to prior. Triage Nursing Note Reviewed Prior/Outside Records Reviewed -prior DC summary reviewed Critical Care: Critical care of 48 min performed to assess and manage high likelihood of life- threatening ams and hypercapnia, involving labs and imaging performed with assessment to evaluate ams and hypercapnia diagnosis with frequent reassessment. This time includes bedside time, treatment discussions with patient/family/consultants, documentation time and excludes procedure time. Past Med/Surg History Medical History Abnormal CT of the head Acute respiratory failure with hypoxia and hypercapnia Altered mental state Bilateral lower extremity edema BPH (benign prostatic hyperplasia) Chronic congestive heart failure Chronic constipation Chronic prescription opiate use Congestive heart failure Constipation COPD (chronic obstructive pulmonary disease) Depression Elevated serum creatinine H/O: stroke Hemiplegia History of stroke 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 Hyperlipidemia Hypertension Morbid obesity with BMI of 40.0-44.9, adult Neuropathy MELINA (obstructive sleep apnea) Pneumonia Seborrheic dermatitis Staghorn calculus Type 2 diabetes mellitus UTI (urinary tract infection) Surgical History No significant past surgical history Social History Smoking Status: Never smoker Second Hand Exposure: No; Do You Dip or Chew Tobacco: No; Tobacco Cessation Education Requested by Patient: No Hx Alcohol Use: No Hx Substance Use: No Preferred Language: Kiswahili Communication Ability: Impaired Cooler Worker Required: No Beliefs That Will Affect Care: None Current Living Situation: Alone Current Living Situation Comment: 24 hour caregiver Other Information That Helps Us Care for You: No Feels Safe at Home: Yes Safety Concerns: Feels Safe At This Time Assistive Devices: Oxygen - Continuous and Wheelchair Allergies Allergies Allergy/AdvReac Type Severity Reaction Status Date / Time Penicillins Allergy Unknown Verified 06/29/22 22:41 Home Meds Home Medications Medication Instructions Recorded Confirmed atorvastatin 40 mg tablet 40 mg PO HS 06/29/22 12/15/22 duloxetine 30 mg capsule,delayed 30 mg PO QAM 06/29/22 12/15/22 release losartan 100 mg tablet 100 mg PO QAM 06/29/22 12/15/22 metformin 500 mg tablet 500 mg PO BID 06/29/22 12/15/22 potassium chloride 10 mEq 10 meq PO .NOON 06/29/22 12/15/22 capsule,extended release pregabalin 200 mg capsule 200 mg PO TID 06/29/22 12/15/22 rivaroxaban 10 mg tablet (Xarelto) 10 mg PO QAM 06/29/22 12/15/22 tamsulosin 0.4 mg capsule 0.4 mg PO HS 06/29/22 12/15/22 docusate sodium 50 mg tablet 50 mg PO BID 12/15/22 12/15/22 ferrous sulfate 325 mg (65 mg 325 mg PO QAM 12/15/22 12/15/22 iron) tablet furosemide 40 mg tablet 40 mg PO .QAM & NOON 12/15/22 12/15/22 methadone 5 mg tablet 5 mg PO BID 12/15/22 12/15/22 naldemedine 0.2 mg tablet 0.2 mg PO QAM 12/15/22 12/15/22 (Symproic) Previous Rx's Medication Instructions Recorded Oxygen Home #1 ea 07/06/22 Results & Data (ED) Vital Signs Vital Signs - 24 hr 12/15/22 10:46 12/15/22 10:47 12/15/22 10:50 Temperature Temperature Source Pulse Rate 54 L 56 L Pulse Rate from SpO2 Sensor Pulse Rhythm Regular Pulse Strength Respiratory Rate 14 Respiratory Effort / Characteristics Respiratory Depth Respiratory Pattern Blood Pressure Blood Pressure Mean Blood Pressure Position Pulse Oximetry 94 94 Oxygen Delivery Method Nasal Cannula Nasal Cannula Oxygen Flow Rate 2 2 Fraction of Inspired Oxygen Sepsis Recent Fever Within 48 Hours Sepsis New/Unexplained Change in Mental Status Sepsis Action Taken by Nursing 12/15/22 10:59 12/15/22 10:43 12/15/22 11:00 Temperature 36.9 C Temperature Source Oral Pulse Rate 81 53 L 53 L Pulse Rate from SpO2 Sensor 52 L 52 L Pulse Rhythm Regular Pulse Strength Normal Respiratory Rate 14 15 12 Respiratory Effort / Characteristics Non-Labored Spontaneous Respiratory Depth Normal Respiratory Pattern Regular Blood Pressure 121/72 Blood Pressure Mean 88 Blood Pressure Position Lying Pulse Oximetry 91 95 97 Oxygen Delivery Method Nasal Cannula Oxygen Flow Rate 2 Fraction of Inspired Oxygen Sepsis Recent Fever Within 48 Hours No Sepsis New/Unexplained Change in Mental Status No Sepsis Action Taken by Nursing No Action Required 12/15/22 12:20 12/15/22 11:36 12/15/22 12:15 Temperature Temperature Source Pulse Rate 54 L 95 H 92 H Pulse Rate from SpO2 Sensor 58 L Pulse Rhythm Pulse Strength Respiratory Rate 18 19 Respiratory Effort / Characteristics Non-Labored Spontaneous Respiratory Depth Normal Respiratory Pattern Regular Blood Pressure Blood Pressure Mean Blood Pressure Position Pulse Oximetry 98 92 Oxygen Delivery Method Oxygen Flow Rate Fraction of Inspired Oxygen 30 Sepsis Recent Fever Within 48 Hours Sepsis New/Unexplained Change in Mental Status Sepsis Action Taken by Nursing 12/15/22 12:30 12/15/22 13:00 12/15/22 13:10 Temperature Temperature Source Pulse Rate 62 53 L 54 L Pulse Rate from SpO2 Sensor 55 L 54 L 54 L Pulse Rhythm Pulse Strength Respiratory Rate 14 12 12 Respiratory Effort / Characteristics Respiratory Depth Respiratory Pattern Blood Pressure 98/78 L Blood Pressure Mean 84 Blood Pressure Position Pulse Oximetry 100 100 98 Oxygen Delivery Method Oxygen Flow Rate Fraction of Inspired Oxygen Sepsis Recent Fever Within 48 Hours Sepsis New/Unexplained Change in Mental Status Sepsis Action Taken by Nursing 12/15/22 13:15 Temperature Temperature Source Pulse Rate 54 L Pulse Rate from SpO2 Sensor 54 L Pulse Rhythm Pulse Strength Respiratory Rate 12 Respiratory Effort / Characteristics Respiratory Depth Respiratory Pattern Blood Pressure 136/77 Blood Pressure Mean 96 Blood Pressure Position Pulse Oximetry 98 Oxygen Delivery Method Oxygen Flow Rate Fraction of Inspired Oxygen Sepsis Recent Fever Within 48 Hours Sepsis New/Unexplained Change in Mental Status Sepsis Action Taken by Nursing Laboratory Data 12/15/22 10:35 12/15/22 10:35 Lab Results 12/15/22 12/15/22 12/15/22 Range/Units 10:35 10:35 10:35 WBC 12.31 H (4.8-10.8) K/ul RBC 3.89 L (4.70-6.10) M/uL Hgb 10.2 L (14.0-18.0) g/dl Hct 33.2 L (42.0-52.0) % MCV 85.3 (80.0-100.0) fL MCH 26.2 (25.0-34.0) pg MCHC 30.7 L (32.0-36.0) g/dL RDW Std Deviation 44.6 (36.4-46.3) fL RDW Coeff of Fam 14.5 (11.5-14.5) % Plt Count 219 (130-400) K/uL MPV 9.8 (9.4-12.4) fL Immature Gran % (Auto) 0.8 % Neut % (Auto) 62.4 % Lymph % (Auto) 26.0 % [place] % (Auto) 8.3 % Eos % (Auto) 1.9 % Baso % (Auto) 0.6 % Neut # (Auto) 7.68 H (1.40-6.50) K/uL Lymph # (Auto) 3.20 (1.20-3.40) K/uL [place] # (Auto) 1.02 H (0.11-0.59) K/uL Eos # (Auto) 0.23 (0.00-0.50) K/uL Baso # (Auto) 0.08 (0.00-0.20) K/uL Immature Gran # (Auto) 0.10 (0.01-0.20) K/uL PT 12.5 H (9.0-12.0) Seconds INR 1.2 H (0.9-1.1) APTT 34.5 H (21.0-31.0) Seconds PTT Ratio 1.2 ABG pH (7.35-7.45) ABG pCO2 (35-46) mmHg ABG pO2 (80-95) mmHg ABG HCO3 (19-24) mmol/L ABG O2 Saturation (90-95) % ABG Base Excess (-9-1.8) mEq/L Patric Test (Pos) Oxygen Given Sodium (136-145) mmol/L Potassium (3.5-5.1) mmol/L Chloride (98-107) mmol/L Carbon Dioxide (21-32) mmol/L Anion Gap (3-11) BUN (6-23) mg/dl Creatinine (0.6-1.4) mg/dl Est Cr Clr Drug Dosing Est GFR ( Amer) ml/min Est GFR (Non-Af Amer) ml/min BUN/Creatinine Ratio (10-20) Glucose (70-99(Fasting)) mg/dl Lactate 2.6 H* (0.4-2.0) mmol/L Calcium (8.6-10.3) mg/dl Magnesium (1.7-2.4) mg/dl Total Bilirubin (0.2-1.0) mg/dl AST (13-39) U/L ALT (7-52) U/L Alkaline Phosphatase (34-104) U/L Troponin I High Sens (0-20) pg/ml B-Natriuretic Peptide (0-100) pg/ml Total Protein (6.0-8.3) gm/dl Albumin (3.4-5.0) gm/dl Globulin (2.5-4.0) gm/dl Albumin/Globulin Ratio (0.9-2) Procalcitonin (0-0.5) ng/ml Adenovirus (PCR) (NotDetected) B. pertussis DNA (PCR) (NotDetected) B.parapertussis DNA PCR (NotDetected) C. pneumoniae DNA (PCR) (NotDetected) Coronavirus OC43 (PCR) (NotDetected) Coronavirus HKU1 (PCR) (NotDetected) Coronavirus 229E (PCR) (NotDetected) SARS-CoV-2 (PCR) (NotDetected) Coronavirus NL63 (PCR) (NotDetected) Human Metapneumovir PCR (NotDetected) Influenza Type A (PCR) (NotDetected) Influenza Type B (PCR) (NotDetected) M. pneumoniae (PCR) (NotDetected) Parainfluenza 1 (PCR) (NotDetected) Parainfluenza 2 (PCR) (NotDetected) Parainfluenza 3 (PCR) (NotDetected) Parainfluenza 4 (PCR) (NotDetected) RSV (PCR) (NotDetected) Entero/Rhino (PCR) (NotDetected) Staphylococcus sp PCR (NotDetected) Bld Cult ID Panel PCR (NotDetected) 12/15/22 12/15/22 12/15/22 Range/Units 10:35 10:35 10:35 WBC (4.8-10.8) K/ul RBC (4.70-6.10) M/uL Hgb (14.0-18.0) g/dl Hct (42.0-52.0) % MCV (80.0-100.0) fL MCH (25.0-34.0) pg MCHC (32.0-36.0) g/dL RDW Std Deviation (36.4-46.3) fL RDW Coeff of Fam (11.5-14.5) % Plt Count (130-400) K/uL MPV (9.4-12.4) fL Immature Gran % (Auto) % Neut % (Auto) % Lymph % (Auto) % [place] % (Auto) % Eos % (Auto) % Baso % (Auto) % Neut # (Auto) (1.40-6.50) K/uL Lymph # (Auto) (1.20-3.40) K/uL [place] # (Auto) (0.11-0.59) K/uL Eos # (Auto) (0.00-0.50) K/uL Baso # (Auto) (0.00-0.20) K/uL Immature Gran # (Auto) (0.01-0.20) K/uL PT (9.0-12.0) Seconds INR (0.9-1.1) APTT (21.0-31.0) Seconds PTT Ratio ABG pH (7.35-7.45) ABG pCO2 (35-46) mmHg ABG pO2 (80-95) mmHg ABG HCO3 (19-24) mmol/L ABG O2 Saturation (90-95) % ABG Base Excess (-9-1.8) mEq/L Patric Test (Pos) Oxygen Given Sodium 135 L (136-145) mmol/L Potassium 4.3 (3.5-5.1) mmol/L Chloride 94 L (98-107) mmol/L Carbon Dioxide 34 H (21-32) mmol/L Anion Gap 7 (3-11) BUN 31 H (6-23) mg/dl Creatinine 1.17 (0.6-1.4) mg/dl Est Cr Clr Drug Dosing Not Reportable Est GFR ( Amer) 72.8 ml/min Est GFR (Non-Af Amer) 62.8 ml/min BUN/Creatinine Ratio 26.5 H (10-20) Glucose 190 H (70-99(Fasting)) mg/dl Lactate (0.4-2.0) mmol/L Calcium 9.3 (8.6-10.3) mg/dl Magnesium 2.0 (1.7-2.4) mg/dl Total Bilirubin 0.3 (0.2-1.0) mg/dl AST 31 (13-39) U/L ALT 27 (7-52) U/L Alkaline Phosphatase 99 (34-104) U/L Troponin I High Sens 5.6 (0-20) pg/ml B-Natriuretic Peptide (0-100) pg/ml Total Protein 6.2 (6.0-8.3) gm/dl Albumin 3.4 (3.4-5.0) gm/dl Globulin 2.8 (2.5-4.0) gm/dl Albumin/Globulin Ratio 1.2 (0.9-2) Procalcitonin 0.20 (0-0.5) ng/ml Adenovirus (PCR) (NotDetected) B. pertussis DNA (PCR) (NotDetected) B.parapertussis DNA PCR (NotDetected) C. pneumoniae DNA (PCR) (NotDetected) Coronavirus OC43 (PCR) (NotDetected) Coronavirus HKU1 (PCR) (NotDetected) Coronavirus 229E (PCR) (NotDetected) SARS-CoV-2 (PCR) (NotDetected) Coronavirus NL63 (PCR) (NotDetected) Human Metapneumovir PCR (NotDetected) Influenza Type A (PCR) (NotDetected) Influenza Type B (PCR) (NotDetected) M. pneumoniae (PCR) (NotDetected) Parainfluenza 1 (PCR) (NotDetected) Parainfluenza 2 (PCR) (NotDetected) Parainfluenza 3 (PCR) (NotDetected) Parainfluenza 4 (PCR) (NotDetected) RSV (PCR) (NotDetected) Entero/Rhino (PCR) (NotDetected) Staphylococcus sp PCR DETECTED A (NotDetected) Bld Cult ID Panel PCR See PCR Comment (NotDetected) 12/15/22 12/15/22 12/15/22 Range/Units 10:42 10:42 11:14 WBC (4.8-10.8) K/ul RBC (4.70-6.10) M/uL Hgb (14.0-18.0) g/dl Hct (42.0-52.0) % MCV (80.0-100.0) fL MCH (25.0-34.0) pg MCHC (32.0-36.0) g/dL RDW Std Deviation (36.4-46.3) fL RDW Coeff of Fam (11.5-14.5) % Plt Count (130-400) K/uL MPV (9.4-12.4) fL Immature Gran % (Auto) % Neut % (Auto) % Lymph % (Auto) % [place] % (Auto) % Eos % (Auto) % Baso % (Auto) % Neut # (Auto) (1.40-6.50) K/uL Lymph # (Auto) (1.20-3.40) K/uL [place] # (Auto) (0.11-0.59) K/uL Eos # (Auto) (0.00-0.50) K/uL Baso # (Auto) (0.00-0.20) K/uL Immature Gran # (Auto) (0.01-0.20) K/uL PT (9.0-12.0) Seconds INR (0.9-1.1) APTT (21.0-31.0) Seconds PTT Ratio ABG pH 7.36 (7.35-7.45) ABG pCO2 67 H (35-46) mmHg ABG pO2 94 (80-95) mmHg ABG HCO3 38 H (19-24) mmol/L ABG O2 Saturation 97.9 H (90-95) % ABG Base Excess 9.7 H (-9-1.8) mEq/L Patric Test Pos (Pos) Oxygen Given 1 L Sodium (136-145) mmol/L Potassium (3.5-5.1) mmol/L Chloride (98-107) mmol/L Carbon Dioxide (21-32) mmol/L Anion Gap (3-11) BUN (6-23) mg/dl Creatinine (0.6-1.4) mg/dl Est Cr Clr Drug Dosing Est GFR ( Amer) ml/min Est GFR (Non-Af Amer) ml/min BUN/Creatinine Ratio (10-20) Glucose (70-99(Fasting)) mg/dl Lactate (0.4-2.0) mmol/L Calcium (8.6-10.3) mg/dl Magnesium (1.7-2.4) mg/dl Total Bilirubin (0.2-1.0) mg/dl AST (13-39) U/L ALT (7-52) U/L Alkaline Phosphatase (34-104) U/L Troponin I High Sens (0-20) pg/ml B-Natriuretic Peptide 44 (0-100) pg/ml Total Protein (6.0-8.3) gm/dl Albumin (3.4-5.0) gm/dl Globulin (2.5-4.0) gm/dl Albumin/Globulin Ratio (0.9-2) Procalcitonin (0-0.5) ng/ml Adenovirus (PCR) Not Detected (NotDetected) B. pertussis DNA (PCR) Not Detected (NotDetected) B.parapertussis DNA PCR Not Detected (NotDetected) C. pneumoniae DNA (PCR) Not Detected (NotDetected) Coronavirus OC43 (PCR) Not Detected (NotDetected) Coronavirus HKU1 (PCR) Not Detected (NotDetected) Coronavirus 229E (PCR) Not Detected (NotDetected) SARS-CoV-2 (PCR) Not Detected (NotDetected) Coronavirus NL63 (PCR) Not Detected (NotDetected) Human Metapneumovir PCR Not Detected (NotDetected) Influenza Type A (PCR) Not Detected (NotDetected) Influenza Type B (PCR) Not Detected (NotDetected) M. pneumoniae (PCR) Not Detected (NotDetected) Parainfluenza 1 (PCR) Not Detected (NotDetected) Parainfluenza 2 (PCR) Not Detected (NotDetected) Parainfluenza 3 (PCR) Not Detected (NotDetected) Parainfluenza 4 (PCR) Not Detected (NotDetected) RSV (PCR) Not Detected (NotDetected) Entero/Rhino (PCR) Not Detected (NotDetected) Staphylococcus sp PCR (NotDetected) Bld Cult ID Panel PCR (NotDetected) 12/15/22 Range/Units 12:32 WBC (4.8-10.8) K/ul RBC (4.70-6.10) M/uL Hgb (14.0-18.0) g/dl Hct (42.0-52.0) % MCV (80.0-100.0) fL MCH (25.0-34.0) pg MCHC (32.0-36.0) g/dL RDW Std Deviation (36.4-46.3) fL RDW Coeff of Fam (11.5-14.5) % Plt Count (130-400) K/uL MPV (9.4-12.4) fL Immature Gran % (Auto) % Neut % (Auto) % Lymph % (Auto) % [place] % (Auto) % Eos % (Auto) % Baso % (Auto) % Neut # (Auto) (1.40-6.50) K/uL Lymph # (Auto) (1.20-3.40) K/uL [place] # (Auto) (0.11-0.59) K/uL Eos # (Auto) (0.00-0.50) K/uL Baso # (Auto) (0.00-0.20) K/uL Immature Gran # (Auto) (0.01-0.20) K/uL PT (9.0-12.0) Seconds INR (0.9-1.1) APTT (21.0-31.0) Seconds PTT Ratio ABG pH (7.35-7.45) ABG pCO2 (35-46) mmHg ABG pO2 (80-95) mmHg ABG HCO3 (19-24) mmol/L ABG O2 Saturation (90-95) % ABG Base Excess (-9-1.8) mEq/L Patric Test (Pos) Oxygen Given Sodium (136-145) mmol/L Potassium (3.5-5.1) mmol/L Chloride (98-107) mmol/L Carbon Dioxide (21-32) mmol/L Anion Gap (3-11) BUN (6-23) mg/dl Creatinine (0.6-1.4) mg/dl Est Cr Clr Drug Dosing Est GFR ( Amer) ml/min Est GFR (Non-Af Amer) ml/min BUN/Creatinine Ratio (10-20) Glucose (70-99(Fasting)) mg/dl Lactate 2.2 H* (0.4-2.0) mmol/L Calcium (8.6-10.3) mg/dl Magnesium (1.7-2.4) mg/dl Total Bilirubin (0.2-1.0) mg/dl AST (13-39) U/L ALT (7-52) U/L Alkaline Phosphatase (34-104) U/L Troponin I High Sens (0-20) pg/ml B-Natriuretic Peptide (0-100) pg/ml Total Protein (6.0-8.3) gm/dl Albumin (3.4-5.0) gm/dl Globulin (2.5-4.0) gm/dl Albumin/Globulin Ratio (0.9-2) Procalcitonin (0-0.5) ng/ml Adenovirus (PCR) (NotDetected) B. pertussis DNA (PCR) (NotDetected) B.parapertussis DNA PCR (NotDetected) C. pneumoniae DNA (PCR) (NotDetected) Coronavirus OC43 (PCR) (NotDetected) Coronavirus HKU1 (PCR) (NotDetected) Coronavirus 229E (PCR) (NotDetected) SARS-CoV-2 (PCR) (NotDetected) Coronavirus NL63 (PCR) (NotDetected) Human Metapneumovir PCR (NotDetected) Influenza Type A (PCR) (NotDetected) Influenza Type B (PCR) (NotDetected) M. pneumoniae (PCR) (NotDetected) Parainfluenza 1 (PCR) (NotDetected) Parainfluenza 2 (PCR) (NotDetected) Parainfluenza 3 (PCR) (NotDetected) Parainfluenza 4 (PCR) (NotDetected) RSV (PCR) (NotDetected) Entero/Rhino (PCR) (NotDetected) Staphylococcus sp PCR (NotDetected) Bld Cult ID Panel PCR (NotDetected) Administered Medications Acetaminophen (Acetaminophen 325 Mg Tab) 650 mg PO Q4H PRN PRN Reason: Pain Stop: 01/15/23 00:13 Last Admin: 12/16/22 07:44 Dose: 650 mg Documented By: Admin: 12/16/22 00:43 Dose: 650 mg Documented By: OMARI Atorvastatin Calcium (Atorvastatin 40 Mg Tab) 40 mg PO HS ROSALBA Stop: 01/14/23 20:59 Last Admin: 12/15/22 21:03 Dose: 40 mg Documented By: OMARI Docusate Sodium (Docusate Sodium Syrup 100 Mg/10 Ml Udc) 50 mg PO BID [facility] Stop: 01/14/23 20:59 Last Admin: 12/16/22 08:46 Dose: 50 mg Documented By: Admin: 12/15/22 21:04 Dose: 50 mg Documented By: OMARI Duloxetine HCl (Duloxetine Hcl 30 Mg Cap) [facility] [place]: 01/15/23 08:59 Last Admin: 12/16/22 08:45 Dose: 30 mg Documented By: LOLLY Ferrous Sulfate (Ferrous Sulfate 325 Mg Tab) 325 mg PO QAM [facility] Stop: 01/15/23 08:59 Last Admin: 12/16/22 08:45 Dose: 325 mg Documented By: LOLLY Insulin Aspart (Insulin Aspart Per Unit Charge) 0 units SC ACHS [facility] Stop: 01/14/23 16:29 Last Admin: 12/16/22 12:53 Dose: 8 units Documented By: LOLLY Co-signed By: MARIZOL Admin: 12/16/22 08:44 Dose: 4 units Documented By: LOLLY Co-signed By: MARIZOL Admin: 12/15/22 21:05 Dose: 1 units Documented By: OMARI Co-signed By: AMANDA Admin: 12/15/22 17:34 Dose: 5 units Documented By: LOLLY Co-signed By: CHAR Insulin Glargine (Lantus Per Unit Charge) 5 units SC DAILY [facility] Stop: 01/15/23 08:59 Last Admin: 12/16/22 08:44 Dose: 5 units Documented By: LOLLY Co-signed By: MARIZOL Losartan Potassium (Losartan Potassium 50 Mg Tab) 100 mg PO QAM [facility] Stop: 01/15/23 08:59 Last Admin: 12/16/22 08:45 Dose: 100 mg Documented By: LOLLY Methadone HCl (Methadone Hcl 5 Mg Tab) 5 mg PO BID [facility] Stop: 12/29/22 20:59 Last Admin: 12/16/22 08:51 Dose: 5 mg Documented By: Admin: 12/15/22 21:03 Dose: 5 mg Documented By: OMARI Miscellaneous (Naldemedine [Symproic]*Order Awaiting Action) 1 each N/A QS [facility] Stop: 01/15/23 00:00 Last Admin: 12/16/22 08:45 Dose: Not Given Documented By: Admin: 12/16/22 00:42 Dose: Not Given Documented By: OMARI Pregabalin (Pregabalin 100 Mg Cap) 200 mg PO TID ROSALBA Stop: 01/14/23 20:59 Last Admin: 12/16/22 14:55 Dose: 200 mg Documented By: Admin: 12/16/22 08:45 Dose: 200 mg Documented By: Admin: 12/15/22 21:03 Dose: 200 mg Documented By: OMARI Rivaroxaban (Rivaroxaban 10 Mg Tablet) 10 mg PO QAM ROSALBA Stop: 01/15/23 08:59 Last Admin: 12/16/22 08:45 Dose: 10 mg Documented By: LOLLY Tamsulosin HCl (Tamsulosin Hcl 0.4 Mg Cap) 0.4 mg PO HS [facility] Stop: 01/14/23 20:59 Last Admin: 12/15/22 21:03 Dose: 0.4 mg Documented By: OMARI Trolamine Salicylate (Trolamine Salicylate 10% Crm 255 Appln/85 Gm Tube) 1 appln EXT BID PRN PRN Reason: pain Stop: 01/15/23 00:22 Last Admin: 12/16/22 01:19 Dose: 1 appln Documented By: OMARI Discontinued Medications Diphenhydramine HCl (Diphenhydramine 50 Mg/Ml Vial) 25 mg IV NOW STA Stop: 12/15/22 10:43 Last Admin: 12/15/22 10:45 Dose: Not Given Documented By: NERISSA Furosemide (Furosemide Inj 20 Mg/2 Ml Vial) 20 mg IV ONE ONE Stop: 12/16/22 13:43 Last Admin: 12/16/22 15:04 Dose: 20 mg Documented By: LOLLY Promethazine HCl (Phenergan) 12.5 mg in 50.5 mls @ 202 mls/hr IV NOW STA Stop: 12/15/22 10:56 Last Admin: 12/15/22 10:45 Dose: Not Given Documented By: NERISSA Sodium Chloride (Nss) 1,000 mls @ 999 mls/hr IV .Q1H1M ONE Stop: 12/15/22 11:42 Last Admin: 12/15/22 10:45 Dose: Not Given Documented By: NERISSA Pantoprazole Sodium 40 mg/ (Syringe) 10 mls @ 5 mls/min IV NOW ONE Stop: 12/15/22 10:43 Last Admin: 12/15/22 10:45 Dose: Not Given Documented By: NERISSA Sodium Chloride (Nss) 500 mls @ 999 mls/hr IV .Q31M ONE Stop: 12/15/22 14:00 Last Admin: 12/15/22 14:32 Dose: Not Given Documented By: BS Ceftriaxone Sodium 2,000 mg/ (Dextrose) 70 mls @ 100 mls/hr IV NOW STA; Protocol Stop: 12/15/22 14:55 Last Infusion: 12/15/22 16:33 Dose: 0 mls/hr Documented By: Admin: 12/15/22 15:44 Dose: 100 mls/hr Documented By: LOLLY Azithromycin 500 mg/ Dextrose 255 mls @ 127.5 mls/hr IV NOW STA Stop: 12/15/22 16:13 Last Infusion: 12/15/22 18:33 Dose: 0 mls/hr Documented By: Admin: 12/15/22 16:29 Dose: 127.5 mls/hr Documented By: LOLLY Ceftriaxone Sodium 2,000 mg/ (Dextrose) 70 mls @ 100 mls/hr IV Q24H ROSALBA; Protocol Stop: 12/22/22 13:59 Last Infusion: 12/16/22 15:57 Dose: 0 mls/hr Documented By: Admin: 12/16/22 14:55 Dose: 100 mls/hr Documented By: LOLLY Influenza Virus Vaccine (Influenza Vaccine High-Dose (Hd-Iiv4) Pf 65+ 0.7ml Syr) 0.7 ml IM .ONCE ONE Stop: 12/15/22 18:01 Last Admin: 12/15/22 18:19 Dose: 0.7 ml Documented By: LOLLY Imaging Data Radiologist's Impression: Chest X-Ray 12/15/22 10:37 SINGLE VIEW CHEST CLINICAL HISTORY: Sepsis. FINDINGS: An AP, portable, semierect chest radiograph is compared to study dated 07/02/2022. The examination is degraded by portable technique and patient rotation. The examination is also compromised by motion artifact. The heart is enlarged. There is pulmonary vascular congestion. Scarring/atelectasis is noted at the lung bases. No airspace consolidation or large pleural effusion is identified. No pneumothorax is seen. The skeletal structures are osteopenic. The bony thorax is grossly intact. IMPRESSION: Cardiomegaly with evidence of congestive failure. ACT 112: Negative or not required by law. Electronically signed by: Melo Urrutia M.D. 12/15/2022 11:[address] 12/15/22 10:53 CT SCAN OF THE BRAIN WITHOUT IV CONTRAST CLINICAL HISTORY: Change in mental status. COMPARISON STUDY: CT of the brain dated 06/29/2022. TECHNIQUE: Unenhanced axial CT scan of the brain is performed from the vertex to the skull base. A dose lowering technique was utilized adhering to the principles of ALARA. CT DOSE: 875.56 mGy.cm FINDINGS: Brain parenchyma: Right MCA territory encephalomalacia is unchanged and consistent with a remote infarct. A 2.2 cm calcified structure within the infarcted territory is unchanged. Wallerian degeneration is noted in the right aspect of the nicci. There is age-related involutional change noting mild subcortical and periventricular microangiopathic disease. There is no hemorrhage, mass effect, or evidence of acute territorial ischemia by CT criteria. Gallego-white matter differentiation is preserved. No extra-axial fluid collection is seen. Ventricles, sulci, cisterns: Prominent secondary to involutional change. Intracranial vasculature: There is atherosclerotic calcification of the cavernous carotid and vertebral arteries. Calvarium: Unremarkable. Sinuses and mastoids: There is trace mucosal thickening ethmoid sinuses. The remaining paranasal sinuses are clear. There are bilateral mastoid effusions. Orbits: The bony orbits are grossly intact. IMPRESSION: Chronic changes as above with no hemorrhage, mass effect, or evidence of acute territorial ischemia by CT criteria. ACT 112: Negative or not required by law. Electronically signed by: Melo Urrutia M.D. 12/15/2022 11:38 AM Discharge Plan Visit Data Chief Complaint: Confusion ED Provider: Maritza Barksdale Discharge Problem: Altered mental status, Acute on chronic respiratory failure with hypercapnia, Obesity Patient Disposition: Admitted As Inpatient Discharge Instructions Interventions: ED Discharge Assessment Last Done: 12/15/22 15:59
[2022-12-15 11:34] LABS: INR 1.2 (0.9-1.1); Partial Thromboplastin Ratio 1.2; Partial Thromboplastin Time 34.5 Seconds (21.0-31.0); Prothrombin Time 12.5 Seconds (9.0-12.0)
[2022-12-15 11:38] LABS: Allen Test Pos (Pos); Base Excess ABG 9.7 mEq/L (-9-1.8); HCO3 ABG 38 mmol/L (19-24); Oxygen Saturation ABG 97.9 % (90-95); PCO2 ABG 67 mmHg (35-46); PO2 ABG 94 mmHg (80-95); pH ABG 7.36 (7.35-7.45)
--- NOTE | 2022-12-15 11:40 | CT Scan Report ---
CT SCAN OF THE BRAIN WITHOUT IV CONTRAST CLINICAL HISTORY: Change in mental status. COMPARISON STUDY: CT of the brain dated 06/29/2022. TECHNIQUE: Unenhanced axial CT scan of the brain is performed from the vertex to the skull base. A do se lowering technique was utilized adhering to the principles of ALARA. CT DOSE: 875.56 mGy.cm FINDINGS: Brain parenchyma: Right MCA territory encephalomalacia is unchanged and consistent with a remote infa rct. A 2.2 cm calcified structure within the infarcted territory is unchanged. Wallerian degeneration is noted in the right aspect of the nicci. There is age-related involutional change noting mild subco rtical and periventricular microangiopathic disease. There is no hemorrhage, mass effect, or evidence of acute territorial ischemia by CT criteria. Gallego-white matter differentiation is preserved. No ext ra-axial fluid collection is seen. Ventricles, sulci, cisterns: Prominent secondary to involutional change. Intracranial vasculature: There is atherosclerotic calcification of the cavernous carotid and vertebr al arteries. Calvarium: Unremarkable. Sinuses and mastoids: There is trace mucosal thickening ethmoid sinuses. The remaining paranasal sinu ses are clear. There are bilateral mastoid effusions. Orbits: The bony orbits are grossly intact. IMPRESSION: Chronic changes as above with no hemorrhage, mass effect, or evidence of acute territoria l ischemia by CT criteria. ACT 112: Negative or not required by law. Electronically signed by: Melo Urrutia M.D. 12/15/2022 11:38 AM
[2022-12-15 12:32] LABS: Adenovirus PCR Not Detected (NotDetected); Bordetella parapertussis PCR Not Detected (NotDetected); Bordetella pertussis PCR Not Detected (NotDetected); Chlamydia pneumoniae PCR Not Detected (NotDetected); Coronavirus 229E PCR Not Detected (NotDetected); Coronavirus CoV-2 (COVID19)PCR Not Detected (NotDetected); Coronavirus HKU1 PCR Not Detected (NotDetected); Coronavirus NL63 PCR Not Detected (NotDetected); Coronavirus OC43PCR Not Detected (NotDetected); Human Metapneumovirus PCR Not Detected (NotDetected); Influenza A PCR Not Detected (NotDetected); Influenza B PCR Not Detected (NotDetected); Mycoplasma pneumoniae PCR Not Detected (NotDetected); Parainfluenza Virus 1 PCR Not Detected (NotDetected); Parainfluenza Virus 2 PCR Not Detected (NotDetected); Parainfluenza Virus 3 PCR Not Detected (NotDetected); Parainfluenza Virus 4 PCR Not Detected (NotDetected); Respiratory Syncytial VirusPCR Not Detected (NotDetected); Rhinovirus/Enterovirus PCR Not Detected (NotDetected)
[2022-12-15] MEDS ORDERED: SODIUM CHLORIDE 0.9% 500 ML IV ONE (13:30)
--- NOTE | 2022-12-15 13:33 | History & Physical Report ---
Date of Service December 15, 2022 Assessment & Plan (1) Hypoxia: Plan: -Admit to the PCU on tele and cont pulse oximetry -Currently stable on Bipap at 20/5 with 24% FiO2 -Patient was reportedly confused and hypoxic with SpO2 in the 60's on RA this am for his home health aid -Patient apparently uses prn O2 but typically uses when he is symptomatic, no based on SpO2 per family and home health aid -At this time the exact etiology of his hypoxia and increased confusion are unknown, but the differentia includes and is not limited to chronic hypercapnia due to untreated MELINA, bacterial pneumonia, polypharmacy, obesity hypoventilation syndrome -Examines volume down, has an SILVA today as well, do not think he is in CHF -Reportedly was recently treated with a week of Levaquin for Pneumonia over the past week, his presentation today is very similar to previous admission for bacterial pneumonia -It appears that the patient was previously on HS CPAP/Bipap for MELINA but he stopped using. Highly suspicious that he should still be using HS CPAP/Bipap with his hypercapnia today -No focal consolidation on CXR but the patient has chronically poor lungs and large body habitus making pneumonia difficult to identify, his procal was negative but he does have a leukocytosis of 16 -Has been on Bipap since admission, repeat VBG in the ED showed a pH of 7.30, pCO2 of 80, and bicarb of 39. Patient has been working against Bipap since it was placed, which could be contributing to worsening respiratory status -Repeat ABG is being obtained now, will monitor for results, if his respiratory status continues to decline on Bipap will give him a trial off to see if he imp roves -Will Start Ceftriaxone and Azithromycin for possible CAP; monitor for improvement -Prn O2 to keep SpO2 between 90-92% for now to avoid suppressing his hypoxic drive -Will obtain AM ABG for further assessment -Hole Xarelto for DVT PPX -NPO for now while on BiPAP -AM CBC, BMP, PT/INR, and ABG (2) Altered mental status: Plan: -Likely multifactorial including hypercapnia, hypoxia, and polypharmacy; could possibly have an undiagnosed infection as well -Was recently taken off Tizanidine for oversedation but still on Duloxetine, Methadone, and Lyrica -Was treated for UTI last month, waiting for UA to be collected today, will continue to follow -Continue empiric ABX for now to cover possible Pneumonia and/or possible UTI -Patient is without abdominal discomfort and has not had recent diarrhea -Aspiration precautions, Speech therapy consult placed (3) Chronic congestive heart failure: Plan: -Appears dehydrated on exam -Hold lasix at this time with dehydration and SILVA -Will hold IV fluids and allow him to eat/drink with aspiration precautions (4) Respiratory acidosis: Plan: -Likely due to his Hypercapnia and mildly elevated lactate -Lactate has been improving and repeat ABG with improving pH and pCO2 -Will repeat another lactate now to ensure it continues to improve -Continue to monitor on tele and pulse oximetry (5) MELINA (obstructive sleep apnea): Plan: -CPAP/Bipap ordered for naps and HS -AM ABG ordered for tomorrow -Patient will need outpatient sleep study if he no longer has a CPAP/Bipap machine at home (6) SILVA (acute kidney injury): Plan: -Cr is 1.17 today, baseline is near 0.5-0.6 -Patient appears dehydrated on exam, likely due to decreased intake over the past 24 hours and continued diuresis -Will follow UA -Hold lasix and nephrotoxic agents -Will hold IV fluids to prevent volume overload, let him eat/drink for now -Monitor am renal function (7) Chronic constipation: Plan: -Continue Colace and Symproic if on formulary (8) Chronic prescription opiate use: Plan: -Will continue methadone for now to prevent withdrawal but monitor for oversedation (9) Depression: Plan: -Continue duloxetine (10) H/O: stroke: Plan: -Baseline left sided hemiplegia (11) Hypertension: Plan: -Stable -Can continue losartan tomorrow if still hemodynamically stable (12) Type 2 diabetes mellitus: Plan: -Hold metformin -Monitor BSG q6h until eating consistently, goal is 110-160 -Start 5 units lantus BID -CF of 50 and CR 15 to start -DMII, HH, 2gm Sodium restricted diet -Pharmacy glycemic consult Plan The patient was discussed with Dr. Soriano at the time of the admission History of Present Illness Chief Complaint: Hypoxia Primary Care Provider: NO PCP Bryson is a 72 year old male with a PMH significant for prior CVA and left sided weakness, MELINA, chronic hypoxic respiratory failure on prn Oxygen, HFpEF, chronic LE edema, chronic opioid use, HTN, CAD, DMII, staghorn calculi, and morbid obesity who presented to the [facility] ED on 12/15 via EMS due to increased hypoxia per his home health aid. In the ED he was noted to be stable on 2L NS and mildly hypotensive at 98/78. Labs were significant for a leukocytosis of 12, hgb of 10 (down from 12 as of 07/06), INR of 1.2, ABG pH of 7.36, pCO2 of 67, pO2 of 94, Bicarb of 38, Cr. of 1.17 (baseline 0.59), BUN of 31, bicarb of 34, initial lactate of 2.6 with repeat of 2.2 and negative full respiratory biofire. CT of the head was negative for acute findings. Chest xray was read as "Cardiomegaly with evidence of congestive failure.". At the time of the exam the patient was lying in bed in no acute distress, currently with Bipap in place at 20/5 and 24% FiO2. History was limited due to the patient's baseline mental status and the bipap mask. He states he hasn't been feeling well but cannot give further details. He nods, yes, when asked if his breathing has been worse recently. He denies chest pain, abd pain, nausea, vomiting, diarrhea, dysuria, hematuria, melena, and diarrhea. I was able to call and speak with his Daughter (Jennifer), and lead home health aid (Kylie ) to obtain more information. The patient has been dealing with multiple infections over the past month. Per review of his recent prescriptions, he [id number] day course of Doxycycline starting on 11/23 for UTI. He then developed upper respiratory symtpoms including cough, congestion, and green sputum production. He recently completed a 7 day course of Levaquin from 12/06- 12/13. They state that the patient has had some medication adjustments recently. His Duloxetine was decreased from 90 mg daily to 30 mg due to increased fatigue. He was started on TID Tizanidine earlier this week, however, this made him significant more tired so this has been stopped. Over the past 24-48 hours he has been more fatigued and his oxygen saturations have been in the mid 80's. He does use PRN oxygen but that state that he only uses it when he feels significantly SOB. He was previously on HS CPAP/Bipap for MELINA. When I asked the patient why this was stopped he states "because I passed the test", I believe he is referring to his last admission when he had a Noc Ox study performed. However, it does not appear that he had a repeat outpatient sleep study performed. Today his weekend home health aid found him to be even more tired and confused, he is normally alert and oriented at baseline. His SpO2 was reportedly in the 60's on RA and he was placed on 2L NC. His daughter states that the patient is very stubborn in regards to using his Oxygen. He should use it much more frequently but often refuses it. His Daughter and POA confirm that this presentation for the patient is very similar to previous admissions when He did not improve cognitively on the oxygen which is why EMS was called. They confirm that he is a full code, his children are his POA's. Please refer to Dr. Soriano's attestation for any changes to the treatment plan Allergies Allergy/AdvReac Type Severity Reaction Status Date / Time Penicillins Allergy Unknown Verified 06/29/22 22:41 Home Medications Medication Instructions Recorded Confirmed Type atorvastatin 40 mg tablet 40 mg PO HS 06/29/22 12/15/22 History duloxetine 30 mg capsule,delayed 30 mg PO QAM 06/29/22 12/15/22 History release losartan 100 mg tablet 100 mg PO QAM 06/29/22 12/15/22 History metformin 500 mg tablet 500 mg PO BID 06/29/22 12/15/22 History potassium chloride 10 mEq 10 meq PO .NOON 06/29/22 12/15/22 History capsule,extended release pregabalin 200 mg capsule 200 mg PO TID 06/29/22 12/15/22 History rivaroxaban 10 mg tablet (Xarelto) 10 mg PO QAM 06/29/22 12/15/22 History tamsulosin 0.4 mg capsule 0.4 mg PO HS 06/29/22 12/15/22 History Oxygen Home #1 ea 07/06/22 12/15/22 Rx docusate sodium 50 mg tablet 50 mg PO BID 12/15/22 12/15/22 History ferrous sulfate 325 mg (65 mg 325 mg PO QAM 12/15/22 12/15/22 History iron) tablet furosemide 40 mg tablet 40 mg PO .QAM & NOON 12/15/22 12/15/22 History methadone 5 mg tablet 5 mg PO BID 12/15/22 12/15/22 History naldemedine 0.2 mg tablet 0.2 mg PO QAM 12/15/22 12/15/22 History (Symproic) Past Med/Surg History Medical History (Updated 12/15/22 @ 15:20 by Donell Burnette PA-C) Abnormal CT of the head Acute respiratory failure with hypoxia and hypercapnia Altered mental state Bilateral lower extremity edema BPH (benign prostatic hyperplasia) Chronic congestive heart failure Chronic constipation Chronic prescription opiate use Congestive heart failure Constipation COPD (chronic obstructive pulmonary disease) Depression Elevated serum creatinine H/O: stroke Hemiplegia History of stroke 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 Hyperlipidemia Hypertension Morbid obesity with BMI of 40.0-44.9, adult Neuropathy MELINA (obstructive sleep apnea) Pneumonia Seborrheic dermatitis Staghorn calculus Type 2 diabetes mellitus UTI (urinary tract infection) Surgical History No significant past surgical history Social History Smoking Status: Never smoker Second Hand Exposure: No; Do You Dip or Chew Tobacco: No; Tobacco Cessation Education Requested by Patient: No Hx Alcohol Use: No Hx Substance Use: No Preferred Language: Irish Communication Ability: Impaired It Training Specialist Required: No Beliefs That Will Affect Care: None Current Living Situation: Alone Current Living Situation Comment: 24 hour caregiver Other Information That Helps Us Care for You: No Feels Safe at Home: Yes Safety Concerns: Feels Safe At This Time Assistive Devices: Oxygen - Continuous and Wheelchair Physical Exam Physical Exam: Physical Exam: General: In no acute distress, morbidly obese, chronically ill appearing but non-toxic HEENT: Normocephalic, atraumatic, no scleral icterus, pupils around round, s ymmetrical, and reactive to light, Bipap mask currently in place without signs of leaking, extremely large neck circumference Chest/Pulm: No respiratory distress, patient appears to be working against bipap, symmetrical chest expansion, decreased breath sounds throughout due to body habitus Cardiac: RRR, no murmurs noted Abdomen: Negative for ascites and bruising, normoactive bowel sounds, soft, non-tender to palpation throughout Musculoskeletal: Baseline left-sided hemiparesis, no acute trauma Extremities: Radial, dorsalis pedis, and posterior tibial pulses are intact and symmetrical, patient with baseline swelling in LLE > right due to chronic hemiparesis Skin: Warm, dry, no rashes , lesions, or scars noted Neuro: Alert and oriented to person, place, month, no focal defects, no tremors noted Psych: No acute distress, calm and cooperative during the exam Results & Data Results & Data Vital Signs (Past 12 Hours) Vital Signs Temp Pulse Resp BP Pulse Ox O2 Del Method O2 Flow Rate 12/15/22 13:15 54 L 12 136/77 98 12/15/22 13:10 54 L 12 98/78 L 98 12/15/22 13:00 53 L 12 100 12/15/22 12:30 62 14 100 12/15/22 12:15 92 H 12/15/22 11:36 95 H 19 92 12/15/22 12:20 54 L 18 98 12/15/22 11:00 53 L 12 97 12/15/22 10:43 53 L 15 95 12/15/22 10:59 36.9 C 81 14 121/72 91 Nasal Cannula 2 12/15/22 10:50 56 L 12/15/22 10:47 54 L 14 94 Nasal Cannula 2 12/15/22 10:46 94 Nasal Cannula 2 FiO2 12/15/22 13:15 12/15/22 13:10 12/15/22 13:00 12/15/22 12:30 12/15/22 12:15 12/15/22 11:36 12/15/22 12:20 30 12/15/22 11:00 12/15/22 10:43 12/15/22 10:59 12/15/22 10:50 12/15/22 10:47 12/15/22 10:46 Laboratory Results Abnormal lab results 12/15/22 12/15/22 12/15/22 Range/Units 10:35 10:35 10:35 WBC 12.31 H (4.8-10.8) K/ul RBC 3.89 L (4.70-6.10) M/uL Hgb 10.2 L (14.0-18.0) g/dl Hct 33.2 L (42.0-52.0) % MCHC 30.7 L (32.0-36.0) g/dL Neut # (Auto) 7.68 H (1.40-6.50) K/uL Banner # (Auto) 1.02 H (0.11-0.59) K/uL PT 12.5 H (9.0-12.0) Seconds INR 1.2 H (0.9-1.1) APTT 34.5 H (21.0-31.0) Seconds ABG pCO2 (35-46) mmHg ABG HCO3 (19-24) mmol/L ABG O2 Saturation (90-95) % ABG Base Excess (-9-1.8) mEq/L Sodium (136-145) mmol/L Chloride (98-107) mmol/L Carbon Dioxide (21-32) mmol/L BUN (6-23) mg/dl BUN/Creatinine Ratio (10-20) Glucose (70-99(Fasting)) mg/dl Lactate 2.6 H* (0.4-2.0) mmol/L 12/15/22 12/15/22 12/15/22 Range/Units 10:35 11:14 12:32 WBC (4.8-10.8) K/ul RBC (4.70-6.10) M/uL Hgb (14.0-18.0) g/dl Hct (42.0-52.0) % MCHC (32.0-36.0) g/dL Neut # (Auto) (1.40-6.50) K/uL Banner # (Auto) (0.11-0.59) K/uL PT (9.0-12.0) Seconds INR (0.9-1.1) APTT (21.0-31.0) Seconds ABG pCO2 67 H (35-46) mmHg ABG HCO3 38 H (19-24) mmol/L ABG O2 Saturation 97.9 H (90-95) % ABG Base Excess 9.7 H (-9-1.8) mEq/L Sodium 135 L (136-145) mmol/L Chloride 94 L (98-107) mmol/L Carbon Dioxide 34 H (21-32) mmol/L BUN 31 H (6-23) mg/dl BUN/Creatinine Ratio 26.5 H (10-20) Glucose 190 H (70-99(Fasting)) mg/dl Lactate 2.2 H* (0.4-2.0) mmol/L Diagnostic Findings Chest X-Ray 12/15/22 10:37 SINGLE VIEW CHEST CLINICAL HISTORY: Sepsis. FINDINGS: An AP, portable, semierect chest radiograph is compared to study dated 07/02/2022. The examination is degraded by portable technique and patient rotation. The examination is also compromised by motion artifact. The heart is enlarged. There is pulmonary vascular congestion. Scarring/atelectasis is noted at the lung bases. No airspace consolidation or large pleural effusion is identified. No pneumothorax is seen. The skeletal structures are osteopenic. The bony thorax is grossly intact. IMPRESSION: Cardiomegaly with evidence of congestive failure. ACT 112: Negative or not required by law. Electronically signed by: Melo Urrutia M.D. 12/15/2022 11:[address] 12/15/22 10:53 CT SCAN OF THE BRAIN WITHOUT IV CONTRAST CLINICAL HISTORY: Change in mental status. COMPARISON STUDY: CT of the brain dated 06/29/2022. TECHNIQUE: Unenhanced axial CT scan of the brain is performed from the vertex to the skull base. A dose lowering technique was utilized adhering to the principles of ALARA. CT DOSE: 875.56 mGy.cm FINDINGS: Brain parenchyma: Right MCA territory encephalomalacia is unchanged and consistent with a remote infarct. A 2.2 cm calcified structure within the infarcted territory is unchanged. Wallerian degeneration is noted in the right aspect of the nicci. There is age-related involutional change noting mild subcortical and periventricular microangiopathic disease. There is no hemorrhage, mass effect, or evidence of acute territorial ischemia by CT crit eria. Gallego-white matter differentiation is preserved. No extra-axial fluid collection is seen. Ventricles, sulci, cisterns: Prominent secondary to involutional change. Intracranial vasculature: There is atherosclerotic calcification of the cavernous carotid and vertebral arteries. Calvarium: Unremarkable. Sinuses and mastoids: There is trace mucosal thickening ethmoid sinuses. The remaining paranasal sinuses are clear. There are bilateral mastoid effusions. Orbits: The bony orbits are grossly intact. IMPRESSION: Chronic changes as above with no hemorrhage, mass effect, or evidenc e of acute territorial ischemia by CT criteria. ACT 112: Negative or not required by law. Electronically signed by: Melo Urrutia M.D. 12/15/2022 11:38 AM ECG Additional Comments: Sinus bradycardia with 1st degree A-V block Rightward axis Low voltage QRS Borderline ECG When compared with ECG of 29-JUN-2022 13:06, QT has shortened Code Status & VTE Plan Code Status Full code VTE Prophylaxis Plan VTE Prophylaxis will be ordered: Yes Supervising Physician Co-Signing Physician Notes I personally saw and examined the patient. I verified all pastor points and agree with Donell Burnette PA-C with the following exceptions and/or additions: 72 year old male with CVA and left sided weakness presents to the ER with acute hypoxic episodes with home health nurse. O/E Alert, HS RRR, no murmurs, Chest reduced breath sounds throughout, Abdo SNT, dependant edema L > R side A/P Hypoxia - appears relatively intermittent given quick resolution, suspect some degree of mucus plugging, He has chronic hypercapnia and recommend BiPAP HS or while napping at least while he is hospitalized. Concern for multiple sedating medications however he appears relatively awake and alert therefore will continue his Lyrica and methadone currently to avoid withdrawal unless his respiratory status is getting worse. CXR with concern for pulmonary edema but on review of prior this appears to be his baseline. BNP 44 similar to June (43) when he was actually dry due to over diuresis - generally difficult fluid balance however because his CXR always looks wet and has dependant edema from not moving but I do not think this is why he is newly hypoxic. Pneumonia - possible diagnosis, high risk but weak evidence for this. Given elevated WBC and new hypoxia with history of generalized fatigue will cover with ceftriaxone/azithromycin. PG Care Time/CCT Total # of Minutes Spent Total Time Spent with Patient: Total time spent is greater than 50% in coordination of care (as documented) at patient's floor/unit and/or counseling patient: Coding [place] [address] INT INP/OBS CARE 3/75MIN Patient Type Established Medical Decision Making High Complexity Diagnoses Hypoxia R09.02 Altered mental status R41.82 Chronic congestive heart failure I50.9 Respiratory acidosis E87.29 MELINA (obstructive sleep apnea) G47.33 SILVA (acute kidney injury) N17.9 Chronic constipation K59.09 Chronic prescription opiate use Z79.891 Depression F32.A H/O: stroke Z86.73 Hypertension I10 Type 2 diabetes mellitus E11.9
[2022-12-15] MEDS ORDERED: AZITHROMYCIN 500 MG in DEXTROSE 5% 250 ML IV STA (14:14)
[2022-12-15] MEDS ORDERED: cefTRIAXone SODIUM 2,000 MG in DEXTROSE 5% 50 ML IV STA (14:14)
[2022-12-15] MEDS ORDERED: PHARMACY GLYCEMIC MGMT CONSULT PRN (15:19)
[2022-12-15] MEDS ORDERED: GLUCOSE 10 TAB/TUBE PO PRN (15:19)
[2022-12-15] MEDS ORDERED: CARBOHYDRATES FOR HYPOGLYCEMIA PO PRN (15:19)
[2022-12-15] MEDS ORDERED: GLUCAGON FOR INJ 1 MG VIAL SQ PRN (15:19)
[2022-12-15] MEDS ORDERED: DEXTROSE 50% 50 ML SYRINGE IV PRN (15:19)
[2022-12-15] MEDS ORDERED: GLUCOSE 40% GEL 15 GM TUBE PO PRN (15:19)
[2022-12-15 15:26] LABS: Base Excess ABG 7.3 mEq/L (-9-1.8); HCO3 ABG 34 mmol/L (19-24); Oxygen Saturation ABG 94.7 % (90-95); PCO2 ABG 58 mmHg (35-46); PO2 ABG 73 mmHg (80-95); pH ABG 7.38 (7.35-7.45)
[2022-12-15 15:41] LABS: Allen Test Pos (Pos)
[2022-12-15] MEDS: INSULIN ASPART PER UNIT CHARGE SC SCH ×2 (17:34→21:05)
[2022-12-15 17:39] LABS: Appearance Urine Clear (Clear); Bacteria Urine Automated Negative (Negative); Bilirubin Urine Negative (Negative); Blood Urine 3+ (Negative); Color Urine Yellow; Glucose Urine UA Negative (Negative); Ketones Urine Negative (Negative); Leukocyte Esterase Urine 1+ (Negative); Nitrite Urine Negative (Negative); Protein Urine Trace (Negative); RBC Urine Automated 0-4 /hpf (0-4); Specific Gravity Urine 1.008 (1.000-1.030); Urobilinogen Urine Negative (Negative)
[2022-12-15] MEDS ORDERED: INFLUENZA VACCINE HIGH-DOSE (HD-IIV4) PF 65+ 0.7mL SYR IM ONE (18:00)
[2022-12-15] MEDS ORDERED: LANTUS PER UNIT CHARGE SQ SCH (21:00)
[2022-12-15] MEDS: ATORVASTATIN 40 MG TAB PO SCH (21:03)
[2022-12-15] MEDS: METHADONE HCL 5 MG TAB PO SCH (21:03)
[2022-12-15] MEDS: TAMSULOSIN HCL 0.4 MG CAP PO SCH (21:03)
[2022-12-15] MEDS: PREGABALIN 100 MG CAP PO SCH (21:03)
[2022-12-15] MEDS: DOCUSATE SODIUM SYRUP 100 MG/10 ML UDC PO SCH (21:04)
[2022-12-16] MEDS: ACETAMINOPHEN 325 MG TAB PO PRN ×2 (00:43→07:44)
[2022-12-16] MEDS: TROLAMINE SALICYLATE 10% CRM 255 APPLN/85 GM TUBE EXT PRN ×2 (01:19→21:01)
[2022-12-16 05:37] LABS: Base Excess ABG 11.5 mEq/L (-9-1.8); HCO3 ABG 39 mmol/L (19-24); Oxygen Saturation ABG 94.5 % (90-95); PCO2 ABG 61 mmHg (35-46); PO2 ABG 68 mmHg (80-95); pH ABG 7.41 (7.35-7.45)
[2022-12-16 05:47] LABS: Allen Test Pos (Pos)
[2022-12-16 05:48] LABS: Basophils # (auto) 0.09 K/uL (0.00-0.20); Basophils % (auto) 0.9 %; Eosinophils # (auto) 0.24 K/uL (0.00-0.50); Eosinophils % (auto) 2.5 %; Hemoglobin 11.3 g/dl (14.0-18.0); Immature Granulocytes # (auto) 0.08 K/uL (0.01-0.20); Immature Granulocytes % (auto) 0.8 %; Lymphocytes # (auto) 2.58 K/uL (1.20-3.40); Lymphocytes % (auto) 26.4 %; Mean Corpuscular Hemoglobin 26.2 pg (25.0-34.0); Mean Corpuscular Hgb Conc 31.4 g/dL (32.0-36.0); Mean Corpuscular Volume 83.5 fL (80.0-100.0); Mean Platelet Volume 9.7 fL (9.4-12.4); Monocytes # (auto) 0.82 K/uL (0.11-0.59); Monocytes % (auto) 8.4 %; Neutrophils # (auto) 5.97 K/uL (1.40-6.50); Platelet Count 205 K/uL (130-400); RDW Coefficient of Variation 14.4 % (11.5-14.5); RDW Standard Deviation 43.5 fL (36.4-46.3); Red Blood Count 4.31 M/uL (4.70-6.10); White Blood Count 9.78 K/ul (4.8-10.8)
[2022-12-16 06:18] LABS: A calco-baum cmplx NotReported Not Detected (NotDetected); Bact fragilis Not Reported Not Detected (NotDetected); C auris Not Reported Not Detected (NotDetected); Calbicans Not Reported Not Detected (NotDetected); Candida glabrata Not Reported Not Detected (NotDetected); Candida krusei Not Reported Not Detected (NotDetected); Cneoformans/gatti Not Reported Not Detected (NotDetected); Cparapsilosis Not Reported Not Detected (NotDetected); E cloacae compx Not Reported Not Detected (NotDetected); Efaecalis Not Reported Not Detected (NotDetected); Efaecium Not Reported Not Detected (NotDetected); Enterobacterales Not Reported Not Detected (NotDetected); Escherichia coli Not Reported Not Detected (NotDetected); H influenzae Not Reported Not Detected (NotDetected); K aerogenes Not Reported Not Detected (NotDetected); Koxytoca Not Reported Not Detected (NotDetected); Kpneumoniae grp Not Reported Not Detected (NotDetected); Lmonocyt Not Reported Not Detected (NotDetected); N meningitidis Not Reported Not Detected (NotDetected); P aeruginosa Not Reported Not Detected (NotDetected); Proteus spp Not Reported Not Detected (NotDetected); Salmonella spp Not Reported Not Detected (NotDetected); Smarcescens Not Reported Not Detected (NotDetected); Staph lugdunensis Not Reported Not Detected (NotDetected); Staph spp. Not Reported DETECTED (NotDetected); Staphaureus Not Reported Not Detected (NotDetected); Staphepi Not Reported Not Detected (NotDetected); Stenmaltophilia Not Reported Not Detected (NotDetected); Strep agal(GrpB) Not Reported Not Detected (NotDetected); Strep pneum Not Reported Not Detected (NotDetected); Strep pyog (GrpA) Not Reported Not Detected (NotDetected); Strep spp Not Reported Not Detected (NotDetected)
[2022-12-16 06:20] LABS: INR 1.1 (0.9-1.1); Prothrombin Time 11.9 Seconds (9.0-12.0)
[2022-12-16 06:22] LABS: BUN Creatinine Ratio 33.8 (10-20); Calcium 9.3 mg/dl (8.6-10.3); Creatinine Clr Calc Pharmacy 135.6 ml/min; Est GFR (African American) 108.3 ml/min; Est GFR (Non-African American) 93.5 ml/min
[2022-12-16 06:35] LABS: Staphylococcus spp. DETECTED (NotDetected)
[2022-12-16] MEDS: INSULIN ASPART PER UNIT CHARGE SC SCH ×4 (08:44→21:05)
[2022-12-16] MEDS: LANTUS PER UNIT CHARGE SC SCH ×3 (08:44→21:16)
[2022-12-16] MEDS: LOSARTAN POTASSIUM 50 MG TAB PO SCH (08:45)
[2022-12-16] MEDS: DULoxetine HCL 30 MG CAP PO SCH (08:45)
[2022-12-16] MEDS: FERROUS SULFATE 325 MG TAB PO SCH (08:45)
[2022-12-16] MEDS: PREGABALIN 100 MG CAP PO SCH ×3 (08:45→21:02)
[2022-12-16] MEDS: RIVAROXABAN 10 MG TABLET PO SCH (08:45)
[2022-12-16] MEDS: DOCUSATE SODIUM SYRUP 100 MG/10 ML UDC PO SCH ×2 (08:46→21:04)
[2022-12-16] MEDS: METHADONE HCL 5 MG TAB PO SCH ×2 (08:51→21:02)
--- NOTE | 2022-12-16 11:11 | Electrocardiogram Report ---
Test Reason : Blood Pressure : / mmHG Vent. Rate : 054 BPM Atrial Rate : 054 BPM P-R Int : 232 ms QRS Dur : 102 ms QT Int : 420 ms P-R-T Axes : 064 092 037 degrees QTc Int : 398 ms Sinus bradycardia with 1st degree A-V block Rightward axis Low voltage QRS Incomplete right bundle branch block When compared with ECG of 29-JUN-2022 13:06, QT has shortened Confirmed by Johann Reed ([id number]) on 12/16/2022 11:10:34 AM Referred By: REFERRED SELF Confirmed By:Johann Reed
--- NOTE | 2022-12-16 13:11 | Pharmacy Report ---
Pharmacy Glycemic Short Note 2 - Date of Service December 16, 2022 - Glycemic Short BSG Results (Last 24 hours): 12/15/22 12/15/22 12/16/22 16:07 20:10 05:21 Glucose 157 H POC Glucose 135 H 165 H 12/16/22 12/16/22 08:08 12:12 Glucose POC Glucose 162 H 153 H OUTPATIENT ANTIDIABETIC REGIMEN: * metformin 500 mg PO BIDM HbA1c: 6.7% (06/30/22), pending for 12/16/22 ASSESSMENT: * GM is a 72 year old male who presented to ED with altered mental status (believed to be multifactorial in nature) * BSGs have been relatively well-controlled thus far this admission, ranging 135-162 mg/dL * Will start conservative SC basal/bolus regimen for now * Receiving ceftriaxone/azithromycin for pulm coverage PLAN FOR INPATIENT GLYCEMIC CONTROL: * Hold outpatient oral diabetes medications * Basal insulin * Lantus 5 units SC daily * Lantus 0-5 units SC HS * Bolus insulin * NovoLog per scale ACHS or Q6hrs while NPO * Goal Range: Low 110 mg/dL - High 140 mg/dL * Correction Factor: 30 mg/dL/unit * Nutritional / Prandial insulin per carb ratio of 1 unit per 10 grams CHO consumed
[2022-12-16] MEDS ORDERED: FUROSEMIDE INJ 20 MG/2 ML VIAL IV ONE (13:42)
[2022-12-16] MEDS ORDERED: cefTRIAXone SODIUM 2,000 MG in DEXTROSE 5% 50 ML IV SCH (14:00)
--- NOTE | 2022-12-16 15:10 | Hospitalist Progress Note ---
Date of Service December 16, 2022 Assessment & Plan (1) Hypoxia: Plan: -Patient was initially started on BiPAP, now off of BiPAP -Patient was reportedly confused and hypoxic with SpO2 in the 60's on RA for his home health aid -Patient apparently uses prn O2 but typically uses when he is symptomatic, no based on SpO2 per family and home health aid -At this time the exact etiology of his hypoxia and increased confusion are unknown, but the differentia includes and is not limited to chronic hypercapnia due to untreated MELINA, bacterial pneumonia, polypharmacy, obesity hypoventilation syndrome -This is most likely related to his untreated obstructive sleep apnea and obesity hypoventilation syndrome. No infiltrate on chest x-ray. Procalcitonin was not impressive. We will discontinue ceftriaxone and azithromycin. Patient did not seem volume overloaded. Patient essentially responded to BiPAP management (2) Altered mental status: Plan: -Likely multifactorial including hypercapnia, hypoxia, and polypharmacy; less likely to be an undiagnosed infection as well -Was recently taken off Tizanidine for oversedation but still on Duloxetine, Methadone, and Lyrica Urinalysis is unimpressive for UTI. -Patient is without abdominal discomfort and has not had recent diarrhea -Aspiration precautions, Speech therapy consult placed (3) Chronic congestive heart failure: Plan: -Appears dehydrated on exam -Hold lasix at this time with dehydration and recent SILVA -Will hold IV fluids and allow him to eat/drink with aspiration precautions (4) Respiratory acidosis: Plan: -Likely due to his Hypercapnia and mildly elevated lactate -Lactate has been improving and repeat ABG with improving pH and pCO2 -Will repeat another lactate now to ensure it continues to improve -Continue to monitor on tele and pulse oximetry (5) MELINA (obstructive sleep apnea): Plan: -CPAP/Bipap ordered for naps and HS -Patient will need outpatient sleep study if he no longer has a CPAP/Bipap machine at home (6) SILVA (acute kidney injury): Plan: -Cr is 1.17 on admission Resolved -Patient appeared dehydrated on admission, likely due to decreased intake over the past 24 hours and continued diuresis -Hold lasix and nephrotoxic agents -Will hold IV fluids to prevent volume overload, let him eat/drink for now -Monitor am renal function (7) Chronic constipation: Plan: -Continue Colace and Symproic if on formulary (8) Chronic prescription opiate use: Plan: -Will continue methadone for now to prevent withdrawal but monitor for oversedation (9) Depression: Plan: -Continue duloxetine (10) H/O: stroke: Plan: -Baseline left sided hemiplegia (11) Hypertension: Plan: -Stable -Can continue losartan tomorrow if still hemodynamically stable (12) Type 2 diabetes mellitus: Plan: -Hold metformin -Monitor BSG q6h until eating consistently, goal is 110-160 -Start 5 units lantus BID -CF of 50 and CR 15 to start -DMII, HH, 2gm Sodium restricted diet -Pharmacy glycemic consult Admission and Anticipated Discharge Date Admission Date: December 15, 2022 Subjective Patient feels better today. He is awake and more conversant. Making more sense. Review of Systems Review of Systems: All systems reviewed & are unremarkable except as noted in Subjective Physical Exam Physical Exam: General: Awake, conversant. Morbidly obese Heart: S1, S2/regular rate and rhythm, no murmur rubs or gallops Lungs: Clear to auscultation bilaterally. Normal effort Abdomen: Soft/nontender/nondistended. No hepatosplenomegaly Extremities: No clubbing/cyanosis. No edema Behavior: Appropriate, cooperative Results & Data Results & Data Vital Signs (Past 12 Hours) Vital Signs Temp Pulse Pulse Resp BP Pulse Ox O2 Del Method 12/16/22 08:00 Room Air 12/16/22 12:20 36.5 C 64 19 138/58 L 94 Room Air 12/16/22 06:59 36.9 C 65 18 204/63 H 93 Room Air 12/16/22 03:23 74 24 92 FiO2 12/16/22 08:00 12/16/22 12:20 12/16/22 06:59 12/16/22 03:23 24 Laboratory Results Abnormal lab results 12/15/22 12/15/22 12/15/22 Range/Units 10:35 15:15 16:07 RBC (4.70-6.10) M/uL Hgb (14.0-18.0) g/dl Hct (42.0-52.0) % MCHC (32.0-36.0) g/dL Coleman # (Auto) (0.11-0.59) K/uL ABG pCO2 58 H (35-46) mmHg ABG pO2 73 L (80-95) mmHg ABG HCO3 34 H (19-24) mmol/L ABG Base Excess 7.3 H (-9-1.8) mEq/L Chloride (98-107) mmol/L Carbon Dioxide (21-32) mmol/L BUN (6-23) mg/dl BUN/Creatinine Ratio (10-20) Glucose (70-99(Fasting)) mg/dl POC Glucose 135 H (70-99) mg/dl Lactate (0.4-2.0) mmol/L Urine Protein (Negative) Urine Blood (Negative) Ur Leukocyte Esterase (Negative) Urine WBC (Auto) (0-5) /hpf U Epithel Cells (Auto) (0-5) /lpf Staphylococcus sp PCR DETECTED A (NotDetected) 12/15/22 12/15/22 12/15/22 Range/Units 16:17 17:25 18:22 RBC (4.70-6.10) M/uL Hgb (14.0-18.0) g/dl Hct (42.0-52.0) % MCHC (32.0-36.0) g/dL Coleman # (Auto) (0.11-0.59) K/uL ABG pCO2 (35-46) mmHg ABG pO2 (80-95) mmHg ABG HCO3 (19-24) mmol/L ABG Base Excess (-9-1.8) mEq/L Chloride (98-107) mmol/L Carbon Dioxide (21-32) mmol/L BUN (6-23) mg/dl BUN/Creatinine Ratio (10-20) Glucose (70-99(Fasting)) mg/dl POC Glucose (70-99) mg/dl Lactate 2.1 H* 2.2 H* (0.4-2.0) mmol/L Urine Protein Trace H (Negative) Urine Blood 3+ H (Negative) Ur Leukocyte Esterase 1+ H (Negative) Urine WBC (Auto) 10-30 H (0-5) /hpf U Epithel Cells (Auto) 10-20 H (0-5) /lpf Staphylococcus sp PCR (NotDetected) 12/15/22 12/16/22 12/16/22 Range/Units 20:10 05:21 05:21 RBC 4.31 L (4.70-6.10) M/uL Hgb 11.3 L (14.0-18.0) g/dl Hct 36.0 L (42.0-52.0) % MCHC 31.4 L (32.0-36.0) g/dL Coleman # (Auto) 0.82 H (0.11-0.59) K/uL ABG pCO2 (35-46) mmHg ABG pO2 (80-95) mmHg ABG HCO3 (19-24) mmol/L ABG Base Excess (-9-1.8) mEq/L Chloride 97 L (98-107) mmol/L Carbon Dioxide 35 H (21-32) mmol/L BUN 25 H (6-23) mg/dl BUN/Creatinine Ratio 33.8 H (10-20) Glucose 157 H (70-99(Fasting)) mg/dl POC Glucose 165 H (70-99) mg/dl Lactate (0.4-2.0) mmol/L Urine Protein (Negative) Urine Blood (Negative) Ur Leukocyte Esterase (Negative) Urine WBC (Auto) (0-5) /hpf U Epithel Cells (Auto) (0-5) /lpf Staphylococcus sp PCR (NotDetected) 12/16/22 12/16/22 12/16/22 Range/Units 05:28 08:08 12:12 RBC (4.70-6.10) M/uL Hgb (14.0-18.0) g/dl Hct (42.0-52.0) % MCHC (32.0-36.0) g/dL Coleman # (Auto) (0.11-0.59) K/uL ABG pCO2 61 H (35-46) mmHg ABG pO2 68 L (80-95) mmHg ABG HCO3 39 H (19-24) mmol/L ABG Base Excess 11.5 H (-9-1.8) mEq/L Chloride (98-107) mmol/L Carbon Dioxide (21-32) mmol/L BUN (6-23) mg/dl BUN/Creatinine Ratio (10-20) Glucose (70-99(Fasting)) mg/dl POC Glucose 162 H 153 H (70-99) mg/dl Lactate (0.4-2.0) mmol/L Urine Protein (Negative) Urine Blood (Negative) Ur Leukocyte Esterase (Negative) Urine WBC (Auto) (0-5) /hpf U Epithel Cells (Auto) (0-5) /lpf Staphylococcus sp PCR (NotDetected) PG Care Time/CCT Total # of Minutes Spent Total Time Spent with Patient: Total time spent is greater than 50% in coordination of care (as documented) at patient's floor/unit and/or counseling patient: Coding Level of Care Code 32209 SUB INP/OBS CARE 2/35MIN Diagnoses Hypoxia R09.02 Altered mental status R41.82 Chronic congestive heart failure I50.9 Respiratory acidosis E87.29 MELINA (obstructive sleep apnea) G47.33 SILVA (acute kidney injury) N17.9 Chronic constipation K59.09 Chronic prescription opiate use Z79.891 Depression F32.A H/O: stroke Z86.73 Hypertension I10 Type 2 diabetes mellitus E11.9
[2022-12-16] MEDS ORDERED: AZITHROMYCIN 500 MG in DEXTROSE 5% 250 ML IV SCH (16:00)
[2022-12-16] MEDS: TAMSULOSIN HCL 0.4 MG CAP PO SCH (21:02)
[2022-12-16] MEDS: ATORVASTATIN 40 MG TAB PO SCH (21:03)
[2022-12-17 05:11] LABS: Basophils # (auto) 0.08 K/uL (0.00-0.20); Basophils % (auto) 0.8 %; Eosinophils # (auto) 0.28 K/uL (0.00-0.50); Eosinophils % (auto) 2.9 %; Hematocrit (blood only) 35.6 % (42.0-52.0); Immature Granulocytes # (auto) 0.06 K/uL (0.01-0.20); Immature Granulocytes % (auto) 0.6 %; Lymphocytes # (auto) 3.28 K/uL (1.20-3.40); Lymphocytes % (auto) 34.5 %; Mean Corpuscular Hemoglobin 26.2 pg (25.0-34.0); Mean Corpuscular Hgb Conc 30.9 g/dL (32.0-36.0); Mean Corpuscular Volume 84.8 fL (80.0-100.0); Mean Platelet Volume 10.1 fL (9.4-12.4); Monocytes # (auto) 0.87 K/uL (0.11-0.59); Monocytes % (auto) 9.1 %; Neutrophils # (auto) 4.94 K/uL (1.40-6.50); Neutrophils % (auto) 52.1 %; Platelet Count 235 K/uL (130-400); RDW Coefficient of Variation 14.5 % (11.5-14.5); RDW Standard Deviation 44.4 fL (36.4-46.3); White Blood Count 9.51 K/ul (4.8-10.8)
[2022-12-17 05:32] LABS: BUN Creatinine Ratio 30.4 (10-20); Creatinine Clr Calc Pharmacy 178.5 ml/min; Est GFR (African American) 121.5 ml/min; Est GFR (Non-African American) 104.8 ml/min; Potassium 3.8 mmol/L (3.5-5.1)
[2022-12-17 05:44] LABS: INR 1.1 (0.9-1.1); Prothrombin Time 11.9 Seconds (9.0-12.0)
[2022-12-17 07:57] LABS: Estimated Average Glucose 220 mg/dl; Hemoglobin A1C 9.3 % (4.5-5.6)
[2022-12-17] MEDS: INSULIN ASPART PER UNIT CHARGE SC SCH ×4 (08:36→20:47)
[2022-12-17] MEDS: PREGABALIN 100 MG CAP PO SCH ×3 (08:37→20:23)
[2022-12-17] MEDS: DULoxetine HCL 30 MG CAP PO SCH (08:37)
[2022-12-17] MEDS: DOCUSATE SODIUM SYRUP 100 MG/10 ML UDC PO SCH ×2 (08:37→20:11)
[2022-12-17] MEDS: METHADONE HCL 5 MG TAB PO SCH ×2 (08:37→20:20)
[2022-12-17] MEDS: FERROUS SULFATE 325 MG TAB PO SCH (08:37)
[2022-12-17] MEDS: LOSARTAN POTASSIUM 50 MG TAB PO SCH (08:37)
[2022-12-17] MEDS: RIVAROXABAN 10 MG TABLET PO SCH (08:37)
[2022-12-17] MEDS: LANTUS PER UNIT CHARGE SC SCH ×2 (09:00→20:46)
[2022-12-17] MEDS: ACETAMINOPHEN 325 MG TAB PO PRN ×2 (09:13→21:42)
[2022-12-17] MEDS ORDERED: VANCOMYCIN CONSULT ACTIVE PRN (09:47)
[2022-12-17 10:08] LABS: iSTAT Arterial Blood Gas HCO3 40 meg/L (19-24); iSTAT Arterial Blood Gas pCO2 80 mmHg (35-46); iSTAT Arterial Blood Gas pH 7.31 (7.35-7.45); iSTAT Arterial Blood Gas pO2 < 32 mmHg (80-95); iSTAT Carbon Dioxide > 40 mmol/L (24-31); iSTAT Hematocrit 36 % (42-52); iSTAT Hemoglobin 12.2 g/dl (14.0-18.0); iSTAT Potassium 4.2 mmol/L (3.3-5.0); iSTAT Sodium 134 mmol/L (135-144)
[2022-12-17] MEDS ORDERED: VANCOMYCIN HCL 2,750 MG in SODIUM CHLORIDE 0.9% 500 ML IV ONE (10:15)
--- NOTE | 2022-12-17 11:04 | Pharmacy Report ---
Pharmacy PK ABX Note - Date of Service December 17, 2022 - Assessment and Plan Assessment 72 year old M receiving Vancomycin for treatment of bacteremia and possible UTI. * Day #1 of antimicrobial therapy. * Labs/Vitals: Afebrile since arrival. Leukocytosis resolving, WBCs 9.5k this AM. SCr improving, down to 0.56 mg/dL this AM. Procal was 0.20 ng/mL. Lactate was elevated at 2.6 initially. * Micro: Urine and Blood cultures from 12/15/22 are growing staph species. BCID2 PCR panel could not detect the specific staph species so will have to wait for further identification. Plan Vancomycin * Loading dose: 2750 mg IV x 1 * Maintenance dose: 1500 mg IV every 12 hours * Regimen is predicted to achieve target AUC/TAMIR of 400-600 mg/L.hr * Random level ordered for: 12/19/22 Pharmacy will continue to follow and will adjust dose/frequency as necessary. Thank you. Pharmacy has transitioned to AUC monitoring for vancomycin. AUC/TAMIR is the preferred PK/PD target and is associated with decreased risk of nephrotoxicity compared to traditional trough targets.
--- NOTE | 2022-12-17 13:07 | Pharmacy Report ---
Pharmacy Glycemic Short Note 2 - Date of Service December 17, 2022 - Glycemic Short BSG Results (Last 24 hours): 12/16/22 12/16/22 12/17/22 17:06 20:00 04:28 Glucose 142 H POC Glucose 142 H 154 H 12/17/22 12/17/22 08:04 12:06 Glucose POC Glucose 139 H 168 H OUTPATIENT ANTIDIABETIC REGIMEN: * Metformin 500 mg PO BIDM * HbA1c: 6.7% (06/30/22), pending for 12/16/22 ASSESSMENT: 12/17: * Bryson received 29 units of insulin yesterday, 10 units basal + 19 units bolus. BSGs were: [phone] mg/dL. * BSGs are just slightly above goal. Abx were changed to Vancomycin today due to Staph species growing in the blood. No other change to stressors. * Will tighten carb ratio slightly this morning in an attempt to have BSGs in goal range. 12/16: * TYSHAWN is a 72 year old male who presented to ED with altered mental status (believed to be multifactorial in nature) * BSGs have been relatively well-controlled thus far this admission, ranging 135-162 mg/dL * Will start conservative SC basal/bolus regimen for now * Receiving ceftriaxone/azithromycin for pulm coverage PLAN FOR INPATIENT GLYCEMIC CONTROL: * Hold outpatient oral diabetes medications * Basal insulin * Lantus 5 units SC Daily * Lantus 0-5 units SC HS * Bolus insulin * NovoLog per scale ACHS or Q6hrs while NPO * Goal Range: Low 110 mg/dL - High 140 mg/dL * Correction Factor: 30 mg/dL/unit * Nutritional / Prandial insulin per carb ratio of 1 unit per 9 grams CHO consumed
--- NOTE | 2022-12-17 15:14 | Infectious Disease Consult ---
Date of Consultation December 17, 2022 Assessment & Plan (1) Gram-positive cocci bacteremia: (2) Acute on chronic respiratory failure with hypercapnia: (3) Obesity: (4) Respiratory acidosis: Plan 72 yo male with morbid obesity, chronic hypoxic resp failure on prn o2, MELINA, HFpEF , chronic LE edama, chronic opiod use, HTN presents with hypoxia and lethargy. In the last month has been treated for pneumonia and uti outpatient. In Ed is afebrile , 02 sats 94% on 2lnc , but then required bipap bp 98/78. 12.31, LA 2.6, bun 31/ 1.17 ua 1+ leuk est, wbc 10-30 , 3 + blood many epi cells, Resp bio fire negative. BC noted for bottles for staph sp. UC with 5000 gpc . CxR shows cardiomegaly with evidence of congestive failure. Ct head with Chronic changes- right MCA c/w remote infarct no hemorrhage, mass effect, or evidence of acute stroke . He was started on Ceftriaxone and Azithromycin. He is now on Vancomycin . He complains of cough but denies fever chills, abdominal pain urinary symptoms, nausea, vomiting, rash, wounds, prosthetics are hardware. Pt is not adherent with home o2 and has not been revaluated for his cpap. ID consulted for staph sp bacteremia. Micro BCx 12/15 05/12 bottles , Staph sp pending sensi UC 12/15 5000 GPC Abx ceftriaxone 12/15-12/16 azit 12/15 vanco 12/17 #Staph sp bacteremia #Acute on chronic resp failure #MELINA Source of Staph sp bacteremia undetermined. He has 500O Staph sp in urine so far.. This may represent Staph sp. If so either bacteremia seeded urine. If this is so, then it suggests disseminated infection. Other possibility is that the urine ( if GPC = Staph sp),is source, but he denies urinary symptoms. He h as no skin breakdown , rash or skin abnormalities He has no port , central line, prosthetics, grafts or other hardware recommendations Follow up Staph sp sensi Follow up Repeat BC Sputum cx if can produce. Obtain TTE Thank you for this consultation. ID will continue to follow. Cheo Bhandari MD, MPH Infectious Disease [facility], [facility] Call [phone] with questions Consultation Information Consultation was provided via telemedicine using two-way real-time interactive telecommunication between the patient and the telemedicine provider. For the duration of the visit, the provider was performing the assessment from a different facility than the patient. This includesuse of bluetooth stethoscope forauscultationperformed by the telepresenter that the telemedicine provider can hear if described in the physical exam. [employer]her contact information: Please call [facility] . (Phone Number For Physician Use Only) After establishing a telemedicine visit, patient was: Patient was verified with two unique identifiers and Patient/authorized rep acknowledged consent and understanding Time Spent with Patient: Initial => 75 min History of Present Illness Reason for Consultation: Staph bacteremia Requesting Physician: Toño Diaz MD Attending Physician: Toño Diaz MD History of Present Illness 72 yo male with morbid obesity, chronic hypoxic resp failure on prn o2, MELINA, HFpEF , chronic LE edama, chronic opiod use, HTN presents with hypoxia and lethargy. In the last month has been treated for pneumonia and uti outpatient. In Ed is afebrile , 02 sats 94% on 2lnc , but then required bipap bp 98/78. 12.31, LA 2.6, bun 31/ 1.17 ua 1+ leuk est, wbc 10-30 , 3 + blood many epi cells, Resp bio fire negative. BC noted for bottles for staph sp. UC with 5000 gpc . CxR shows cardiomegaly with evidence of congestive failure. Ct head with Chronic changes- right MCA c/w remote infarct no hemorrhage, mass effect, or evidence of acute stroke . He was started on Ceftriaxone and Azithromycin. He is now on Vancomycin . He complains of cough but denies fever chills, abdominal pain urinary symptoms, nausea, vomiting, rash, wounds, prosthetics are hardware. Pt is not adherent with home o2 and has not been revaluated for his cpap. ID consulted for staph sp bacteremia. Allergies Allergy/AdvReac Type Severity Reaction Status Date / Time Penicillins Allergy Unknown Verified 06/29/22 22:41 Home Medications Medication Instructions Recorded Confirmed Type atorvastatin 40 mg tablet 40 mg PO HS 06/29/22 12/15/22 History duloxetine 30 mg capsule,delayed 30 mg PO QAM 06/29/22 12/15/22 History release losartan 100 mg tablet 100 mg PO QAM 06/29/22 12/15/22 History metformin 500 mg tablet 500 mg PO BID 06/29/22 12/15/22 History potassium chloride 10 mEq 10 meq PO .NOON 06/29/22 12/15/22 History capsule,extended release pregabalin 200 mg capsule 200 mg PO TID 06/29/22 12/15/22 History rivaroxaban 10 mg tablet (Xarelto) 10 mg PO QAM 06/29/22 12/15/22 History tamsulosin 0.4 mg capsule 0.4 mg PO HS 06/29/22 12/15/22 History Oxygen Home #1 ea 07/06/22 12/15/22 Rx docusate sodium 50 mg tablet 50 mg PO BID 12/15/22 12/15/22 History ferrous sulfate 325 mg (65 mg 325 mg PO QAM 12/15/22 12/15/22 History iron) tablet furosemide 40 mg tablet 40 mg PO .QAM & NOON 12/15/22 12/15/22 History methadone 5 mg tablet 5 mg PO BID 12/15/22 12/15/22 History naldemedine 0.2 mg tablet 0.2 mg PO QAM 12/15/22 12/15/22 History (Symproic) Patient History Medical History Abnormal CT of the head Acute respiratory failure with hypoxia and hypercapnia Altered mental state Bilateral lower extremity edema BPH (benign prostatic hyperplasia) Chronic congestive heart failure Chronic constipation Chronic prescription opiate use Congestive heart failure Constipation COPD (chronic obstructive pulmonary disease) Depression Elevated serum creatinine H/O: stroke Hemiplegia History of stroke 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 Hyperlipidemia Hypertension Morbid obesity with BMI of 40.0-44.9, adult Neuropathy MELINA (obstructive sleep apnea) Pneumonia Seborrheic dermatitis Staghorn calculus Type 2 diabetes mellitus UTI (urinary tract infection) Surgical History No significant past surgical history Social History Smoking Status: Never smoker Second Hand Exposure: No; Do You Dip or Chew Tobacco: No; Tobacco Cessation Education Requested by Patient: No Hx Alcohol Use: No Hx Substance Use: No Preferred Language: Swedish Communication Ability: Impaired Application Packaging Specialist Required: No Beliefs That Will Affect Care: None Current Living Situation: Alone Current Living Situation Comment: 24 hour caregiver Other Information That Helps Us Care for You: No Feels Safe at Home: Yes Safety Concerns: Feels Safe At This Time Assistive Devices: Oxygen - Continuous and Wheelchair Review of System A 10 point ROS obtained. Pertinent positives as per HPI. Physical Exam Physical Exam: Gen- NAD Neck thick, large Abd- soft , nt Ext BL LE edema Skin- no open wounds,lesions, rash Lung - no increased work of breathing. Results & Data Vital Signs (Past 12 Hours) Vital Signs Temp Pulse Resp BP Pulse Ox O2 Del Method 12/17/22 11:29 36.4 C L 66 18 131/73 91 Room Air 12/17/22 08:45 Room Air 12/17/22 08:04 36.6 C 67 19 150/76 H 90 Room Air Laboratory Results Laboratory Results - last 48 hr 12/15/22 12/15/22 12/15/22 10:35 13:48 15:15 WBC RBC Hgb POC Hgb 12.2 L Hct POC Hct 36 L MCV MCH MCHC RDW Std Deviation RDW Coeff of Fam Plt Count MPV Immature Gran % (Auto) Neut % (Auto) Lymph % (Auto) [place] % (Auto) Eos % (Auto) Baso % (Auto) Neut # (Auto) Lymph # (Auto) [place] # (Auto) Eos # (Auto) Baso # (Auto) Immature Gran # (Auto) PT INR POC pH 7.31 L POC pCO2 80 H POC pO2 < 32 L POC HCO3 40 H POC Total CO2 > 40 H* POC Base Excess 14.0 H ABG pH 7.38 ABG pCO2 58 H ABG pO2 73 L ABG HCO3 34 H POC ABG O2 Sat 35.0 L ABG O2 Saturation 94.7 ABG Base Excess 7.3 H Patric Test Pos Oxygen Given 2 POC Sodium 134 L Sodium POC Potassium 4.2 Potassium Chloride Carbon Dioxide Anion Gap BUN Creatinine Est Cr Clr Drug Dosing Est GFR ( Amer) Est GFR (Non-Af Amer) BUN/Creatinine Ratio Glucose POC Glucose Estimat Average Glucose Hemoglobin A1c Lactate Calcium Urine Color Urine Appearance Urine pH Ur Specific [place] Urine Protein Urine Glucose (UA) Urine Ketones Urine Blood Urine Nitrite Urine Bilirubin Urine Urobilinogen Ur Leukocyte Esterase Urine WBC (Auto) Urine RBC (Auto) U Hyaline Cast (Auto) U Epithel Cells (Auto) Urine Bacteria (Auto) Urine Yeast Staphylococcus sp PCR DETECTED A Bld Cult ID Panel PCR See PCR Comment 12/15/22 12/15/22 12/15/22 16:07 16:17 17:25 WBC RBC Hgb POC Hgb Hct POC Hct MCV MCH MCHC RDW Std Deviation RDW Coeff of Fam Plt Count MPV Immature Gran % (Auto) Neut % (Auto) Lymph % (Auto) [place] % (Auto) Eos % (Auto) Baso % (Auto) Neut # (Auto) Lymph # (Auto) [place] # (Auto) Eos # (Auto) Baso # (Auto) Immature Gran # (Auto) PT INR POC pH POC pCO2 POC pO2 POC HCO3 POC Total CO2 POC Base Excess ABG pH ABG pCO2 ABG pO2 ABG HCO3 POC ABG O2 Sat ABG O2 Saturation ABG Base Excess Patric Test Oxygen Given POC Sodium Sodium POC Potassium Potassium Chloride Carbon Dioxide Anion Gap BUN Creatinine Est Cr Clr Drug Dosing Est GFR ( Amer) Est GFR (Non-Af Amer) BUN/Creatinine Ratio Glucose POC Glucose 135 H Estimat Average Glucose Hemoglobin A1c Lactate 2.1 H* Calcium Urine Color Yellow Urine Appearance Clear Urine pH 5.0 Ur Specific [place] 1.008 Urine Protein Trace H Urine Glucose (UA) Negative Urine Ketones Negative Urine Blood 3+ H Urine Nitrite Negative Urine Bilirubin Negative Urine Urobilinogen Negative Ur Leukocyte Esterase 1+ H Urine WBC (Auto) 10-30 H Urine RBC (Auto) 0-4 U Hyaline Cast (Auto) 1-5 U Epithel Cells (Auto) 10-20 H Urine Bacteria (Auto) Negative Urine Yeast Not Reportable Staphylococcus sp PCR Bld Cult ID Panel PCR 12/15/22 12/15/22 12/16/22 18:22 20:10 05:21 WBC 9.78 RBC 4.31 L Hgb 11.3 L POC Hgb Hct 36.0 L POC Hct MCV 83.5 MCH 26.2 MCHC 31.4 L RDW Std Deviation 43.5 RDW Coeff of Fam 14.4 Plt Count 205 MPV 9.7 Immature Gran % (Auto) 0.8 Neut % (Auto) 61.0 Lymph % (Auto) 26.4 [place] % (Auto) 8.4 Eos % (Auto) 2.5 Baso % (Auto) 0.9 Neut # (Auto) 5.97 Lymph # (Auto) 2.58 [place] # (Auto) 0.82 H Eos # (Auto) 0.24 Baso # (Auto) 0.09 Immature Gran # (Auto) 0.08 PT INR POC pH POC pCO2 POC pO2 POC HCO3 POC Total CO2 POC Base Excess ABG pH ABG pCO2 ABG pO2 ABG HCO3 POC ABG O2 Sat ABG O2 Saturation ABG Base Excess Patric Test Oxygen Given POC Sodium Sodium POC Potassium Potassium Chloride Carbon Dioxide Anion Gap BUN Creatinine Est Cr Clr Drug Dosing Est GFR ( Amer) Est GFR (Non-Af Amer) BUN/Creatinine Ratio Glucose POC Glucose 165 H Estimat Average Glucose Hemoglobin A1c Lactate 2.2 H* Calcium Urine Color Urine Appearance Urine pH Ur Specific [place] Urine Protein Urine Glucose (UA) Urine Ketones Urine Blood Urine Nitrite Urine Bilirubin Urine Urobilinogen Ur Leukocyte Esterase Urine WBC (Auto) Urine RBC (Auto) U Hyaline Cast (Auto) U Epithel Cells (Auto) Urine Bacteria (Auto) Urine Yeast Staphylococcus sp PCR Bld Cult ID Panel PCR 12/16/22 12/16/22 12/16/22 05:21 05:21 05:21 WBC RBC Hgb POC Hgb Hct POC Hct MCV MCH MCHC RDW Std Deviation RDW Coeff of Fam Plt Count MPV Immature Gran % (Auto) Neut % (Auto) Lymph % (Auto) [place] % (Auto) Eos % (Auto) Baso % (Auto) Neut # (Auto) Lymph # (Auto) [place] # (Auto) Eos # (Auto) Baso # (Auto) Immature Gran # (Auto) PT 11.9 INR 1.1 POC pH POC pCO2 POC pO2 POC HCO3 POC Total CO2 POC Base Excess ABG pH ABG pCO2 ABG pO2 ABG HCO3 POC ABG O2 Sat ABG O2 Saturation ABG Base Excess Patric Test Oxygen Given POC Sodium Sodium 138 POC Potassium Potassium 4.0 Chloride 97 L Carbon Dioxide 35 H Anion Gap 6 BUN 25 H Creatinine 0.74 D Est Cr Clr Drug Dosing 135.6 Est GFR ( Amer) 108.3 Est GFR (Non-Af Amer) 93.5 BUN/Creatinine Ratio 33.8 H Glucose 157 H POC Glucose Estimat Average Glucose 220 Hemoglobin A1c 9.3 H Lactate Calcium 9.3 Urine Color Urine Appearance Urine pH Ur Specific [place] Urine Protein Urine Glucose (UA) Urine Ketones Urine Blood Urine Nitrite Urine Bilirubin Urine Urobilinogen Ur Leukocyte Esterase Urine WBC (Auto) Urine RBC (Auto) U Hyaline Cast (Auto) U Epithel Cells (Auto) Urine Bacteria (Auto) Urine Yeast Staphylococcus sp PCR Bld Cult ID Panel PCR 12/16/22 12/16/22 12/16/22 05:28 08:08 12:12 WBC RBC Hgb POC Hgb Hct POC Hct MCV MCH MCHC RDW Std Deviation RDW Coeff of Fam Plt Count MPV Immature Gran % (Auto) Neut % (Auto) Lymph % (Auto) [place] % (Auto) Eos % (Auto) Baso % (Auto) Neut # (Auto) Lymph # (Auto) [place] # (Auto) Eos # (Auto) Baso # (Auto) Immature Gran # (Auto) PT INR POC pH POC pCO2 POC pO2 POC HCO3 POC Total CO2 POC Base Excess ABG pH 7.41 ABG pCO2 61 H ABG pO2 68 L ABG HCO3 39 H POC ABG O2 Sat ABG O2 Saturation 94.5 ABG Base Excess 11.5 H Patric Test Pos Oxygen Given 24% FIO2 POC Sodium Sodium POC Potassium Potassium Chloride Carbon Dioxide Anion Gap BUN Creatinine Est Cr Clr Drug Dosing Est GFR ( Amer) Est GFR (Non-Af Amer) BUN/Creatinine Ratio Glucose POC Glucose 162 H 153 H Estimat Average Glucose Hemoglobin A1c Lactate Calcium Urine Color Urine Appearance Urine pH Ur Specific [place] Urine Protein Urine Glucose (UA) Urine Ketones Urine Blood Urine Nitrite Urine Bilirubin Urine Urobilinogen Ur Leukocyte Esterase Urine WBC (Auto) Urine RBC (Auto) U Hyaline Cast (Auto) U Epithel Cells (Auto) Urine Bacteria (Auto) Urine Yeast Staphylococcus sp PCR Bld Cult ID Panel PCR 12/16/22 12/16/22 12/17/22 17:06 20:00 04:28 WBC 9.51 RBC 4.20 L Hgb 11.0 L POC Hgb Hct 35.6 L POC Hct MCV 84.8 MCH 26.2 MCHC 30.9 L RDW Std Deviation 44.4 RDW Coeff of Fam 14.5 Plt Count 235 MPV 10.1 Immature Gran % (Auto) 0.6 Neut % (Auto) 52.1 Lymph % (Auto) 34.5 [place] % (Auto) 9.1 Eos % (Auto) 2.9 Baso % (Auto) 0.8 Neut # (Auto) 4.94 Lymph # (Auto) 3.28 [place] # (Auto) 0.87 H Eos # (Auto) 0.28 Baso # (Auto) 0.08 Immature Gran # (Auto) 0.06 PT INR POC pH POC pCO2 POC pO2 POC HCO3 POC Total CO2 POC Base Excess ABG pH ABG pCO2 ABG pO2 ABG HCO3 POC ABG O2 Sat ABG O2 Saturation ABG Base Excess Patric Test Oxygen Given POC Sodium Sodium POC Potassium Potassium Chloride Carbon Dioxide Anion Gap BUN Creatinine Est Cr Clr Drug Dosing Est GFR ( Amer) Est GFR (Non-Af Amer) BUN/Creatinine Ratio Glucose POC Glucose 142 H 154 H Estimat Average Glucose Hemoglobin A1c Lactate Calcium Urine Color Urine Appearance Urine pH Ur Specific [place] Urine Protein Urine Glucose (UA) Urine Ketones Urine Blood Urine Nitrite Urine Bilirubin Urine Urobilinogen Ur Leukocyte Esterase Urine WBC (Auto) Urine RBC (Auto) U Hyaline Cast (Auto) U Epithel Cells (Auto) Urine Bacteria (Auto) Urine Yeast Staphylococcus sp PCR Bld Cult ID Panel PCR 12/17/22 12/17/22 12/17/22 04:28 04:28 08:04 WBC RBC Hgb POC Hgb Hct POC Hct MCV MCH MCHC RDW Std Deviation RDW Coeff of Fam Plt Count MPV Immature Gran % (Auto) Neut % (Auto) Lymph % (Auto) [place] % (Auto) Eos % (Auto) Baso % (Auto) Neut # (Auto) Lymph # (Auto) [place] # (Auto) Eos # (Auto) Baso # (Auto) Immature Gran # (Auto) PT 11.9 INR 1.1 POC pH POC pCO2 POC pO2 POC HCO3 POC Total CO2 POC Base Excess ABG pH ABG pCO2 ABG pO2 ABG HCO3 POC ABG O2 Sat ABG O2 Saturation ABG Base Excess Patric Test Oxygen Given POC Sodium Sodium 137 POC Potassium Potassium 3.8 Chloride 96 L Carbon Dioxide 34 H Anion Gap 7 BUN 17 Creatinine 0.56 L Est Cr Clr Drug Dosing 178.5 Est GFR ( Amer) 121.5 Est GFR (Non-Af Amer) 104.8 BUN/Creatinine Ratio 30.4 H Glucose 142 H POC Glucose 139 H Estimat Average Glucose Hemoglobin A1c Lactate Calcium 9.0 Urine Color Urine Appearance Urine pH Ur Specific [place] Urine Protein Urine Glucose (UA) Urine Ketones Urine Blood Urine Nitrite Urine Bilirubin Urine Urobilinogen Ur Leukocyte Esterase Urine WBC (Auto) Urine RBC (Auto) U Hyaline Cast (Auto) U Epithel Cells (Auto) Urine Bacteria (Auto) Urine Yeast Staphylococcus sp PCR Bld Cult ID Panel PCR 12/17/22 12:06 WBC RBC Hgb POC Hgb Hct POC Hct MCV MCH MCHC RDW Std Deviation RDW Coeff of Fam Plt Count MPV Immature Gran % (Auto) Neut % (Auto) Lymph % (Auto) [place] % (Auto) Eos % (Auto) Baso % (Auto) Neut # (Auto) Lymph # (Auto) [place] # (Auto) Eos # (Auto) Baso # (Auto) Immature Gran # (Auto) PT INR POC pH POC pCO2 POC pO2 POC HCO3 POC Total CO2 POC Base Excess ABG pH ABG pCO2 ABG pO2 ABG HCO3 POC ABG O2 Sat ABG O2 Saturation ABG Base Excess Patric Test Oxygen Given POC Sodium Sodium POC Potassium Potassium Chloride Carbon Dioxide Anion Gap BUN Creatinine Est Cr Clr Drug Dosing Est GFR ( Amer) Est GFR (Non-Af Amer) BUN/Creatinine Ratio Glucose POC Glucose 168 H Estimat Average Glucose Hemoglobin A1c Lactate Calcium Urine Color Urine Appearance Urine pH Ur Specific [place] Urine Protein Urine Glucose (UA) Urine Ketones Urine Blood Urine Nitrite Urine Bilirubin Urine Urobilinogen Ur Leukocyte Esterase Urine WBC (Auto) Urine RBC (Auto) U Hyaline Cast (Auto) U Epithel Cells (Auto) Urine Bacteria (Auto) Urine Yeast Staphylococcus sp PCR Bld Cult ID Panel PCR Diagnostic Findings Microbiology 12/15/22 10:35 Blood Aerobic Blood Culture - Preliminary No growth in Aerobic bottle after 48 hours. 12/15/22 10:35 Blood Anaerobic Blood Culture - Preliminary Staphylococcus species 12/15/22 17:25 Urine,Clean Catch Urine Culture - Final Gram positive cocci 12/15/22 10:41 Blood Aerobic Blood Culture - Preliminary Staphylococcus species 12/15/22 10:41 Blood Anaerobic Blood Culture - Preliminary Staphylococcus species Home Medications Medication Instructions Recorded Confirmed Last Taken atorvastatin 40 mg tablet 40 mg PO HS 06/29/22 12/15/22 12/14/22 duloxetine 30 mg capsule,delayed 30 mg PO QAM 06/29/22 12/15/22 Unknown release losartan 100 mg tablet 100 mg PO QAM 06/29/22 12/15/22 12/15/22 metformin 500 mg tablet 500 mg PO BID 04/12/15/22 12/15/22 potassium chloride 10 mEq 10 meq PO .NOON 06/29/22 12/15/22 Unknown capsule,extended release pregabalin 200 mg capsule 200 mg PO TID 06/29/22 12/15/22 12/15/22 rivaroxaban 10 mg tablet (Xarelto) 10 mg PO QAM 06/29/22 12/15/22 12/15/22 tamsulosin 0.4 mg capsule 0.4 mg PO HS 06/29/22 12/15/22 12/14/22 Oxygen Home #1 ea 07/06/22 12/15/22 Unknown docusate sodium 50 mg tablet 50 mg PO BID 12/15/22 12/15/22 12/15/22 ferrous sulfate 325 mg (65 mg 325 mg PO QAM 12/15/22 12/15/22 12/15/22 iron) tablet furosemide 40 mg tablet 40 mg PO .QAM & NOON 12/15/22 12/15/22 Unknown methadone 5 mg tablet 5 mg PO BID 12/15/22 12/15/22 Unknown naldemedine 0.2 mg tablet 0.2 mg PO QAM 12/15/22 12/15/22 12/15/22 (Symproic) Active Medications Generic Name Dose Route Start Last Admin Trade Name Jadon PRN Reason Stop Dose Admin Acetaminophen 650 mg 12/16/22 00:14 12/17/22 09:13 Acetaminophen 325 Mg Tab PO 01/15/23 00:13 650 mg Q4H PRN Administration Pain Atorvastatin Calcium 40 mg 12/15/22 21:00 12/16/22 21:03 Atorvastatin 40 Mg Tab PO 01/14/23 20:59 40 mg HS ROSALBA Administration Docusate Sodium 50 mg 12/15/22 21:00 12/17/22 08:37 Docusate Sodium Syrup 100 Mg/10 Ml Udc PO 01/14/23 20:59 50 mg BID ROSALBA Administration Duloxetine HCl 30 mg 12/16/22 09:00 12/17/22 08:37 Duloxetine Hcl 30 Mg Cap PO 01/15/23 08:59 30 mg QAM ROSALBA Administration Ferrous Sulfate 325 mg 12/16/22 09:00 12/17/22 08:37 Ferrous Sulfate 325 Mg Tab PO 01/15/23 08:59 325 mg QAM ROSALBA Administration Insulin Aspart 0 units 12/15/22 16:30 12/17/22 13:00 Insulin Aspart Per Unit Charge DC 01/14/23 16:29 9 units ACHS [facility] Administration Protocol Insulin Glargine 5 units 12/16/22 09:00 12/17/22 09:00 Lantus Per Unit Charge DC 01/15/23 08:59 5 units DAILY ROSALBA Administration Protocol Insulin Glargine 0 units 12/16/22 21:00 12/16/22 21:16 Lantus Per Unit Charge DC 01/15/23 20:59 5 units HS [facility] Administration Protocol Losartan Potassium 100 mg 12/16/22 09:00 12/17/22 08:37 Losartan Potassium 50 Mg Tab PO 01/15/23 08:59 100 mg QAM ROSALBA Administration Methadone HCl 5 mg 12/15/22 21:00 12/17/22 08:37 Methadone Hcl 5 Mg Tab PO 12/29/22 20:59 5 mg BID ROSALBA Administration Pregabalin 200 mg 12/15/22 21:00 12/17/22 13:35 Pregabalin 100 Mg Cap PO 01/14/23 20:59 200 mg TID ROSALBA Administration Rivaroxaban 10 mg 12/16/22 09:00 12/17/22 08:37 Rivaroxaban 10 Mg Tablet PO 01/15/23 08:59 10 mg QAM ROSALBA Administration Tamsulosin HCl 0.4 mg 12/15/22 21:00 12/16/22 21:02 Tamsulosin Hcl 0.4 Mg Cap PO 01/14/23 20:59 0.4 mg HS [facility] Administration Trolamine Salicylate 1 appln 12/16/22 00:23 12/16/22 21:01 Trolamine Salicylate 10% Crm 255 Appln/85 Gm Tube EXT 01/15/23 00:22 1 appln BID PRN Administration pain Medications Administered Home Medications Medication Instructions Recorded Confirmed Last Taken atorvastatin 40 mg tablet 40 mg PO 06/29/22 12/15/22 12/14/22 duloxetine 30 mg capsule,delayed 30 mg PO QA 06/29/22 12/15/22 Unknown release losartan 100 mg tablet 100 mg PO QAM 06/29/22 12/15/22 12/15/22 metformin 500 mg tablet 500 mg PO BID 06/29/22 12/15/22 12/15/22 potassium chloride 10 mEq 10 meq PO .NOON 06/29/22 12/15/22 Unknown capsule,extended release pregabalin 200 mg capsule 200 mg PO TID 06/29/22 12/15/22 12/15/22 rivaroxaban 10 mg tablet (Xarelto) 10 mg PO QAM 06/29/22 12/15/22 12/15/22 tamsulosin 0.4 mg capsule 0.4 mg PO HS 06/29/22 12/15/22 12/14/22 Oxygen Home #1 ea 07/06/22 12/15/22 Unknown docusate sodium 50 mg tablet 50 mg PO BID 12/15/22 12/15/22 12/15/22 ferrous sulfate 325 mg (65 mg 325 mg PO QAM 12/15/22 12/15/22 12/15/22 iron) tablet furosemide 40 mg tablet 40 mg PO .QAM & NOON 12/15/22 12/15/22 Unknown methadone 5 mg tablet 5 mg PO BID 12/15/22 12/15/22 Unknown naldemedine 0.2 mg tablet 0.2 mg PO QAM 12/15/22 12/15/22 12/15/22 (Symproic) Active Medications Generic Name Dose Route Start Last Admin Trade Name Freq PRN Reason Stop Dose Admin Acetaminophen 650 mg 12/16/22 00:14 12/17/22 09:13 Acetaminophen 325 Mg Tab PO 01/15/23 00:13 650 mg Q4H PRN Administration Pain Atorvastatin Calcium 40 mg 12/15/22 21:00 12/16/22 21:03 Atorvastatin 40 Mg Tab PO 01/14/23 20:59 40 mg HS ROSALBA Administration Docusate Sodium 50 mg 12/15/22 21:00 12/17/22 08:37 Docusate Sodium Syrup 100 Mg/10 Ml Udc PO 01/14/23 20:59 50 mg BID ROSALBA Administration Duloxetine HCl 30 mg 12/16/22 09:00 12/17/22 08:37 Duloxetine Hcl 30 Mg Cap PO 01/15/23 08:59 30 mg QAM ROSALBA Administration Ferrous Sulfate 325 mg 12/16/22 09:00 12/17/22 08:37 Ferrous Sulfate 325 Mg Tab PO 01/15/23 08:59 325 mg QAM ROSALBA Administration Insulin Aspart 0 units 12/15/22 16:30 12/17/22 13:00 Insulin Aspart Per Unit Charge DC 01/14/23 16:29 9 units ACHS ROSALBA Administration Protocol Insulin Glargine 5 units 12/16/22 09:00 12/17/22 09:00 Lantus Per Unit Charge DC 01/15/23 08:59 5 units DAILY ROSALBA Administration Protocol Insulin Glargine 0 units 12/16/22 21:00 12/16/22 21:16 Lantus Per Unit Charge DC 01/15/23 20:59 5 units HS ROSALBA Administration Protocol Losartan Potassium 100 mg 12/16/22 09:00 12/17/22 08:37 Losartan Potassium 50 Mg Tab PO 01/15/23 08:59 100 mg QAM ROSALBA Administration Methadone HCl 5 mg 12/15/22 21:00 12/17/22 08:37 Methadone Hcl 5 Mg Tab PO 12/29/22 20:59 5 mg BID ROSALBA Administration Pregabalin 200 mg 12/15/22 21:00 12/17/22 13:35 Pregabalin 100 Mg Cap PO 01/14/23 20:59 200 mg TID ROSALBA Administration Rivaroxaban 10 mg 12/16/22 09:00 12/17/22 08:37 Rivaroxaban 10 Mg Tablet PO 01/15/23 08:59 10 mg QAM ROSALBA Administration Tamsulosin HCl 0.4 mg 12/15/22 21:00 12/16/22 21:02 Tamsulosin Hcl 0.4 Mg Cap PO 01/14/23 20:59 0.4 mg HS ROSALBA Administration Trolamine Salicylate 1 appln 12/16/22 00:23 12/16/22 21:01 Trolamine Salicylate 10% Crm 255 Appln/85 Gm Tube EXT 01/15/23 00:22 1 appln BID PRN Administration pain
--- NOTE | 2022-12-17 16:35 | Hospitalist Progress Note ---
Date of Service December 17, 2022 Assessment & Plan (1) Hypoxia: Plan: -Patient was initially started on BiPAP, now off of BiPAP -Patient was reportedly confused and hypoxic with SpO2 in the 60's on RA for his home health aid -Patient apparently uses prn O2 but typically uses when he is symptomatic, no based on SpO2 per family and home health aid -At this time the exact etiology of his hypoxia and increased confusion are unknown, but the differentia includes and is not limited to chronic hypercapnia due to untreated MELINA, bacterial pneumonia, polypharmacy, obesity hypoventilation syndrome -This is most likely related to his untreated obstructive sleep apnea and obesity hypoventilation syndrome. No infiltrate on chest x-ray. Procalcitonin was not impressive. discontinued ceftriaxone and azithromycin. Patient did not seem volume overloaded. Patient essentially responded to BiPAP management (2) Gram-positive cocci bacteremia: Plan: blood culture positive for Staphylococcus. I was unaware of bacteremia up until this morning when I started the patient on IV vancomycin. Ordered TTE, pending Consulted infectious disease (3) Altered mental status: Plan: -Likely multifactorial including hypercapnia, hypoxia, and polypharmacy; less likely to be an undiagnosed infection as well -Was recently taken off Tizanidine for oversedation but still on Duloxetine, Methadone, and Lyrica Urinalysis is unimpressive for UTI. -Patient is without abdominal discomfort and has not had recent diarrhea -Aspiration precautions, Speech therapy consult placed (4) Chronic congestive heart failure: Plan: -Appeared dehydrated on exam on admission No more dehydrated Now building up fluid Resume Lasix p.o. twice daily with potassium supplements (5) Respiratory acidosis: Plan: -Likely due to his Hypercapnia and mildly elevated lactate -Lactate has been improving and repeat ABG with improving pH and pCO2 -Will repeat another lactate now to ensure it continues to improve -Continue to monitor on tele and pulse oximetry (6) MELINA (obstructive sleep apnea): Plan: -CPAP/Bipap ordered for naps and HS -Patient will need outpatient sleep study if he no longer has a CPAP/Bipap machine at home (7) SILVA (acute kidney injury): Plan: -Cr is 1.17 on admission Resolved -Patient appeared dehydrated on admission, likely due to decreased intake over the past 24 hours and continued diuresis resume Lasix (8) Chronic constipation: Plan: -Continue Colace and Symproic if on formulary (9) Chronic prescription opiate use: Plan: -Will continue methadone for now to prevent withdrawal but monitor for oversedation (10) Depression: Plan: -Continue duloxetine (11) H/O: stroke: Plan: -Baseline left sided hemiplegia (12) Hypertension: Plan: -Stable -Can continue losartan tomorrow if still hemodynamically stable (13) Type 2 diabetes mellitus: Plan: -Hold metformin -Monitor BSG q6h until eating consistently, goal is 110-160 -Start 5 units lantus BID -CF of 50 and CR 15 to start -DMII, HH, 2gm Sodium restricted diet -Pharmacy glycemic consult (14) Acute on chronic respiratory failure with hypercapnia: Admission and Anticipated Discharge Date Admission Date: December 15, 2022 Subjective patient does not have any complaints at this time. I was called by the pharmacist about positive blood cultures. Up until that I was unaware of bacteremia. patient was immediately started on IV vancomycin. Echocardiogram ordered. ID consulted. Review of Systems Review of Systems: All systems reviewed & are unremarkable except as noted in Subjective Physical Exam Physical Exam: General: Awake, conversant. Morbidly obese Heart: S1, S2/regular rate and rhythm, no murmur rubs or gallops Lungs: Clear to auscultation bilaterally. Normal effort Abdomen: Soft/nontender/nondistended. No hepatosplenomegaly Extremities: No clubbing/cyanosis. 1-2+ pitting bilateral edema Behavior: Appropriate, cooperative Results & Data Results & Data Vital Signs (Past 12 Hours) Vital Signs Temp Pulse Resp BP Pulse Ox O2 Del Method O2 Flow Rate 12/17/22 15:16 36.6 C 63 18 122/70 96 Nasal Cannula 2 12/17/22 11:29 36.4 C L 66 18 131/73 91 Room Air 12/17/22 08:45 Room Air 12/17/22 08:04 36.6 C 67 19 150/76 H 90 Room Air Laboratory Results Abnormal lab results 12/15/22 12/16/22 12/16/22 Range/Units 13:48 05:21 17:06 RBC (4.70-6.10) M/uL Hgb (14.0-18.0) g/dl POC Hgb 12.2 L (14.0-18.0) g/dl Hct (42.0-52.0) % POC Hct 36 L (42-52) % MCHC (32.0-36.0) g/dL Larue # (Auto) (0.11-0.59) K/uL POC pH 7.31 L (7.35-7.45) POC pCO2 80 H (35-46) mmHg POC pO2 < 32 L (80-95) mmHg POC HCO3 40 H (19-24) minh/L POC Total CO2 > 40 H* (24-31) mmol/L POC Base Excess 14.0 H (-9-1.8) minh/L POC ABG O2 Sat 35.0 L (90-95) % POC Sodium 134 L (135-144) mmol/L Chloride (98-107) mmol/L Carbon Dioxide (21-32) mmol/L Creatinine (0.6-1.4) mg/dl BUN/Creatinine Ratio (10-20) Glucose (70-99(Fasting)) mg/dl POC Glucose 142 H (70-99) mg/dl Hemoglobin A1c 9.3 H (4.5-5.6) % 12/16/22 12/17/22 12/17/22 Range/Units 20:00 04:28 04:28 RBC 4.20 L (4.70-6.10) M/uL Hgb 11.0 L (14.0-18.0) g/dl POC Hgb (14.0-18.0) g/dl Hct 35.6 L (42.0-52.0) % POC Hct (42-52) % MCHC 30.9 L (32.0-36.0) g/dL Larue # (Auto) 0.87 H (0.11-0.59) K/uL POC pH (7.35-7.45) POC pCO2 (35-46) mmHg POC pO2 (80-95) mmHg POC HCO3 (19-24) minh/L POC Total CO2 (24-31) mmol/L POC Base Excess (-9-1.8) minh/L POC ABG O2 Sat (90-95) % POC Sodium (135-144) mmol/L Chloride 96 L (98-107) mmol/L Carbon Dioxide 34 H (21-32) mmol/L Creatinine 0.56 L (0.6-1.4) mg/dl BUN/Creatinine Ratio 30.4 H (10-20) Glucose 142 H (70-99(Fasting)) mg/dl POC Glucose 154 H (70-99) mg/dl Hemoglobin A1c (4.5-5.6) % 12/17/22 12/17/22 12/17/22 Range/Units 08:04 12:06 16:15 RBC (4.70-6.10) M/uL Hgb (14.0-18.0) g/dl POC Hgb (14.0-18.0) g/dl Hct (42.0-52.0) % POC Hct (42-52) % MCHC (32.0-36.0) g/dL Larue # (Auto) (0.11-0.59) K/uL POC pH (7.35-7.45) POC pCO2 (35-46) mmHg POC pO2 (80-95) mmHg POC HCO3 (19-24) minh/L POC Total CO2 (24-31) mmol/L POC Base Excess (-9-1.8) minh/L POC ABG O2 Sat (90-95) % POC Sodium (135-144) mmol/L Chloride (98-107) mmol/L Carbon Dioxide (21-32) mmol/L Creatinine (0.6-1.4) mg/dl BUN/Creatinine Ratio (10-20) Glucose (70-99(Fasting)) mg/dl POC Glucose 139 H 168 H 132 H (70-99) mg/dl Hemoglobin A1c (4.5-5.6) % PG Care Time/CCT Total # of Minutes Spent Total Time Spent with Patient: Total time spent is greater than 50% in coordination of care (as documented) at patient's floor/unit and/or counseling patient: Coding Level of Care Code 40739 SUB INP/OBS CARE 2/35MIN Diagnoses Hypoxia R09.02 Gram-positive cocci bacteremia R78.81 Altered mental status R41.82 Chronic congestive heart failure I50.9 Respiratory acidosis E87.29 MELINA (obstructive sleep apnea) G47.33 SILVA (acute kidney injury) N17.9 Chronic constipation K59.09 Chronic prescription opiate use Z79.891 Depression F32.A H/O: stroke Z86.73 Hypertension I10 Type 2 diabetes mellitus E11.9 Acute on chronic respiratory failure with hypercapnia J96.22
[2022-12-17] MEDS: POTASSIUM CHLORIDE 10 MEQ TABCR PO SCH (17:35)
[2022-12-17] MEDS: FUROSEMIDE 40 MG TAB PO SCH ×2 (17:36→20:12)
[2022-12-17] MEDS: VANCOMYCIN HCL 1,500 MG in SODIUM CHLORIDE 0.9% 500 ML IV SCH (20:09)
[2022-12-17] MEDS: ATORVASTATIN 40 MG TAB PO SCH (20:12)
[2022-12-17] MEDS: TAMSULOSIN HCL 0.4 MG CAP PO SCH (20:12)
[2022-12-18 06:36] LABS: Eosinophils # (auto) 0.39 K/uL (0.00-0.50); Eosinophils % (auto) 3.8 %; Hemoglobin 11.8 g/dl (14.0-18.0); Immature Granulocytes # (auto) 0.11 K/uL (0.01-0.20); Immature Granulocytes % (auto) 1.1 %; Lymphocytes # (auto) 3.71 K/uL (1.20-3.40); Lymphocytes % (auto) 36.2 %; Mean Corpuscular Hemoglobin 26.3 pg (25.0-34.0); Mean Corpuscular Hgb Conc 31.9 g/dL (32.0-36.0); Mean Corpuscular Volume 82.6 fL (80.0-100.0); Mean Platelet Volume 10.7 fL (9.4-12.4); Monocytes # (auto) 1.04 K/uL (0.11-0.59); Monocytes % (auto) 10.1 %; Neutrophils % (auto) 47.8 %; Platelet Count 214 K/uL (130-400); RDW Coefficient of Variation 14.6 % (11.5-14.5); RDW Standard Deviation 43.4 fL (36.4-46.3); Red Blood Count 4.48 M/uL (4.70-6.10); White Blood Count 10.25 K/ul (4.8-10.8)
[2022-12-18 07:03] LABS: INR 1.1 (0.9-1.1); Prothrombin Time 12.1 Seconds (9.0-12.0)
[2022-12-18 07:44] LABS: BUN Creatinine Ratio 22.6 (10-20); Calcium 8.7 mg/dl (8.6-10.3); Creatinine Clr Calc Pharmacy 161.1 ml/min; Est GFR (African American) 116.5 ml/min; Est GFR (Non-African American) 100.5 ml/min; Potassium 3.9 mmol/L (3.5-5.1)
[2022-12-18] MEDS: INSULIN ASPART PER UNIT CHARGE SC SCH ×4 (08:52→21:06)
[2022-12-18] MEDS: DULoxetine HCL 30 MG CAP PO SCH (08:52)
[2022-12-18] MEDS: LOSARTAN POTASSIUM 50 MG TAB PO SCH (08:52)
[2022-12-18] MEDS: LANTUS PER UNIT CHARGE SC SCH ×2 (08:52→21:07)
[2022-12-18] MEDS: FERROUS SULFATE 325 MG TAB PO SCH (08:52)
[2022-12-18] MEDS: RIVAROXABAN 10 MG TABLET PO SCH (08:52)
[2022-12-18] MEDS: FUROSEMIDE 40 MG TAB PO SCH ×2 (08:53→20:19)
[2022-12-18] MEDS: DOCUSATE SODIUM SYRUP 100 MG/10 ML UDC PO SCH ×2 (08:53→20:18)
[2022-12-18] MEDS: METHADONE HCL 5 MG TAB PO SCH ×2 (09:04→21:05)
[2022-12-18] MEDS: VANCOMYCIN HCL 1,500 MG in SODIUM CHLORIDE 0.9% 500 ML IV SCH ×2 (09:04→20:13)
[2022-12-18] MEDS: PREGABALIN 100 MG CAP PO SCH ×3 (10:00→21:06)
[2022-12-18] MEDS: POTASSIUM CHLORIDE 10 MEQ TABCR PO SCH (12:38)
--- NOTE | 2022-12-18 15:47 | Hospitalist Progress Note ---
Date of Service December 18, 2022 Assessment & Plan (1) Hypoxia: Plan: -Patient was initially started on BiPAP, now off of BiPAP -Patient was reportedly confused and hypoxic with SpO2 in the 60's on RA for his home health aid -Patient apparently uses prn O2 but typically uses when he is symptomatic, no based on SpO2 per family and home health aid -At this time the exact etiology of his hypoxia and increased confusion are unknown, but the differentia includes and is not limited to chronic hypercapnia due to untreated MELINA, bacterial pneumonia, polypharmacy, obesity hypoventilation syndrome -This is most likely related to his untreated obstructive sleep apnea and obesity hypoventilation syndrome. No infiltrate on chest x-ray. Procalcitonin was not impressive. discontinued ceftriaxone and azithromycin. Patient did not seem volume overloaded. Patient essentially responded to BiPAP management (2) Gram-positive cocci bacteremia: Plan: blood culture positive for Staphylococcus, Awaiting sensitivities currently on IV vancomycin Ordered TTE, pending. Patient has been refusing. Infectious disease on board Urine also growing staph. Question is whether the urine is the source or a result of seeding (3) Altered mental status: Plan: -Likely multifactorial including hypercapnia, hypoxia, and polypharmacy; less likely to be an undiagnosed infection as well -Was recently taken off Tizanidine for oversedation but still on Duloxetine, Methadone, and Lyrica Urinalysis is unimpressive for UTI. -Patient is without abdominal discomfort and has not had recent diarrhea -Aspiration precautions, Speech therapy consult placed (4) Chronic congestive heart failure: Plan: -Appeared dehydrated on exam on admission No more dehydrated Resumed Lasix p.o. twice daily with potassium supplements (5) Respiratory acidosis: Plan: -Likely due to his Hypercapnia and mildly elevated lactate -Lactate has been improving and repeat ABG with improving pH and pCO2 -Will repeat another lactate now to ensure it continues to improve -Continue to monitor on tele and pulse oximetry (6) MELINA (obstructive sleep apnea): Plan: -CPAP/Bipap ordered for naps and HS -Patient will need outpatient sleep study if he no longer has a CPAP/Bipap machine at home (7) SILVA (acute kidney injury): Plan: -Cr is 1.17 on admission Resolved -Patient appeared dehydrated on admission, likely due to decreased intake over the past 24 hours and continued diuresis resume Lasix (8) Chronic constipation: Plan: -Continue Colace and Symproic if on formulary (9) Chronic prescription opiate use: Plan: -Will continue methadone for now to prevent withdrawal but monitor for oversedation (10) Depression: Plan: -Continue duloxetine (11) H/O: stroke: Plan: -Baseline left sided hemiplegia (12) Hypertension: Plan: -Stable -Can continue losartan tomorrow if still hemodynamically stable (13) Type 2 diabetes mellitus: Plan: -Hold metformin -Monitor BSG q6h until eating consistently, goal is 110-160 -Start 5 units lantus BID -CF of 50 and CR 15 to start -DMII, HH, 2gm Sodium restricted diet -Pharmacy glycemic consult (14) Acute on chronic respiratory failure with hypercapnia: Admission and Anticipated Discharge Date Admission Date: December 15, 2022 Subjective patient does not have any major complaints. Denies chest pain or shortness of breath. He has been using CPAP at night. Review of Systems Review of Systems: All systems reviewed & are unremarkable except as noted in Subjective Physical Exam Physical Exam: General: Awake, conversant. Morbidly obese Heart: S1, S2/regular rate and rhythm, no murmur rubs or gallops Lungs: Clear to auscultation bilaterally. Normal effort Abdomen: Soft/nontender/nondistended. No hepatosplenomegaly Extremities: No clubbing/cyanosis. 1+ pitting bilateral edema Behavior: Appropriate, cooperative Results & Data Results & Data Vital Signs (Past 12 Hours) Vital Signs Temp Pulse Pulse Resp BP Pulse Ox O2 Del Method 12/18/22 15:08 36.9 C 61 18 116/69 97 Nasal Cannula 12/18/22 13:16 Nasal Cannula 12/18/22 12:03 36.7 C 61 20 145/65 H 95 Nasal Cannula 12/18/22 07:00 58 L 12/18/22 07:27 36.6 C 65 19 162/65 H 91 Room Air O2 Flow Rate 12/18/22 15:08 2 12/18/22 13:16 2 12/18/22 12:03 2.5 12/18/22 07:00 12/18/22 07:27 Laboratory Results Abnormal lab results 12/17/22 12/17/22 12/18/22 Range/Units 16:15 20:25 05:40 RBC 4.48 L (4.70-6.10) M/uL Hgb 11.8 L (14.0-18.0) g/dl Hct 37.0 L (42.0-52.0) % MCHC 31.9 L (32.0-36.0) g/dL RDW Coeff of Fam 14.6 H (11.5-14.5) % Lymph # (Auto) 3.71 H (1.20-3.40) K/uL Gladwin # (Auto) 1.04 H (0.11-0.59) K/uL PT (9.0-12.0) Seconds Chloride (98-107) mmol/L Carbon Dioxide (21-32) mmol/L BUN/Creatinine Ratio (10-20) Glucose (70-99(Fasting)) mg/dl POC Glucose 132 H 151 H (70-99) mg/dl 12/18/22 12/18/22 12/18/22 Range/Units 05:57 07:05 08:03 RBC (4.70-6.10) M/uL Hgb (14.0-18.0) g/dl Hct (42.0-52.0) % MCHC (32.0-36.0) g/dL RDW Coeff of Fam (11.5-14.5) % Lymph # (Auto) (1.20-3.40) K/uL Gladwin # (Auto) (0.11-0.59) K/uL PT 12.1 H (9.0-12.0) Seconds Chloride 96 L (98-107) mmol/L Carbon Dioxide 37 H (21-32) mmol/L BUN/Creatinine Ratio 22.6 H (10-20) Glucose 155 H (70-99(Fasting)) mg/dl POC Glucose 144 H (70-99) mg/dl 12/18/22 Range/Units 12:01 RBC (4.70-6.10) M/uL Hgb (14.0-18.0) g/dl Hct (42.0-52.0) % MCHC (32.0-36.0) g/dL RDW Coeff of Fam (11.5-14.5) % Lymph # (Auto) (1.20-3.40) K/uL Gladwin # (Auto) (0.11-0.59) K/uL PT (9.0-12.0) Seconds Chloride (98-107) mmol/L Carbon Dioxide (21-32) mmol/L BUN/Creatinine Ratio (10-20) Glucose (70-99(Fasting)) mg/dl POC Glucose 159 H (70-99) mg/dl PG Care Time/CCT Total # of Minutes Spent Total Time Spent with Patient: Total time spent is greater than 50% in coordination of care (as documented) at patient's floor/unit and/or counseling patient: Coding Level of Care Code 03400 SUB INP/OBS CARE 2/35MIN Diagnoses Hypoxia R09.02 Gram-positive cocci bacteremia R78.81 Altered mental status R41.82 Chronic congestive heart failure I50.9 Respiratory acidosis E87.29 MELINA (obstructive sleep apnea) G47.33 SILVA (acute kidney injury) N17.9 Chronic constipation K59.09 Chronic prescription opiate use Z79.891 Depression F32.A H/O: stroke Z86.73 Hypertension I10 Type 2 diabetes mellitus E11.9 Acute on chronic respiratory failure with hypercapnia J96.22
[2022-12-18] MEDS: ATORVASTATIN 40 MG TAB PO SCH (20:20)
[2022-12-18] MEDS: TAMSULOSIN HCL 0.4 MG CAP PO SCH (20:20)
[2022-12-18] MEDS ORDERED: diphenhydrAMINE Capsule 25 MG CAP PO ONE (21:25)
[2022-12-19 06:41] LABS: Creatinine Clr Calc Pharmacy 177.2 ml/min; Est GFR (African American) 120.6 ml/min
[2022-12-19] MEDS ORDERED: VANCOMYCIN LEVEL ONE (07:30)
--- NOTE | 2022-12-19 08:43 | Pharmacy Report ---
Pharmacy PK ABX Note - Date of Service December 19, 2022 - Assessment and Plan Assessment 72 year old M receiving Vancomycin for treatment of bacteremia and possible UTI. * Day #3 of antimicrobial therapy. Vanc level this AM was supratherapeutic. * Labs/Vitals: Afebrile since arrival. Leukocytosis resolved. SCr stable. Procal was 0.20 ng/mL. Lactate was elevated at 2.6 initially. * Micro: Urine culture growing GPCs. Blood cultures resulted as CoNS, not lugdunensis, that is oxacillin sensitive. * Recommend transition to cefazolin 2 g IV q8h. Given BMI, high risk of vancomycin accumulation and subsequent SILVA. Initial level prior to steady state this AM was supratherapeutic. New data suggests <1% risk of cross reactivity with specifically Ancef and other beta lactams (pt has unknown pcn allergy) Plan Vancomycin * Current regimen: 1500 mg IV every 12 hours * Random level obtained 12/19/22 resulted as 21.9 mcg/mL. This is supratherapeutic. * Change to 1250 mg IV every 12 hours. Predicted AUC at steady state: 520 mg/L.hr * Repeat random level ordered for: 12/21/22 Pharmacy will continue to follow and will adjust dose/frequency as necessary. Thank you. Pharmacy has transitioned to AUC monitoring for vancomycin. AUC/TAMIR is the preferred PK/PD target and is associated with decreased risk of nephrotoxicity compared to traditional trough targets.
[2022-12-19] MEDS ORDERED: VANCOMYCIN HCL 1,250 MG in SODIUM CHLORIDE 0.9% 250 ML IV SCH (10:00)
[2022-12-19] MEDS: RIVAROXABAN 10 MG TABLET PO SCH (10:07)
[2022-12-19] MEDS: FUROSEMIDE 40 MG TAB PO SCH ×2 (10:08→21:26)
[2022-12-19] MEDS: LOSARTAN POTASSIUM 50 MG TAB PO SCH (10:08)
[2022-12-19] MEDS: FERROUS SULFATE 325 MG TAB PO SCH (10:08)
[2022-12-19] MEDS: DULoxetine HCL 30 MG CAP PO SCH (10:08)
[2022-12-19] MEDS: ceFAZolin 2000MG 2,000 MG/15 ML SYR IV SCH ×2 (10:09→18:46)
[2022-12-19] MEDS: DOCUSATE SODIUM SYRUP 100 MG/10 ML UDC PO SCH ×2 (10:09→21:27)
[2022-12-19] MEDS: METHADONE HCL 5 MG TAB PO SCH ×2 (10:29→21:31)
[2022-12-19] MEDS: PREGABALIN 100 MG CAP PO SCH ×3 (10:29→21:31)
[2022-12-19] MEDS: INSULIN ASPART PER UNIT CHARGE SC SCH ×4 (10:30→21:27)
[2022-12-19] MEDS: LANTUS PER UNIT CHARGE SC SCH ×2 (10:30→21:29)
--- NOTE | 2022-12-19 12:34 | Hospitalist Progress Note ---
Date of Service December 19, 2022 Assessment & Plan (1) Hypoxia: Plan: -Patient was initially started on BiPAP, now off of BiPAP -Patient was reportedly confused and hypoxic with SpO2 in the 60's on RA for his home health aid -Patient apparently uses prn O2 but typically uses when he is symptomatic, no based on SpO2 per family and home health aid -At this time the exact etiology of his hypoxia and increased confusion are unknown, but the differentia includes and is not limited to chronic hypercapnia due to untreated MELINA, bacterial pneumonia, polypharmacy, obesity hypoventilation syndrome -This is most likely related to his untreated obstructive sleep apnea and obesity hypoventilation syndrome. No infiltrate on chest x-ray. Procalcitonin was not impressive. discontinued ceftriaxone and azithromycin. Patient did not seem volume overloaded. Patient essentially responded to BiPAP management (2) Gram-positive cocci bacteremia: Plan: blood culture positive for Coag negative staph, oxacillin sensitive switched from IV vancomycin to cefazolin Ordered TTE, pending. patient now agrees to it Infectious disease on board, awaiting further recommendations Urine also growing staph. Question is whether the urine is the source or a result of seeding (3) Altered mental status: Plan: -Likely multifactorial including hypercapnia, hypoxia, and polypharmacy; less likely to be an undiagnosed infection as well -Was recently taken off Tizanidine for oversedation but still on Duloxetine, Methadone, and Lyrica Urinalysis is unimpressive for UTI. -Patient is without abdominal discomfort and has not had recent diarrhea -Aspiration precautions, Speech therapy consult placed (4) Chronic congestive heart failure: Plan: -Appeared dehydrated on exam on admission No more dehydrated Resumed Lasix p.o. twice daily with potassium supplements (5) Respiratory acidosis: Plan: -Likely due to his Hypercapnia and mildly elevated lactate -Lactate has been improving and repeat ABG with improving pH and pCO2 -Will repeat another lactate now to ensure it continues to improve -Continue to monitor on tele and pulse oximetry (6) MELINA (obstructive sleep apnea): Plan: -CPAP/Bipap ordered for naps and HS -Patient will need outpatient sleep study if he no longer has a CPAP/Bipap machine at home (7) SILVA (acute kidney injury): Plan: -Cr is 1.17 on admission Resolved -Patient appeared dehydrated on admission, likely due to decreased intake over the past 24 hours and continued diuresis resume Lasix (8) Chronic constipation: Plan: -Continue Colace and Symproic if on formulary (9) Chronic prescription opiate use: Plan: -Will continue methadone for now to prevent withdrawal but monitor for oversedation (10) Depression: Plan: -Continue duloxetine (11) H/O: stroke: Plan: -Baseline left sided hemiplegia (12) Hypertension: Plan: -Stable - on losartan (13) Type 2 diabetes mellitus: Plan: -Hold metformin -Monitor BSG q6h until eating consistently, goal is 110-160 -Start 5 units lantus BID -CF of 50 and CR 15 to start -DMII, HH, 2gm Sodium restricted diet -Pharmacy glycemic consult (14) Acute on chronic respiratory failure with hypercapnia: Admission and Anticipated Discharge Date Admission Date: December 15, 2022 Subjective patient feels well. Denies chest pain or shortness of breath. He had refused echocardiogram yesterday saying that he had 1 done in May. After explaining why we need it, he is now willing. Review of Systems Review of Systems: All systems reviewed & are unremarkable except as noted in Subjective Physical Exam Physical Exam: General: Awake, conversant. Morbidly obese Heart: S1, S2/regular rate and rhythm, no murmur rubs or gallops Lungs: Clear to auscultation bilaterally. Normal effort Abdomen: Soft/nontender/nondistended. No hepatosplenomegaly Extremities: No clubbing/cyanosis. 1+ pitting bilateral edema Behavior: Appropriate, cooperative Results & Data Results & Data Vital Signs (Past 12 Hours) Vital Signs Temp Pulse Resp BP Pulse Ox O2 Del Method O2 Flow Rate 12/19/22 09:15 36.4 C 65 16 134/69 94 Nasal Cannula 2 12/19/22 03:59 36.3 C L 60 18 175/93 H 95 Nasal Cannula 2 Laboratory Results Abnormal lab results 12/18/22 12/18/22 12/19/22 Range/Units 16:43 20:43 05:53 Creatinine 0.57 L (0.6-1.4) mg/dl POC Glucose 140 H 183 H (70-99) mg/dl Random Vancomycin (10-20) mcg/ml 12/19/22 12/19/22 12/19/22 Range/Units 05:53 08:09 11:34 Creatinine (0.6-1.4) mg/dl POC Glucose 167 H 178 H (70-99) mg/dl Random Vancomycin 21.9 H (10-20) mcg/ml PG Care Time/CCT Total # of Minutes Spent Total Time Spent with Patient: Total time spent is greater than 50% in coordination of care (as documented) at patient's floor/unit and/or counseling patient: Coding Level of Care Code 51146 SUB INP/OBS CARE 2/35MIN Diagnoses Hypoxia R09.02 Gram-positive cocci bacteremia R78.81 Altered mental status R41.82 Chronic congestive heart failure I50.9 Respiratory acidosis E87.29 MELINA (obstructive sleep apnea) G47.33 SILVA (acute kidney injury) N17.9 Chronic constipation K59.09 Chronic prescription opiate use Z79.891 Depression F32.A H/O: stroke Z86.73 Hypertension I10 Type 2 diabetes mellitus E11.9 Acute on chronic respiratory failure with hypercapnia J96.22
[2022-12-19] MEDS: DOCUSATE SODIUM/SENNA 50/8.6MG TAB PO SCH (12:54)
[2022-12-19] MEDS: POTASSIUM CHLORIDE 10 MEQ TABCR PO SCH (12:54)
[2022-12-19] MEDS: POLYETHYLENE (MIRALAX) 17 GM PACK PO SCH (12:55)
--- NOTE | 2022-12-19 16:06 | Infectious Disease Progress Nt ---
Date of Service December 19, 2022 Assessment & Plan (1) Gram-positive cocci bacteremia: (2) Acute on chronic respiratory failure with hypercapnia: (3) Obesity: (4) Respiratory acidosis: Plan 72 yo male with morbid obesity, chronic hypoxic resp failure on prn o2, MELINA, HFpEF , chronic LE edama, chronic opiod use, HTN presents with hypoxia and lethargy. In the last month has been treated for pneumonia and uti outpatient. In Ed is afebrile , 02 sats 94% on 2lnc , but then required bipap bp 98/78. 12.31, LA 2.6, bun 31/ 1.17 ua 1+ leuk est, wbc 10-30 , 3 + blood many epi cells, Resp bio fire negative. BC noted for bottles for staph sp. UC with 5000 gpc . CxR shows cardiomegaly with evidence of congestive failure. Ct head with Chronic changes- right MCA c/w remote infarct no hemorrhage, mass effect, or evidence of acute stroke . He was started on Ceftriaxone and Azithromycin. He is now on Vancomycin . He complains of cough but denies fever chills, abdominal pain urinary symptoms, nausea, vomiting, rash, wounds, prosthetics are hardware. Pt is not adherent with home o2 and has not been revaluated for his cpap. ID consulted for staph sp bacteremia. Micro BCx 12/15/ bottles , CONS ( oxa S) UC 12/15 5000 GPC Abx ceftriaxone 12/15-12/16 azit 12/15 vanco 12/17 # CONS bacteremia in 3/4 bottles #Acute on chronic resp failure #GPC in urine #MELINA Source of CONS bacteremia undetermined. CON growing in 3/4 bottles so I doubt contaminant. He has 500O GPC ( not yet identified ) in urine so far.. This may represent CONS as well. If so either bacteremia seeded urine. If this is so, then it suggests disseminated infection. Other possibility is that the urine ( if GPC end up identified a Staph sp/CONS),is source, but he denies urinary symptoms. He has no skin breakdown , rash or skin abnormalities He has no port , central line, prosthetics, grafts or other hardware. He is pending TTE. recommendations Can dc vanco and start Ancef 2 g iv q8h Follow up Repeat BC (ordered) Follow up iD of the GPC in urine Sputum cx if can produce. Follow up TTE ID will continue to follow. Cheo Bhandari MD, MPH Infectious Disease ID Connect [facility], ID Division Call [phone] with questions Admission and Anticipated Discharge Date Admission Date: December 15, 2022 Subjective This patient recommendation is based on a telemedicine consult request which was completed asynchronously through chart review and information provided by the primary physician. The patient was not seen or examined today. The evaluation is consultative in nature and all patient care and treatment decisions can either be accepted or rejected by the patient's primary hospital-based treating physician using their own independent medical judgment for their patient. Time Spent Reviewing Chart: 11 - 20 minutes Pending TTE Results & Data Vital Signs (Past 12 Hours) Vital Signs Temp Pulse Resp BP Pulse Ox O2 Del Method O2 Flow Rate 12/19/22 11:46 36.7 C 64 18 165/66 H 96 Nasal Cannula 2 12/19/22 09:15 36.4 C 65 16 134/69 94 Nasal Cannula 2 Laboratory Results BMP 12/19/22 05:53 Creatinine 0.57 L Diagnostic Findings Microbiology 12/15/22 10:35 Blood Aerobic Blood Culture - Preliminary No growth in Aerobic bottle after 48 hours. 12/15/22 10:35 Blood Anaerobic Blood Culture - Preliminary Coag neg staph not lugdunensis 12/15/22 10:41 Blood Aerobic Blood Culture - Final Coag neg staph not lugdunensis 12/15/22 10:41 Blood Anaerobic Blood Culture - Final Coag neg staph not lugdunensis 12/15/22 17:25 Urine,Clean Catch Urine Culture - Final Gram positive cocci Medications Administered Home Medications Medication Instructions Recorded Confirmed Last Taken atorvastatin 40 mg tablet 40 mg PO HS 06/29/22 12/15/22 12/14/22 duloxetine 30 mg capsule,delayed 30 mg PO QAM 06/29/22 12/15/22 Unknown release losartan 100 mg tablet 100 mg PO QAM 06/29/22 12/15/22 12/15/22 metformin 500 mg tablet 500 mg PO BID 06/29/22 12/15/22 12/15/22 potassium chloride 10 mEq 10 meq PO .NOON 06/29/22 12/15/22 Unknown capsule,extended release pregabalin 200 mg capsule 200 mg PO TID 06/29/22 12/15/22 12/15/22 rivaroxaban 10 mg tablet (Xarelto) 10 mg PO QAM 06/29/22 12/15/22 12/15/22 tamsulosin 0.4 mg capsule 0.4 mg PO HS 06/29/22 12/15/22 12/14/22 Oxygen Home #1 ea 07/06/22 12/15/22 Unknown docusate sodium 50 mg tablet 50 mg PO BID 12/15/22 12/15/22 12/15/22 ferrous sulfate 325 mg (65 mg 325 mg PO QAM 12/15/22 12/15/22 12/15/22 iron) tablet furosemide 40 mg tablet 40 mg PO .QAM & NOON 12/15/22 12/15/22 Unknown methadone 5 mg tablet 5 mg PO BID 12/15/22 12/15/22 Unknown naldemedine 0.2 mg tablet 0.2 mg PO QAM 12/15/22 12/15/22 12/15/22 (Symproic) Active Medications Generic Name Dose Route Start Last Admin Trade Name Jadon PRN Reason Stop Dose Admin Acetaminophen 650 mg 12/16/22 00:14 12/17/22 21:42 Acetaminophen 325 Mg Tab PO 01/15/23 00:13 650 mg Q4H PRN Administration Pain Atorvastatin Calcium 40 mg 12/15/22 21:00 12/18/22 20:20 Atorvastatin 40 Mg Tab PO 01/14/23 20:59 40 mg HS ROSALBA Administration Docusate Sodium 50 mg 12/15/22 21:00 12/19/22 10:09 Docusate Sodium Syrup 100 Mg/10 Ml Udc PO 01/14/23 20:59 50 mg BID ROSALBA Administration Duloxetine HCl 30 mg 12/16/22 09:00 12/19/22 10:08 Duloxetine Hcl 30 Mg Cap PO 01/15/23 08:59 30 mg QAM ROSALBA Administration Ferrous Sulfate 325 mg 12/16/22 09:00 12/19/22 10:08 Ferrous Sulfate 325 Mg Tab PO 01/15/23 08:59 325 mg QAM ROSALBA Administration Furosemide 40 mg 12/17/22 17:00 12/19/22 10:08 Furosemide 40 Mg Tab PO 01/16/23 16:59 40 mg BID ROSALBA Administration Cefazolin Sodium 2,000 mg in 15 mls @ 3.75 mls/min 12/19/22 09:00 12/19/22 10:09 Ancef 2000mg IV 01/02/23 08:59 3.75 mls/min Q8H ROSALBA Administration Insulin Aspart 0 units 12/15/22 16:30 12/19/22 12:55 Insulin Aspart Per Unit Charge SC 01/14/23 16:29 11 units ACHS ROSALBA Administration Protocol Insulin Glargine 5 units 12/18/22 09:00 12/19/22 10:30 Lantus Per Unit Charge SC 01/15/23 08:59 5 units BID ROSALBA Administration Protocol Losartan Potassium 100 mg 12/16/22 09:00 12/19/22 10:08 Losartan Potassium 50 Mg Tab PO 01/15/23 08:59 100 mg QAM ROSALBA Administration Methadone HCl 5 mg 12/15/22 21:00 12/19/22 10:29 Methadone Hcl 5 Mg Tab PO 12/29/22 20:59 5 mg BID ROSALBA Administration Polyethylene Glycol 17 gm 12/19/22 12:30 12/19/22 12:55 Polyethylene (Miralax) 17 Gm Pack PO 01/18/23 12:29 17 gm DAILY ROSALBA Administration Potassium Chloride 10 meq 12/17/22 16:45 12/19/22 12:54 Potassium Chloride 10 Meq Tabcr PO 01/16/23 16:44 10 meq DAILY@1200 ROSALBA Administration Pregabalin 200 mg 12/15/22 21:00 12/19/22 15:15 Pregabalin 100 Mg Cap PO 01/14/23 20:59 200 mg TID ROSALBA Administration Rivaroxaban 10 mg 12/16/22 09:00 12/19/22 10:07 Rivaroxaban 10 Mg Tablet PO 01/15/23 08:59 10 mg QAM ROSALBA Administration Senna/Docusate Sodium 1 tab 12/19/22 12:30 12/19/22 12:54 Docusate Sodium/Senna 50/8.6mg Tab PO 01/18/23 12:29 1 tab QAM ROSALBA Administration Tamsulosin HCl 0.4 mg 12/15/22 21:00 12/18/22 20:20 Tamsulosin Hcl 0.4 Mg Cap PO 01/14/23 20:59 0.4 mg HS ROSALBA Administration Trolamine Salicylate 1 appln 12/16/22 00:23 10/08/23 21:01 Trolamine Salicylate 10% Crm 255 Appln/85 Gm Tube EXT 01/15/23 00:22 1 appln BID PRN Administration pain
[2022-12-19] MEDS: ATORVASTATIN 40 MG TAB PO SCH (21:26)
[2022-12-19] MEDS: TAMSULOSIN HCL 0.4 MG CAP PO SCH (21:26)
[2022-12-19] MEDS: TROLAMINE SALICYLATE 10% CRM 255 APPLN/85 GM TUBE EXT PRN (21:29)
[2022-12-19] MEDS: ACETAMINOPHEN 325 MG TAB PO PRN (22:14)
[2022-12-20] MEDS: ceFAZolin 2000MG 2,000 MG/15 ML SYR IV SCH ×3 (00:33→18:10)
[2022-12-20 07:06] LABS: BUN Creatinine Ratio 21.2 (10-20); Calcium 8.6 mg/dl (8.6-10.3); Creatinine Clr Calc Pharmacy 152.4 ml/min; Est GFR (African American) 113.5 ml/min; Potassium 3.5 mmol/L (3.5-5.1)
[2022-12-20] MEDS: RIVAROXABAN 10 MG TABLET PO SCH (09:13)
[2022-12-20] MEDS: POLYETHYLENE (MIRALAX) 17 GM PACK PO SCH (09:13)
[2022-12-20] MEDS: FUROSEMIDE 40 MG TAB PO SCH ×2 (09:13→20:50)
[2022-12-20] MEDS: LOSARTAN POTASSIUM 50 MG TAB PO SCH (09:13)
[2022-12-20] MEDS: FERROUS SULFATE 325 MG TAB PO SCH (09:14)
[2022-12-20] MEDS: DOCUSATE SODIUM/SENNA 50/8.6MG TAB PO SCH (09:14)
[2022-12-20] MEDS: DULoxetine HCL 30 MG CAP PO SCH (09:14)
[2022-12-20] MEDS: DOCUSATE SODIUM SYRUP 100 MG/10 ML UDC PO SCH ×2 (09:15→20:50)
[2022-12-20] MEDS: INSULIN ASPART PER UNIT CHARGE SC SCH ×4 (09:23→20:52)
[2022-12-20] MEDS: LANTUS PER UNIT CHARGE SC SCH ×2 (09:24→20:51)
[2022-12-20] MEDS: METHADONE HCL 5 MG TAB PO SCH ×2 (09:32→20:50)
[2022-12-20] MEDS: PREGABALIN 100 MG CAP PO SCH ×3 (10:26→20:50)
[2022-12-20] MEDS: ACETAMINOPHEN 325 MG TAB PO PRN ×3 (10:27→20:53)
[2022-12-20] MEDS: POTASSIUM CHLORIDE 10 MEQ TABCR PO SCH (12:04)
--- NOTE | 2022-12-20 15:23 | XCELERA ---
[id number] [email or web address]\[id number]
--- NOTE | 2022-12-20 16:45 | Hospitalist Progress Note ---
Date of Service December 20, 2022 Assessment & Plan (1) Hypoxia: Plan: -Patient was initially started on BiPAP, now off of BiPAP -Patient was reportedly confused and hypoxic with SpO2 in the 60's on RA for his home health aid -Patient apparently uses prn O2 but typically uses when he is symptomatic, no based on SpO2 per family and home health aid -At this time the exact etiology of his hypoxia and increased confusion are unknown, but the differentia includes and is not limited to chronic hypercapnia due to untreated MELINA, bacterial pneumonia, polypharmacy, obesity hypoventilation syndrome -This is most likely related to his untreated obstructive sleep apnea and obesity hypoventilation syndrome. No infiltrate on chest x-ray. Procalcitonin was not impressive. discontinued ceftriaxone and azithromycin. Patient did not seem volume overloaded. Patient essentially responded to BiPAP management (2) Gram-positive cocci bacteremia: Plan: blood culture positive for Coag negative staph, oxacillin sensitive switched from IV vancomycin to cefazolin Ordered TTE, No vegetation. Infectious disease on board, awaiting further recommendations Repeat blood cultures ordered by ID. Urine also growing staph. Question is whether the urine is the source or a result of seeding (3) Altered mental status: Plan: -Likely multifactorial including hypercapnia, hypoxia, and polypharmacy; less likely to be an undiagnosed infection as well Resolved -Was recently taken off Tizanidine for oversedation but still on Duloxetine, Methadone, and Lyrica Urinalysis is unimpressive for UTI. -Patient is without abdominal discomfort and has not had recent diarrhea -Aspiration precautions, Speech therapy consult placed (4) Chronic congestive heart failure: Plan: -Appeared dehydrated on exam on admission No more dehydrated Resumed Lasix p.o. twice daily with potassium supplements (5) Respiratory acidosis: Plan: -Likely due to his Hypercapnia and mildly elevated lactate -Lactate has been improving and repeat ABG with improving pH and pCO2 -Continue to monitor on tele and pulse oximetry (6) MELINA (obstructive sleep apnea): Plan: -CPAP/Bipap ordered for naps and HS -Patient will need outpatient sleep study if he no longer has a CPAP/Bipap machine at home (7) SILVA (acute kidney injury): Plan: -Cr is 1.17 on admission Resolved -Patient appeared dehydrated on admission, likely due to decreased intake over the past 24 hours and continued diuresis resume Lasix (8) Chronic constipation: Plan: -Continue Colace and Symproic if on formulary Patient asking for lactulose. Ordered. (9) Chronic prescription opiate use: Plan: -Will continue methadone for now to prevent withdrawal but monitor for oversedation (10) Depression: Plan: -Continue duloxetine (11) H/O: stroke: Plan: -Baseline left sided hemiplegia (12) Hypertension: Plan: -Stable - on losartan (13) Type 2 diabetes mellitus: Plan: -Hold metformin -Monitor BSG q6h until eating consistently, goal is 110-160 -Start 5 units lantus BID -CF of 50 and CR 15 to start -DMII, HH, 2gm Sodium restricted diet -Pharmacy glycemic consult (14) Acute on chronic respiratory failure with hypercapnia: (15) Metabolic encephalopathy: Plan: Resolved Please see problem #3 Admission and Anticipated Discharge Date Admission Date: December 15, 2022 Subjective Patient feels well. Denies chest pain or shortness of breath. Review of Systems Review of Systems: All systems reviewed & are unremarkable except as noted in Subjective Physical Exam Physical Exam: General: Awake, co nversant. Morbidl y obese Heart: S1, S2/regular rate a nd rhythm, no murm ur rubs or gallops Lungs: Clear to a uscultation bilate rally. Normal eff ort Abdomen: Soft/ nontender/nondiste nded. No hepatosp lenomegaly Extremi ties: No clubbing/ cyanosis. 1+ pi tting bilateral ed tiffanie Behavior: Appr opriate, cooperati ve Results & Data Results & Data Vital Signs (Past 12 Hours) Vital Signs Temp Pulse Resp BP Pulse Ox O2 Del Method O2 Flow Rate 12/20/22 16:06 36.3 C L 61 19 101/61 94 Nasal Cannula 1 12/20/22 08:00 Nasal Cannula 2 12/20/22 12:18 36.7 C 63 18 163/70 H 94 Nasal Cannula 1 12/20/22 08:12 36.3 C L 58 L 19 158/65 H 96 Nasal Cannula 1 Laboratory Results Abnormal lab results 12/19/22 12/19/22 12/20/22 Range/Units 17:05 19:54 05:53 Carbon Dioxide 35 H (21-32) mmol/L BUN/Creatinine Ratio 21.2 H (10-20) Glucose 145 H (70-99(Fasting)) mg/dl POC Glucose 155 H 172 H (70-99) mg/dl 12/20/22 12/20/22 Range/Units 08:04 12:07 Carbon Dioxide (21-32) mmol/L BUN/Creatinine Ratio (10-20) Glucose (70-99(Fasting)) mg/dl POC Glucose 142 H 159 H (70-99) mg/dl PG Care Time/CCT Total # of Minutes Spent Total Time Spent with Patient: Total time spent is greater than 50% in coordination of care (as documented) at patient's floor/unit and/or counseling patient: Coding Level of Care Code 54088 SUB INP/OBS CARE 2/35MIN Diagnoses Hypoxia R09.02 Gram-positive cocci bacteremia R78.81 Altered mental status R41.82 Chronic congestive heart failure I50.9 Respiratory acidosis E87.29 MELINA (obstructive sleep apnea) G47.33 SILVA (acute kidney injury) N17.9 Chronic constipation K59.09 Chronic prescription opiate use Z79.891 Depression F32.A H/O: stroke Z86.73 Hypertension I10 Type 2 diabetes mellitus E11.9 Acute on chronic respiratory failure with hypercapnia J96.22 Metabolic encephalopathy G93.41
--- NOTE | 2022-12-20 18:38 | Infectious Disease Progress Nt ---
Date of Service December 20, 2022 Assessment & Plan (1) Gram-positive cocci bacteremia: (2) Acute on chronic respiratory failure with hypercapnia: (3) Obesity: (4) Respiratory acidosis: Plan 72 yo male with morbid obesity, chronic hypoxic resp failure on prn o2, MELINA, HFpEF , chronic LE edema, chronic opioid use, HTN presents with hypoxia and lethargy. In the last month has been treated for pneumonia and uti outpatient. In Ed is afebrile , 02 sats 94% on 2lnc , but then required bipap ,bp 98/78. WBC 12.31, LA 2.6, bun 31/ 1.17 ua 1+ leuk est, wbc 10-30 , 3 + blood, many epi cells, Resp bio fire negative. BC noted for bottles for staph sp. UC with 5000 gpc . CxR shows cardiomegaly with evidence of congestive failure. Ct head with Chronic changes- right MCA c/w remote infarct no hemorrhage, mass effect, or evidence of acute stroke . He was started on Ceftriaxone and Azithromycin. He is now on Vancomycin . He complains of cough but denies fever, chills, abdominal pain, urinary symptoms, nausea, vomiting, rash, wounds, prosthetics or hardware. Pt is not adherent with home o2 and has not been revaluated for his cpap. ID consulted for staph sp bacteremia. Micro BCx 12/15/ bottles , CONS ( oxa S) UC 12/15 5000 GPC ( not identified) Bc x 12/19 PENDING Abx ceftriaxone 12/15-12/16 azit 12/15 vanco 12/17-12/18 Ancef 12/18- ongoing # CONS bacteremia in 3/4 bottles #Acute on chronic resp failure #GPC in urine #MELINA Source of CONS bacteremia undetermined. CONS growing in 3/4 bottles, so I doubt contaminant. He has 500O GPC ( not iidentified ) in urine so far.. This may represent CONS as well. If so either bacteremia seeded urine. If this is so, then it may suggests disseminated infection. Other possibility is that the urine ( if GPC is Staph sp/CONS),is source, but he denies urinary symptoms. He has no skin breakdown , rash or skin abnormalities He has no port , central line, prosthetics, grafts or other hardware. TTE neg for vegatations or valve abnormalites. GPC in urine not identified, Repeat BC 12/19 is PENDING recommendations Continue Ancef 2 g iv q8h Follow up Repeat BC from 12/19 IF 12/19 BC remain sterile , then plan to complete 14 days of Ancef from 12/19. IF BC positive, will need additional work up. If BC sterile for 72 hours,can place picc ID will sign off. Please call back if pending BC form 12/19 is positives. Cheo Bhandari MD, MPH Infectious Disease ID Connect [facility], ID Division Call [phone] with questions Admission and Anticipated Discharge Date Admission Date: December 15, 2022 Subjective This patient recommendation is based on a telemedicine consult request which was completed asynchronously through chart review and information provided by the primary physician. The patient was not seen or examined today. The evaluation is consultative in nature and all patient care and treatment decisions can either be accepted or rejected by the patient's primary hospital-based treating physician using their own independent medical judgment for their patient. Time Spent Reviewing Chart: 11 - 20 minutes Afebrile on 1l NC TTE w/o vegetation cr 0.66 Results & Data Vital Signs (Past 12 Hours) Vital Signs Temp Pulse Resp BP Pulse Ox O2 Del Method O2 Flow Rate 12/20/22 16:06 36.3 C L 61 19 101/61 94 Nasal Cannula 1 12/20/22 08:00 Nasal Cannula 2 12/20/22 12:18 36.7 C 63 18 163/70 H 94 Nasal Cannula 1 12/20/22 08:12 36.3 C L 58 L 19 158/65 H 96 Nasal Cannula 1 Laboratory Results BMP 12/20/22 05:53 Sodium 139 Potassium 3.5 Chloride 99 Carbon Dioxide 35 H BUN 14 Creatinine 0.66 Glucose 145 H Calcium 8.6 Diagnostic Findings Microbiology 12/15/22 10:35 Blood Aerobic Blood Culture - Preliminary No growth in Aerobic bottle after 48 hours. 12/15/22 10:35 Blood Anaerobic Blood Culture - Preliminary Coag neg staph not lugdunensis 12/15/22 10:41 Blood Aerobic Blood Culture - Final Coag neg staph not lugdunensis 12/15/22 10:41 Blood Anaerobic Blood Culture - Final Coag neg staph not lugdunensis 12/15/22 17:25 Urine,Clean Catch Urine Culture - Final Gram positive cocci Medications Administered Home Medications Medication Instructions Recorded Confirmed Last Taken atorvastatin 40 mg tablet 40 mg PO HS 06/29/22 12/15/22 12/14/22 duloxetine 30 mg capsule,delayed 30 mg PO QAM 06/29/22 12/15/22 Unknown release losartan 100 mg tablet 100 mg PO QAM 06/29/22 12/15/22 12/15/22 metformin 500 mg tablet 500 mg PO BID 06/29/22 12/15/22 12/15/22 potassium chloride 10 mEq 10 meq PO .NOON 06/29/22 12/15/22 Unknown capsule,extended release pregabalin 200 mg capsule 200 mg PO TID 06/29/22 12/15/22 12/15/22 rivaroxaban 10 mg tablet (Xarelto) 10 mg PO QAM 06/29/22 12/15/22 12/15/22 tamsulosin 0.4 mg capsule 0.4 mg PO HS 06/29/22 12/15/22 12/14/22 Oxygen Home #1 ea 07/06/22 12/15/22 Unknown docusate sodium 50 mg tablet 50 mg PO BID 12/15/22 12/15/22 12/15/22 ferrous sulfate 325 mg (65 mg 325 mg PO QAM 12/15/22 12/15/22 12/15/22 iron) tablet furosemide 40 mg tablet 40 mg PO .QAM & NOON 12/15/22 12/15/22 Unknown methadone 5 mg tablet 5 mg PO BID 12/15/22 12/15/22 Unknown naldemedine 0.2 mg tablet 0.2 mg PO QAM 12/15/22 12/15/22 12/15/22 (Symproic) Active Medications Generic Name Dose Route Start Last Admin Trade Name Freq PRN Reason Stop Dose Admin Acetaminophen 650 mg 12/16/22 00:14 12/20/22 16:08 Acetaminophen 325 Mg Tab PO 01/15/23 00:13 650 mg Q4H PRN Administration Pain Atorvastatin Calcium 40 mg 12/15/22 21:00 12/19/22 21:26 Atorvastatin 40 Mg Tab PO 01/14/23 20:59 40 mg HS ROSALBA Administration Docusate Sodium 50 mg 12/15/22 21:00 12/20/22 09:15 Docusate Sodium Syrup 100 Mg/10 Ml Udc PO 01/14/23 20:59 50 mg BID ROSALBA Administration Duloxetine HCl 30 mg 12/16/22 09:00 12/20/22 09:14 Duloxetine Hcl 30 Mg Cap PO 01/15/23 08:59 30 mg QAM ROSALBA Administration Ferrous Sulfate 325 mg 12/16/22 09:00 12/20/22 09:14 Ferrous Sulfate 325 Mg Tab PO 01/15/23 08:59 325 mg QAM ROSALBA Administration Furosemide 40 mg 12/17/22 17:00 12/20/22 09:13 Furosemide 40 Mg Tab PO 01/16/23 16:59 40 mg BID ROSALBA Administration Cefazolin Sodium 2,000 mg in 15 mls @ 3.75 mls/min 12/19/22 09:00 12/20/22 18:10 Ancef 2000mg IV 01/02/23 08:59 3.75 mls/min Q8H ROSALBA Administration Insulin Aspart 0 units 12/15/22 16:30 12/20/22 18:10 Insulin Aspart Per Unit Charge SC 01/14/23 16:29 5 units ACHS ROSALBA Administration Protocol Insulin Glargine 5 units 12/18/22 09:00 12/20/22 09:24 Lantus Per Unit Charge SC 01/15/23 08:59 5 units BID ROSALBA Administration Protocol Losartan Potassium 100 mg 12/16/22 09:00 12/20/22 09:13 Losartan Potassium 50 Mg Tab PO 01/15/23 08:59 100 mg QAM ROSALBA Administration Methadone HCl 5 mg 12/15/22 21:00 12/20/22 09:32 Methadone Hcl 5 Mg Tab PO 12/29/22 20:59 5 mg BID ROSALBA Administration Polyethylene Glycol 17 gm 12/19/22 12:30 12/20/22 09:13 Polyethylene (Miralax) 17 Gm Pack PO 01/18/23 12:29 17 gm DAILY ROSALBA Administration Potassium Chloride 10 meq 12/17/22 16:45 12/20/22 12:04 Potassium Chloride 10 Meq Tabcr PO 01/16/23 16:44 10 meq DAILY@1200 ROSALBA Administration Pregabalin 200 mg 12/15/22 21:00 12/20/22 13:07 Pregabalin 100 Mg Cap PO 01/14/23 20:59 200 mg TID ROSALBA Administration Rivaroxaban 10 mg 12/16/22 09:00 12/20/22 09:13 Rivaroxaban 10 Mg Tablet PO 01/15/23 08:59 10 mg QAM ROSALBA Administration Senna/Docusate Sodium 1 tab 12/19/22 12:30 12/20/22 09:14 Docusate Sodium/Senna 50/8.6mg Tab PO 01/18/23 12:29 1 tab QAM ROSALBA Administration Tamsulosin HCl 0.4 mg 12/15/22 21:00 12/19/22 21:26 Tamsulosin Hcl 0.4 Mg Cap PO 01/14/23 20:59 0.4 mg HS ROSALBA Administration Trolamine Salicylate 1 appln 12/16/22 00:23 12/19/22 21:29 Trolamine Salicylate 10% Crm 255 Appln/85 Gm Tube EXT 01/15/23 00:22 1 appln BID PRN Administration pain
[2022-12-20] MEDS: TAMSULOSIN HCL 0.4 MG CAP PO SCH (20:50)
[2022-12-20] MEDS: ATORVASTATIN 40 MG TAB PO SCH (20:51)
[2022-12-20] MEDS ORDERED: Nursing to Pharmacy Communication SCH (22:45)
[2022-12-20] MEDS: LACTULOSE SYRUP 20 GM/30 ML UDC PO SCH (22:58)
[2022-12-21] MEDS: ceFAZolin 2000MG 2,000 MG/15 ML SYR IV SCH ×3 (00:40→17:48)
[2022-12-21 06:55] LABS: BUN Creatinine Ratio 23.1 (10-20); Calcium 8.8 mg/dl (8.6-10.3); Creatinine Clr Calc Pharmacy 155.3 ml/min; Est GFR (African American) 114.2 ml/min; Est GFR (Non-African American) 98.6 ml/min; Potassium 3.6 mmol/L (3.5-5.1)
[2022-12-21] MEDS: LACTULOSE SYRUP 20 GM/30 ML UDC PO SCH (08:29)
[2022-12-21] MEDS: FUROSEMIDE 40 MG TAB PO SCH ×2 (08:30→21:28)
[2022-12-21] MEDS: TROLAMINE SALICYLATE 10% CRM 255 APPLN/85 GM TUBE EXT PRN ×2 (08:30→21:19)
[2022-12-21] MEDS: DULoxetine HCL 30 MG CAP PO SCH (08:31)
[2022-12-21] MEDS: DOCUSATE SODIUM SYRUP 100 MG/10 ML UDC PO SCH ×2 (08:31→21:35)
[2022-12-21] MEDS: LOSARTAN POTASSIUM 50 MG TAB PO SCH (08:31)
[2022-12-21] MEDS: RIVAROXABAN 10 MG TABLET PO SCH (08:32)
[2022-12-21] MEDS: DOCUSATE SODIUM/SENNA 50/8.6MG TAB PO SCH (08:32)
[2022-12-21] MEDS: POLYETHYLENE (MIRALAX) 17 GM PACK PO SCH (08:37)
[2022-12-21] MEDS: ACETAMINOPHEN 325 MG TAB PO PRN (08:37)
[2022-12-21] MEDS: PREGABALIN 100 MG CAP PO SCH ×3 (08:37→21:27)
[2022-12-21] MEDS: METHADONE HCL 5 MG TAB PO SCH ×2 (08:38→21:27)
[2022-12-21] MEDS: FERROUS SULFATE 325 MG TAB PO SCH (08:42)
[2022-12-21] MEDS: LANTUS PER UNIT CHARGE SC SCH ×2 (08:57→21:29)
[2022-12-21] MEDS: INSULIN ASPART PER UNIT CHARGE SC SCH ×4 (08:57→21:30)
[2022-12-21] MEDS: POTASSIUM CHLORIDE 10 MEQ TABCR PO SCH (14:34)
--- NOTE | 2022-12-21 14:47 | Pharmacy Report ---
Pharmacy Glycemic Short Note 2 - Date of Service December 21, 2022 - Glycemic Short BSG Results (Last 24 hours): 12/20/22 12/20/22 12/21/22 16:55 20:31 06:18 Glucose 144 H POC Glucose 140 H 154 H 12/21/22 12/21/22 07:44 11:53 Glucose POC Glucose 139 H 228 H OUTPATIENT ANTIDIABETIC REGIMEN: * Metformin 500 mg PO BIDM * HbA1c: 6.7% (06/30/22), 9.3% 12/16/22 ASSESSMENT: 12/21: * Bryson received 32 units of insulin yesterday of which 20 were basal * Fasting BSG this AM within goal range, continue current basal regimen, * BSGs mostly within goal range, correction factor slightly tightened yesterday * Lunchtime BSG significantly elevated today, will monitor and consider tighter carb coverage if continually elevated. * Antibiotics changed to Ancef, no additional stressors noted at this time 12/17: * Bryson received 29 units of insulin yesterday, 10 units basal + 19 units bolus. BSGs were: [phone] mg/dL. * BSGs are just slightly above goal. Abx were changed to Vancomycin today due to Staph species growing in the blood. No other change to stressors. * Will tighten carb ratio slightly this morning in an attempt to have BSGs in goal range. 12/16: * TYSHAWN is a 72 year old male who presented to ED with altered mental status (believed to be multifactorial in nature) * BSGs have been relatively well-controlled thus far this admission, ranging 135-162 mg/dL * Will start conservative SC basal/bolus regimen for now * Receiving ceftriaxone/azithromycin for pulm coverage PLAN FOR INPATIENT GLYCEMIC CONTROL: * Hold outpatient oral diabetes medications * Basal insulin * Lantus 5 units SC BID * Bolus insulin * NovoLog per scale ACHS or Q6hrs while NPO * Goal Range: Low 110 mg/dL - High 140 mg/dL * Correction Factor: 30 mg/dL/unit * Nutritional / Prandial insulin per carb ratio of 1 unit per 9 grams CHO consumed
[2022-12-21] MEDS ORDERED: bisacodyL 10 MG SUPP PR STA (15:06)
[2022-12-21] MEDS ORDERED: LACTULOSE SYRUP 30 GM/45 ML UDP PO STA (15:12)
--- NOTE | 2022-12-21 17:58 | Hospitalist Progress Note ---
Date of Service December 21, 2022 Assessment & Plan (1) Hypoxia: Plan: Initially encephalopathic due to hypoxia and respiratory failure. Chronic hypercapnia due to untreated MELINA, bacterial pneumonia, polypharmacy, obesity hypoventilation syndrome -This is most likely related to his untreated obstructive sleep apnea and obesity hypoventilation syndrome. Patient found to have gram-positive bacteremia and recommendation for treatment for 2 weeks of therapy with intravenous antibiotics (2) Gram-positive cocci bacteremia: Plan: blood culture positive for Coag negative staph, oxacillin sensitive switched from IV vancomycin to cefazolin Ordered TTE, No vegetation. Infectious disease on board, recommends 2 weeks of total treatment of IV antibiotics from last negative culture which is December 19 Repeat blood cultures ordered by ID. Urine also growing staph. Unclear source at this time urine is only growing 5000 colonies (3) Altered mental status: Plan: -Likely multifactorial including hypercapnia, hypoxia, and polypharmacy; less likely to be an undiagnosed infection as well Resolved -Was recently taken off Tizanidine for oversedation but still on Duloxetine, Methadone, and Lyrica without evidence of encephalopathy at this time Urinalysis is unimpressive for UTI. - (4) Chronic congestive heart failure: Plan: -Appeared dehydrated on exam on admission this heart failure preserved ejection fraction No more dehydrated Resumed Lasix p.o. twice daily with potassium supplements (5) MELINA (obstructive sleep apnea): Plan: -CPAP/Bipap ordered for naps and HS -Patient will need outpatient sleep study if he no longer has a CPAP/Bipap machine at home (6) SILVA (acute kidney injury): Plan: -Cr is 1.17 on admission Resolved -Patient appeared dehydrated on admission, likely due to decreased intake over the past 24 hours and continued diuresis resume Lasix (7) Chronic constipation: Plan: -Continue Colace and Symproic if on formulary Patient asking for lactulose. Ordered. If no improvement continue consider Relistor or oral equivalent at home (8) Chronic prescription opiate use: Plan: -Will continue methadone for now to prevent withdrawal but monitor for oversedation (9) Depression: Plan: -Continue duloxetine (10) H/O: stroke: Plan: -Baseline left sided hemiplegia (11) Hypertension: Plan: -Stable - on losartan (12) Type 2 diabetes mellitus: Plan: -Hold metformin -Monitor BSG q6h until eating consistently, goal is 110-160 -Start 5 units lantus BID -CF of 50 and CR 15 to start -DMII, HH, 2gm Sodium restricted diet -Pharmacy glycemic consult Admission and Anticipated Discharge Date Admission Date: December 15, 2022 Subjective Patient doing well. No evidence of systemic staph infection. Recommendation for 2 total week dose of cefazolin this will be completed on January 01 arrangements for home medications are being accomplished Physical Exam Physical Exam: She is no complaints or problems try to coordinate home care with his daughter who is arriving over the weekend Card exam is distant lungs are clear extremities are with trace edema bilaterally Results & Data Results & Data Vital Signs (Past 12 Hours) Vital Signs Temp Pulse Resp BP Pulse Ox O2 Del Method O2 Flow Rate 12/21/22 15:35 98.4 F 62 19 148/69 H 95 Nasal Cannula 1 12/21/22 11:17 97.9 F 70 19 175/69 H 95 Room Air 12/21/22 07:56 97.9 F 57 L 17 146/64 H 93 Nasal Cannula 1 Laboratory Results Reviewed chemistry PG Care Time/CCT Total # of Minutes Spent Total Time Spent with Patient: Total time spent is greater than 50% in coordination of care (as documented) at patient's floor/unit and/or counseling patient: Coding Level of Care Code 52342 SUB INP/OBS CARE 2/35MIN Diagnoses Hypoxia R09.02 Gram-positive cocci bacteremia R78.81 Altered mental status R41.82 Chronic congestive heart failure I50.9 MELINA (obstructive sleep apnea) G47.33 SILVA (acute kidney injury) N17.9 Chronic constipation K59.09 Chronic prescription opiate use Z79.891 Depression F32.A H/O: stroke Z86.73 Hypertension I10 Type 2 diabetes mellitus E11.9
[2022-12-21] MEDS: ATORVASTATIN 40 MG TAB PO SCH (21:21)
[2022-12-21] MEDS: TAMSULOSIN HCL 0.4 MG CAP PO SCH (21:28)
[2022-12-22] MEDS: ceFAZolin 2000MG 2,000 MG/15 ML SYR IV SCH ×3 (01:11→17:02)
[2022-12-22 06:53] LABS: BUN Creatinine Ratio 20.7 (10-20); Calcium 8.7 mg/dl (8.6-10.3); Creatinine Clr Calc Pharmacy 172.2 ml/min; Est GFR (African American) 119.7 ml/min; Est GFR (Non-African American) 103.3 ml/min; Potassium 3.3 mmol/L (3.5-5.1)
[2022-12-22] MEDS: DOCUSATE SODIUM/SENNA 50/8.6MG TAB PO SCH (08:40)
[2022-12-22] MEDS: DOCUSATE SODIUM SYRUP 100 MG/10 ML UDC PO SCH ×2 (08:40→20:28)
[2022-12-22] MEDS: DULoxetine HCL 30 MG CAP PO SCH (08:40)
[2022-12-22] MEDS: LACTULOSE SYRUP 20 GM/30 ML UDC PO SCH (08:41)
[2022-12-22] MEDS: FERROUS SULFATE 325 MG TAB PO SCH (08:41)
[2022-12-22] MEDS: LOSARTAN POTASSIUM 50 MG TAB PO SCH (08:41)
[2022-12-22] MEDS: FUROSEMIDE 40 MG TAB PO SCH ×2 (08:41→20:29)
[2022-12-22] MEDS: POLYETHYLENE (MIRALAX) 17 GM PACK PO SCH (08:42)
[2022-12-22] MEDS: RIVAROXABAN 10 MG TABLET PO SCH (08:42)
[2022-12-22] MEDS: METHADONE HCL 5 MG TAB PO SCH ×2 (08:42→20:23)
[2022-12-22] MEDS: PREGABALIN 100 MG CAP PO SCH ×3 (08:42→20:28)
[2022-12-22] MEDS ORDERED: POTASSIUM CHLORIDE 20 MEQ/15 ML UDC PO SCH (09:00)
[2022-12-22] MEDS: INSULIN ASPART PER UNIT CHARGE SC SCH ×4 (09:33→20:24)
[2022-12-22] MEDS: LANTUS PER UNIT CHARGE SC SCH ×2 (09:34→20:25)
[2022-12-22] MEDS: POTASSIUM CHLORIDE CRTAB 20 MEQ TABCR PO SCH ×2 (09:35→20:34)
--- NOTE | 2022-12-22 17:41 | Hospitalist Progress Note ---
Date of Service December 22, 2022 Assessment & Plan (1) Hypoxia: Plan: Initially encephalopathic due to hypoxia and respiratory failure. Chronic hypercapnia due to untreated MELINA, bacterial pneumonia, polypharmacy, obesity hypoventilation syndrome -This is most likely related to his untreated obstructive sleep apnea and obesity hypoventilation syndrome. Patient found to have gram-positive bacteremia and recommendation for treatment for 2 weeks of therapy with intravenous antibiotics (2) Gram-positive cocci bacteremia: Plan: blood culture positive for Coag negative staph, oxacillin sensitive switched from IV vancomycin to cefazolin Ordered TTE, No vegetation. Infectious disease on board, recommends 2 weeks of total treatment of IV antibiotics from last negative culture which is December 19 Repeat blood cultures ordered by ID. Urine also growing staph. Unclear source at this time urine is only growing 5000 colonies (3) Altered mental status: Plan: -Likely multifactorial including hypercapnia, hypoxia, and polypharmacy; less likely to be an undiagnosed infection as well Resolved -Was recently taken off Tizanidine for oversedation but still on Duloxetine, Methadone, and Lyrica without evidence of encephalopathy at this time Urinalysis is unimpressive for UTI. - (4) Chronic congestive heart failure: Plan: -Appeared dehydrated on exam on admission this heart failure preserved ejection fraction No more dehydrated Resumed Lasix p.o. twice daily with potassium supplements (5) MELINA (obstructive sleep apnea): Plan: -CPAP/Bipap ordered for naps and HS -Patient will need outpatient sleep study if he no longer has a CPAP/Bipap machine at home (6) SILVA (acute kidney injury): Plan: -Cr is 1.17 on admission Resolved -Patient appeared dehydrated on admission, likely due to decreased intake over the past 24 hours and continued diuresis resume Lasix (7) Chronic constipation: Plan: -Continue Colace and Symproic if on formulary Patient asking for lactulose. Ordered. If no improvement continue consider Relistor or oral equivalent at home (8) Chronic prescription opiate use: Plan: -Will continue methadone for now to prevent withdrawal but monitor for oversedation (9) Depression: Plan: -Continue duloxetine (10) H/O: stroke: Plan: -Baseline left sided hemiplegia (11) Hypertension: Plan: -Stable - on losartan (12) Type 2 diabetes mellitus: Plan: -Hold metformin -Monitor BSG q6h until eating consistently, goal is 110-160 -Start 5 units lantus BID -CF of 50 and CR 15 to start -DMII, HH, 2gm Sodium restricted diet -Pharmacy glycemic consult Admission and Anticipated Discharge Date Admission Date: December 15, 2022 Subjective Patient doing well. No evidence of systemic staph infection. Recommendation for 2 total week dose of cefazolin this will be completed on January 01 arrangements for home medications are being accomplished Physical Exam Physical Exam: She is no complaints or problems try to coordinate home care with his daughter who is arriving over the weekend Card exam is distant lungs are clear extremities are with trace edema bilaterally Results & Data Results & Data Vital Signs (Past 12 Hours) Vital Signs Temp Pulse Pulse Resp BP Pulse Ox O2 Del Method 12/22/22 16:01 65 12/22/22 15:54 98.8 F 62 19 126/67 92 Nasal Cannula 12/22/22 11:29 98.4 F 66 19 109/61 90 Room Air 12/22/22 07:57 Room Air 12/22/22 07:51 60 12/22/22 07:50 97.9 F 59 L 19 125/63 95 Nasal Cannula O2 Flow Rate 12/22/22 16:01 12/22/22 15:54 2.0 12/22/22 11:29 12/22/22 07:57 12/22/22 07:51 12/22/22 07:50 2.5 PG Care Time/CCT Total # of Minutes Spent Total Time Spent with Patient: Total time spent is greater than 50% in coordination of care (as documented) at patient's floor/unit and/or counseling patient: Coding Level of Care Code 98445 SUB INP/OBS CARE 1/25MIN Diagnoses Hypoxia R09.02 Gram-positive cocci bacteremia R78.81 Altered mental status R41.82 Chronic congestive heart failure I50.9 MELINA (obstructive sleep apnea) G47.33 SILVA (acute kidney injury) N17.9 Chronic constipation K59.09 Chronic prescription opiate use Z79.891 Depression F32.A H/O: stroke Z86.73 Hypertension I10 Type 2 diabetes mellitus E11.9
[2022-12-22] MEDS: TROLAMINE SALICYLATE 10% CRM 255 APPLN/85 GM TUBE EXT PRN ×2 (19:36→23:39)
[2022-12-22] MEDS: ATORVASTATIN 40 MG TAB PO SCH (20:28)
[2022-12-22] MEDS: TAMSULOSIN HCL 0.4 MG CAP PO SCH (20:28)
[2022-12-22] MEDS: ACETAMINOPHEN 325 MG TAB PO PRN (23:38)
[2022-12-23] MEDS: ceFAZolin 2000MG 2,000 MG/15 ML SYR IV SCH ×3 (00:52→17:44)
[2022-12-23 08:02] LABS: Hematocrit (blood only) 33.6 % (42.0-52.0); Hemoglobin 10.3 g/dl (14.0-18.0); Mean Corpuscular Hemoglobin 26.1 pg (25.0-34.0); Mean Corpuscular Hgb Conc 30.7 g/dL (32.0-36.0); Mean Corpuscular Volume 85.1 fL (80.0-100.0); Mean Platelet Volume 9.3 fL (9.4-12.4); Platelet Count 276 K/uL (130-400); RDW Coefficient of Variation 14.8 % (11.5-14.5); RDW Standard Deviation 45.1 fL (36.4-46.3); Red Blood Count 3.95 M/uL (4.70-6.10); White Blood Count 7.67 K/ul (4.8-10.8)
[2022-12-23 08:17] LABS: BUN Creatinine Ratio 25.8 (10-20); Calcium 8.7 mg/dl (8.6-10.3); Creatinine Clr Calc Pharmacy 162.1 ml/min; Est GFR (African American) 116.5 ml/min; Est GFR (Non-African American) 100.5 ml/min; Potassium 3.8 mmol/L (3.5-5.1)
[2022-12-23] MEDS: DOCUSATE SODIUM/SENNA 50/8.6MG TAB PO SCH (08:24)
[2022-12-23] MEDS: FERROUS SULFATE 325 MG TAB PO SCH (08:25)
[2022-12-23] MEDS: DULoxetine HCL 30 MG CAP PO SCH (08:25)
[2022-12-23] MEDS: DOCUSATE SODIUM SYRUP 100 MG/10 ML UDC PO SCH ×2 (08:25→20:17)
[2022-12-23] MEDS: LACTULOSE SYRUP 20 GM/30 ML UDC PO SCH (08:26)
[2022-12-23] MEDS: LOSARTAN POTASSIUM 50 MG TAB PO SCH (08:26)
[2022-12-23] MEDS: FUROSEMIDE 40 MG TAB PO SCH ×2 (08:26→20:17)
[2022-12-23] MEDS: POLYETHYLENE (MIRALAX) 17 GM PACK PO SCH (08:27)
[2022-12-23] MEDS: PREGABALIN 100 MG CAP PO SCH ×3 (08:27→20:17)
[2022-12-23] MEDS: METHADONE HCL 5 MG TAB PO SCH ×2 (08:27→20:17)
[2022-12-23] MEDS: RIVAROXABAN 10 MG TABLET PO SCH (08:27)
[2022-12-23] MEDS: POTASSIUM CHLORIDE CRTAB 20 MEQ TABCR PO SCH (08:27)
[2022-12-23] MEDS: INSULIN ASPART PER UNIT CHARGE SC SCH ×4 (09:25→20:52)
[2022-12-23] MEDS: LANTUS PER UNIT CHARGE SC SCH ×2 (09:25→20:52)
--- NOTE | 2022-12-23 15:16 | Hospitalist Progress Note ---
Date of Service December 23, 2022 Assessment & Plan (1) Hypoxia: Plan: Initially encephalopathic due to hypoxia and respiratory failure. Chronic hypercapnia due to untreated MELINA, bacterial pneumonia, polypharmacy, obesity hypoventilation syndrome -This is most likely related to his untreated obstructive sleep apnea and obesity hypoventilation syndrome. Patient found to have gram-positive bacteremia and recommendation for treatment for 2 weeks of therapy with intravenous antibiotics no source has been identified (2) Gram-positive cocci bacteremia: Plan: blood culture positive for Coag negative staph, oxacillin sensitive switched from IV vancomycin to cefazolin Ordered TTE, No vegetation. Infectious disease on board, recommends 2 weeks of total treatment of IV antibiotics from last negative culture which is December 19 Repeat blood cultures ordered by ID. Urine also growing staph. Unclear source at this time urine is only growing 5000 colonies (3) Altered mental status: Plan: -Likely multifactorial including hypercapnia, hypoxia, and polypharmacy; less likely to be an undiagnosed infection as well Resolved -Was recently taken off Tizanidine for oversedation but still on Duloxetine, Methadone, and Lyrica without evidence of encephalopathy at this time Urinalysis is unimpressive for UTI. - (4) Chronic congestive heart failure: Plan: -Appeared dehydrated on exam on admission this heart failure preserved ejection fraction No more dehydrated Resumed Lasix p.o. twice daily with potassium supplements (5) MELINA (obstructive sleep apnea): Plan: -CPAP/Bipap ordered for naps and HS -Patient will need outpatient sleep study if he no longer has a CPAP/Bipap machine at home (6) SILVA (acute kidney injury): Plan: -Cr is 1.17 on admission Resolved -Patient appeared dehydrated on admission, likely due to decreased intake over the past 24 hours and continued diuresis resume Lasix (7) Chronic constipation: Plan: -Continue Colace and Symproic if on formulary Patient asking for lactulose. Ordered. If no improvement continue consider Relistor or oral equivalent at home (8) Chronic prescription opiate use: Plan: -Will continue methadone for now to prevent withdrawal but monitor for oversedation (9) Depression: Plan: -Continue duloxetine (10) H/O: stroke: Plan: -Baseline left sided hemiplegia (11) Hypertension: Plan: -Stable - on losartan (12) Type 2 diabetes mellitus: Plan: -Hold metformin -Monitor BSG q6h until eating consistently, goal is 110-160 -Start 5 units lantus BID -CF of 50 and CR 15 to start -DMII, HH, 2gm Sodium restricted diet -Pharmacy glycemic consult Admission and Anticipated Discharge Date Admission Date: December 15, 2022 Subjective Patient doing well. No complaints on 12/23/2022 no evidence of systemic staph infection. Recommendation for 2 total week dose of cefazolin this will be completed on January 01 arrangements for home medications are being accomplished this for discharge 12/24 Physical Exam Physical Exam: She is no complaints or problems try to coordinate home care with his daughter who is arriving over the weekend Card exam is distant lungs are clear extremities are with trace edema bilaterally Results & Data Results & Data Vital Signs (Past 12 Hours) Vital Signs Temp Pulse Pulse Resp BP Pulse Ox O2 Del Method 12/23/22 12:23 98.2 F 58 L 18 107/51 L 95 Nasal Cannula 12/23/22 07:46 98.6 F 54 L 18 146/71 H 96 Nasal Cannula 12/23/22 07:49 54 L 12/23/22 03:23 98.4 F 54 L 16 150/71 H 88 L Nasal Cannula O2 Flow Rate 12/23/22 12:23 2 12/23/22 07:46 2 12/23/22 07:49 12/23/22 03:23 2 Laboratory Results Reviewed CBC reviewed chemistry PG Care Time/CCT Total # of Minutes Spent Total Time Spent with Patient: Total time spent is greater than 50% in coordination of care (as documented) at patient's floor/unit and/or counseling patient: Coding Level of Care Code 79426 SUB INP/OBS CARE 1/25MIN Diagnoses Hypoxia R09.02 Gram-positive cocci bacteremia R78.81 Altered mental status R41.82 Chronic congestive heart failure I50.9 MELINA (obstructive sleep apnea) G47.33 SILVA (acute kidney injury) N17.9 Chronic constipation K59.09 Chronic prescription opiate use Z79.891 Depression F32.A H/O: stroke Z86.73 Hypertension I10 Type 2 diabetes mellitus E11.9
[2022-12-23] MEDS: TAMSULOSIN HCL 0.4 MG CAP PO SCH (20:17)
[2022-12-23] MEDS: ATORVASTATIN 40 MG TAB PO SCH (20:17)
[2022-12-23] MEDS: TROLAMINE SALICYLATE 10% CRM 255 APPLN/85 GM TUBE EXT PRN (20:56)
[2022-12-24] MEDS: ACETAMINOPHEN 325 MG TAB PO PRN ×2 (00:23→22:29)
[2022-12-24] MEDS: ceFAZolin 2000MG 2,000 MG/15 ML SYR IV SCH ×3 (02:05→17:14)
[2022-12-24 07:30] LABS: Hematocrit (blood only) 34.6 % (42.0-52.0); Hemoglobin 10.4 g/dl (14.0-18.0); Mean Corpuscular Hemoglobin 26.1 pg (25.0-34.0); Mean Corpuscular Hgb Conc 30.1 g/dL (32.0-36.0); Mean Corpuscular Volume 86.7 fL (80.0-100.0); Mean Platelet Volume 9.8 fL (9.4-12.4); Platelet Count 303 K/uL (130-400); RDW Coefficient of Variation 15.1 % (11.5-14.5); RDW Standard Deviation 47.4 fL (36.4-46.3); Red Blood Count 3.99 M/uL (4.70-6.10); White Blood Count 8.05 K/ul (4.8-10.8)
[2022-12-24 07:31] LABS: BUN Creatinine Ratio 25.4 (10-20); Calcium 8.7 mg/dl (8.6-10.3); Creatinine Clr Calc Pharmacy 159.6 ml/min; Est GFR (African American) 115.7 ml/min; Est GFR (Non-African American) 99.8 ml/min; Potassium 3.7 mmol/L (3.5-5.1)
[2022-12-24] MEDS: DOCUSATE SODIUM/SENNA 50/8.6MG TAB PO SCH (08:16)
[2022-12-24] MEDS: DULoxetine HCL 30 MG CAP PO SCH (08:17)
[2022-12-24] MEDS: DOCUSATE SODIUM SYRUP 100 MG/10 ML UDC PO SCH ×2 (08:17→20:49)
[2022-12-24] MEDS: FUROSEMIDE 40 MG TAB PO SCH ×2 (08:17→20:50)
[2022-12-24] MEDS: FERROUS SULFATE 325 MG TAB PO SCH (08:17)
[2022-12-24] MEDS: POLYETHYLENE (MIRALAX) 17 GM PACK PO SCH ×2 (08:18→09:18)
[2022-12-24] MEDS: PREGABALIN 100 MG CAP PO SCH ×3 (08:18→20:50)
[2022-12-24] MEDS: LOSARTAN POTASSIUM 50 MG TAB PO SCH (08:18)
[2022-12-24] MEDS: LACTULOSE SYRUP 20 GM/30 ML UDC PO SCH (08:18)
[2022-12-24] MEDS: METHADONE HCL 5 MG TAB PO SCH ×2 (08:18→20:48)
[2022-12-24] MEDS: RIVAROXABAN 10 MG TABLET PO SCH (08:19)
[2022-12-24] MEDS: INSULIN ASPART PER UNIT CHARGE SC SCH ×4 (09:12→20:44)
[2022-12-24] MEDS: LANTUS PER UNIT CHARGE SC SCH ×2 (09:12→20:46)
--- NOTE | 2022-12-24 15:56 | Hospitalist Progress Note ---
Date of Service December 24, 2022 Assessment & Plan (1) Hypoxia: Plan: Initially encephalopathic due to hypoxia and respiratory failure. Chronic hypercapnia due to untreated MELINA, bacterial pneumonia, polypharmacy, obesity hypoventilation syndrome -This is most likely related to his untreated obstructive sleep apnea and obesity hypoventilation syndrome. Patient found to have gram-positive bacteremia and recommendation for treatment for 2 weeks of therapy with intravenous antibiotics no source has been identified (2) Gram-positive cocci bacteremia: Plan: blood culture positive for Coag negative staph, oxacillin sensitive switched from IV vancomycin to cefazolin Ordered TTE, No vegetation. Infectious disease on board, recommends 2 weeks of total treatment of IV antibiotics from last negative culture which is December 19 Repeat blood cultures ordered by ID. Urine also growing staph. Unclear source at this time urine is only growing 5000 colonies (3) Altered mental status: Plan: -Likely multifactorial including hypercapnia, hypoxia, and polypharmacy; less likely to be an undiagnosed infection as well Resolved -Was recently taken off Tizanidine for oversedation but still on Duloxetine, Methadone, and Lyrica without evidence of encephalopathy at this time Urinalysis is unimpressive for UTI. - (4) Chronic congestive heart failure: Plan: -Appeared dehydrated on exam on admission this heart failure preserved ejection fraction No more dehydrated Resumed Lasix p.o. twice daily with potassium supplements (5) MELINA (obstructive sleep apnea): Plan: -CPAP/Bipap ordered for naps and HS -Patient will need outpatient sleep study if he no longer has a CPAP/Bipap machine at home (6) SILVA (acute kidney injury): Plan: -Cr is 1.17 on admission Resolved -Patient appeared dehydrated on admission, likely due to decreased intake over the past 24 hours and continued diuresis resume Lasix (7) Chronic constipation: Plan: -Continue Colace and Symproic if on formulary Patient asking for lactulose. Ordered. If no improvement continue consider Relistor or oral equivalent at home (8) Chronic prescription opiate use: Plan: -Will continue methadone for now to prevent withdrawal but monitor for oversedation (9) Depression: Plan: -Continue duloxetine (10) H/O: stroke: Plan: -Baseline left sided hemiplegia (11) Hypertension: Plan: -Stable - on losartan (12) Type 2 diabetes mellitus: Plan: -Hold metformin -Monitor BSG q6h until eating consistently, goal is 110-160 -Start 5 units lantus BID -CF of 50 and CR 15 to start -DMII, HH, 2gm Sodium restricted diet -Pharmacy glycemic consult Admission and Anticipated Discharge Date Admission Date: December 15, 2022 Subjective Patient doing well. No complaints on 12/23/2022 no evidence of systemic staph infection. Recommendation for 2 total week dose of cefazolin this will be completed on January 01 arrangements for home medications are being accomplished this for discharge 12/24 Physical Exam Physical Exam: She is no complaints or problems try to coordinate home care with his daughter who is arriving over the weekend Card exam is distant lungs are clear extremities are with trace edema bilaterally Results & Data Results & Data Vital Signs (Past 12 Hours) Vital Signs Temp Pulse Pulse Resp BP Pulse Ox O2 Del Method 12/24/22 15:17 97.9 F 58 L 18 109/68 96 Nasal Cannula 12/24/22 07:46 60 12/24/22 10:39 Nasal Cannula 12/24/22 07:56 97.7 F 53 L 18 147/60 H 98 Room Air O2 Flow Rate 12/24/22 15:17 2 12/24/22 07:46 12/24/22 10:39 2 12/24/22 07:56 2 Laboratory Results Reviewed CBC reviewed chemistry PG Care Time/CCT Total # of Minutes Spent Total Time Spent with Patient: Total time spent is greater than 50% in coordination of care (as documented) at patient's floor/unit and/or counseling patient: Coding Level of Care Code 02371 SUB INP/OBS CARE 1/25MIN Diagnoses Hypoxia R09.02 Gram-positive cocci bacteremia R78.81 Altered mental status R41.82 Chronic congestive heart failure I50.9 MELINA (obstructive sleep apnea) G47.33 SILVA (acute kidney injury) N17.9 Chronic constipation K59.09 Chronic prescription opiate use Z79.891 Depression F32.A H/O: stroke Z86.73 Hypertension I10 Type 2 diabetes mellitus E11.9
[2022-12-24] MEDS: TROLAMINE SALICYLATE 10% CRM 255 APPLN/85 GM TUBE EXT PRN (18:02)
[2022-12-24] MEDS: TAMSULOSIN HCL 0.4 MG CAP PO SCH (20:49)
[2022-12-24] MEDS: ATORVASTATIN 40 MG TAB PO SCH (20:49)
[2022-12-25] MEDS: ceFAZolin 2000MG 2,000 MG/15 ML SYR IV SCH ×2 (00:25→08:31)
[2022-12-25 07:19] LABS: BUN Creatinine Ratio 24.2 (10-20); Calcium 8.8 mg/dl (8.6-10.3); Creatinine Clr Calc Pharmacy 161.8 ml/min; Est GFR (African American) 116.5 ml/min; Est GFR (Non-African American) 100.5 ml/min; Potassium 3.6 mmol/L (3.5-5.1)
[2022-12-25] MEDS: DULoxetine HCL 30 MG CAP PO SCH (08:17)
[2022-12-25] MEDS: RIVAROXABAN 10 MG TABLET PO SCH (08:17)
[2022-12-25] MEDS: LACTULOSE SYRUP 20 GM/30 ML UDC PO SCH (08:17)
[2022-12-25] MEDS: FUROSEMIDE 40 MG TAB PO SCH (08:17)
[2022-12-25] MEDS: LOSARTAN POTASSIUM 50 MG TAB PO SCH (08:17)
[2022-12-25] MEDS: DOCUSATE SODIUM/SENNA 50/8.6MG TAB PO SCH (08:17)
[2022-12-25] MEDS: DOCUSATE SODIUM SYRUP 100 MG/10 ML UDC PO SCH (08:17)
[2022-12-25] MEDS: FERROUS SULFATE 325 MG TAB PO SCH (08:17)
[2022-12-25] MEDS: POLYETHYLENE (MIRALAX) 17 GM PACK PO SCH (08:18)
[2022-12-25] MEDS: METHADONE HCL 5 MG TAB PO SCH (08:21)
[2022-12-25] MEDS: PREGABALIN 100 MG CAP PO SCH (08:22)
[2022-12-25] MEDS: INSULIN ASPART PER UNIT CHARGE SC SCH ×2 (08:25→12:48)
[2022-12-25] MEDS: LANTUS PER UNIT CHARGE SC SCH (08:25)
--- NOTE | 2022-12-25 10:59 | Pharmacy Report ---
Pharmacy Glycemic Short Note 2 - Date of Service December 25, 2022 - Glycemic Short BSG Results (Last 24 hours): 12/24/22 12/24/22 12/24/22 11:56 16:31 20:29 Glucose POC Glucose 149 H 144 H 157 H 12/25/22 12/25/22 06:04 07:59 Glucose 130 H POC Glucose 126 H OUTPATIENT ANTIDIABETIC REGIMEN: * Metformin 500 mg PO BIDM * HbA1c: 6.7% (06/30/22), 9.3% 12/16/22 ASSESSMENT: 12/25 * BSGs yesterday were [phone] mg/dL. Patient received 53 units of insulin (10 units of basal and 43 units of bolus). * Fasting today is 130 mg/dL. * Continue current regimen. No change in regimen since 12/20. 12/21: * Bryson received 32 units of insulin yesterday of which 20 were basal * Fasting BSG this AM within goal range, continue current basal regimen, * BSGs mostly within goal range, correction factor slightly tightened yesterday * Lunchtime BSG significantly elevated today, will monitor and consider tighter carb coverage if continually elevated. * Antibiotics changed to Ancef, no additional stressors noted at this time 12/17: * Bryson received 29 units of insulin yesterday, 10 units basal + 19 units bolus. BSGs were: [phone] mg/dL. * BSGs are just slightly above goal. Abx were changed to Vancomycin today due to Staph species growing in the blood. No other change to stressors. * Will tighten carb ratio slightly this morning in an attempt to have BSGs in goal range. 12/16: * TYSHAWN is a 72 year old male who presented to ED with altered mental status (believed to be multifactorial in nature) * BSGs have been relatively well-controlled thus far this admission, ranging 135-162 mg/dL * Will start conservative SC basal/bolus regimen for now * Receiving ceftriaxone/azithromycin for pulm coverage PLAN FOR INPATIENT GLYCEMIC CONTROL: * Hold outpatient oral diabetes medications * Basal insulin * Lantus 5 units SC BID * Bolus insulin * NovoLog per scale ACHS or Q6hrs while NPO * Goal Range: Low 110 mg/dL - High 140 mg/dL * Correction Factor: 25 mg/dL/unit * Nutritional / Prandial insulin per carb ratio of 1 unit per 8 grams CHO consumed
--- NOTE | 2022-12-25 14:08 | Discharge Summary ---
Date of Service December 25, 2022 Admission HPI Per Admitting Provider Bryson is a 72 year old male with a PMH significant for prior CVA and left sided weakness, MELINA, chronic hypoxic respiratory failure on prn Oxygen, HFpEF, chronic LE edema, chronic opioid use, HTN, CAD, DMII, staghorn calculi, and morbid obesity who presented to the [facility] ED on 12/15 via EMS due to increased hypoxia per his home health aid. In the ED he was noted to be stable on 2L NS and mildly hypotensive at 98/78. Labs were significant for a leukocytosis of 12, hgb of 10 (down from 12 as of 07/06), INR of 1.2, ABG pH of 7.36, pCO2 of 67, pO2 of 94, Bicarb of 38, Cr. of 1.17 (baseline 0.59), BUN of 31, bicarb of 34, initial lactate of 2.6 with repeat of 2.2 and negative full respiratory biofire. CT of the head was negative for acute findings. Chest xray was read as "Cardiomegaly with evidence of congestive failure.". At the time of the exam the patient was lying in bed in no acute distress, currently with Bipap in place at 20/5 and 24% FiO2. History was limited due to the patient's baseline mental status and the bipap mask. He states he hasn't been feeling well but cannot give further details. He nods, yes, when asked if his breathing has been worse recently. He denies chest pain, abd pain, nausea, vomiting, diarrhea, dysuria, hematuria, melena, and diarrhea. I was able to call and speak with his Daughter (Jennifer), and lead home health aid (Kylie ) to obtain more information. The patient has been dealing with multiple infections over the past month. Per review of his recent prescriptions, he day course of Doxycycline starting on 11/23 for UTI. He then developed upper respiratory symtpoms including cough, congestion, and green sputum production. He recently completed a 7 day course of Levaquin from 12/06- 12/13. They state that the patient has had some medication adjustments recently. His Duloxetine was decreased from 90 mg daily to 30 mg due to increased fatigue. He was started on TID Tizanidine earlier this week, however, this made him significant more tired so this has been stopped. Over the past 24-48 hours he has been more fatigued and his oxygen saturations have been in the mid 80's. He does use PRN oxygen but that state that he only uses it when he feels significantly SOB. He was previously on HS CPAP/Bipap for MELINA. When I asked the patient why this was stopped he states "because I passed the test", I believe he is referring to his last admission when he had a Noc Ox study performed. However, it does not appear that he had a repeat outpatient sleep study performed. Today his weekend home health aid found him to be even more tired and confused, he is normally alert and oriented at baseline. His SpO2 was reportedly in the 60's on RA and he was placed on 2L NC. His daughter states that the patient is very stubborn in regards to using his Oxygen. He should use it much more frequently but often refuses it. His Daughter and POA confirm that this presentation for the patient is very similar to previous admissions when He did not improve cognitively on the oxygen which is why EMS was called. They confirm that he is a full code, his children are his POA's. Please refer to Dr. Soriano's attestation for any changes to the treatment plan Principal Diagnosis coag negative staph bacteremia functional parapelegia Discharge Exam pt is stable awake and alert Discharge Data Allergies Allergy/AdvReac Type Severity Reaction Status Date / Time Penicillins Allergy Unknown Verified 06/29/22 22:41 Consultations 12/15/22 13:34 ED Decision to Admit Stat 12/17/22 09:25 Consult Infectious Diseases Routine Ordered Studies 12/15/22 10:53 CT head/brain wo con Stat Diabetes Follow up Diabetes Follow-up Needed for HgbA1c >9% Hospital Course (1) Hypoxia: Initially encephalopathic due to hypoxia and respiratory failure. Chronic hypercapnia due to untreated MELINA, bacterial pneumonia, polypharmacy, obesity hypoventilation syndrome -This is most likely related to his untreated obstructive sleep apnea and obesity hypoventilation syndrome. Patient found to have gram-positive bacteremia and recommendation for treatment for 2 weeks of therapy with intravenous antibiotics no source has been identified (2) Gram-positive cocci bacteremia: blood culture positive for Coag negative staph, oxacillin sensitive switched from IV vancomycin to cefazolin Ordered TTE, No vegetation. Infectious disease on board, recommends 2 weeks of total treatment of IV antibiotics from last negative culture which is December 19 Repeat blood cultures ordered by ID negative at the time of discharge Urine also growing staph. Unclear source at this time urine is only growing 5000 colonies (3) Altered mental status: -Likely multifactorial including hypercapnia, hypoxia, and polypharmacy; less likely to be an undiagnosed infection as well Resolved -Was recently taken off Tizanidine for oversedation but still on Duloxetine, Methadone, and Lyrica without evidence of encephalopathy at this time Urinalysis is unimpressive for UTI. - (4) Chronic congestive heart failure: -Appeared dehydrated on exam on admission this heart failure preserved ejection fraction No more dehydrated Resumed Lasix p.o. twice daily with potassium supplements (5) MELINA (obstructive sleep apnea): -CPAP/Bipap ordered for naps and HS -Patient will need outpatient sleep study if he no longer has a CPAP/Bipap machine at home (6) SILVA (acute kidney injury): -Cr is 1.17 on admission Resolved -Patient appeared dehydrated on admission, likely due to decreased intake resume Lasix (7) Chronic constipation: Patient taking lactulose at home (8) Chronic prescription opiate use: -Will continue methadone for now to prevent withdrawal but monitor for oversedation (9) Depression: -Continue duloxetine (10) H/O: stroke: -Baseline left sided hemiplegia (11) Hypertension: -Stable - on losartan (12) Type 2 diabetes mellitus: -resume metformin -Monitor BSG q6h until eating consistently, goal is 110-160 -will need pcp follow up for discussion of diabetic care with elevated hgb a1c during stay Total Time Total Time Spent Total Time Spent (In Minutes): it required greater than 30 minutes to prepare this patient for discharge Discharge Plan Discharge Items Patient Disposition: Home - Home Health Services Reason For Visit: HYPOXIA, CONFUSION Discharge Diagnosis: bacteria in blood stream Activity: Resume your previous activity Non-emergency contact: Primary Care Provider Call non-emergency contact if: your symptoms worsen Follow-up/Referrals: PCP,NO [Primary Care Provider] - Diet: Carb Consistent or DM2 Addtl Attending Provider Instructions: please complete your antibiotics and have follow up with your primary care provider use lactulose for constipation good attention to skin care Pending Studies at Discharge: No Stand-Alone Forms: My [facility], Smoking Cessation Medications and DC Order Prescriptions: New cefazolin 2 gram recon soln 2 g IV Q8H Qty: 25 0RF Continued atorvastatin 40 mg tablet 40 mg PO HS duloxetine 30 mg capsule,delayed release(DR/EC) 30 mg PO QAM tamsulosin 0.4 mg capsule 0.4 mg PO HS losartan 100 mg tablet 100 mg PO QAM metformin 500 mg tablet 500 mg PO BID potassium chloride 10 mEq capsule, extended release 10 meq PO .NOON pregabalin 200 mg capsule 200 mg PO TID Xarelto 10 mg tablet 10 mg PO QAM Hold Instructions: please discuss risks vs benefits, pros & cons, of using this medication chronically with your family doctor (DME) Oxygen Home Liters Per Minute See Rx Instructions .ROUTE .MEDSUPPLY Qty: 1 0RF Rx Instructions: 2 liters NC O2 with sleep/naps. docusate sodium 50 mg Tablet 50 mg PO BID ferrous sulfate 325 mg (65 mg iron) tablet 325 mg PO QAM Symproic 0.2 mg tablet 0.2 mg PO QAM furosemide 40 mg tablet 40 mg PO .QAM & NOON methadone 5 mg tablet 5 mg PO BID Rx Instructions: note the increased frequency Discharge Orders: Discharge Order (Routine); Ordered 12/25/22 Ordered By: Bo Juarez/Other Patient Handouts: Managing Type 2 Diabetes Admission Data Admit Date/Time: 12/15/22 13:50 Attending Provider: Bo Gregory Admit Provider: Raymond Soriano Primary Care Provider: PCP,NO Other Providers: [facility],Home Healthcare ; Raymond Soriano ; Lacy Yip Other Interventions: Discharge Summary Assessment (RN) Last Done: 12/25/22 13:29 Coding Level of Care Code 93453 INP/OBS DISCH >30 MIN Diagnoses Hypoxia R09.02 Gram-positive cocci bacteremia R78.81 Altered mental status R41.82 Chronic congestive heart failure I50.9 MELINA (obstructive sleep apnea) G47.33 SILVA (acute kidney injury) N17.9 Chronic constipation K59.09 Chronic prescription opiate use Z79.891 Depression F32.A H/O: stroke Z86.73 Hypertension I10 Type 2 diabetes mellitus E11.9
== END 2022-12-25 14:16 | disposition home health service (06) | DRG 189 ==
LOC: ED 10:20 → SUATTDRO 13:50 → 4W 13:50